=== PATIENT | female | born 1940 | race Caucasian/White ===

== ENCOUNTER 2020-02-22 14:40 | Observation (INO) | payer OTHER, MEDICARE, SELFPAY ==
[2020-02-22] VITALS (8 sets, daily range): BP systolic 128–182; BP diastolic 58–82; PULSE 65–85; RESP 16–18; TEMP 36.1–36.9; O2SAT 96–99
--- NOTE | ~2020-02-22 | US_ITS ---
EXAMINATION: US venous doppler [facility] DATE: 02/23/2020 09:34 INDICATION: Lower limb swelling. TECHNIQUE: Grayscale ultrasound images without and with compression and Doppler ultrasound images of the bilateral lower extremity veins were obtained. COMPARISON: None. FINDINGS: The visualized portions of right common femoral vein, profunda (deep) femoral vein, femoral vein, pop liteal vein, peroneal veins, posterior tibial veins, and greater saphenous vein outflow are patent. The visualized portions of left common femoral vein, profunda femoral vein, femoral vein, popliteal v ein, peroneal veins, posterior tibial veins, and greater saphenous vein outflow are patent. IMPRESSION: 1. No deep venous thrombosis. Reviewed, dictated and finalized at location A.
--- NOTE | 2020-02-22 14:48 | ECG_ITS ---
Measurements Intervals [place] Rate: 79 P: 95 NH: 308 QRS: -51 QRSD: 149 T: 118 QT: 391 QTc: 451 Interpretive Statements SINUS RHYTHM WITH FIRST DEGREE AV BLOCK LEFT AXIS DEVIATION LEFT BUNDLE BRANCH BLOCK ABNORMAL ECG Electronically Signed On 02-22-2020 15:30:57 CDT by Dannie Nance D.O.
--- NOTE | 2020-02-22 15:09 | ED.GENADULT ---
HPI - General Adult General Chief complaint: Syncope Stated complaint: laceration right wrist Time Seen by Provider: 02/22/20 14:42 Source: patient Mode of arrival: ambulatory Limitations: no limitations History of Present Illness HPI narrative: Patient is an 79-year-old female who presents to emergency department for evaluation of syncopal episode that occurred just prior to arrival patient notes she was bending over to give a urinalysis and has difficulty with bending over and often became become dizzy and sustained a brief syncopal episode. Patient sustained a skin tear to the dorsal surface of the right hand. Patient was only down for short period. Patient is also noting that she had just had an ABG. Patient with history of leukemia receiving no treatments at this time followed by oncology and primary care. Patient on arrival noting no pain no complaints. Patient notes she was just recently treated for urinary tract infection and believes she may still have 1 with burning with urination Related Data Allergies Allergy/AdvReac Type Severity Reaction Status Date / Time codeine Allergy Unknown tachycardia Verified 02/08/20 09:57 morphine Allergy Unknown tachycardia Verified 02/08/20 09:57 Review of Systems Review of Systems: All systems reviewed & are unremarkable except as noted in HPI and below PMFSH Past Medical History Medical History Bladder disease Chronic lymphocytic leukemia Chronic pain of left knee CKD (chronic kidney disease) Elevated glucose level Essential hypertension HLD (hyperlipidemia) Hypothyroidism Leukemia Family History Family History (Updated 08/10/19 @ 08:06 by Alondra Gastelum [facility]) Father Asthma Mother Family history of heart disease in male family member before age 55 Cerebrovascular accident Other Diabetes mellitus Family history of arthritis Hypertension Social History Social History Smoking status: Former smoker Second hand tobacco smoke exposure: No Smoking end date: 09/20/77 Alcohol intake: never Gender identity (if verbalized by the patient): Female Exam Narrative: Exam Narrative: GENERAL: Well-appearing, well-nourished, and in no acute distress. HEAD: Normocephalic, atraumatic. EYES: PERRLA and EOMI. ENT: Nares clear, no rhinorrhea or epistaxis. Mucous membranes moist. Oropharynx without tonsillar hypertrophy exudate or other lesions. NECK: Supple. No adenopathy or masses. CHEST: Clear to auscultation. No respiratory distress. No wheezes rales or rhonchi HEART: Regular rate and rhythm. No murmur heard. Normal peripheral pulses. ABDOMEN: Soft, nontender, nondistended EXTREMITIES: Normal range of motion. 1+ edema to the bilateral lower extremities. no cervical thoracic or lumbar tenderness SKIN: Warm, dry, no rash. Superficial linear skin tear to the dorsal surface of the right hand NEURO: No focal deficits. Alert and oriented x3. Cranial nerves II through XII grossly intact. Neurovascularly intact PSYCH: Normal mood and affect. Course Course Emergency Course: Patient and family aware of case findings treatment plan and diagnosis Consultations Consultation #1: Discussed case with hospitalist who is agreed to accept the patient Date: 02/22/20 Time: 17:11 Vital Signs Vital signs: Vital Signs Temperature 97.0 F L 02/22/20 14:41 Pulse Rate 71 02/22/20 14:41 Respiratory Rate 18 02/22/20 14:41 Blood Pressure 182/63 H 02/22/20 14:41 Pulse Oximetry 99 02/22/20 14:41 Temperature 97.0 F L 02/22/20 14:41 Pulse Rate 71 02/22/20 14:41 Respiratory Rate 18 02/22/20 14:41 Blood Pressure 182/63 H 02/22/20 14:41 Pulse Oximetry 99 02/22/20 14:41 Medical Decision Making MDM Narrative Medical decision making narrative: Patient in the room in no distress aware of case findings treatment plan and diagnosis agreeing t
[2020-02-22 15:20] LABS: Hematocrit 35.4 % (37.0-47.0); Hemoglobin 10.9 g/dL (12.0-15.0); Immature Platelet Fraction Pct 1.6 % (0.9-11.2); Mean Corpuscular HGB Conc 30.8 g/dl (32-36); Mean Corpuscular Hemoglobin 29.8 pg (26-34); Mean Corpuscular Volume 96.7 fl (80-100); Mean Platelet Volume 10.4 fl (7.4-10.4); Platelet Count Result 131 k/mm3 (150-375); Red Blood Count 3.66 M/mm3 (4.2-5.4); Red Cell Distribution Width 15.9 % (11.5-14.5); White Blood Count 18.8 K/mm3 (4.5-10.0)
[2020-02-22 15:30] LABS: Alanine Aminotransferase 10 U/L (4-35); Alkaline Phosphatase 108 U/L (38-126); Aspartate Amino Transferase 26 U/L (14-36); Bilirubin,Total 0.4 mg/dL (0.2-1.3)
[2020-02-22 15:31] LABS: Blood Urea Nitrogen 23 mg/dL (7-17); Calcium 8.8 mg/dL (8.4-10.2); Carbon Dioxide 27 mmol/L (22-30); Chloride 103 mmol/L (98-107); Estimated CRCL calculation 44 ml/min; Estimated Glomerular Filt Rate 53; Glucose 107 mg/dL (65-105); Potassium 4.4 mmol/L (3.4-5.0); Sodium 136 mmol/L (137-145)
[2020-02-22 15:42] LABS: INR 0.9; Prothrombin Time 12.1 Seconds (11.1-14.7); Troponin I < 0.012 ng/mL (0.000-0.034)
[2020-02-22 15:43] LABS: Lymphocytes Absolute Manual 17.29 K/mm3 (1.1-4.5); Lymphocytes Percent Manual 92 % (18-44); Monocytes Absolute Manual 0.56 K/mm3 (0.1-0.90); Monocytes Percent Manual 3 % (3-9); Neutrophils Percent Manual 5 % (46-73); Total Cells Counted 100
[2020-02-22 15:44] LABS: Atypical Lymphocytes Present; Ovalocytes 1+ (NORMAL); Platelet Estimate Decreased (Adequate); Smudge Cells MANY
[2020-02-22 15:45] LABS: Partial Thromboplastin Time 23.6 SECONDS (22.3-36.8)
[2020-02-22] MEDS: SODIUM CHLORIDE 0.9% IV 500 ML 999 ML IV CONT (15:58)
[2020-02-22 15:59] LABS: Add Urine Microscopic? YES; Appearance Urine Cloudy (Clear); Bacteria Urine Trace /hpf; Bilirubin Urine Negative (Negative); Blood Urine 1+ (Negative); Color Urine Yellow (Yellow); Glucose Urine UA Negative (Negative); Ketones Urine Negative (Negative); Leukocyte Esterase Ur 3+ LEU/UL (Negative); Mucus Urine Rare /lpf; Nitrate Urine Negative (Negative); Protein Urine 1+ mg/dL (Negative); Specific Grav Ur 1.014 (1.001-1.035); Squamous Epithelial Cell Urine Moderate /hpf (Few); Urobilinogen Urine Negative mg/dL (<2.0); WBC Urine >75 /hpf
--- NOTE | 2020-02-22 17:55 | ADMGEN ---
This patient, Nikky Urena, was admitted to Medical Room 347-. Patient/family oriented to hospital policies and general routines including ID bracelet, bed and alarms, visiting hours, pain management, procedures, bathroom and other care routines, personal items, smoking policy, room service/diet, and visiting hours. Valuables list has been completed. Information on how to activate the Rapid Response Team has been discussed. Patient/Family are encouraged to report perceived risks to care and to ask questions if they do not understand what they are told or what they should do.
[2020-02-22] MEDS: LACTATED RINGERS 1,000 ML 75 ML IV CONT (18:34)
--- NOTE | 2020-02-22 21:30 | PM.IMHP ---
H&P: HPI History of Present Illness Chief complaint: Fall, questionable syncope. Narrative: Nikky Urena is an 79-year-old female with hypertension, hyperlipidemia, CLL, and history of recurrent urinary tract infections who presented to the emergency department earlier today via private vehicle for evaluation after a fall and possible syncopal episode. She was treated for a urinary tract infection recently, finishing her antibiotic just several days ago. Unfortunately, she continues to have dysuria and urinary incontinence. After speaking with her primary care provider, she was sent to give another urine specimen and to have some lab work drawn. She had difficulties leading forward when trying to catch the urine in the specimen container, and she reports that she fell forward due to losing her balance. She scraped the dorsum of her right hand on the toilet seat, and screamed for help as it started to bleed immediately. He she then began to feel lightheaded/dizzy and may have briefly lost consciousness. She did not fall to the floor, however. She has no other complaints and specifically denies fever, chills, sweats, nausea, vomiting, and diarrhea. No chest pain, pleuritic pain, palpitations, or shortness of breath. Review of Systems Review of Systems: Narrative: Twelve systems were reviewed with pertinent positives and negatives as per HPI. No cold or flu symptoms. She denies cough and shortness of breath. No history of venous thromboembolism. She has chronic lower extremity edema, right foot > left, due to previous fracture and surgical fixation. No history of congestive heart failure or obstructive sleep apnea. Except as documented, all other systems were reviewed and are negative. [facility] Past Medical History Medical History (Updated 02/22/20 @ 23:40 by Elma Alarcon PA-C) Chronic lymphocytic leukemia Chronic pain of left knee Essential hypertension Hyperlipidemia Hypothyroidism Surgical History Surgical History (Updated 02/22/20 @ 23:35 by Elma Alarcon PA-C) History of ankle surgery (~1999) Right ankle ORIF with hardware. History of bladder surgery History of cholecystectomy History of hysterectomy History of lumbar surgery Family History Family History Father Asthma Mother Family history of heart disease in male family member before age 55 Cerebrovascular accident Other Diabetes mellitus Family history of arthritis Hypertension Social History Social History (Updated 02/22/20 @ 23:36 by Elma Alarcon PA-C) Social History: The patient lives in [place] with her daughter and her family. She has been for 16 years. She grew up in [place] but was raised in [place]. She and her lived in [place] for about 34 years before they retired, and then they moved to this region to be closer to their 2 children. In total, she has 6 children. She smoked up to 3 packs of cigarettes per day for many years and quit 1973. She denies alcohol and illicit substance use. She designates her child, Caity Urena, as her surrogate decision maker and she wishes to be a full code. Spiritual care concerns: No Meds Home Medications and Allergies Home Medications Medication Instructions Recorded Confirmed Type lisinopril 20 mg tablet 20 mg PO DAILY #90 tablet 09/29/19 02/22/20 Rx simvastatin 40 mg tablet 40 mg PO DAILY #90 tablet 09/29/19 02/22/20 Rx aspirin 81 mg PO DAILY 02/22/20 02/22/20 History cholecalciferol (vitamin D3) 1,250 1,250 mcg PO MONTHLY #8 tablet 02/22/20 02/22/20 Rx mcg (50,000 unit) tablet fluticasone propionate 50 1 spray NASAL Q12H #18.2 ml 02/22/20 02/22/20 Rx mcg/actuation nasal spray,suspension Allergies Allergy/AdvReac Type Severity Reaction Status Date / Time codeine Allergy Unknown tachycardia Verified 02/22/20 18:03 morphine Allergy Unknown tachycardia Verified 02/22/20 18:03
[2020-02-22] MEDS: FAMOTIDINE 20 MG/2 ML VIAL IV PUSH (22:45)
[2020-02-23] VITALS (7 sets, daily range): BP systolic 109–159; BP diastolic 48–60; PULSE 57–73; RESP 16–18; TEMP 36.1–36.5; O2SAT 97–98
[2020-02-23 05:38] LABS: Hematocrit 30.7 % (37.0-47.0); Hemoglobin 9.3 g/dL (12.0-15.0); Immature Platelet Fraction Pct 1.5 % (0.9-11.2); Mean Corpuscular HGB Conc 30.3 g/dl (32-36); Mean Corpuscular Hemoglobin 29.4 pg (26-34); Mean Corpuscular Volume 97.2 fl (80-100); Mean Platelet Volume 10.4 fl (7.4-10.4); Platelet Count Result 117 k/mm3 (150-375); Red Blood Count 3.16 M/mm3 (4.2-5.4); Red Cell Distribution Width 15.9 % (11.5-14.5); White Blood Count 16.5 K/mm3 (4.5-10.0)
[2020-02-23 05:57] LABS: Blood Urea Nitrogen 21 mg/dL (7-17); Calcium 8.4 mg/dL (8.4-10.2); Carbon Dioxide 30 mmol/L (22-30); Chloride 107 mmol/L (98-107); Estimated CRCL calculation 54 ml/min; Estimated Glomerular Filt Rate > 60; Glucose 97 mg/dL (65-105); Potassium 4.4 mmol/L (3.4-5.0); Sodium 137 mmol/L (137-145)
[2020-02-23] MEDS: lisinopriL 20 MG TABLET PO (11:29)
[2020-02-23] MEDS: FLUTICASONE PROPIONATE 0.05% NA SPR 16 GM BTL (*BKC) 1 SPRAY NASAL ×2 (11:29→20:21)
[2020-02-23] MEDS: SIMVASTATIN 20 MG TABLET 40 MG PO (11:29)
[2020-02-23] MEDS: ASPIRIN 81 MG CHEWABLE TABLET PO (11:29)
--- NOTE | 2020-02-23 13:27 | PM.IMPN ---
Progress Note: A&P Assessment and Plan (1) Urinary tract infection: Code(s): N39.0 - Urinary tract infection, site not specified Status: Acute Assessment and Plan: Recurrent UTIs. Spoke with patient's PCP today; patient will likely get referral to Urology as outpatient once discharge Continue Rocephin Await UCx with sensitivities; tailor antibiotics Monitor (2) Syncope: Code(s): R55 - Syncope and collapse Status: Acute Assessment and Plan: Given her history and orthostatics, patient potentially was orthostatic or had a vasovagal episode after getting blood drawn. Echo shows severe pulmonary hypertension as well which could be etiology. Patient is uncertain as to whether not she briefly lost consciousness. Will do MICHEAL hose thigh highs Will give 1L IVF today Monitor overnight PT/OT ordered as well (3) Severe pulmonary arterial systolic hypertension: Code(s): I27.21 - Secondary pulmonary arterial hypertension Status: Acute Assessment and Plan: Noted on Echo today; pressure of 62 mmHg. Patient does have extensive smoking history, but denies any diagnosis of lung disease. Venous dopplers were negative for DVT; PE possibility but unlikely. Discussed with Appointment Coordinator, Dr. Garcia, who agreed to see patient while she is in the hospital Await further recommendations from Dr. Garcia Monitor Will likely need continued follow up as outpatient as well (4) Heart murmur: Code(s): R01.1 - Cardiac murmur, unspecified Status: Acute Assessment and Plan: Echocardiogram shows mild mitral regurgitation; and mild-mod pulmonic regurgitation. (5) Essential hypertension: Code(s): I10 - Essential (primary) hypertension Status: Acute Assessment and Plan: Blood pressures have been running in the 150s this morning. Patient also orthostatic today Continue antihypertensives MICHEAL isra ordered Monitor (6) Hypothyroidism: Code(s): E03.9 - Hypothyroidism, unspecified Status: Acute Assessment and Plan: It appears patient does not take levothyroxine per medication list Will have nursing confirm with pharmacy that patient does not take this medication Continue levothyroxine if patient takes at home (7) Hyperlipidemia: Code(s): E78.5 - Hyperlipidemia, unspecified Status: Acute Assessment and Plan: LFTs within normal limits Continue simvastatin. (8) Chronic lymphocytic leukemia: Code(s): C91.10 - Chronic lymphocytic leukemia of B-cell type not having achieved remission Status: Acute Assessment and Plan: Stable and not currently being treated. Subjective Date/time seen: 02/23/20 13:27 Interval history: Patient is a 79 yo F, former smoker, with history of hypertension, hyperlipidemia, CLL, and history of recurrent urinary tract infections who is here for evaluation for UTI, syncopal episode, and now severe pulmonary hypertension found on Echo during this stay. Patient states she is doing okay currently. She tells me she usually gets woozy after having labs drawn. Yesterday she had labs drawn and was sent to give a urine sample; after going to the bathroom she thinks she got woozy and hit her hand on the toilet seat, causing her to bleed. She attributes this episode to having labs drawn. Otherwise patient has no other complaints. Tolerating diet. No urinary symptoms at the moment. Denies f/c/s, changes in v/h, cp/palpitations, sob/cough, n/v/d/c, abd pain, changes in BMs, dysuria, hematuria, cloudy uri
[2020-02-23] MEDS: SODIUM CHLORIDE 0.9% IV 1,000 ML 100 ML IV CONT (14:15)
--- NOTE | 2020-02-23 23:41 | ECHO_ITS ---
Patient Info Name: Nikky Urena Age: 79 years : 1940 Gender: Female Ht: 71 in Wt: 200 lbs BSA: 2.15 m2 HR: 59 bpm BP: 159 / 60 mmHg Technical Quality: Good Exam Date: 02/23/2020 11:34 AM Exam Location: [facility] Patient Status: Outpatient Admit Date: 02/22/2020 Staff Ordering Physician: Elma Alarcon PA-C Chemical Tester: Nestor Latham RDCS, RT Attending Provider: Isael Low PA-C Referring Physician: Agnes SELLERS; Exam Type: CA echo doppler color flow Study Info Indications R01.1 - Cardiac murmur, unspecified Complete two-dimensional, color flow and Doppler transthoracic echocardiogram is performed. Summary 1. Left ventricular chamber dimension is normal. 2. Left ventricular systolic function is normal, estimated at 60-65%. 3. There is moderately increased left ventricular wall thickness. 4. The left ventricular diastolic function is abnormal. 5. E/e' 15 is elevated. 6. Global longitudinal strain is normal at -17.1%. 7. Left atrial chamber dimension is mildly enlarged. 8. There is mild aortic valve sclerosis. 9. The mitral valve has mildly calcified annulus. 10. There is mild mitral valve regurgitation. 11. Severe pulmonary hypertension, estimated pulmonary arterial systolic pressure is 62 mmHg. 12. There is mild to moderate pulmonic regurgitation. 13. Dilated inferior vena cava with >50% collapse upon inspiration consistent with elevated right atrial pressure, 10 mmHg. Left Ventricle E/e' 15 is elevated. Global longitudinal strain is normal at -17.1%. Left ventricular chamber dimension is normal. Left ventricular systolic function is normal, estimated at 60-65%. There is moderately increased left ventricular wall thickness. The left ventricular diastolic function is abnormal. Right Ventricle Right ventricular chamber dimension is normal. Right ventricular systolic function is normal. Left Atria Left atrial chamber dimension is mildly enlarged. Right Atria Right atrial chamber dimension is normal. Aortic Valve The aortic valve is trileaflet. There is mild aortic valve sclerosis. There is no aortic valve stenosis. There is no aortic valve regurgitation. Pulmonic Valve There is mild to moderate pulmonic regurgitation. Mitral Valve The mitral valve has mildly calcified annulus. There is no mitral valve stenosis. There is mild mitral valve regurgitation. Tricuspid Valve There is no tricuspid valve regurgitation. Severe pulmonary hypertension, estimated pulmonary arterial systolic pressure is 62 mmHg. Pericardium/Pleural The pericardium appears normal. Inferior Vena Cava Dilated inferior vena cava with >50% collapse upon inspiration consistent with elevated right atrial pressure, 10 mmHg. Aorta The aortic root size at the sinus of Valsalva is normal. Left Ventricular Outflow Tract Name Value Normal LVOT 2D LVOT Diameter 2.0 cm LVOT Doppler LVOT Peak Gradient 5 mmHg LVOT Mean Gradient 3 mmHg LVOT VTI 26 cm LVOT VTI/AV VTI Ratio
[2020-02-24 04:20] VITALS: BP 157/61; PULSE 69; RESP 12; TEMP 36.1; O2SAT 95
[2020-02-24 06:03] LABS: Hematocrit 29.3 % (37.0-47.0); Hemoglobin 8.9 g/dL (12.0-15.0); Mean Corpuscular HGB Conc 30.4 g/dl (32-36); Mean Corpuscular Hemoglobin 29.4 pg (26-34); Mean Corpuscular Volume 96.7 fl (80-100); Mean Platelet Volume 10.5 fl (7.4-10.4); Platelet Count Result 103 k/mm3 (150-375); Red Blood Count 3.03 M/mm3 (4.2-5.4); Red Cell Distribution Width 15.7 % (11.5-14.5); White Blood Count 12.5 K/mm3 (4.5-10.0)
[2020-02-24 06:14] LABS: Blood Urea Nitrogen 18 mg/dL (7-17); Calcium 8.5 mg/dL (8.4-10.2); Carbon Dioxide 28 mmol/L (22-30); Chloride 108 mmol/L (98-107); Estimated CRCL calculation 48 ml/min; Estimated Glomerular Filt Rate 60; Glucose 103 mg/dL (65-105); Magnesium 2.2 mg/dL (1.6-2.3); Sodium 138 mmol/L (137-145)
[2020-02-24] MEDS: ASPIRIN 81 MG CHEWABLE TABLET PO (08:34)
[2020-02-24] MEDS: SIMVASTATIN 20 MG TABLET 40 MG PO (08:34)
[2020-02-24] MEDS: lisinopriL 20 MG TABLET PO (08:34)
[2020-02-24] MEDS: FLUTICASONE PROPIONATE 0.05% NA SPR 16 GM BTL (*BKC) 1 SPRAY NASAL (08:34)
[2020-02-24 08:51] LABS: Lymphocytes Absolute Manual 10.75 K/mm3 (1.1-4.5); Monocytes Absolute Manual 0.75 K/mm3 (0.1-0.90); Monocytes Percent Manual 6 % (3-9); Neutrophils Percent Manual 8 % (46-73); Platelet Estimate Decreased (Adequate); Total Cells Counted 100
[2020-02-24 14:00] VITALS: BP 126/57; BP 139/55; BP 173/58; PULSE 58; RESP 20; TEMP 36; O2SAT 98
--- NOTE | 2020-02-24 14:34 | PM.DS ---
DS: Admitting Diagnosis Admitting Diagnosis Admitting Diagnosis: Urinary tract infection, syncope DS: Discharge Diagnosis Discharge Diagnosis (1) Urinary tract infection: Code(s): N39.0 - Urinary tract infection, site not specified Status: Acute Assessment and Plan: Recurrent UTIs. Spoke with patient's PCP; patient will likely get referral to Urology as outpatient once discharge. UCx showed multiple organisms < 10,000 CFU/mL; likely colonizers. WBC down to 12.5k. Patient does have CLL as well Will d/c Rocephin UCx results Will do UA with reflex next week Will repeat CBC as well F/u with PCP (2) Syncope: Code(s): R55 - Syncope and collapse Status: Acute Assessment and Plan: Given her history and orthostatics, patient potentially was orthostatic or had a vasovagal episode after getting blood drawn. Echo shows severe pulmonary hypertension as well which could be etiology. Patient is uncertain as to whether not she briefly lost consciousness. Orthostatics improved overnight. Will do MICHEAL hose thigh highs at discharge and f/u with PCP on when to d/c PT/OT had no rec d/c with f/u with PCP (3) Severe pulmonary arterial systolic hypertension: Code(s): I27.21 - Secondary pulmonary arterial hypertension Status: Acute Assessment and Plan: Noted on Echo during stay; pressure of 62 mmHg. Patient does have extensive smoking history, but denies any diagnosis of lung disease. Venous dopplers were negative for DVT; PE possibility but unlikely. Discussed with Planting Machine Operator, Dr. Garcia, who agreed to see patient while she is in the hospital Will likely need continued follow up with Dr. Garcia as outpatient as well (4) Heart murmur: Code(s): R01.1 - Cardiac murmur, unspecified Status: Acute Assessment and Plan: Echocardiogram shows mild mitral regurgitation; and mild-mod pulmonic regurgitation. (5) Essential hypertension: Code(s): I10 - Essential (primary) hypertension Status: Acute Assessment and Plan: Blood pressures have been running in the 150s this morning. Orthostatic BPs improved today Continue antihypertensives MICHEAL hose at discharge (6) Hypothyroidism: Code(s): E03.9 - Hypothyroidism, unspecified Status: Acute Assessment and Plan: Patient does denies any history of hypothyroidism; No record from previous EMR either. No home levothyroxine ordered. TSH WNL Will take diagnosis off of history f/u with PCP (7) Hyperlipidemia: Code(s): E78.5 - Hyperlipidemia, unspecified Status: Acute Assessment and Plan: LFTs within normal limits Continue simvastatin. (8) Chronic lymphocytic leukemia: Code(s): C91.10 - Chronic lymphocytic leukemia of B-cell type not having achieved remission Status: Acute Assessment and Plan: Stable and not currently being treated. DS: Summary Hospital Course Reason for hospitalization: UTI, Syncope Hospital Course: Patient is a 79 yo F with history of hypertension, hyperlipidemia, CLL, and history of recurrent urinary tract infections who presented to the emergency department 02/21 via private vehicle for evaluation after a fall and possible syncopal episode. While in the ER, patient was suspected to have orthostatic hypotension. Patient admitted under this setting and evaluation for syncope. Please see H&P for further details. Presenting VS: Temp Pulse Resp BP Pulse Ox 97.0 F L 71 18 182/63 H 99 02/22/20 14:41 02/22/20 14:41 02/22/20 14:41 02/22/20 14:
--- NOTE | 2020-02-24 16:25 | PM.CNPUL ---
Assessment and Plan Assessment and plan (1) Severe pulmonary arterial systolic hypertension: Code(s): I27.21 - Secondary pulmonary arterial hypertension Status: Acute Assessment and Plan: Echo showed RVSP 62 mmHg. Most likely this is due to underlying emphysema +/- REGINO. She has not been on any medications for her CLL, so no chemotherapeutic meds that could have caused pulmonary hypertension. We discussed further evaluation as an outpatient, and she is free to follow up. She says that she feels fine, and may or may not be interested in follow up. She has no collagen vascular disease, does have a hx of tobacco use 3 ppd for years, quit in 1972. (2) Chronic lymphocytic leukemia: Code(s): C91.10 - Chronic lymphocytic leukemia of B-cell type not having achieved remission Status: Acute Assessment and Plan: for years, not on treatment so far, stable. (3) Syncope: Code(s): R55 - Syncope and collapse Status: Acute Assessment and Plan: may have been caused by the sight of blood on her hand while collecting urine; History of Present Illness History of Present Illness Consult date: 02/25/20 Requesting physician: Isael Low PA-C Reason for consult: pulmonary hypertension Chief complaint: Fall, questionable syncope. Narrative: NEW: PULMONARY CONSULT : Nikky Urena is an 79 yo female who has pulmonary hypertension noted on a echo this admission. She presented with syncope which occurred when she was in the lab obtaining a urine sample, banged the dorsum of her right hand on the toilet seat causing a large amount of blood which was frightening. She passed out, was admitted for syncope. She had H/H 10.9/34.4%, and an echo showing RVSP 62 mmHg. The patient was a heavy smoker for ~ 15 years up to ppd, = 45 pack years at most, quit at age 33 in 1977. She has no diagnosis of lung disease, never had asthma, did not grow up in a smoking home, lived with a light smoker . She denies shortness of breath with exertion, chest pain, cough, sputum, wheezing, or waking at night short of breath. She has a history of a negative sleep test in a hospital years ago. She has not had PFTs. There is no history of any collage vascular disease, arthritis other than injury related pain in right foot, no rashes, and no blood clots. 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 PMH: CLL Review of Systems Review of Systems: Narrative: Twelve systems were reviewed with pertinent positives and negatives as per HPI. No cold or flu symptoms. She denies cough and shortness of breath. No history of venous thromboembolism. She has chronic lower extremity edema, right foot > left, due to previous fracture and surgical fixation. No history of congestive heart failure or obstructive sleep apnea. Except as documented, all other systems were reviewed and are negative. [facility] Past Medical History Medical History (Updated 02/24/20 @ 14:17 by Isael Low PA-C) Chronic lymphocytic leukemia Chronic pain of left knee Essential hypertension Hyperlipidemia Surgical History Surgical History (Updated 02/22/20 @ 23:35 by Elma Alarcon PA-C) History of ankle surgery (~1999) Right ankle ORIF with hardware. History of bladder surgery History of cholecystectomy History of hysterectomy History of lumbar surgery Family History Family History Father Asthma Mother Family history of heart disease in male family member before age 55 Cerebrovascular accident Other Diabetes mellitus Family history of arthritis Hypertension Social History Social History (Updated 02/25/20 @ 20:04 by Kimberly Garcia MD) Social History: The patient lives in [place] with her daughter and her family. She has been for 16 years. She grew up in [place] but was raised in [place]. She and her lived in [place] for about 34 years before t
== END 2020-02-24 18:10 | disposition home or self-care (01) ==
LOC: ANHED 17:14 → ANH3MED 17:41
PROVIDERS: Emergency Medicine Emergency Medical Services; Physician Assistant; Admitting Provider Internal Medicine; Emergency Provider Emergency Medicine; PCP Internal Medicine; Visit Provider Physician Assistant
DX: N39.0 Urinary tract infection, site not specified (principal); R55 Syncope and collapse; I27.21 Secondary pulmonary arterial hypertension; R01.1 Cardiac murmur, unspecified; I12.9 Hypertensive chronic kidney disease with stage 1 through stage 4 chronic kidney disease, or unspecified chronic kidney disease; N18.9 Chronic kidney disease, unspecified; E78.5 Hyperlipidemia, unspecified; C91.10 Chronic lymphocytic leukemia of B-cell type not having achieved remission; R60.0 Localized edema; Z87.891 Personal history of nicotine dependence
CPT/HCPCS: 36415; 80048; 80076; 81001; 83735; 84443; 84484; 85025; 85027; 85055; 85610; 85730; 87086; 87088; 88108; 93005; 93306; 93970; 96360; 96361; 96365; 96375; 97161; 97165; 99285; A9270; G0378; J0696; J7030; J7040; J7120

== ENCOUNTER 2020-10-27 17:56 | Emergency (ER) | payer MEDICARE, SELFPAY ==
[2020-10-27] VITALS (9 sets, daily range): BP systolic 122–168; BP diastolic 46–65; PULSE 56–63; RESP 16–22; TEMP 36.9; O2SAT 94–100
--- NOTE | ~2020-10-27 | XR_ITS ---
EXAMINATION: XR chest 1V portable 10/27/2020 18:45 INDICATION: Cough and congestion. Covid exposure. PROCEDURE: AP portable chest COMPARISON: 11/27/2012 FINDINGS: The lungs are clear. The cardiomediastinal silhouette is within normal limits. There are no pleural effusions. There is no pneumothorax suspected. IMPRESSION: 1: NO ACUTE CARDIOPULMONARY DISEASE. Reviewed, dictated and finalized at location A. [facility]
--- NOTE | 2020-10-27 18:34 | ED.URI ---
HPI - URI/Sore Throat General Chief Complaint: Upper Respiratory Infection <Jeanette Torres PA-C - Last Filed: 10/27/20 21:57> Stated Complaint: Congestion, cough x 5 days <KARINA Don Last Filed: 10/27/20 21:57> Time Seen by Provider: 10/27/20 18:12 <KARINA Don Last Filed: 10/27/20 21:57> Source: patient <KARINA Don Last Filed: 10/27/20 21:57> Mode of arrival: wheelchair <KARINA Don Last Filed: 10/27/20 21:57> Limitations: no limitations <KARINA Don Last Filed: 10/27/20 21:57> History of Present Illness HPI Narrative: This is a 80 year old female that presents to the ER for cold symptoms x 3 days. Reports cough, congestion, sore throat and chills. Denies fever, chest pain, or shortness of breath. <KARINA Don Last Filed: 10/27/20 21:57> Related Data Home Medications: Home Medications Medication Instructions Recorded Confirmed aspirin 81 mg PO DAILY 02/22/20 07/10/20 ferrous sulfate mg 10/27/20 <KARINA Don Last Filed: 10/27/20 21:57> Allergies/Adverse Reactions: Allergies Allergy/AdvReac Type Severity Reaction Status Date / Time codeine Allergy Unknown tachycardia Verified 10/27/20 18:08 morphine Allergy Unknown tachycardia Verified 10/27/20 18:08 <KARINA Don Last Filed: 10/27/20 21:57> Review of Systems Review of Systems: Narrative: CONSTITUTIONAL: Denies fever ENT: Reports rhinorrhea, congestion, sore throat CARDIOVASCULAR: Denies chest pain RESPIRATORY: Reports cough. Denies dyspnea. GASTROINTESTINAL: Denies abdominal pain, nausea, vomiting GENITOURINARY: Denies dysuria <KARINA Don Last Filed: 10/27/20 21:57> All systems reviewed & are unremarkable except as noted in HPI and below <Jeanette Torres PA-C - Last Filed: 10/27/20 21:57> PMFSH Past Medical History Medical History: Medical History (Updated 10/27/20 @ 21:54 by Jeanette Torres PA-C) Chronic lymphocytic leukemia Chronic pain of left knee Essential hypertension Hyperlipidemia <Jeanette Torres PA-C - Last Filed: 10/27/20 21:57> Surgical History Surgical History: Surgical History (Updated 02/22/20 @ 23:35 by Elma Alarcon PA-C) History of ankle surgery (~1999) Right ankle ORIF with hardware. History of bladder surgery History of cholecystectomy History of hysterectomy History of lumbar surgery <Jeanette Torres PA-C - Last Filed: 10/27/20 21:57> Family History Family History: Family History Father Asthma Mother Family history of heart disease in male family member before age 55 Cerebrovascular accident Other Diabetes mellitus Family history of arthritis Hypertension <Jeanette Torres PA-C - Last Filed: 10/27/20 21:57> Social History Social History: Social History (Updated 07/10/20 @ 14:38 by Alondra Gastelum [facility]) Social History: The patient lives in [place] with her daughter and her family. She has been for 16 years. She grew up in [place] but was raised in [place]. She and her lived in [place] for about 34 years before they retired, and then they moved to this region to be closer to their 2 children. In total, she had 6 children, lost 2. She smoked up to 3 packs of cigarettes per day for many years and quit 1972. She denies alcohol and illicit substance use. She designates her child, Caity Urena, as her surrogate decision maker and she wishes to be a full code. Smoking status: Former smoker Alcohol intake: never Gender identity (if verbalized by the patient): Female Spiritual care concerns: No <Jeanette Torres PA-C - Last Filed: 10/27/20 21:57> Exam Narrative: Exam Narrative: GENERAL: Chronically ill-appearing, well-nourished, and in no acute distress. HEAD: Normocephalic, atraumatic. EYES: EOMI. ENT: Nares clear
[2020-10-27 18:57] LABS: Hemoglobin 9.6 g/dL (12.0-15.0); Mean Corpuscular Hemoglobin 28.2 pg (26-34); Mean Corpuscular Volume 90.9 fl (80-100); Mean Platelet Volume 10.2 fl (7.4-10.4); Platelet Count Result 120 k/mm3 (150-375); Red Blood Count 3.41 M/mm3 (4.2-5.4); Red Cell Distribution Width 16.7 % (11.5-14.5); White Blood Count 15.4 K/mm3 (4.5-10.0)
[2020-10-27 19:07] LABS: Lactic Acid Reflex 0.6 mmol/L (0.7-2.1)
[2020-10-27 19:09] LABS: Alanine Aminotransferase 11 U/L (4-35); Albumin Level 3.5 g/dL (3.5-5.1); Alkaline Phosphatase 162 U/L (38-126); Anion Gap 1 mmol/L (8-16); Aspartate Amino Transferase 35 U/L (14-36); Bilirubin,Total 0.5 mg/dL (0.2-1.3); Blood Urea Nitrogen 20 mg/dL (7-17); Calcium 8.9 mg/dL (8.4-10.2); Carbon Dioxide 31 mmol/L (22-30); Chloride 103 mmol/L (98-107); Estimated CRCL calculation 53 ml/min; Estimated Glomerular Filt Rate > 60; Glucose 115 mg/dL (65-105); Lactate Dehydrogenase 755 U/L (313-618); Lipase 146 U/L (23-300); Potassium 4.6 mmol/L (3.4-5.0); Sodium 135 mmol/L (137-145)
[2020-10-27 19:13] LABS: CRP 0.8 mg/dL (<1.0)
[2020-10-27 19:18] LABS: Lymphocytes Absolute Manual 12.01 K/mm3 (1.1-4.5); Monocytes Percent Manual 2 % (3-9); Neutrophils Percent Manual 20 % (46-73); Platelet Estimate Decreased (Adequate); Total Cells Counted 100
[2020-10-27 19:19] LABS: Atypical Lymphocytes Present
[2020-10-27 20:03] LABS: Add Urine Microscopic? YES; Appearance Urine Cloudy (Clear); Bacteria Urine 1+ /hpf; Bilirubin Urine Negative (Negative); Blood Urine Negative (Negative); Color Urine Yellow (Yellow); Glucose Urine UA Negative (Negative); Ketones Urine Negative (Negative); Leukocyte Esterase Ur 2+ LEU/UL (Negative); Mucus Urine Rare /lpf; Nitrate Urine Negative (Negative); Protein Urine 2+ mg/dL (Negative); RBC Urine 21-50 /hpf (0-2); Specific Grav Ur 1.024 (1.001-1.035); Squamous Epithelial Cell Urine Many /hpf (Few); Urobilinogen Urine Negative mg/dL (<2.0); WBC Urine >75 /hpf
[2020-10-28 18:27] LABS: SARS-CoV-2 RNA PCR Negative
== END 2020-10-27 22:15 | disposition home or self-care (01) ==
PROVIDERS: Physician Assistant; Emergency Provider General Practice; PCP Internal Medicine
DX: R05 Cough (principal); J02.9 Acute pharyngitis, unspecified; Z20.822 Contact with and (suspected) exposure to COVID-19; N30.00 Acute cystitis without hematuria; I10 Essential (primary) hypertension; E78.5 Hyperlipidemia, unspecified; C91.10 Chronic lymphocytic leukemia of B-cell type not having achieved remission
CPT/HCPCS: 36415; 71045; 80053; 81001; 82728; 83605; 83615; 83690; 85025; 86140; 87077; 87086; 87088; 87186; 87804; 99283; C9803; U0003; U0005

== ENCOUNTER 2021-01-17 11:27 | Inpatient (IN) | payer MEDICARE, SELFPAY ==
[2021-01-17] VITALS (13 sets, daily range): BP systolic 125–154; BP diastolic 51–66; PULSE 62–87; RESP 17–34; TEMP 36.3–36.8; O2SAT 85–100; BMI 23.4
--- NOTE | ~2021-01-17 | US_ITS ---
EXAMINATION: US venous doppler [facility] DATE: 01/22/2021 15:47 INDICATION: Left lower limb pain TECHNIQUE: Grayscale ultrasound images without and with compression and Doppler ultrasound images of the bilateral lower extremity veins were obtained. COMPARISON: None. FINDINGS: The visualized portions of right common femoral vein, profunda (deep) femoral vein, femoral vein, pop liteal vein, posterior tibial veins, peroneal veins, gastrocnemius vein and greater saphenous vein ou tflow are patent. The visualized portions of left common femoral vein, profunda femoral vein, femoral vein, popliteal v ein, posterior tibial veins, peroneal veins, gastrocnemius vein and greater saphenous vein outflow ar e patent. IMPRESSION: 1. No deep venous thrombosis in either lower limb. Reviewed, dictated and finalized at location A.
--- NOTE | ~2021-01-17 | XR_ITS ---
XR chest 1V portable 01/17/2021 12:40 Indication: Wheezing and dyspnea Procedure: AP portable chest Comparison: 10/27/2020 Findings: Interval development of patchy bilateral airspace disease, compatible with pneumonia. No si gnificant effusion or pneumothorax. No acute osseous abnormality. Heart size is normal. Impression: 1: Patchy bilateral airspace disease, compatible with pneumonia. Reviewed, dictated and finalized at location B. Impression: 1: Patchy bilateral airspace disease, compatible with pneumonia.
--- NOTE | ~2021-01-17 | XR_ITS ---
XR chest 1V portable 01/25/2021 08:22 Indication: Covid Infection. Shortness of breath. Procedure: AP portable chest Comparison: 01/17/2021 Findings: Patchy bilateral airspace disease, compatible with pneumonia, unchanged. No significant ple ural effusion. Stable cardiomediastinal silhouette. There is atherosclerosis. No acute osseous abnorm ality. Impression: 1: Stable patchy bilateral airspace disease, compatible with pneumonia. Reviewed, dictated and finalized at location A. Impression: 1: Stable patchy bilateral airspace disease, compatible with pneumonia.
--- NOTE | ~2021-01-17 | CT_ITS ---
EXAMINATION: CTA chest PE protocol DATE: 01/19/2021 01:26 INDICATION: Elevated d-dimer, hypoxia. TECHNIQUE: Computed tomography angiography (CTA) of the chest was performed with 100 mL Omnipaque-350 intravenous contrast timed to evaluate the pulmonary arteries. Coronal maximum intensity projection 3D-reconstructions were created by the technologist. Automated exposure control and iterative reconst ruction technique were employed. Exam dose: 573.61 mGy-cm total exam DLP. COMPARISON: 01/17/2021 portable AP chest FINDINGS: There is diagnostic contrast enhancement of the pulmonary artery and no evidence of pulmona ry embolism. Extensive bilateral pulmonary groundglass infiltrates and consolidation are noted, all lobes involved , with lingular and bilateral lower lobe predominance. No thoracic aortic aneurysm or dissection. Enlarged central pulmonary artery suggesting pulmonary hypertension. No hilar or mediastinal mass lesion or lymphadenopathy. Cardiomegaly, coronary artery calcification. Splenomegaly. Included skeletal structures are unremarkable. IMPRESSION: No evidence of pulmonary embolism Extensive bilateral pulmonary infiltrates Cardiomegaly, coronary artery atherosclerosis Splenomegaly Reviewed, dictated and finalized at Location A. Reviewed, dictated and finalized at location A.
--- NOTE | ~2021-01-17 | CT_ITS ---
EXAMINATION: CT LE LT ferreira con DATE: 01/23/2021 17:04 INDICATION: Left calf tenderness swelling. Assess for hematoma. TECHNIQUE: High resolution computed tomography (CT) of the left lower leg was performed without intra venous contrast. Additional sagittal and coronal reconstructions were performed. Automated exposure c ontrol and iterative reconstruction technique were employed. The dose-length product was 1188.66 mGy- cm. COMPARISON: None FINDINGS: There is an ovoid mass with heterogeneous attenuation within the lateral aspect of the soleus muscle at the proximal left calf which measures 9.4 cm craniocaudally and 4.6 x 4.2 cm in maximal orthogonal dimensions. There is some subcutaneous edema along the posterior aspect of the calf. No fractures. Tricompartmental osteoarthritis at the right knee with severe joint space narrowing in the patellofemoral compartment and chondrocalcinosis with marginal osteophytes and at least mild join t space narrowing in the medial and lateral compartments. There is hyperextension of the metatarsopha langeal joints. Small Achilles calcaneal spurs. Additional mild polyarticular osteoarthritis at the left ankle and foot. There is scattered atheroscl erosis along the left popliteal artery and the arteries in the more distal calf. There appears to be occlusion of the posterior tibial artery at the level of the mid calf with two-vessel runoff to the a nkle and the anterior tibial and peroneal arteries. Soft tissue swelling over the dorsum of the foot. Scattered muscular atrophy most prominent at the gastrocnemius muscle as well as the intrinsic muscl es of the foot. IMPRESSION: 1. 9.4 x 4.6 x 4.2 cm intramuscular mass with heterogeneous attenuation in the lateral aspect of the proximal soleus muscle which while nonspecific would be consistent with a hematoma. Neoplasm would be statistically much less likely but cannot be absolutely excluded by CT imaging and if clinically ind icated. Postcontrast MRI could be obtained for more definitive determination. Reviewed, dictated and finalized at location A. IMPRESSION: 1. 9.4 x 4.6 x 4.2 cm intramuscular mass with heterogeneous attenuation in the lateral aspect of the proximal soleus muscle which while nonspecific would be c onsistent with a hematoma. Neoplasm would be statistically much less likely but cannot be absolutely excluded by CT imaging and if clinically indicated. Postc ontrast MRI could be obtained for more definitive determination.
--- NOTE | 2021-01-17 11:35 | ECG_ITS ---
Measurements Intervals [place] Rate: 75 P: 84 RI: 235 QRS: -61 QRSD: 132 T: 95 QT: 398 QTc: 447 Interpretive Statements SINUS RHYTHM WITH FIRST DEGREE AV BLOCK VENTRICULAR COUPLET INTRAVENTRICULAR CONDUCTION DELAY EXTENSIVE ANTERIOR INFARCT ST-T WAVE ABNORMALITY IN HIGH LATERAL LEADS- CONSIDER ISCHEMIA BASELINE ARTIFACT- II, AVR ABNORMAL ECG Electronically Signed On 01-17-2021 14:34:53 CDT by Dannie Nance D.O.
[2021-01-17 11:55] LABS: Basophils Percent Auto 0.1 % (0.2-1.2); Eosinophils Percent Auto 0.1 % (0-4.4); Hematocrit 37.2 % (37.0-47.0); Hemoglobin 11.4 g/dL (12.0-15.0); Immature Granulocyte Absolute 0.08 K/mm3 (0.00-0.031); Immature Granulocyte Percent A 0.3 % (0-0.5); Lymphocytes Absolute Auto 20.58 K/mm3 (0.9-3.2); Lymphocytes Percent Auto 75.8 % (18.3-44.2); Mean Corpuscular HGB Conc 30.6 g/dl (32-36); Mean Corpuscular Hemoglobin 27.3 pg (26-34); Mean Platelet Volume 10.7 fl (7.4-10.4); Monocytes Absolute Auto 3.5 K/mm3 (0.1-0.6); Monocytes Percent Auto 12.7 % (2.6-8.5); Platelet Count Result 145 k/mm3 (150-375); Red Blood Count 4.18 M/mm3 (4.2-5.4); Red Cell Distribution Width 15.7 % (11.5-14.5); White Blood Count 27.2 K/mm3 (4.5-10.0)
[2021-01-17 12:06] LABS: Lactic Acid Reflex 0.9 mmol/L (0.7-2.1)
--- NOTE | 2021-01-17 12:06 | ED.WEAKNESS ---
HPI - Weakness General Chief complaint: Weakness Stated complaint: weakness, decreased appetite Time Seen by Provider: 01/17/21 12:03 History of Present Illness HPI Narrative: 80 yo female w/ h/o htn, CLL presents to the ED for multiple complaints. She has not been feeling well for several days. She reports LLQ pain, nausea, vomiting, generalized weakness, cough, congestion, SOB. She says that usually when she feels like this she has a UTI, although the wheezing is unual for her. She has not had her COVID-19 vaccination. Related Data Home Medications Medication Instructions Recorded Confirmed aspirin 81 mg PO DAILY 02/22/20 01/17/21 ferrous sulfate 325 mg PO DAILY 10/27/20 01/17/21 Allergies Allergy/AdvReac Type Severity Reaction Status Date / Time codeine Allergy Unknown tachycardia Verified 01/17/21 14:31 morphine Allergy Unknown tachycardia Verified 01/17/21 14:31 Review of Systems Review of Systems: All systems reviewed & are unremarkable except as noted in HPI and below Constitutional: Constitutional: Reports fatigue, Denies fever(s) and Reports weakness Eyes: Eyes: Reports no additional eye complaints ENT: Reports system reviewed and no additional complaints, except as documented Cardiovascular: Cardiovascular: Denies chest pain Respiratory: Respiratory: Reports chest congestion, Reports cough, Reports dyspnea and Reports wheezing Gastrointestinal: Gastrointestinal: Reports abdominal pain, Reports diarrhea, Reports nausea and Reports vomiting Comments: No dark or bloody stools Genitourinary: Genitourinary: Denies hematuria and Denies dysuria Musculoskeletal: Musculoskeletal: Reports no additional musculoskeletal complaints Neurologic: Reports dizziness, Denies syncope, Denies numbness and Reports weakness PMFSH Past Medical History Medical History Chronic lymphocytic leukemia Chronic pain of left knee Essential hypertension Hyperlipidemia Surgical History Surgical History History of ankle surgery (~1999) Right ankle ORIF with hardware. History of bladder surgery History of cholecystectomy History of hysterectomy History of lumbar surgery Family History Family History Father Asthma Mother Family history of heart disease in male family member before age 55 Cerebrovascular accident Other Diabetes mellitus Family history of arthritis Hypertension Social History Social History Social History: The patient lives in [place] with her daughter and her family. She has been for 16 years. She grew up in [place] but was raised in [place]. She and her lived in [place] for about 34 years before they retired, and then they moved to this region to be closer to their 2 children. In total, she had 6 children, lost 2. She smoked up to 3 packs of cigarettes per day for many years and quit 1973. She denies alcohol and illicit substance use. She designates her child, Caity Urena, as her surrogate decision maker and she wishes to be a full code. Smoking packs per day: 2 Smoking cigarettes per day: 40.0 Years smoked: 22 Smoking pack-years: 44.00 Smoking status: Former smoker Tobacco type: cigarettes Alcohol intake: never Substance use: never Gender identity (if verbalized by the patient): Female Spiritual care concerns: No Exam Const: General: no acute distress, alert and ill appearing Nutritional Appearance: thin Orientation/consciousness: patient oriented x3 HENMT: Mouth: Yes dry mucous membranes Resp: Auscultation: wheezes (RIght) Cardio: Rate: regular rate Rhythm: regular rhythm GI: Inspection: non-distended GI Palp: Yes Soft to palpation, Yes Tenderness to palpation present (GI) (LLQ), No Guarding due to p
[2021-01-17 12:09] LABS: Alanine Aminotransferase 8 U/L (4-35); Albumin Level 3.3 g/dL (3.5-5.1); Alkaline Phosphatase 141 U/L (38-126); Anion Gap 5 mmol/L (8-16); Aspartate Amino Transferase 35 U/L (14-36); Bilirubin,Total 0.4 mg/dL (0.2-1.3); Blood Urea Nitrogen 20 mg/dL (7-17); Calcium 8.6 mg/dL (8.4-10.2); Carbon Dioxide 27 mmol/L (22-30); Chloride 106 mmol/L (98-107); Estimated CRCL calculation 47 ml/min; Estimated Glomerular Filt Rate 60; Glucose 123 mg/dL (65-105); Potassium 4.2 mmol/L (3.4-5.0); Sodium 138 mmol/L (137-145)
[2021-01-17 12:52] LABS: Ovalocytes 1+ (NORMAL); Poikilocytosis 1+ (NORMAL)
[2021-01-17 12:53] LABS: Smudge Cells PRESENT
[2021-01-17 13:01] LABS: Add Urine Microscopic? YES; Appearance Urine Turbid (Clear); Bacteria Urine Trace /hpf; Bilirubin Urine 2+ (Negative); Blood Urine 1+ (Negative); Color Urine Yellow (Yellow); Glucose Urine UA Negative (Negative); Ketones Urine Trace mg/dL (Negative); Leukocyte Esterase Ur 1+ LEU/UL (Negative); Mucus Urine Rare /lpf; Nitrate Urine Negative (Negative); Protein Urine 3+ mg/dL (Negative); RBC Urine 21-50 /hpf (0-2); Specific Grav Ur 1.028 (1.001-1.035); Squamous Epithelial Cell Urine Rare /hpf (Few); Urobilinogen Urine Negative mg/dL (<2.0); WBC Urine 51-75 /hpf
[2021-01-17] MEDS: ALBUTEROL SULFATE NEB 2.5 MG/0.5 ML INH 5 MG INHALATION ×2 (15:25→20:24)
[2021-01-17] MEDS: IPRATROPIUM BR 0.02% INH SOLN 0.5 MG/2.5 ML VIAL INHALATION ×2 (15:26→20:24)
--- NOTE | 2021-01-17 15:57 | ADMGEN ---
This patient, Nikky Urena, was admitted to [facility] Surg Room 332-01 at 1455. Report received from Anneliese in Emergency Department prior to arrival. Patient oriented to hospital policies and general routines including ID bracelet, bed and alarms, visiting hours, pain management, procedures, bathroom and other care routines, personal items, smoking policy, room service/diet, and visiting hours. Information on how to activate the Rapid Response Team has been discussed. Patient/Family are encouraged to report perceived risks to care and to ask questions if they do not understand what they are told or what they should do.
[2021-01-17] MEDS: LACTATED RINGERS 1,000 ML 75 ML IV CONT ×2 (16:30→21:29)
--- NOTE | 2021-01-17 23:25 | PM.IMHP ---
H&P: HPI History of Present Illness Date/Time: 01/17/21 23:25 Chief Complaint: Cough and shortness of breath Narrative: 80-year-old female with past medical history of emphysema, essential hypertension and severe pulmonary hypertension who presented to the ER from home due to cough congestion and weakness for the past week. The patient reported that she started having the nonproductive cough with accompanying chills 1 week ago. She had generalized body aches and weakness. She denies any measured fevers. She has had progressive shortness of breath. She denies any recent ill contacts and lives at home with her daughter. She denies any recent ill contacts. She has not received COVID-19 vaccine and does not wish to in the future. She has noticed some wheezing which is new for her. She does not use any breathing treatments at home. In the past she had an echocardiogram which demonstrated severe pulmonary hypertension and it was suspected that she had emphysema due to a significant smoking history in the distant past. The patient had refused further workup with PFTs or polysomnogram. She does not usually require oxygen at home but when she arrived to the ER her oxygen saturations were 85%. She was placed on 4 L nasal cannula with improvement in oxygen saturations up to 92%. She has been having some nausea but denies any significant vomiting. She has had decreased appetite. She reported some left lower quadrant abdominal pain to the ER but denied abdominal pain at the time my evaluation. The patient thought that she may have a UTI is she has had UTIs in the past. However she denies any dysuria changes in urinary frequency or hematuria. During her prior hospitalization she had a urine culture that grew out multiple organisms less than 10,000 colonies. Review of Systems Review of Systems: Narrative: 12 systems were reviewed with pertinent positives and negatives per HPI. Except as documented in the HPI, all other systems were reviewed and are negative. [facility] Past Medical History Medical History (Updated 01/18/21 @ 04:28 by Felicitas Bailon DO) Chronic lymphocytic leukemia (~1999) Chronic pain of left knee CVA (cerebral vascular accident) (~2003) Diastolic heart failure Echo 02/23/2020: 60-65%, moderately increased left ventricular wall thickness, abnormal diastolic function, global longitudinal strain is normal, mild left atrial enlargement, mild aortic valve sclerosis, mild mitral valve regurgitation, severe pulmonary hypertension with RVSP of 62, [id number] pulmonic regurgitation, elevated right atrial pressures Emphysema lung Presumed due to severe pulmonary hypertension and history of heavy tobacco use Essential hypertension Hyperlipidemia Hypothyroidism Orthostatic hypotension Severe pulmonary hypertension Surgical History Surgical History (Updated 01/18/21 @ 04:18 by Felicitas Bailon DO) History of ankle surgery (~1999) Right ankle ORIF with hardware. History of bladder surgery History of cholecystectomy History of hysterectomy History of lumbar surgery Status post open reduction with internal fixation of fracture Right ankle Family History Family History Father Asthma Mother Family history of heart disease in male family member before age 55 Cerebrovascular accident Other Hypertension Diabetes mellitus Family history of arthritis Social History Social History (Updated 01/18/21 @ 04:12 by Felicitas Bailon DO) Social History: The patient lives in [place] with her daughter and her family. She has been for 16 years. She grew up in [place] but was raised in [place]. She and her lived in [place] for about 34 years before they retired, and then they moved to this region to be closer to their 2 children. In total, she had 6 children, lost 2. She smoked up to 3 packs of cigarettes per day for approximately 20 years and quit 1972.
[2021-01-18] VITALS (19 sets, daily range): BP systolic 126–144; BP diastolic 49–95; PULSE 60–120; RESP 16–24; TEMP 36.2–38; O2SAT 90–100
[2021-01-18] MEDS: IPRATROPIUM BR 0.02% INH SOLN 0.5 MG/2.5 ML VIAL INHALATION ×4 (02:03→19:53)
[2021-01-18] MEDS: ALBUTEROL SULFATE NEB 2.5 MG/0.5 ML INH 5 MG INHALATION ×4 (02:03→19:53)
[2021-01-18 06:20] LABS: Hematocrit 29.3 % (37.0-47.0); Mean Corpuscular HGB Conc 30.7 g/dl (32-36); Mean Corpuscular Hemoglobin 26.9 pg (26-34); Mean Corpuscular Volume 87.7 fl (80-100); Mean Platelet Volume 10.4 fl (7.4-10.4); Platelet Count Result 115 k/mm3 (150-375); Red Blood Count 3.34 M/mm3 (4.2-5.4); Red Cell Distribution Width 15.6 % (11.5-14.5); White Blood Count 10.5 K/mm3 (4.5-10.0)
[2021-01-18 06:28] LABS: Anion Gap 1 mmol/L (8-16); Blood Urea Nitrogen 18 mg/dL (7-17); Calcium 7.7 mg/dL (8.4-10.2); Carbon Dioxide 31 mmol/L (22-30); Chloride 104 mmol/L (98-107); Estimated CRCL calculation 53 ml/min; Estimated Glomerular Filt Rate > 60; Glucose 103 mg/dL (65-105); Sodium 136 mmol/L (137-145)
[2021-01-18 06:32] LABS: Lactate Dehydrogenase 668 U/L (313-618)
[2021-01-18 08:33] LABS: Iron 19 ug/dL (37-170)
[2021-01-18 08:42] LABS: Percent Iron Saturation 9 % (20-50)
[2021-01-18 08:47] LABS: Transferrin 151 mg/dL (206-381)
[2021-01-18] MEDS: ENOXAPARIN 40 MG/0.4 ML SYRINGE SUB-Q (08:58)
[2021-01-18] MEDS: LACTATED RINGERS 1,000 ML 75 ML IV CONT (08:58)
[2021-01-18] MEDS: FLUTICASONE PROPIONATE 0.05% NA SPR 16 GM BTL (*BKC) 1 SPRAY NASAL ×2 (08:59→20:52)
[2021-01-18] MEDS: lisinopriL 20 MG TABLET PO (08:59)
[2021-01-18] MEDS: SIMVASTATIN 20 MG TABLET 40 MG PO (08:59)
[2021-01-18] MEDS: ASPIRIN 81 MG CHEWABLE TABLET PO (08:59)
[2021-01-18] MEDS: FERROUS SULFATE 324 MG TABLET PO ×2 (08:59→16:37)
[2021-01-18] MEDS: PANTOPRAZOLE SODIUM IV 40 MG VIAL IV PUSH ×2 (09:09→20:52)
[2021-01-18 09:54] LABS: Folic Acid > 20.0 ng/mL (2.76->20)
[2021-01-18 10:54] LABS: Hematocrit 30.6 % (37.0-47.0); Hemoglobin 9.2 g/dL (12.0-15.0)
--- NOTE | 2021-01-18 12:31 | PM.IMPN ---
Progress Note: A&P Assessment and Plan (1) Acute respiratory failure with hypoxia: Code(s): J96.01 - Acute respiratory failure with hypoxia Status: Acute Assessment and Plan: The patient has acute hypoxic respiratory failure due to pneumonia. Given the patient has increased leukocytosis compared to her baseline him or suspicious for bacterial pneumonia. Her acute hypoxic respiratory failure is likely also in part due to her severe pulmonary hypertension and likely underlying emphysema. Will check urine Legionella and urine strep antigen. Will check an influenza swab. The patient has never had a COVID vaccine and has no desire to have a COVID vaccine. She is being tested for COVID-19 and remains on isolation. She remains on supplemental oxygen (4L with O2 sat at 94%) and will wean as tolerated. Patient has been placed on albuterol and Atrovent treatments. She has been placed on empiric antibiotic therapy with Rocephin and azithromycin. Blood cultures pending Patient is feeling better today Continue monitoring. (2) Pneumonia: Qualifiers: Laterality: bilateral Lung location: unspecified part of lung Pneumonia type: due to unspecified organism Qualified Code(s): J18.9 - Pneumonia, unspecified organism Code(s): J18.9 - Pneumonia, unspecified organism Status: Acute Assessment and Plan: See above (3) Suspected COVID-19 virus infection: Code(s): Z20.822 - Contact with and (suspected) exposure to COVID-19 Status: Acute Assessment and Plan: See above (4) Pyuria: Code(s): R82.81 - Pyuria Status: Acute Assessment and Plan: Slightly abnormal urinalysis. Urine cultures are pending. The patient does have pyuria but denies any urinary symptoms this not likely to be infection. Continue abx for pneumonia Pending urine culture (5) Iron deficiency anemia: Code(s): D50.9 - Iron deficiency anemia, unspecified Status: Acute Assessment and Plan: patients Hgb 9 and 10. Hemoglobin on arrival was 11.4. Could be slightly elevated due to some dehydration. Patient received some IV fluid in started IV antibiotics for her underlying infection. Hemoglobin now 9.2 which appears to be stable. No acute signs of GI bleeding. Iron panel drawn showing anemia chronic disease but has low % saturation so will increase her ferrous sulfate to twice daily. Vitamin B12 and folic acid are both normal. Continue monitoring H&H. Also get a stool occult testing and PPI Continue monitoring. (6) Chronic lymphocytic leukemia: Code(s): C91.10 - Chronic lymphocytic leukemia of B-cell type not having achieved remission Status: Acute Assessment and Plan: Chronic. Follow-up with her primary care provider and oncologist. (7) Severe pulmonary arterial systolic hypertension: Code(s): I27.21 - Secondary pulmonary arterial hypertension Status: Acute Assessment and Plan: Does not wish to have further work up and evaluation for this Time Spent With Patient Time with patient: 25 - 35 minutes Subjective Date/time seen: 01/18/21 12:31 Interval history: Date of Service 01/18/21: Patient reports feeling better today. She is still having some trouble breathing and coughing of yellow sputum. She denies any fevers, chills. She does feel stronger with getting up in using the commode and working with therapy. She denies any chest pain, nausea, vomiting, lack of taste or smell, abdominal pain, diarrhea, constipation, leg swelling, calf pain or any other symptoms at this time. Nayely
[2021-01-18 19:15] LABS: SARS-CoV-2 RNA PCR Positive
--- NOTE | 2021-01-18 21:10 | ECG_ITS ---
Measurements Intervals [place] Rate: 120 P: [place]: 0 QRS: -53 QRSD: 139 T: 118 QT: 325 QTc: 459 Interpretive Statements ATRIAL FIBRILLATION WITH RAPID VENTRICULAR RESPONS VENTRICULAR PREMATURE COMPLEXES LEFT AXIS DEVIATION LEFT BUNDLE BRANCH BLOCK ANTEROSEPTAL INFARCT OR DUE TO LBBBB BASELINE ARTIFACT- I, II, III, AVL, V2 ABNORMAL ECG Electronically Signed On 01-19-2021 7:21:17 CDT by Dannie Nance D.O.
[2021-01-18] MEDS: REMDESIVIR 200 MG/NS 250 ML 200 MG/250 ML BAG 250 MG IVPB (21:53)
[2021-01-18 22:01] LABS: INR 0.9; Magnesium 1.9 mg/dL (1.6-2.3); Phosphorus 2.2 mg/dL (2.5-4.5); Prothrombin Time 12.9 Seconds (11.1-14.7)
[2021-01-18 22:24] LABS: D Dimer 2.17 ug/mL (<0.48)
[2021-01-18 22:30] LABS: Troponin I 0.032 ng/mL (0.000-0.034)
[2021-01-18] MEDS: METOPROLOL TARTRATE INJ 5 MG/5 ML VIAL IV PUSH (22:36)
[2021-01-18] MEDS: METOPROLOL TARTRATE INJ 5 MG/5 ML VIAL (22:52)
--- NOTE | 2021-01-18 23:29 | PM.EVENT ---
Event Note Event Note Event Note: Nursing staff called because they were concerned the patient may have been in SVT versus ventricular tachycardia. The patient was having heart rates in the 1 teens to 120s. When the patient was evaluated in the ER the patient's EKG demonstrated a narrow complex rhythm. When she arrived to the medical floor she had developed a new left branch block. On review of the telemetry patient rhythm was consistent with new onset of AFib. The patient's heart rate when I arrived to the floor was in the 120s. Patient was stable on 3 L nasal cannula. She denied having any chest pain. The patient's COVID swab had returned as positive around the change of shift. Assessment and plan: 1. new onset of atrial fibrillation with rapid ventricular response: The patient was given 1 dose of IV Lopressor with improvement in her heart rate down to the 80s. 2. new left bundle branch block patient is not having any chest pain. Will check serial cardiac enzymes. 3. Pneumonia due to COVID-19 with hypoxic respiratory failure: I have ordered Decadron and Remdesivir for the patient. Her oxygen requirement remained stable. 4.: Elevated D-dimer: The patient has been started on therapeutic Lovenox due to new onset of AFib. Will check stat CTA to rule out pulmonary embolism. 30 minutes spent in critical care activities. This case had a high probability of a clinically significant, sudden, or life threatening deterioration of this patient's condition which required my full and direct attention, intervention and personal management.
[2021-01-18] MEDS: ENOXAPARIN 80 MG/0.8 ML SYRINGE 75 MG SUB-Q (23:54)
[2021-01-19] VITALS (19 sets, daily range): BP systolic 116–151; BP diastolic 43–85; PULSE 60–99; RESP 16–20; TEMP 36.1–37.4; O2SAT 93–100
[2021-01-19] MEDS: IPRATROPIUM BR 0.02% INH SOLN 0.5 MG/2.5 ML VIAL INHALATION ×4 (02:00→20:09)
[2021-01-19] MEDS: ALBUTEROL SULFATE NEB 2.5 MG/0.5 ML INH 5 MG INHALATION ×4 (02:00→20:09)
[2021-01-19 02:28] LABS: Troponin I 0.046 ng/mL (0.000-0.034)
[2021-01-19 05:06] LABS: Hematocrit 31.4 % (37.0-47.0); Hemoglobin 9.5 g/dL (12.0-15.0); Immature Platelet Fraction Pct 3.2 % (0.9-11.2); Mean Corpuscular HGB Conc 30.3 g/dl (32-36); Mean Corpuscular Hemoglobin 26.8 pg (26-34); Mean Corpuscular Volume 88.5 fl (80-100); Mean Platelet Volume 10.3 fl (7.4-10.4); Platelet Count Result 149 k/mm3 (150-375); Red Blood Count 3.55 M/mm3 (4.2-5.4); Red Cell Distribution Width 15.4 % (11.5-14.5); White Blood Count 17.2 K/mm3 (4.5-10.0)
[2021-01-19 05:12] LABS: Anion Gap 2 mmol/L (8-16); Blood Urea Nitrogen 14 mg/dL (7-17); Calcium 8.1 mg/dL (8.4-10.2); Carbon Dioxide 28 mmol/L (22-30); Chloride 106 mmol/L (98-107); Estimated CRCL calculation 60 ml/min; Estimated Glomerular Filt Rate > 60; Glucose 103 mg/dL (65-105); Potassium 4.1 mmol/L (3.4-5.0); Sodium 136 mmol/L (137-145)
[2021-01-19 05:26] LABS: Troponin I 0.069 ng/mL (0.000-0.034)
[2021-01-19 05:28] LABS: Alanine Aminotransferase 7 U/L (4-35); Albumin Level 2.6 g/dL (3.5-5.1); Alkaline Phosphatase 99 U/L (38-126); Aspartate Amino Transferase 31 U/L (14-36); Bilirubin,Total 0.2 mg/dL (0.2-1.3); Lactate Dehydrogenase 711 U/L (313-618)
[2021-01-19 06:32] LABS: Prothrombin Time 13.3 Seconds (11.1-14.7)
[2021-01-19 07:15] LABS: D Dimer 3.46 ug/mL (<0.48)
[2021-01-19] MEDS: ACETAMINOPHEN 325 MG TABLET 650 MG PO (08:11)
[2021-01-19] MEDS: ENOXAPARIN 80 MG/0.8 ML SYRINGE 75 MG SUB-Q ×2 (08:11→20:28)
[2021-01-19] MEDS: ONDANSETRON INJ 4 MG/2 ML VIAL IV PUSH (08:11)
[2021-01-19] MEDS: ASPIRIN 81 MG CHEWABLE TABLET PO (08:12)
[2021-01-19] MEDS: DEXAMETHASONE SOD PHOS INJ 4 MG/ML VIAL 6 MG IV PUSH (08:12)
[2021-01-19] MEDS: ENOXAPARIN 40 MG/0.4 ML SYRINGE SUB-Q (08:12)
[2021-01-19] MEDS: SIMVASTATIN 20 MG TABLET 40 MG PO (08:12)
[2021-01-19] MEDS: FERROUS SULFATE 324 MG TABLET PO ×2 (08:13→17:43)
[2021-01-19] MEDS: POTASSIUM/PHOSPHORUS/SODIUM 1.5 GM PACKET 1 PACKET PO (08:13)
[2021-01-19] MEDS: FLUTICASONE PROPIONATE 0.05% NA SPR 16 GM BTL (*BKC) 1 SPRAY NASAL ×2 (08:13→20:28)
[2021-01-19] MEDS: PANTOPRAZOLE SODIUM IV 40 MG VIAL IV PUSH ×2 (08:13→20:28)
[2021-01-19] MEDS: lisinopriL 20 MG TABLET PO (08:13)
[2021-01-19] MEDS: METOPROLOL SUCCINATE EXT REL 12.5 MG TABCR PO (09:03)
--- NOTE | 2021-01-19 10:14 | PM.IMPN ---
Progress Note: A&P Assessment and Plan (1) Acute respiratory failure with hypoxia: Code(s): J96.01 - Acute respiratory failure with hypoxia Status: Acute Assessment and Plan: The patient has acute hypoxic respiratory failure due to COVID 19 and pneumonia and is likely also in part due to her severe pulmonary hypertension and likely underlying emphysema. Pending urine Legionella and urine strep antigen. CTA Chest shows no signs of acute PE, extensive bilateral pulmonary infiltrates. Continue IV antibiotics Azithromycin & Ceftriaxone Day #3, Duoneb treatments, COVID Treatment with IV Remdezivir and Dexamethasone and symptomatic care Blood cultures with 1 bottle with growth of Gram + Cocci, Will start IV Vancomycin #1 believe this is a contamination, but will wait for culture results. Patient is feeling about the same today. She remains on supplemental oxygen (3L with O2 sat at 93%) and will wean as tolerated. Continue monitoring. (2) Atrial fibrillation with RVR: Code(s): I48.91 - Unspecified atrial fibrillation Status: Acute Assessment and Plan: new onset Afib RVR overnight on Tele. EKG shows Afib RVR with HR at 120 bpm with LBBB and Left [place] Deviation. She was given 1 Dose of Lopressor with improvement of her heart rate and now back in NSR. Tele shows NSR rate 88 bpm. Started patient on Metoprolol XL 12.5 mg Elevated troponins could be from New Afib, but EKG showing new LBBB which is concerning. Denies any chest pain. Will talk with Cardiology about the patient Anticoagulation with Lovenox 75 mg Q12hrs for COVID therapy and Afib anticoagulation. CTA Chest did now show any acute PE. Continue monitoring on Tele. Cardiology's input is greatly appreciated. (3) Pneumonia: Qualifiers: Laterality: bilateral Lung location: unspecified part of lung Pneumonia type: due to unspecified organism Qualified Code(s): J18.9 - Pneumonia, unspecified organism Code(s): J18.9 - Pneumonia, unspecified organism Status: Acute Assessment and Plan: Believed to be COVID and Bacterial See above (4) COVID-19: Code(s): U07.1 - COVID-19 Status: Acute Assessment and Plan: Found to be positive for covid. She was not vaccinated. (5) Elevated troponin: Code(s): R77.8 - Other specified abnormalities of plasma proteins Status: Acute Assessment and Plan: No chest pain. New LBBB on EKG. Cardiology consulted. (6) Left bundle branch block: Code(s): I44.7 - Left bundle-branch block, unspecified Status: Acute Assessment and Plan: No chest pain. New LBBB on EKG. Cardiology consulted. (7) Pyuria: Code(s): R82.81 - Pyuria Status: Acute Assessment and Plan: Slightly abnormal urinalysis. Urine cultures are pending. The patient does have pyuria but denies any urinary symptoms this not likely to be infection. Urine culture shows no growth. (8) Iron deficiency anemia: Code(s): D50.9 - Iron deficiency anemia, unspecified Status: Acute Assessment and Plan: patients Hgb 9 and 10. Hemoglobin on arrival was 11.4. Could be slightly elevated due to some dehydration. Patient received some IV fluid in started IV antibiotics for her underlying infection. H&H stable at baseline. No acute signs of GI bleeding. Iron panel drawn showing anemia chronic disease but has low % saturation so will increase her ferrous sulfate to twice daily. Vitamin B12 and folic acid are both normal. Continue monitoring H&H. Also get a stool occult testing and PPI Continue monitoring.
--- NOTE | 2021-01-19 15:38 | PM.CNCAR ---
Assessment and Plan Additional Plan 80-year-old lady in the hospital with moffett virus pneumonia who in this setting developed atrial fibrillation with RVR last evening. She was given a dose of metoprolol intravenously which controlled her heart rate this morning she is back in sinus rhythm. A modest dose of long-acting metoprolol has been ordered by the hospitalist staff which of course seems appropriate and she has been anticoagulated with Lovenox. At this time I would do nothing further today I will suggest getting an echocardiogram tomorrow because of the left bundle branch block and the mitral regurgitant murmur she has on physical exam. Will follow with you during the hospitalization. Claudio Kwok MD [facility] History of Present Illness History of Present Illness Consult date/time: 01/19/21 15:38 Consult reason: atrial fibrillation Reason For Visit: pneumonia,suspect covid-19,uti Narrative: This is a pleasant 80-year-old lady am seeing at the request of the hospitalist because of atrial fibrillation. I have no previous encounters or knowledge of this patient prior to this consultation. She does not report any prior history of atrial fibrillation. She states that her previous cardiac history includes an episode where she had a myocardial infarction she thinks back in 2003 when her . She was hospitalized and treated somewhere in [place] at that time she does not have a good memory of those events but states that she was told by her dietetics director that the heart attack was caused by the stress of her 's . In any event she states that position retired after while and she has not followed with a dietetics director for quite a number of years. She sees Dr. Burk for her primary care needs. She was hospitalized here couple of days ago because of moffett virus. She has been ill for 3 or 4 days before coming into the hospital with coughing in fever and generalized malaise and inability to get out of bed she was so weak. She is feeling significantly better in that respect for some reason she has been placed on telemetry and yesterday was notice that she converted from sinus rhythm to atrial fib with RVR. Her electrocardiogram also shows left bundle branch block. The hospitalist saw her last night and gave her a dosage of intravenous metoprolol. That did control the heart rate this morning at about 7:00 a.m. according to the nursing staff she converted back to sinus rhythm. She has been anticoagulated with a therapeutic dose of Lovenox. She is resting comfortably in bed this afternoon and does not have any significant complaints to report. She reports a history of hypertension and a history of leukemia. Review of Systems Constitutional: Constitutional: Reports lethargy and Reports weakness Eyes: Eyes: Reports no additional eye complaints ENT: Reports system reviewed and no additional complaints, except as documented Cardiovascular: Cardiovascular: Reports no additional cardiovascular complaints Respiratory: Respiratory: Reports cough Gastrointestinal: Gastrointestinal: Reports no additional gastrointestinal complaints Musculoskeletal: Musculoskeletal: Reports no additional musculoskeletal complaints Integumentary/Breasts: Skin/Breast: Reports system reviewed and no additional complaints, except as docu Neurologic: Reports system reviewed and no additional complaints, except as documented Endocrine: Endocrine: Reports no additional endocrine complaints Hematologic/Lymphatic: Hematologic/Lymphatic: Reports no additional hematologic/lymphatic complaints Allergic/Immunologic: Allergic/Immunologic: Reports no additional allergic/immunologic complaints [facility] Past Medical History Medical History (Updated 01/19/21 @ 10:35 by Alma Lugo PA-C) Chronic lymphocytic leukemia (~1999) Chronic pain of left knee CVA (cerebral vascular accident) (~2003) Diastolic heart failure Echo 02/23/2020: 60-65%, moderate
[2021-01-19] MEDS: guaiFENesin/DEXTROMETHORPHAN 10 ML UDC 5 ML PO (17:42)
[2021-01-19] MEDS: LACTATED RINGERS 1,000 ML 75 ML IV CONT (20:28)
[2021-01-19] MEDS: SODIUM CHLORIDE NASAL GEL 14.1 GM 1 APPLIC NASAL (20:28)
[2021-01-19] MEDS: REMDESIVIR 100 MG/NS 250 ML 100 MG/250 ML BAG 250 MG IVPB (22:49)
[2021-01-20] VITALS (17 sets, daily range): BP systolic 131–147; BP diastolic 43–69; PULSE 52–81; RESP 16–26; TEMP 36.2–37.1; O2SAT 90–98
--- NOTE | 2021-01-20 | ECHO_ITS ---
Patient Info Name: Nikky Urena Age: 80 years : 1940 Gender: Female Ht: 71 in Wt: 167 lbs BSA: 1.95 m2 HR: 66 bpm BP: 136 / 63 mmHg Heart Rhythm: Sinus Rhythm Technical Quality: Good Exam Date: 01/20/2021 1:17 PM Exam Location: [facility] Pul[facility] Patient Status: Inpatient Admit Date: 01/17/2021 Staff Ordering Physician: Alma Lugo PA-C Asphalt Paver: Jailene Hugo RDCS Attending Provider: Alma Lugo PA-C Referring Physician: Parish ANTUNEZ; Exam Type: CA echo doppler color flow Study Info Indications - LBBB - ELEVATED TROPONON R01.1 - Cardiac murmur, unspecified Complete two-dimensional, color flow and Doppler transthoracic echocardiogram is performed. Summary 1. Complete two-dimensional, color flow and Doppler transthoracic echocardiogram is performed. 2. There is severe concentric increased left ventricular wall thickness. 3. Left ventricular systolic function is normal, estimated at 55-60%. 4. Left atrial chamber dimension is mildly enlarged. 5. There is mild aortic valve sclerosis. 6. The mitral valve annulus is mildly calcified. Left Ventricle Left ventricular chamber dimension is normal. Left ventricular systolic function is normal, estimated at 55-60%. There is severe concentric increased left ventricular wall thickness. The left ventricular diastolic function is grade II diastolic dysfunction. Right Ventricle Right ventricular chamber dimension is normal. Left Atria Left atrial chamber dimension is mildly enlarged. Right Atria Right atrial chamber dimension is normal. Aortic Valve The aortic valve is trileaflet. There is mild aortic valve sclerosis. Pulmonic Valve The pulmonic valve is normal. There is mild pulmonic regurgitation. Mitral Valve The mitral valve has normal leaflets. The mitral valve annulus is mildly calcified. Tricuspid Valve The tricuspid valve leaflets are normal. Pericardium/Pleural The pericardium appears normal. Aorta The aortic root size at the sinus of Valsalva is normal. Left Ventricular Outflow Tract Name Value Normal LVOT 2D LVOT Diameter 2.0 cm LVOT Doppler LVOT Peak Gradient 7 mmHg LVOT Mean Gradient 4 mmHg LVOT VTI 32 cm LVOT VTI/AV VTI Ratio 0.7 LVOT Stroke Volume 97 ml LVOT CO 6.6 l/min LVOT CI 3.4 l/min/m2 Pulmonic Valve Name Value Normal RVOT Doppler RVOT Peak Gradient 7 mmHg PV Doppler PV Peak Gradient 8 mmHg Mitral Valve Name
[2021-01-20] MEDS: ALBUTEROL SULFATE NEB 2.5 MG/0.5 ML INH 5 MG INHALATION ×4 (01:46→19:13)
[2021-01-20] MEDS: IPRATROPIUM BR 0.02% INH SOLN 0.5 MG/2.5 ML VIAL INHALATION ×4 (01:46→19:13)
[2021-01-20 06:36] LABS: Hematocrit 29.4 % (37.0-47.0); Hemoglobin 8.9 g/dL (12.0-15.0); Mean Corpuscular HGB Conc 30.3 g/dl (32-36); Mean Corpuscular Hemoglobin 26.9 pg (26-34); Mean Corpuscular Volume 88.8 fl (80-100); Mean Platelet Volume 10.7 fl (7.4-10.4); Platelet Count Result 147 k/mm3 (150-375); Red Blood Count 3.31 M/mm3 (4.2-5.4); Red Cell Distribution Width 15.4 % (11.5-14.5); White Blood Count 17.9 K/mm3 (4.5-10.0)
[2021-01-20 07:00] LABS: Alanine Aminotransferase 7 U/L (4-35); Anion Gap 1 mmol/L (8-16); Blood Urea Nitrogen 17 mg/dL (7-17); Calcium 7.8 mg/dL (8.4-10.2); Carbon Dioxide 30 mmol/L (22-30); Chloride 103 mmol/L (98-107); Estimated CRCL calculation 53 ml/min; Estimated Glomerular Filt Rate > 60; Glucose 114 mg/dL (65-105); Phosphorus 2.8 mg/dL (2.5-4.5); Potassium 3.9 mmol/L (3.4-5.0); Sodium 134 mmol/L (137-145)
[2021-01-20 07:21] LABS: Band Neutrophils Percent 3 % (0-6); Lymphocytes Absolute Manual 13.78 K/mm3 (1.1-4.5); Metamyelocytes Percent 1 %; Monocytes Absolute Manual 0.89 K/mm3 (0.1-0.90); Monocytes Percent Manual 5 % (3-9); Neutrophils Absolute Manual 3.04 K/mm3 (1.7-7.2); Neutrophils Percent Manual 14 % (46-73); Platelet Estimate Decreased (Adequate); Smudge Cells MANY; Total Cells Counted 100
[2021-01-20 07:22] LABS: Ovalocytes 2+ (NORMAL); Tear Drop Cells 1+ (NORMAL)
[2021-01-20 07:24] LABS: Atypical Lymphocytes Present
[2021-01-20 07:37] LABS: Prothrombin Time 14.2 Seconds (11.1-14.7)
[2021-01-20] MEDS: ASPIRIN 81 MG CHEWABLE TABLET PO (09:38)
[2021-01-20] MEDS: FERROUS SULFATE 324 MG TABLET PO ×2 (09:39→17:16)
[2021-01-20] MEDS: ENOXAPARIN 80 MG/0.8 ML SYRINGE 75 MG SUB-Q ×2 (09:39→20:15)
[2021-01-20] MEDS: DEXAMETHASONE SOD PHOS INJ 4 MG/ML VIAL 6 MG IV PUSH (09:39)
[2021-01-20] MEDS: METOPROLOL SUCCINATE EXT REL 12.5 MG TABCR PO (09:41)
[2021-01-20] MEDS: PANTOPRAZOLE SODIUM IV 40 MG VIAL IV PUSH ×2 (09:41→20:17)
[2021-01-20] MEDS: SIMVASTATIN 20 MG TABLET 40 MG PO (09:43)
[2021-01-20] MEDS: lisinopriL 20 MG TABLET PO (09:43)
[2021-01-20] MEDS: FLUTICASONE PROPIONATE 0.05% NA SPR 16 GM BTL (*BKC) 1 SPRAY NASAL ×2 (09:50→20:22)
[2021-01-20] MEDS: ONDANSETRON INJ 4 MG/2 ML VIAL IV PUSH (09:55)
--- NOTE | 2021-01-20 12:48 | PM.PNCARD ---
Progress Note: A&P Additional Plan 80-year-old lady with: Paroxysmal atrial fib in the setting of moffett virus pneumonia. With beta-timoteo treatment she has been maintaining sinus rhythm. Will follow her peripherally with you. It appear she is getting close to discharge oxygenation is only requiring 1.5 L of oxygen per nasal cannula at this time Claudio Kwok MD [facility] Subjective Date/time seen: Date of service: 01/20/21 12:48 Interval history: 80-year-old woman hospitalized with moffett virus pneumonia and in that setting had transient atrial fib with RVR. She also has evidence of left bundle branch block on her ECG. Following treat with metoprolol she has been maintaining sinus rhythm. Seems to be very comfortable in the room today is eating lunch is in good spirits and hopeful to be discharged as soon as possible. Exam Const: General: comfortable and no acute distress Other: Pleasant elderly lady nasal cannula oxygen in place no distress or complaints HENMT: Mouth: Yes moist mucous membranes Eyes: Sclera: sclerae normal Pupils: Equal, round and reactive pupils present Neck: Neck: supple and no JVD Thyroid: thyroid normal Resp: Effort & Inspection: normal respiratory effort Auscultation: clear to auscultation bilaterally Other: Good aeration no wheezing no rales no rhonchi Cardio: Rate: regular rate Rhythm: regular rhythm Other: Soft systolic crescendo decrescendo murmur which does not radiate from the left sternal border. GI: Auscultation: normal bowel sounds Skin: General skin exam: normal color Neuro: Cognition (Neuro): normal cognition Extrem: General: normal to inspection Objective Data Vital Signs Vital Signs: Vital Signs - 24 hr 01/19/21 14:17 01/19/21 14:28 01/19/21 16:00 Temperature 36.6 C Pulse Rate 66 68 65 Respiratory Rate 20 20 20 Blood Pressure 116/85 Pulse Oximetry 97 01/19/21 20:00 01/19/21 20:27 01/19/21 20:37 Temperature Pulse Rate 65 74 70 Respiratory Rate 20 20 20 Blood Pressure Pulse Oximetry 97 01/19/21 21:34 01/20/21 00:00 01/20/21 00:12 Temperature 36.1 C L 37.1 C Pulse Rate 64 79 67 Respiratory Rate 18 20 Blood Pressure 151/61 H 134/55 L Pulse Oximetry 100 92 05/03/21 01:55 01/20/21 02:07 01/20/21 04:00 Temperature 36.5 C Pulse Rate 60 66 52 L Respiratory Rate 24 H 20 18 Blood Pressure 136/43 L Pulse Oximetry 95 01/20/21 08:00 01/20/21 08:19 01/20/21 08:28 Temperature 36.7 C Pulse Rate 69 67 69 Respiratory Rate 16 16 18 Blood Pressure 136/63 Pulse Oximetry 96 01/20/21 08:29 01/20/21 09:25 01/20/21 09:41 Temperature Pulse Rate 70 60 Respiratory Rate Blood Pressure Pulse Oximetry 90 01/20/21 12:00 Temperature 36.3 C L Pulse Rate 68 Respiratory Rate 24 H Blood Pressure 131/50 L Pulse Oximetry 90 Intake/Output Intake/Output: Intake & Output 01/17/21 01/18/21 01/19/21 01/20/21 23:59 23:59 23:59 23:59 Intake Total 1540 3930 1330 1250 Output Total 50 410 600 Balance 1490 3520 1330 650 Meds/Results Medications: Active Medications Generic Name Dose Route Start Last Admin Trade Name Freq PRN Reason Stop Dose Admin Acetaminophen 650 mg 01/19/21 07:38 01/19/21 08:11 Acetaminophen 325 Mg Tablet PO 650 mg Q4H PRN Administration Headache, pain, fever Albuterol 5 mg 01/17/21 14:00 01/20/21 08:16 Albuterol Sulfate Neb 2.5 Mg/0.5 Ml Inh INHALATION 5 mg Q6HRT TANG Administration Aspirin 81 mg 01/18/21 08:00 01/20/21 09:38 Aspirin 81 Mg Chewable Tablet PO 81 mg DAILY@0800 [facility] Administration Benzocaine 1 lozenge 01/19/21 10:18 Benzocaine/Menthol (*Bkc) 18 Ea Lozenge PO PRN PRN Sore Throat Dexamethasone Sodium Phosphate 6 mg 01/19/21 09:00 01/20/21 09:39 Dexamethasone Sod Phos Inj 4 Mg/Ml Vial IV PUSH 01/28/21 09:01 6 mg DAILY TANG Administration Enoxaparin Sodium 75 mg 01/18/21 22:30 01/20/21 09:39 En
--- NOTE | 2021-01-20 13:09 | PM.IMPN ---
Progress Note: A&P Assessment and Plan (1) Acute respiratory failure with hypoxia: Code(s): J96.01 - Acute respiratory failure with hypoxia Status: Acute Assessment and Plan: The patient has acute hypoxic respiratory failure due to COVID 19 and pneumonia and is likely also in part due to her severe pulmonary hypertension and likely underlying emphysema. Pending urine Legionella and urine strep antigen. CTA Chest shows no signs of acute PE, extensive bilateral pulmonary infiltrates. Continue IV antibiotics Azithromycin & Ceftriaxone Day #4, Duoneb treatments COVID Treatment with IV Remdezivir and Dexamethasone and symptomatic care Blood cultures with 1 bottle with growth of Gram + Cocci, Will start IV Vancomycin #2 believe this is a contamination, but will wait for culture results. Patient is feeling about the same today. She remains on supplemental oxygen (2L with O2 sat at 90%) and will wean as tolerated. Continue monitoring. (2) Atrial fibrillation with RVR: Code(s): I48.91 - Unspecified atrial fibrillation Status: Acute Assessment and Plan: 01/19/21- new onset Afib RVR overnight on Tele. EKG shows Afib RVR with HR at 120 bpm with LBBB and Left [place] Deviation. She was given 1 Dose of Lopressor with improvement of her heart rate and now back in NSR. Tele shows NSR rate 72 bpm. Continue patient on Metoprolol XL 12.5 mg Elevated troponins could be from New Afib, but EKG showing new LBBB which is concerning. Denies any chest pain. Anticoagulation with Lovenox 75 mg Q12hrs for COVID therapy and Afib anticoagulation. CTA Chest did now show any acute PE. Cardiology evaluated the patient and agrees with Beta timoteo and recommends Echo to be completed for further evaluation of new LBBB and wall motion. Continue monitoring on Tele. Cardiology's input is greatly appreciated. (3) Pneumonia: Qualifiers: Laterality: bilateral Lung location: unspecified part of lung Pneumonia type: due to unspecified organism Qualified Code(s): J18.9 - Pneumonia, unspecified organism Code(s): J18.9 - Pneumonia, unspecified organism Status: Acute Assessment and Plan: Believed to be COVID and Bacterial See above (4) COVID-19: Code(s): U07.1 - COVID-19 Status: Acute Assessment and Plan: Found to be positive for covid. She was not vaccinated. (5) Elevated troponin: Code(s): R77.8 - Other specified abnormalities of plasma proteins Status: Acute Assessment and Plan: No chest pain. New LBBB on EKG. Cardiology consulted and recommends Echo. (6) Left bundle branch block: Code(s): I44.7 - Left bundle-branch block, unspecified Status: Acute Assessment and Plan: No chest pain. New LBBB on EKG. Cardiology consulted and recommends Echo. (7) Pyuria: Code(s): R82.81 - Pyuria Status: Acute Assessment and Plan: Slightly abnormal urinalysis. Urine cultures are pending. The patient does have pyuria but denies any urinary symptoms this not likely to be infection. Urine culture shows no growth. (8) Iron deficiency anemia: Code(s): D50.9 - Iron deficiency anemia, unspecified Status: Acute Assessment and Plan: patients Hgb 9 and 10. Hemoglobin on arrival was 11.4. Could be slightly elevated due to some dehydration. Patient received some IV fluid in started IV antibiotics for her underlying infection. H&H stable at baseline. No acute signs of GI bleeding. Iron panel drawn showing anemia chronic disease but has low % saturation so will increase her ferrous sulfate to twice daily. Vitamin B12 and
[2021-01-20] MEDS: DOCUSATE SODIUM 100 MG CAPSULE PO ×2 (14:15→20:15)
--- NOTE | 2021-01-20 15:12 | ECG_ITS ---
Measurements Intervals [place] Rate: 67 P: -80 MD: 217 QRS: -53 QRSD: 124 T: 94 QT: 436 QTc: 461 Interpretive Statements ECTOPIC ATRIAL RHYTHM WITH FIRST DEGREE AV BLOCK LEFT AXIS DEVIATION INTRAVENTRICULAR CONDUCTION DELAY LEFT VENTRICULAR HYPERTROPHY AND ST-T CHANGE ANTEROSEPTAL INFARCT, AGE INDETERMINATE ST-T WAVE ABNORMALITY IN HIGH LATERAL LEADS- CONSIDER ISCHEMIA BASELINE ARTIFACT- I, III, AVR, AVL, AVF ABNORMAL ECG Electronically Signed On 01-20-2021 16:39:14 CDT by Dannie Nance D.O.
[2021-01-20] MEDS: SODIUM CHLORIDE NASAL GEL 14.1 GM 1 APPLIC NASAL (20:15)
[2021-01-20] MEDS: REMDESIVIR 100 MG/NS 250 ML 100 MG/250 ML BAG 250 MG IVPB (21:55)
[2021-01-21] VITALS (16 sets, daily range): BP systolic 124–152; BP diastolic 44–79; PULSE 52–88; RESP 16–26; TEMP 36.2–36.8; O2SAT 92–100
[2021-01-21] MEDS: ALBUTEROL SULFATE NEB 2.5 MG/0.5 ML INH 5 MG INHALATION ×4 (01:42→21:26)
[2021-01-21] MEDS: IPRATROPIUM BR 0.02% INH SOLN 0.5 MG/2.5 ML VIAL INHALATION ×4 (01:42→21:26)
[2021-01-21] MEDS: polyethylene glycoL 3350 17 GM POWD.PACK PO (05:38)
[2021-01-21 06:02] LABS: Hematocrit 28.5 % (37.0-47.0); Hemoglobin 8.6 g/dL (12.0-15.0); Mean Corpuscular HGB Conc 30.2 g/dl (32-36); Mean Corpuscular Hemoglobin 26.5 pg (26-34); Mean Platelet Volume 10.6 fl (7.4-10.4); Platelet Count Result 165 k/mm3 (150-375); Red Blood Count 3.24 M/mm3 (4.2-5.4); Red Cell Distribution Width 15.3 % (11.5-14.5); White Blood Count 19.8 K/mm3 (4.5-10.0)
[2021-01-21 06:12] LABS: Prothrombin Time 14.1 Seconds (11.1-14.7)
[2021-01-21 06:16] LABS: Alanine Aminotransferase 8 U/L (4-35); Anion Gap -1 mmol/L (8-16); Blood Urea Nitrogen 17 mg/dL (7-17); Carbon Dioxide 31 mmol/L (22-30); Chloride 103 mmol/L (98-107); Estimated CRCL calculation 53 ml/min; Estimated Glomerular Filt Rate > 60; Glucose 99 mg/dL (65-105); Potassium 3.6 mmol/L (3.4-5.0); Sodium 133 mmol/L (137-145)
[2021-01-21] MEDS: DEXAMETHASONE SOD PHOS INJ 4 MG/ML VIAL 6 MG IV PUSH (09:00)
[2021-01-21] MEDS: PANTOPRAZOLE SODIUM IV 40 MG VIAL IV PUSH ×2 (10:04→21:00)
[2021-01-21] MEDS: ENOXAPARIN 80 MG/0.8 ML SYRINGE 75 MG SUB-Q ×2 (10:04→20:59)
[2021-01-21] MEDS: ONDANSETRON INJ 4 MG/2 ML VIAL IV PUSH (10:04)
[2021-01-21] MEDS: ASPIRIN 81 MG CHEWABLE TABLET PO (10:06)
[2021-01-21] MEDS: SIMVASTATIN 20 MG TABLET 40 MG PO (10:06)
[2021-01-21] MEDS: METOPROLOL SUCCINATE EXT REL 12.5 MG TABCR PO (10:06)
[2021-01-21] MEDS: DOCUSATE SODIUM 100 MG CAPSULE PO ×2 (10:06→21:02)
[2021-01-21] MEDS: FERROUS SULFATE 324 MG TABLET PO ×2 (10:06→16:19)
[2021-01-21] MEDS: lisinopriL 20 MG TABLET PO (10:06)
[2021-01-21] MEDS: FLUTICASONE PROPIONATE 0.05% NA SPR 16 GM BTL (*BKC) 1 SPRAY NASAL ×2 (10:07→21:02)
--- NOTE | 2021-01-21 13:22 | PM.PNCARD ---
Progress Note: A&P Assessment and Plan (1) Atrial fibrillation with RVR: Code(s): I48.91 - Unspecified atrial fibrillation Status: Acute Assessment and Plan: Transient atrial fibrillation, remains in sinus rhythm with PACs. On a very small dose of metoprolol. Anticoagulated with Lovenox for now. (2) COVID-19: Code(s): U07.1 - COVID-19 Status: Acute Assessment and Plan: COVID-19 pneumonia, stable. (3) Left bundle branch block: Code(s): I44.7 - Left bundle-branch block, unspecified Status: Acute Assessment and Plan: Has a left bundle branch block and also a first-degree AV block on a minimal dose of beta-timoteo (4) Constipation: Code(s): K59.00 - Constipation, unspecified Status: Acute Assessment and Plan: Laxatives, suppositories p.r.n. Subjective Date/time seen: 01/21/21 13:22 Interval history: FU for new onset PAF in setting of COVID-19 pneumonia. DAte of Service 01/21/2021: Main problem today is constipation and abdominal cramps. So far no results w/ laxatives and requests a suppository. Breathing is OK on 1.5 L O2. No CP, Telemetry personally reviewed, shows NSR w/ BBB and first degree AVB, occ PACs, nothing that looks convincingly of PAF today. Echo as below, EF 55-60% Review of Systems Constitutional: Constitutional: Reports fatigue and Reports lethargy ENT: Denies epistaxis Cardiovascular: Cardiovascular: Denies chest pain, Denies pedal edema, Denies leg edema, Denies lightheadedness and Denies palpitations Respiratory: Respiratory: Denies chest congestion and Denies dyspnea Gastrointestinal: Gastrointestinal: Reports abdominal pain and Reports constipation Genitourinary: Genitourinary: Denies hematuria Musculoskeletal: Musculoskeletal: Reports no additional musculoskeletal complaints Integumentary/Breasts: Skin/Breast: Denies rash Neurologic: Reports system reviewed and no additional complaints, except as documented Psychiatric: Psychiatric: Reports no additional psychiatric complaints Exam Const: General: comfortable and no acute distress Other: Looks fatigued HENMT: General nose exam: no epistaxis Eyes: EOM: EOMs intact bilaterally Neck: Neck: supple Resp: Effort & Inspection: normal respiratory effort Auscultation: rales (Few rales left lower lobe) and diminished lung sounds Cardio: Rate: regular rate Rhythm: regular rhythm Other: Occasional premature beat GI: Inspection: non-distended GI Palp: Yes Soft to palpation, No Firmness to palpation present (GI) and No Tenderness to palpation present (GI) Skin: General skin exam: normal color and no rashes or lesions noted Neuro: Cognition (Neuro): normal cognition Speech: normal speech Motor exam (neuro): Normal motor muscle tone present throughout Extrem: General: no edema and no pedal edema Psych: Mental Status: mental status grossly normal Objective Data Vital Signs Vital Signs: Vital Signs - 24 hr 01/20/21 14:31 01/20/21 16:00 01/20/21 19:15 Temperature 97.1 F L Pulse Rate 68 78 79 Respiratory Rate 16 20 26 H Blood Pressure 137/52 L Pulse Oximetry 96 98 01/20/21 19:27 01/20/21 20:00 01/21/21 00:00 Temperature 98.1 F 98.2 F Pulse Rate 72 80 80 Respiratory Rate 26 H 20 18 Blood Pressure 147/69 H 152/71 H Pulse Oximetry 92 100 01/21/21 01:43 01/21/21 01:55 01/21/21 04:00 Temperature 98.1 F Pulse Rate 72 68 88 Respiratory Rate 26 H 24 H 18 Blood Pressure 133/79 Pulse Oximetry 95 94 01/21/21 08:00 01/21/21 08:52 01/21/21 09:06 Temperature 97.2 F L Pulse Rate 70 68 64 Respiratory Rate 20 20 20 Blood Pressure 147/57 H Pulse Oximetry 92 92 01/21/21 10:06 01/21/21 12:00 Temperature 98.2 F Pulse Rate 76 72 Respiratory Rate 20 Blood Pressure 137/44 L Pulse Oximetry 100 Intake/Output Intake/Output: Intake & Output 01/18/21 01/19/21 01/20/21 01/21/21 23:59 23:59 23:59 23:59 Intake Total
[2021-01-21 15:04] LABS: Vancomycin Trough 11.6 ug/mL (10.0-20.0)
--- NOTE | 2021-01-21 15:07 | PM.IMPN ---
Progress Note: A&P Assessment and Plan (1) COVID-19: Code(s): U07.1 - COVID-19 Status: Acute Assessment and Plan: Patient presents with cough and weakness. CTA chest shows extensive bilateral pulmonary infiltrates; COVID positive 01/17/21. Pneumococcal and Legionella antigens pending. Continue dexamethasone (day 3); remdesivir (day 4). She was treated empiric antibiotics with azithromycin and Rocephin, today completes a 5-day course. Continue supplemental O2 and wean as tolerated to keep O2 saturations > 90%. Continue supportive care with Tylenol for fevers, bronchodilator therapy, Robitussin, incentive spirometer. One of 2 sets of blood cultures growing Gram-positive bacteria. Contacted the lab this morning that notes only 1 pinpoint growth of bacteria and will be incubated for 1 more day, anticipate results tomorrow. She remains on IV vancomycin (day 3) until a bacteria is isolated/identified. (2) Acute respiratory failure with hypoxia: Code(s): J96.01 - Acute respiratory failure with hypoxia Status: Acute Assessment and Plan: Secondary to COVID-19 pneumonia. See above. (3) Atrial fibrillation with RVR: Code(s): I48.91 - Unspecified atrial fibrillation Status: Acute Assessment and Plan: 01/19/21 new onset AFib RVR with rates into 120s overnight. She was given a dose of IV Lopressor, converted back to sinus rhythm and has been sinus rhythm since then. EKG also with new LBBB and first-degree AV block. Cardiology consulted -appreciate recommendations. Continue metoprolol. Echocardiogram reviewed, EF 55-60% with severe concentric increased LV wall thickness. She has been on anticoagulation with Lovenox 75 mg Q 12 hours due to COVID and new AFib. She may not require long-term anticoagulation for the AFib as this was a brief episode that has not recurred, but will clarify with Cardiology prior to her discharge. (4) Elevated troponin: Code(s): R77.8 - Other specified abnormalities of plasma proteins Status: Acute Assessment and Plan: No chest pain. New LBBB on EKG. Cardiology consulted, echo reviewed. ACS not suspected. (5) Left bundle branch block: Code(s): I44.7 - Left bundle-branch block, unspecified Status: Acute Assessment and Plan: See above. (6) Pyuria: Code(s): R82.81 - Pyuria Status: Acute Assessment and Plan: Asymptomatic bacteriuria does not require targeted antibiotic therapy at this time. Monitor for symptoms. (7) Iron deficiency anemia: Qualifiers: Iron deficiency anemia type: unspecified iron deficiency Qualified Code(s): D50.9 - Iron deficiency anemia, unspecified Code(s): D50.9 - Iron deficiency anemia, unspecified Status: Acute Assessment and Plan: H&H remained low but stable. No evidence of acute bleeding. B12 and folic acid are normal. Iron and TIBC are consistent with anemia of chronic disease. Check stool for occult blood with next BM. Continue iron supplementation. Monitor CBC, consider transfusion if Hgb less than 7. (8) Chronic lymphocytic leukemia: Code(s): C91.10 - Chronic lymphocytic leukemia of B-cell type not having achieved remission Status: Acute Assessment and Plan: Chronic. Her baseline WBC is elevated. Follow-up with her primary care provider and oncologist. Subjective Date/time seen: 01/21/21 1445 Interval history: Ms. Urena is a pleasant 80yo F admitted for acute respiratory failure secondary to COVID pneumonia, new onset paroxysmal atrial fibrillation in this setting. S
[2021-01-21] MEDS: BISACODYL 10 MG SUPPOSITORY RECTAL (16:22)
[2021-01-21] MEDS: REMDESIVIR 100 MG/NS 250 ML 100 MG/250 ML BAG 250 MG IVPB (21:00)
[2021-01-21] MEDS: SODIUM CHLORIDE NASAL GEL 14.1 GM 1 APPLIC NASAL (21:00)
[2021-01-21 22:39] LABS: Pneumococcal Antigen Urine Not Detected (Not Detected)
[2021-01-22] VITALS (21 sets, daily range): BP systolic 115–147; BP diastolic 41–82; PULSE 58–80; RESP 16–24; TEMP 36.3–36.8; O2SAT 90–98
[2021-01-22] MEDS: ALBUTEROL SULFATE NEB 2.5 MG/0.5 ML INH 5 MG INHALATION ×4 (02:12→21:25)
[2021-01-22] MEDS: IPRATROPIUM BR 0.02% INH SOLN 0.5 MG/2.5 ML VIAL INHALATION ×4 (02:12→21:25)
[2021-01-22 06:01] LABS: Hematocrit 27.4 % (37.0-47.0); Hemoglobin 8.3 g/dL (12.0-15.0); Mean Corpuscular HGB Conc 30.3 g/dl (32-36); Mean Corpuscular Hemoglobin 26.2 pg (26-34); Mean Corpuscular Volume 86.4 fl (80-100); Mean Platelet Volume 10.1 fl (7.4-10.4); Platelet Count Result 168 k/mm3 (150-375); Red Blood Count 3.17 M/mm3 (4.2-5.4); Red Cell Distribution Width 15.3 % (11.5-14.5); White Blood Count 20.5 K/mm3 (4.5-10.0)
[2021-01-22 06:06] LABS: Prothrombin Time 13.3 Seconds (11.1-14.7)
[2021-01-22 06:13] LABS: Potassium 3.7 mmol/L (3.4-5.0)
[2021-01-22 06:14] LABS: Alanine Aminotransferase 9 U/L (4-35); Albumin Level 2.5 g/dL (3.5-5.1); Alkaline Phosphatase 89 U/L (38-126); Anion Gap -1 mmol/L (8-16); Aspartate Amino Transferase 27 U/L (14-36); Bilirubin,Total 0.1 mg/dL (0.2-1.3); Blood Urea Nitrogen 15 mg/dL (7-17); Calcium 8.1 mg/dL (8.4-10.2); Carbon Dioxide 33 mmol/L (22-30); Chloride 105 mmol/L (98-107); Estimated CRCL calculation 53 ml/min; Estimated Glomerular Filt Rate > 60; Glucose 91 mg/dL (65-105); Magnesium 2.2 mg/dL (1.6-2.3); Sodium 137 mmol/L (137-145)
[2021-01-22 07:01] LABS: Lymphocytes Absolute Manual 19.27 K/mm3 (1.1-4.5); Monocytes Absolute Manual 0.41 K/mm3 (0.1-0.90); Monocytes Percent Manual 2 % (3-9); Neutrophils Percent Manual 4 % (46-73); Platelet Estimate Adequate (Adequate); Total Cells Counted 100
[2021-01-22 07:03] LABS: Anisocytosis 1+ (NORMAL); Poikilocytosis 1+ (NORMAL)
[2021-01-22] MEDS: PANTOPRAZOLE SODIUM IV 40 MG VIAL IV PUSH ×2 (09:36→21:07)
[2021-01-22] MEDS: ENOXAPARIN 80 MG/0.8 ML SYRINGE 75 MG SUB-Q ×2 (09:36→21:06)
[2021-01-22] MEDS: FERROUS SULFATE 324 MG TABLET PO ×2 (09:36→17:56)
[2021-01-22] MEDS: ASPIRIN 81 MG CHEWABLE TABLET PO (09:36)
[2021-01-22] MEDS: DOCUSATE SODIUM 100 MG CAPSULE PO ×2 (09:37→21:07)
[2021-01-22] MEDS: FLUTICASONE PROPIONATE 0.05% NA SPR 16 GM BTL (*BKC) 1 SPRAY NASAL ×2 (09:37→21:07)
[2021-01-22] MEDS: DEXAMETHASONE SOD PHOS INJ 4 MG/ML VIAL 6 MG IV PUSH (09:37)
[2021-01-22] MEDS: SIMVASTATIN 20 MG TABLET 40 MG PO (09:38)
[2021-01-22] MEDS: METOPROLOL SUCCINATE EXT REL 12.5 MG TABCR PO (09:38)
[2021-01-22] MEDS: lisinopriL 20 MG TABLET PO (09:38)
--- NOTE | 2021-01-22 14:10 | PM.IMPN ---
Progress Note: A&P Assessment and Plan (1) COVID-19: Code(s): U07.1 - COVID-19 Status: Acute Assessment and Plan: Patient presents with cough and weakness. CTA chest shows extensive bilateral pulmonary infiltrates; COVID positive 01/17/21. Pneumococcal and Legionella antigens pending. Continue dexamethasone (day 4); remdesivir (day 5). Renew remdesivir given increasing O2 requirements today. She was treated empiric antibiotics with azithromycin and Rocephin, completed a 5-day course. Continue supplemental O2 and wean as tolerated to keep O2 saturations > 90%. Continue supportive care with Tylenol for fevers, bronchodilator therapy, Robitussin, incentive spirometer. One of 2 sets of blood cultures growing Gram-positive bacteria. Contacted the lab that noted only 1 pinpoint growth of bacteria and will be incubated for 1 more day, anticipate results tomorrow. She remains on IV vancomycin (day 4) until a bacteria is isolated/identified. (2) Acute respiratory failure with hypoxia: Code(s): J96.01 - Acute respiratory failure with hypoxia Status: Acute Assessment and Plan: Secondary to COVID-19 pneumonia. See above. (3) Atrial fibrillation with RVR: Code(s): I48.91 - Unspecified atrial fibrillation Status: Acute Assessment and Plan: 01/19/21 new onset AFib RVR with rates into 120s overnight. She was given a dose of IV Lopressor, converted back to sinus rhythm and has been sinus rhythm since then. EKG also with new LBBB and first-degree AV block. Cardiology consulted -appreciate recommendations. Continue metoprolol. Echocardiogram reviewed, EF 55-60% with severe concentric increased LV wall thickness. She has been on anticoagulation with Lovenox 75 mg Q 12 hours due to COVID and new AFib. She may not require long-term anticoagulation for the AFib as this was a brief episode that has not recurred, clarify with Cardiology prior to her discharge. (4) Elevated troponin: Code(s): R77.8 - Other specified abnormalities of plasma proteins Status: Acute Assessment and Plan: No chest pain. New LBBB on EKG. Cardiology consulted, echo reviewed. ACS not suspected. (5) Left bundle branch block: Code(s): I44.7 - Left bundle-branch block, unspecified Status: Acute Assessment and Plan: See above. (6) Pyuria: Code(s): R82.81 - Pyuria Status: Acute Assessment and Plan: Asymptomatic bacteriuria does not require targeted antibiotic therapy at this time. Monitor for symptoms. (7) Iron deficiency anemia: Qualifiers: Iron deficiency anemia type: unspecified iron deficiency Qualified Code(s): D50.9 - Iron deficiency anemia, unspecified Code(s): D50.9 - Iron deficiency anemia, unspecified Status: Acute Assessment and Plan: H&H remained low but stable. No evidence of acute bleeding. B12 and folic acid are normal. Iron and TIBC are consistent with anemia of chronic disease. Check stool for occult blood with next BM. Continue iron supplementation. Monitor CBC, consider transfusion if Hgb less than 7. (8) Chronic lymphocytic leukemia: Code(s): C91.10 - Chronic lymphocytic leukemia of B-cell type not having achieved remission Status: Acute Assessment and Plan: Chronic. WBC fluctuating. Her baseline WBC is elevated. Follow-up with her primary care provider and oncologist. Subjective Date/time seen: 01/22/21 14:00 Interval history: Ms. Urena is a pleasant 80yo F admitted for acute respiratory failure secondary to COVID pneumonia, new onset paro
[2021-01-22] MEDS: REMDESIVIR 100 MG/NS 250 ML 100 MG/250 ML BAG 250 MG IVPB (21:07)
[2021-01-22] MEDS: SODIUM CHLORIDE NASAL GEL 14.1 GM 1 APPLIC NASAL (21:07)
[2021-01-22 22:42] LABS: IFOB Positive Control Positive; Immunochemical Fecal Occult Bl Negative (N)
[2021-01-23] VITALS (16 sets, daily range): BP systolic 114–148; BP diastolic 48–58; PULSE 62–87; RESP 18–20; TEMP 36.4–36.7; O2SAT 90–95
[2021-01-23] MEDS: IPRATROPIUM BR 0.02% INH SOLN 0.5 MG/2.5 ML VIAL INHALATION ×4 (02:32→21:25)
[2021-01-23] MEDS: ALBUTEROL SULFATE NEB 2.5 MG/0.5 ML INH 5 MG INHALATION ×4 (02:32→21:24)
[2021-01-23 06:14] LABS: Basophils Absolute Auto 0.1 K/mm3 (0.0-0.1); Basophils Percent Auto 0.2 % (0.2-1.2); Eosinophils Percent Auto 0.1 % (0-4.4); Hematocrit 28.4 % (37.0-47.0); Hemoglobin 8.6 g/dL (12.0-15.0); Immature Granulocyte Absolute 0.09 K/mm3 (0.00-0.031); Immature Granulocyte Percent A 0.3 % (0-0.5); Lymphocytes Absolute Auto 22.75 K/mm3 (0.9-3.2); Lymphocytes Percent Auto 85.2 % (18.3-44.2); Mean Corpuscular HGB Conc 30.3 g/dl (32-36); Mean Corpuscular Hemoglobin 26.2 pg (26-34); Mean Corpuscular Volume 86.6 fl (80-100); Mean Platelet Volume 10.2 fl (7.4-10.4); Monocytes Absolute Auto 1.7 K/mm3 (0.1-0.6); Monocytes Percent Auto 6.5 % (2.6-8.5); Neutrophils Percent Auto 7.7 % (45.5-73.1); Nucleated Red Blood Cells Perc 0.1 % (0.0-0.2); Platelet Count Result 181 k/mm3 (150-375); Red Blood Count 3.28 M/mm3 (4.2-5.4); Red Cell Distribution Width 15.4 % (11.5-14.5); White Blood Count 26.7 K/mm3 (4.5-10.0)
[2021-01-23 06:31] LABS: Alanine Aminotransferase 10 U/L (4-35); Albumin Level 2.6 g/dL (3.5-5.1); Alkaline Phosphatase 97 U/L (38-126); Anion Gap 1 mmol/L (8-16); Aspartate Amino Transferase 29 U/L (14-36); Bilirubin,Total 0.2 mg/dL (0.2-1.3); Blood Urea Nitrogen 12 mg/dL (7-17); Calcium 8.2 mg/dL (8.4-10.2); Carbon Dioxide 31 mmol/L (22-30); Chloride 105 mmol/L (98-107); Estimated CRCL calculation 60 ml/min; Estimated Glomerular Filt Rate > 60; Glucose 106 mg/dL (65-105); Magnesium 2.3 mg/dL (1.6-2.3); Potassium 3.6 mmol/L (3.4-5.0); Sodium 137 mmol/L (137-145)
[2021-01-23 06:51] LABS: Anisocytosis 2+ (NORMAL); Atypical Lymphocytes Present; Ovalocytes 1+ (NORMAL); Platelet Estimate Adequate (Adequate); Tear Drop Cells 1+ (NORMAL)
[2021-01-23 06:52] LABS: Smudge Cells MODERATE
[2021-01-23 07:51] LABS: Prothrombin Time 13.9 Seconds (11.1-14.7)
[2021-01-23] MEDS: FERROUS SULFATE 324 MG TABLET PO ×2 (09:26→17:57)
[2021-01-23] MEDS: SIMVASTATIN 20 MG TABLET 40 MG PO (09:26)
[2021-01-23] MEDS: DOCUSATE SODIUM 100 MG CAPSULE PO ×2 (09:26→21:50)
[2021-01-23] MEDS: ENOXAPARIN 80 MG/0.8 ML SYRINGE 75 MG SUB-Q (09:26)
[2021-01-23] MEDS: ASPIRIN 81 MG CHEWABLE TABLET PO (09:26)
[2021-01-23] MEDS: PANTOPRAZOLE SODIUM IV 40 MG VIAL IV PUSH ×2 (09:26→21:50)
[2021-01-23] MEDS: DEXAMETHASONE SOD PHOS INJ 4 MG/ML VIAL 6 MG IV PUSH (09:26)
[2021-01-23] MEDS: lisinopriL 20 MG TABLET PO (09:26)
[2021-01-23] MEDS: METOPROLOL SUCCINATE EXT REL 12.5 MG TABCR PO (09:27)
[2021-01-23] MEDS: FLUTICASONE PROPIONATE 0.05% NA SPR 16 GM BTL (*BKC) 1 SPRAY NASAL ×2 (09:27→21:51)
[2021-01-23] MEDS: ACETAMINOPHEN 325 MG TABLET 650 MG PO (12:25)
--- NOTE | 2021-01-23 14:47 | P.PNIM_ITS ---
Progress Note: A&P Assessment and Plan (1) COVID-19: Code(s): U07.1 - COVID-19 Status: Acute Assessment and Plan: * Patient presents with cough and weakness. CTA chest shows extensive bilateral pulmonary infiltrates; COVID positive 01/17/21. * Pneumococcal negative. Legionella antigens still pending. * Continue dexamethasone (day 5); remdesivir (day 6). Will be completed on 01/27/21 * She was treated empiric antibiotics with azithromycin and Rocephin, completed a 5-day course. * Continue supplemental O2 and wean as tolerated to keep O2 saturations > 90%. * Continue supportive care with Tylenol for fevers, bronchodilator therapy, Robitussin, incentive spirometer. * New blood culture pending * Previous blood cultures found peptostreptococcus, likely contaminated. Will stop vancomycin for now. * No further fevers * Cough noted with yellow sputum * Oxygen requirements have been lowered. (2) Acute respiratory failure with hypoxia: Code(s): J96.01 - Acute respiratory failure with hypoxia Status: Acute Assessment and Plan: * Secondary to COVID-19 pneumonia. See above. (3) Atrial fibrillation with RVR: Code(s): I48.91 - Unspecified atrial fibrillation Status: Acute Assessment and Plan: * Patient stated that she has had AFib in the past a long time ago. Since that she has not had any problems * 01/19/21 an episode AFib RVR with rates into 120s overnight. * Cardiology consulted thank you for recommendations * Continue metoprolol * Will hold Lovenox due to the left leg swelling (4) Elevated troponin: Code(s): R77.8 - Other specified abnormalities of plasma proteins Status: Acute Assessment and Plan: * No complaints of chest pain * Patient had an episode of AFib. * Patient on Metoprolol * New BBB noted on most current EKG (5) Left bundle branch block: Code(s): I44.7 - Left bundle-branch block, unspecified Status: Acute Assessment and Plan: * See above. (6) Pyuria: Code(s): R82.81 - Pyuria Status: Acute Assessment and Plan: * Remains asymptomatic * Rocephin completed * Continue to monitor for symptoms (7) Iron deficiency anemia: Qualifiers: Iron deficiency anemia type: unspecified iron deficiency Qualified Code(s): D50.9 - Iron deficiency anemia, unspecified Code(s): D50.9 - Iron deficiency anemia, unspecified Status: Acute Assessment and Plan: * H&H 8.6/28.4 * Occult blood was negative * No evidence of bleeding * Continue to trend H&H * CBC order for AM * Continue Iron supplements (8) Chronic lymphocytic leukemia: Code(s): C91.10 - Chronic lymphocytic leukemia of B-cell type not having achieved remission Status: Acute Assessment and Plan: * Chronic. * WBC 26.7 today * Patient was/is being treated for pneumonia * 5 day course of azithromycin and Rocephin completed * Continue to trend WBC * D/C steroids when possible (9) Swollen leg: Code(s): M79.89 - Other specified soft tissue disorders Status: Acute Assessment and Plan: * Left lower extremity swelling noted with nodule. * Differential hematoma, uncontro
--- NOTE | 2021-01-23 14:47 | PM.IMPN ---
Progress Note: A&P Assessment and Plan (1) COVID-19: Code(s): U07.1 - COVID-19 Status: Acute Assessment and Plan: Patient presents with cough and weakness. CTA chest shows extensive bilateral pulmonary infiltrates; COVID positive 01/17/21. Pneumococcal negative. Legionella antigens still pending. Continue dexamethasone (day 5); remdesivir (day 6). Will be completed on 01/27/21 She was treated empiric antibiotics with azithromycin and Rocephin, completed a 5-day course. Continue supplemental O2 and wean as tolerated to keep O2 saturations > 90%. Continue supportive care with Tylenol for fevers, bronchodilator therapy, Robitussin, incentive spirometer. New blood culture pending Previous blood cultures found peptostreptococcus, likely contaminated. Will stop vancomycin for now. No further fevers Cough noted with yellow sputum Oxygen requirements have been lowered. (2) Acute respiratory failure with hypoxia: Code(s): J96.01 - Acute respiratory failure with hypoxia Status: Acute Assessment and Plan: Secondary to COVID-19 pneumonia. See above. (3) Atrial fibrillation with RVR: Code(s): I48.91 - Unspecified atrial fibrillation Status: Acute Assessment and Plan: Patient stated that she has had AFib in the past a long time ago. Since that she has not had any problems 01/19/21 an episode AFib RVR with rates into 120s overnight. Cardiology consulted thank you for recommendations Continue metoprolol Will hold Lovenox due to the left leg swelling (4) Elevated troponin: Code(s): R77.8 - Other specified abnormalities of plasma proteins Status: Acute Assessment and Plan: No complaints of chest pain Patient had an episode of AFib. Patient on Metoprolol New BBB noted on most current EKG (5) Left bundle branch block: Code(s): I44.7 - Left bundle-branch block, unspecified Status: Acute Assessment and Plan: See above. (6) Pyuria: Code(s): R82.81 - Pyuria Status: Acute Assessment and Plan: Remains asymptomatic Rocephin completed Continue to monitor for symptoms (7) Iron deficiency anemia: Qualifiers: Iron deficiency anemia type: unspecified iron deficiency Qualified Code(s): D50.9 - Iron deficiency anemia, unspecified Code(s): D50.9 - Iron deficiency anemia, unspecified Status: Acute Assessment and Plan: H&H 8.6/28.4 Occult blood was negative No evidence of bleeding Continue to trend H&H CBC order for AM Continue Iron supplements (8) Chronic lymphocytic leukemia: Code(s): C91.10 - Chronic lymphocytic leukemia of B-cell type not having achieved remission Status: Acute Assessment and Plan: Chronic. WBC 26.7 today Patient was/is being treated for pneumonia 5 day course of azithromycin and Rocephin completed Continue to trend WBC D/C steroids when possible (9) Swollen leg: Code(s): M79.89 - Other specified soft tissue disorders Status: Acute Assessment and Plan: Left lower extremity swelling noted with nodule. Differential hematoma, uncontrolled bleed vs edema. compartment syndrome possible, less likely, sensation and pulses normal. CT ordered Lovenox held until further evaluation. Manage pain with PRN Tylenol Time Spent With Patient Time with patient: 25 - 35 minutes Subjective Date/time seen: 01/23/21 14:47 Patient is an 80 year old female that came into the ED for SOB. She has been treated with antibiotics ceftriaxone and azithromycin for five days. She is also getting remdesivir. She does
[2021-01-23] MEDS: REMDESIVIR 100 MG/NS 250 ML 100 MG/250 ML BAG 250 MG IVPB (21:49)
[2021-01-23] MEDS: MELATONIN 5 MG TABLET PO (21:50)
[2021-01-23 22:12] LABS: Glucose Point of Care 125 (65-105)
[2021-01-24] VITALS (19 sets, daily range): BP systolic 126–158; BP diastolic 41–80; PULSE 57–94; RESP 16–26; TEMP 36.2–36.9; O2SAT 92–98; BMI 23.4
[2021-01-24] MEDS: IPRATROPIUM BR 0.02% INH SOLN 0.5 MG/2.5 ML VIAL INHALATION ×4 (03:04→20:50)
[2021-01-24] MEDS: ALBUTEROL SULFATE NEB 2.5 MG/0.5 ML INH 5 MG INHALATION ×4 (03:04→20:49)
[2021-01-24 06:28] LABS: Hematocrit 23.5 % (37.0-47.0); Mean Corpuscular HGB Conc 29.8 g/dl (32-36); Mean Corpuscular Hemoglobin 26.6 pg (26-34); Mean Corpuscular Volume 89.4 fl (80-100); Mean Platelet Volume 10.3 fl (7.4-10.4); Platelet Count Result 182 k/mm3 (150-375); Red Blood Count 2.63 M/mm3 (4.2-5.4); Red Cell Distribution Width 15.7 % (11.5-14.5); White Blood Count 23.9 K/mm3 (4.5-10.0)
[2021-01-24 06:41] LABS: Alanine Aminotransferase 10 U/L (4-35); Albumin Level 2.3 g/dL (3.5-5.1); Alkaline Phosphatase 82 U/L (38-126); Anion Gap 0 mmol/L (8-16); Aspartate Amino Transferase 28 U/L (14-36); Bilirubin,Total 0.1 mg/dL (0.2-1.3); Blood Urea Nitrogen 13 mg/dL (7-17); CRP 1.2 mg/dL (<1.0); Calcium 8.1 mg/dL (8.4-10.2); Carbon Dioxide 32 mmol/L (22-30); Chloride 106 mmol/L (98-107); Estimated CRCL calculation 60 ml/min; Estimated Glomerular Filt Rate > 60; Glucose 126 mg/dL (65-105); Lactate Dehydrogenase 549 U/L (313-618); Sodium 138 mmol/L (137-145)
[2021-01-24 08:03] LABS: Glucose Point of Care 129 (65-105)
[2021-01-24 08:16] LABS: Prothrombin Time 14.2 Seconds (11.1-14.7)
[2021-01-24] MEDS: DEXAMETHASONE SOD PHOS INJ 4 MG/ML VIAL 6 MG IV PUSH (08:44)
[2021-01-24] MEDS: ASPIRIN 81 MG CHEWABLE TABLET PO (08:44)
[2021-01-24] MEDS: PANTOPRAZOLE SODIUM IV 40 MG VIAL IV PUSH ×2 (08:44→20:17)
[2021-01-24] MEDS: METOPROLOL SUCCINATE EXT REL 12.5 MG TABCR PO (08:44)
[2021-01-24] MEDS: lisinopriL 20 MG TABLET PO (08:45)
[2021-01-24] MEDS: SIMVASTATIN 20 MG TABLET 40 MG PO (08:45)
[2021-01-24] MEDS: DOCUSATE SODIUM 100 MG CAPSULE PO ×2 (08:45→20:18)
[2021-01-24] MEDS: FERROUS SULFATE 324 MG TABLET PO ×2 (08:45→15:51)
[2021-01-24] MEDS: ACETAMINOPHEN 500 MG TABLET 1000 MG PO (08:48)
[2021-01-24] MEDS: FLUTICASONE PROPIONATE 0.05% NA SPR 16 GM BTL (*BKC) 1 SPRAY NASAL ×2 (09:00→20:20)
--- NOTE | 2021-01-24 11:22 | PCPTNOTE ---
The patient treatment was not able to be completed at this time due to start of patient receiving blood. Will plan to continue treatment per plan of care.
[2021-01-24 12:36] LABS: Glucose Point of Care 188 (65-105)
--- NOTE | 2021-01-24 13:22 | P.PNIM_ITS ---
Progress Note: A&P Assessment and Plan (1) COVID-19: Code(s): U07.1 - COVID-19 Status: Acute Assessment and Plan: * Patient presents with cough and weakness. CTA chest shows extensive bilateral pulmonary infiltrates; COVID positive 01/17/21. * Pneumococcal negative. Legionella antigens still pending. * Continue dexamethasone (day 6); remdesivir (day 7). Will be completed on 01/27/21 * She was treated empiric antibiotics with azithromycin and Rocephin, completed a 5-day course. * Continue supplemental O2 and wean as tolerated to keep O2 saturations > 90%. * Continue supportive care with Tylenol for fevers, bronchodilator therapy, Robitussin, incentive spirometer. * New blood culture pending * Previous blood cultures found peptostreptococcus, likely contaminated. Will stop vancomycin for now. * No further fevers * Cough noted with yellow sputum * Oxygen requirements have been lowered. * Unable to anticoagulate due to large hematoma in the left leg. Will order SCDs (2) Acute respiratory failure with hypoxia: Code(s): J96.01 - Acute respiratory failure with hypoxia Status: Acute Assessment and Plan: * Secondary to COVID-19 pneumonia. See above. (3) Hematoma: Code(s): T14.8XXA - Other injury of unspecified body region, initial encounter Status: Acute Assessment and Plan: * CT of the left leg showed a large hematoma * HGB/HCT 7.0/23.5 * Keep leg wrapped * Help patient with activity * Monitor and trend HGB/HCT * Monitor for further bleeding * Unable to anticoagulate-Lovenox on hold- SCD on the right lower extremity (4) Atrial fibrillation with RVR: Code(s): I48.91 - Unspecified atrial fibrillation Status: Acute Assessment and Plan: * Patient stated that she has had AFib in the past a long time ago. Since that she has not had any problems * 01/19/21 an episode AFib RVR with rates into 120s overnight. * Cardiology consulted thank you for recommendations * Continue metoprolol * Will hold Lovenox due to the left leg swelling (5) Elevated troponin: Code(s): R77.8 - Other specified abnormalities of plasma proteins Status: Acute Assessment and Plan: * No complaints of chest pain * Patient had an episode of AFib. * Patient on Metoprolol * New BBB noted on most current EKG (6) Left bundle branch block: Code(s): I44.7 - Left bundle-branch block, unspecified Status: Acute Assessment and Plan: * See above. (7) Pyuria: Code(s): R82.81 - Pyuria Status: Acute Assessment and Plan: * Remains asymptomatic * Rocephin completed * Continue to monitor for symptoms (8) Iron deficiency anemia: Qualifiers: Iron deficiency anemia type: unspecified iron deficiency Qualified Code(s): D50.9 - Iron deficiency anemia, unspecified Code(s): D50.9 - Iron deficiency anemia, unspecified Status: Acute Assessment and Plan: * H&H 7.0/23.5 * One unit of blood given * Occult blood was negative * Bleeding noted in the left calf from CT * Continue to trend H&H * CBC order for AM * Continue Iron supplements (9) Chronic lymphocytic leukemia: Code(s): C91.10 - Chronic lymphocytic leukemia
--- NOTE | 2021-01-24 13:22 | PM.IMPN ---
Progress Note: A&P Assessment and Plan (1) COVID-19: Code(s): U07.1 - COVID-19 Status: Acute Assessment and Plan: Patient presents with cough and weakness. CTA chest shows extensive bilateral pulmonary infiltrates; COVID positive 01/17/21. Pneumococcal negative. Legionella antigens still pending. Continue dexamethasone (day 6); remdesivir (day 7). Will be completed on 01/27/21 She was treated empiric antibiotics with azithromycin and Rocephin, completed a 5-day course. Continue supplemental O2 and wean as tolerated to keep O2 saturations > 90%. Continue supportive care with Tylenol for fevers, bronchodilator therapy, Robitussin, incentive spirometer. New blood culture pending Previous blood cultures found peptostreptococcus, likely contaminated. Will stop vancomycin for now. No further fevers Cough noted with yellow sputum Oxygen requirements have been lowered. Unable to anticoagulate due to large hematoma in the left leg. Will order SCDs (2) Acute respiratory failure with hypoxia: Code(s): J96.01 - Acute respiratory failure with hypoxia Status: Acute Assessment and Plan: Secondary to COVID-19 pneumonia. See above. (3) Hematoma: Code(s): T14.8XXA - Other injury of unspecified body region, initial encounter Status: Acute Assessment and Plan: CT of the left leg showed a large hematoma HGB/HCT 7.0/23.5 Keep leg wrapped Help patient with activity Monitor and trend HGB/HCT Monitor for further bleeding Unable to anticoagulate-Lovenox on hold- SCD on the right lower extremity (4) Atrial fibrillation with RVR: Code(s): I48.91 - Unspecified atrial fibrillation Status: Acute Assessment and Plan: Patient stated that she has had AFib in the past a long time ago. Since that she has not had any problems 01/19/21 an episode AFib RVR with rates into 120s overnight. Cardiology consulted thank you for recommendations Continue metoprolol Will hold Lovenox due to the left leg swelling (5) Elevated troponin: Code(s): R77.8 - Other specified abnormalities of plasma proteins Status: Acute Assessment and Plan: No complaints of chest pain Patient had an episode of AFib. Patient on Metoprolol New BBB noted on most current EKG (6) Left bundle branch block: Code(s): I44.7 - Left bundle-branch block, unspecified Status: Acute Assessment and Plan: See above. (7) Pyuria: Code(s): R82.81 - Pyuria Status: Acute Assessment and Plan: Remains asymptomatic Rocephin completed Continue to monitor for symptoms (8) Iron deficiency anemia: Qualifiers: Iron deficiency anemia type: unspecified iron deficiency Qualified Code(s): D50.9 - Iron deficiency anemia, unspecified Code(s): D50.9 - Iron deficiency anemia, unspecified Status: Acute Assessment and Plan: H&H 7.0/23.5 One unit of blood given Occult blood was negative Bleeding noted in the left calf from CT Continue to trend H&H CBC order for AM Continue Iron supplements (9) Chronic lymphocytic leukemia: Code(s): C91.10 - Chronic lymphocytic leukemia of B-cell type not having achieved remission Status: Acute Assessment and Plan: Chronic. WBC 23.9 today Patient was being treated for pneumonia 5 day course of azithromycin and Rocephin completed Continue to trend WBC D/C steroids when possible Time Spent With Patient Time with patient: 25 - 35 minutes Subjective Date/time seen: 01/24/21 13:22 With Jose is an 80-year-old female who originally came i
[2021-01-24] MEDS: HYDROcodone/acetaminophen (*CRX) 5-325 MG TABLET 1 TAB PO (13:37)
[2021-01-24 17:27] LABS: Glucose Point of Care 114 (65-105)
[2021-01-24] MEDS: MELATONIN 5 MG TABLET PO (20:19)
[2021-01-24] MEDS: SODIUM CHLORIDE NASAL GEL 14.1 GM 1 APPLIC NASAL (20:23)
[2021-01-24 20:27] LABS: Hemoglobin 7.9 g/dL (12.0-15.0)
[2021-01-24] MEDS: REMDESIVIR 100 MG/NS 250 ML 100 MG/250 ML BAG 250 MG IVPB (22:10)
[2021-01-25] VITALS (21 sets, daily range): BP systolic 124–152; BP diastolic 39–67; PULSE 64–82; RESP 1–24; TEMP 36.2–37.2; O2SAT 88–100
[2021-01-25] MEDS: ALBUTEROL SULFATE NEB 2.5 MG/0.5 ML INH 5 MG INHALATION ×4 (02:32→20:31)
[2021-01-25] MEDS: IPRATROPIUM BR 0.02% INH SOLN 0.5 MG/2.5 ML VIAL INHALATION ×4 (02:32→20:31)
[2021-01-25 05:56] LABS: Basophils Absolute Auto 0.1 K/mm3 (0.0-0.1); Basophils Percent Auto 0.2 % (0.2-1.2); Eosinophils Percent Auto 0.1 % (0-4.4); Hematocrit 25.5 % (37.0-47.0); Hemoglobin 7.7 g/dL (12.0-15.0); Immature Granulocyte Absolute 0.14 K/mm3 (0.00-0.031); Immature Granulocyte Percent A 0.4 % (0-0.5); Lymphocytes Absolute Auto 29.26 K/mm3 (0.9-3.2); Lymphocytes Percent Auto 81.8 % (18.3-44.2); Mean Corpuscular HGB Conc 30.2 g/dl (32-36); Mean Corpuscular Volume 86.1 fl (80-100); Mean Platelet Volume 10.2 fl (7.4-10.4); Monocytes Absolute Auto 2.5 K/mm3 (0.1-0.6); Monocytes Percent Auto 6.9 % (2.6-8.5); Neutrophils Absolute Auto 3.8 K/mm3 (1.3-6.7); Neutrophils Percent Auto 10.6 % (45.5-73.1); Nucleated Red Blood Cells Perc 0.1 % (0.0-0.2); Platelet Count Result 209 k/mm3 (150-375); Red Blood Count 2.96 M/mm3 (4.2-5.4); Red Cell Distribution Width 16.8 % (11.5-14.5); White Blood Count 35.8 K/mm3 (4.5-10.0)
[2021-01-25 06:08] LABS: Prothrombin Time 14.2 Seconds (11.1-14.7)
[2021-01-25 06:14] LABS: Alanine Aminotransferase 12 U/L (4-35); Albumin Level 2.3 g/dL (3.5-5.1); Alkaline Phosphatase 76 U/L (38-126); Anion Gap -2 mmol/L (8-16); Aspartate Amino Transferase 30 U/L (14-36); Bilirubin,Total 0.2 mg/dL (0.2-1.3); Blood Urea Nitrogen 14 mg/dL (7-17); Calcium 7.9 mg/dL (8.4-10.2); Carbon Dioxide 32 mmol/L (22-30); Chloride 106 mmol/L (98-107); Estimated CRCL calculation 60 ml/min; Estimated Glomerular Filt Rate > 60; Glucose 101 mg/dL (65-105); Potassium 4.1 mmol/L (3.4-5.0); Sodium 136 mmol/L (137-145)
[2021-01-25 06:36] LABS: Platelet Estimate Adequate (Adequate); Polychromasia 1+ (NORMAL)
[2021-01-25 06:37] LABS: Microcytosis 2+ (NORMAL); Ovalocytes 1+ (NORMAL); Tear Drop Cells 1+ (NORMAL)
[2021-01-25 07:56] LABS: Legionella pneumophila Ag Ur Not Detected (Not Detected)
[2021-01-25 08:36] LABS: Glucose Point of Care 103 (65-105)
[2021-01-25] MEDS: FERROUS SULFATE 324 MG TABLET PO ×2 (09:26→18:20)
[2021-01-25] MEDS: DOCUSATE SODIUM 100 MG CAPSULE PO ×2 (09:26→21:29)
[2021-01-25] MEDS: lisinopriL 20 MG TABLET PO (09:26)
[2021-01-25] MEDS: SODIUM CHLORIDE NASAL GEL 14.1 GM 1 APPLIC NASAL ×2 (09:26→21:28)
[2021-01-25] MEDS: PANTOPRAZOLE SODIUM IV 40 MG VIAL IV PUSH ×2 (09:26→21:30)
[2021-01-25] MEDS: METOPROLOL SUCCINATE EXT REL 12.5 MG TABCR PO (09:27)
[2021-01-25] MEDS: SIMVASTATIN 20 MG TABLET 40 MG PO (09:27)
[2021-01-25] MEDS: FLUTICASONE PROPIONATE 0.05% NA SPR 16 GM BTL (*BKC) 1 SPRAY NASAL ×2 (09:27→21:28)
[2021-01-25] MEDS: ASPIRIN 81 MG CHEWABLE TABLET PO (09:28)
[2021-01-25] MEDS: HYDROcodone/acetaminophen (*CRX) 5-325 MG TABLET 1 TAB PO ×2 (09:33→18:19)
--- NOTE | 2021-01-25 11:56 | P.PNIM_ITS ---
Progress Note: A&P Assessment and Plan (1) Hematoma: Code(s): T14.8XXA - Other injury of unspecified body region, initial encounter Status: Acute Assessment and Plan: * CT of the left leg showed a large hematoma * Pt has normal sensation and pulses. Pain is improving. She does have some swelling in her feet * Spoke with Dr. Merry Nguyễn about case. He recommends continuing monitoring with elevation and arianne wrap. If the pain worsens to any signs of compartment syndrome occurs, to consult him. Will give one dose of lasix * Hgb stable 7.7, monitor with daily labs * Unable to anticoagulate-Lovenox on hold- SCD on the right lower extremity (2) COVID-19: Code(s): U07.1 - COVID-19 Status: Acute Assessment and Plan: * Patient presented with cough and weakness. CTA chest shows extensive bilateral pulmonary infiltrates; COVID positive 01/17/21. * Pneumococcal and legionella negative * Completed remdesivir (7 days worth) * Dexamethasone was given but has been discontinued at this time since pt is improving (97 on 1 L, weaning off now). I want to monitor her WBC off steroids to see if it continues to increase (indicating worsening infection or worsening CLL or transition) * She was treated empiric antibiotics with azithromycin and Rocephin, completed a 5-day course. * Continue supportive care with Tylenol for fevers, bronchodilator therapy, Robitussin, incentive spirometer. * Blood cultures from 01/22/21 have no growth to date * Previous blood cultures found peptostreptococcus, likely contaminated. vancomycin stopped. No further fevers * Unable to anticoagulate due to large hematoma in the left leg. Will order SCD to the unaffected leg (3) Acute respiratory failure with hypoxia: Code(s): J96.01 - Acute respiratory failure with hypoxia Status: Acute Assessment and Plan: Improving (4) Atrial fibrillation with RVR: Code(s): I48.91 - Unspecified atrial fibrillation Status: Acute Assessment and Plan: * Patient stated that she has had AFib in the past a long time ago. Since that she has not had any problems * 01/19/21 an episode AFib RVR with rates into 120s overnight. * Cardiology consulted thank you for recommendations * Continue metoprolol * Will hold Lovenox due to the left leg swelling (5) Elevated troponin: Code(s): R77.8 - Other specified abnormalities of plasma proteins Status: Acute Assessment and Plan: * No complaints of chest pain * Patient had an episode of AFib earlier in the stay but no reoccurance * Patient on Metoprolol (6) Left bundle branch block: Code(s): I44.7 - Left bundle-branch block, unspecified Status: Acute Assessment and Plan: See above (7) Pyuria: Code(s): R82.81 - Pyuria Status: Acute Assessment and Plan: * Remains asymptomatic * Rocephin completed * Continue to monitor for symptoms . (8) Iron deficiency anemia: Qualifiers: Iron deficiency anemia type: unspecified iron deficiency Qualified Code(s): D50.9 - Iron deficiency anemia, unspecified Code(s): D50.9 - Iron deficiency anemia, unspecified Status: Acute Assessment and Plan: H&H 7.7/25.5 -One unit of blood given 01/24/21 -Occult blood was negative -Bleeding noted in the left calf from CT -Continue to trend H&H -Continue Iron supplements (9) Chronic lymphocytic leukemia:
--- NOTE | 2021-01-25 11:56 | PM.IMPN ---
Progress Note: A&P Assessment and Plan (1) Hematoma: Code(s): T14.8XXA - Other injury of unspecified body region, initial encounter Status: Acute Assessment and Plan: CT of the left leg showed a large hematoma Pt has normal sensation and pulses. Pain is improving. She does have some swelling in her feet Spoke with OrthoDr. Sousa about case. He recommends continuing monitoring with elevation and arianne wrap. If the pain worsens to any signs of compartment syndrome occurs, to consult him. Will give one dose of lasix Hgb stable 7.7, monitor with daily labs Unable to anticoagulate-Lovenox on hold- SCD on the right lower extremity (2) COVID-19: Code(s): U07.1 - COVID-19 Status: Acute Assessment and Plan: Patient presented with cough and weakness. CTA chest shows extensive bilateral pulmonary infiltrates; COVID positive 01/17/21. Pneumococcal and legionella negative Completed remdesivir (7 days worth) Dexamethasone was given but has been discontinued at this time since pt is improving (97 on 1 L, weaning off now). I want to monitor her WBC off steroids to see if it continues to increase (indicating worsening infection or worsening CLL or transition) She was treated empiric antibiotics with azithromycin and Rocephin, completed a 5-day course. Continue supportive care with Tylenol for fevers, bronchodilator therapy, Robitussin, incentive spirometer. Blood cultures from 01/22/21 have no growth to date Previous blood cultures found peptostreptococcus, likely contaminated. vancomycin stopped. No further fevers Unable to anticoagulate due to large hematoma in the left leg. Will order SCD to the unaffected leg (3) Acute respiratory failure with hypoxia: Code(s): J96.01 - Acute respiratory failure with hypoxia Status: Acute Assessment and Plan: Improving (4) Atrial fibrillation with RVR: Code(s): I48.91 - Unspecified atrial fibrillation Status: Acute Assessment and Plan: Patient stated that she has had AFib in the past a long time ago. Since that she has not had any problems 01/19/21 an episode AFib RVR with rates into 120s overnight. Cardiology consulted thank you for recommendations Continue metoprolol Will hold Lovenox due to the left leg swelling (5) Elevated troponin: Code(s): R77.8 - Other specified abnormalities of plasma proteins Status: Acute Assessment and Plan: No complaints of chest pain Patient had an episode of AFib earlier in the stay but no reoccurance Patient on Metoprolol (6) Left bundle branch block: Code(s): I44.7 - Left bundle-branch block, unspecified Status: Acute Assessment and Plan: See above (7) Pyuria: Code(s): R82.81 - Pyuria Status: Acute Assessment and Plan: Remains asymptomatic Rocephin completed Continue to monitor for symptoms . (8) Iron deficiency anemia: Qualifiers: Iron deficiency anemia type: unspecified iron deficiency Qualified Code(s): D50.9 - Iron deficiency anemia, unspecified Code(s): D50.9 - Iron deficiency anemia, unspecified Status: Acute Assessment and Plan: H&H 7.7/25.5 -One unit of blood given 01/24/21 -Occult blood was negative -Bleeding noted in the left calf from CT -Continue to trend H&H -Continue Iron supplements (9) Chronic lymphocytic leukemia: Code(s): C91.10 - Chronic lymphocytic leukemia of B-cell type not having achieved remission Status: Acute Assessment and Plan: Chronic. WBC worsening today 35.8 Leukocytosis is likely due to steroids but these have been stopped. Hopefully this will improve her leukocytosis. I do not suspect a worsening infection. Chest x-ray stable. Blood cultures negative. If her white blood cell count continues to worsen, consider hematology consult. Continue to trend WBC Time Spent Wit
[2021-01-25 13:07] LABS: Glucose Point of Care 125 (65-105)
[2021-01-25] MEDS: FUROSEMIDE INJ 40 MG/4 ML VIAL 20 MG IV PUSH (13:46)
[2021-01-25 17:40] LABS: Glucose Point of Care 98 (65-105)
[2021-01-25] MEDS: MELATONIN 5 MG TABLET PO (21:30)
[2021-01-25 22:09] LABS: Glucose Point of Care 95 (65-105)
[2021-01-26] VITALS (18 sets, daily range): BP systolic 139–150; BP diastolic 54–85; PULSE 57–81; RESP 16–24; TEMP 36.1–36.9; O2SAT 90–100
[2021-01-26] MEDS: ALBUTEROL SULFATE NEB 2.5 MG/0.5 ML INH 5 MG INHALATION ×4 (02:22→21:12)
[2021-01-26] MEDS: IPRATROPIUM BR 0.02% INH SOLN 0.5 MG/2.5 ML VIAL INHALATION ×4 (02:22→21:12)
[2021-01-26 07:18] LABS: Hematocrit 25.9 % (37.0-47.0); Hemoglobin 7.6 g/dL (12.0-15.0); Mean Corpuscular HGB Conc 29.3 g/dl (32-36); Mean Corpuscular Volume 88.7 fl (80-100); Mean Platelet Volume 10.1 fl (7.4-10.4); Platelet Count Result 205 k/mm3 (150-375); Red Blood Count 2.92 M/mm3 (4.2-5.4); Red Cell Distribution Width 17.2 % (11.5-14.5); White Blood Count 30.1 K/mm3 (4.5-10.0)
[2021-01-26 07:32] LABS: Alanine Aminotransferase 12 U/L (4-35); Anion Gap 0 mmol/L (8-16); Blood Urea Nitrogen 15 mg/dL (7-17); CRP 2.2 mg/dL (<1.0); Calcium 7.9 mg/dL (8.4-10.2); Carbon Dioxide 33 mmol/L (22-30); Chloride 103 mmol/L (98-107); Estimated CRCL calculation 60 ml/min; Estimated Glomerular Filt Rate > 60; Glucose 96 mg/dL (65-105); Potassium 3.9 mmol/L (3.4-5.0); Sodium 136 mmol/L (137-145)
[2021-01-26 07:44] LABS: Prothrombin Time 13.8 Seconds (11.1-14.7)
[2021-01-26 08:00] LABS: Glucose Point of Care 105 (65-105)
[2021-01-26 08:02] LABS: Lymphocytes Absolute Manual 28.59 K/mm3 (1.1-4.5); Neutrophils Percent Manual 5 % (46-73); Ovalocytes 2+ (NORMAL); Platelet Estimate Adequate (Adequate); Poikilocytosis 2+ (NORMAL); Total Cells Counted 100
[2021-01-26 08:03] LABS: Tear Drop Cells 1+ (NORMAL)
[2021-01-26 08:04] LABS: Smudge Cells MODERATE
[2021-01-26] MEDS: HYDROcodone/acetaminophen (*CRX) 5-325 MG TABLET 1 TAB PO ×2 (08:42→14:56)
[2021-01-26] MEDS: METOPROLOL SUCCINATE EXT REL 12.5 MG TABCR PO (08:43)
[2021-01-26] MEDS: SIMVASTATIN 20 MG TABLET 40 MG PO (08:43)
[2021-01-26] MEDS: ASPIRIN 81 MG CHEWABLE TABLET PO (08:43)
[2021-01-26] MEDS: DOCUSATE SODIUM 100 MG CAPSULE PO ×2 (08:43→21:55)
[2021-01-26] MEDS: PANTOPRAZOLE SODIUM IV 40 MG VIAL IV PUSH ×2 (08:43→21:54)
[2021-01-26] MEDS: FERROUS SULFATE 324 MG TABLET PO ×2 (08:44→18:00)
[2021-01-26] MEDS: FLUTICASONE PROPIONATE 0.05% NA SPR 16 GM BTL (*BKC) 1 SPRAY NASAL ×2 (08:44→21:51)
[2021-01-26] MEDS: lisinopriL 20 MG TABLET PO (08:44)
--- NOTE | 2021-01-26 09:51 | P.PNIM_ITS ---
Progress Note: A&P Assessment and Plan (1) Hematoma: Code(s): T14.8XXA - Other injury of unspecified body region, initial encounter Status: Acute Assessment and Plan: * CT of the left leg showed a large hematoma on 01/23/21 * Pt has normal sensation and pulses. Pain is improving. Feet appear more swollen today * Ortho, Dr. Sousa. He recommends continuing monitoring with elevation and arianne wrap. If the pain worsens to any signs of compartment syndrome occurs, to consult him (01/25/21). Will give another dose of lasix * Hgb/HCT stable 7.6/25.9, monitor with daily labs * Unable to anticoagulate-Lovenox on hold- SCD on the right lower extremity (2) COVID-19: Code(s): U07.1 - COVID-19 Status: Acute Assessment and Plan: * Patient presented with cough and weakness. CTA chest shows extensive bilateral pulmonary infiltrates; COVID positive 01/17/21. * Pneumococcal and legionella negative * Completed remdesivir (7 days) * Dexamethasone was given but has been discontinued at this time since pt is improving (98-99 on 2L, Resp weaning). White blood cell count is trending down at 30.1 today from 35.8 yesterday. Will continue to trend white blood cell count * She was treated empiric antibiotics with azithromycin and Rocephin, completed a 5-day course. * Continue supportive care with Tylenol for fevers, bronchodilator therapy, Robitussin, incentive spirometer. * Blood cultures from 01/22/21 have no growth to date * Previous blood cultures found peptostreptococcus, likely contaminated. vancomycin stopped. No further fevers * Unable to anticoagulate due to large hematoma in the left leg. Will order SCD to the unaffected leg (3) Acute respiratory failure with hypoxia: Code(s): J96.01 - Acute respiratory failure with hypoxia Status: Acute Assessment and Plan: * Oxygen demand decreased * Improving status (4) Atrial fibrillation with RVR: Code(s): I48.91 - Unspecified atrial fibrillation Status: Acute Assessment and Plan: * Patient stated that she has had AFib in the past a long time ago. Since that she has not had any problems * 01/19/21 an episode AFib RVR with rates into 120s overnight. * Cardiology consulted thank you for recommendations * Continue metoprolol * Will hold Lovenox due to the left leg swelling (5) Elevated troponin: Code(s): R77.8 - Other specified abnormalities of plasma proteins Status: Acute Assessment and Plan: * No complaints of chest pain * Patient had an episode of AFib earlier in the stay but no reoccurance * Patient on Metoprolol (6) Left bundle branch block: Code(s): I44.7 - Left bundle-branch block, unspecified Status: Acute Assessment and Plan: See above (7) Pyuria: Code(s): R82.81 - Pyuria Status: Acute Assessment and Plan: * Remains asymptomatic * Rocephin completed * Continue to monitor for symptoms . (8) Iron deficiency anemia: Qualifiers: Iron deficiency anemia type: unspecified iron deficiency Qualified Code(s): D50.9 - Iron deficiency anemia, unspecified Code(s): D50.9 - Iron deficiency anemia, unspecified Status: Acute Assessment and Plan: H&H 7.7/25.5 -One unit of blood given 01/24/21 -Occult blood was negative -Bleeding noted in the left calf from CT -Continue to trend H&H -Continue Iron supplements (9) Chronic lymphocytic le
--- NOTE | 2021-01-26 09:51 | PM.IMPN ---
Progress Note: A&P Assessment and Plan (1) Hematoma: Code(s): T14.8XXA - Other injury of unspecified body region, initial encounter Status: Acute Assessment and Plan: CT of the left leg showed a large hematoma on 01/23/21 Pt has normal sensation and pulses. Pain is improving. Feet appear more swollen today Ortho, Dr. Sousa. He recommends continuing monitoring with elevation and arianne wrap. If the pain worsens to any signs of compartment syndrome occurs, to consult him (01/25/21). Will give another dose of lasix Hgb/HCT stable 7.6/25.9, monitor with daily labs Unable to anticoagulate-Lovenox on hold- SCD on the right lower extremity (2) COVID-19: Code(s): U07.1 - COVID-19 Status: Acute Assessment and Plan: Patient presented with cough and weakness. CTA chest shows extensive bilateral pulmonary infiltrates; COVID positive 01/17/21. Pneumococcal and legionella negative Completed remdesivir (7 days) Dexamethasone was given but has been discontinued at this time since pt is improving (98-99 on 2L, Resp weaning). White blood cell count is trending down at 30.1 today from 35.8 yesterday. Will continue to trend white blood cell count She was treated empiric antibiotics with azithromycin and Rocephin, completed a 5-day course. Continue supportive care with Tylenol for fevers, bronchodilator therapy, Robitussin, incentive spirometer. Blood cultures from 01/22/21 have no growth to date Previous blood cultures found peptostreptococcus, likely contaminated. vancomycin stopped. No further fevers Unable to anticoagulate due to large hematoma in the left leg. Will order SCD to the unaffected leg (3) Acute respiratory failure with hypoxia: Code(s): J96.01 - Acute respiratory failure with hypoxia Status: Acute Assessment and Plan: Oxygen demand decreased Improving status (4) Atrial fibrillation with RVR: Code(s): I48.91 - Unspecified atrial fibrillation Status: Acute Assessment and Plan: Patient stated that she has had AFib in the past a long time ago. Since that she has not had any problems 01/19/21 an episode AFib RVR with rates into 120s overnight. Cardiology consulted thank you for recommendations Continue metoprolol Will hold Lovenox due to the left leg swelling (5) Elevated troponin: Code(s): R77.8 - Other specified abnormalities of plasma proteins Status: Acute Assessment and Plan: No complaints of chest pain Patient had an episode of AFib earlier in the stay but no reoccurance Patient on Metoprolol (6) Left bundle branch block: Code(s): I44.7 - Left bundle-branch block, unspecified Status: Acute Assessment and Plan: See above (7) Pyuria: Code(s): R82.81 - Pyuria Status: Acute Assessment and Plan: Remains asymptomatic Rocephin completed Continue to monitor for symptoms . (8) Iron deficiency anemia: Qualifiers: Iron deficiency anemia type: unspecified iron deficiency Qualified Code(s): D50.9 - Iron deficiency anemia, unspecified Code(s): D50.9 - Iron deficiency anemia, unspecified Status: Acute Assessment and Plan: H&H 7.7/25.5 -One unit of blood given 01/24/21 -Occult blood was negative -Bleeding noted in the left calf from CT -Continue to trend H&H -Continue Iron supplements (9) Chronic lymphocytic leukemia: Code(s): C91.10 - Chronic lymphocytic leukemia of B-cell type not having achieved remission Status: Acute Assessment and Plan: Chronic. WBC better today at 30.1 down from 35.8 yesterday Leukocytosis is likely due to steroids, steroids have been DC'd white blood cell count down from yesterday Continue to trend WBC, CBC ordered for tomorrow Time Spent With Patient Time with patient: 25 - 35 minutes Subjective Date/time seen: 01/26/21 09:51 Patient is an 80-year-o
[2021-01-26] MEDS: FUROSEMIDE INJ 40 MG/4 ML VIAL 20 MG IV PUSH (10:39)
[2021-01-26] MEDS: ACETAMINOPHEN 325 MG TABLET 650 MG PO (20:20)
[2021-01-26] MEDS: SODIUM CHLORIDE NASAL GEL 14.1 GM 1 APPLIC NASAL (21:51)
[2021-01-26] MEDS: MELATONIN 5 MG TABLET PO (21:56)
[2021-01-27] VITALS (23 sets, daily range): BP systolic 110–153; BP diastolic 36–57; PULSE 60–93; RESP 14–20; TEMP 36.4–36.9; O2SAT 91–100
[2021-01-27] MEDS: ALBUTEROL SULFATE NEB 2.5 MG/0.5 ML INH 5 MG INHALATION ×4 (01:34→20:48)
[2021-01-27 06:06] LABS: Hematocrit 22.6 % (37.0-47.0); Mean Corpuscular Volume 87.3 fl (80-100); Mean Platelet Volume 9.6 fl (7.4-10.4); Platelet Count Result 186 k/mm3 (150-375); Red Blood Count 2.59 M/mm3 (4.2-5.4); Red Cell Distribution Width 17.2 % (11.5-14.5); White Blood Count 20.2 K/mm3 (4.5-10.0)
[2021-01-27 06:16] LABS: Prothrombin Time 13.8 Seconds (11.1-14.7)
[2021-01-27 06:24] LABS: Alanine Aminotransferase 11 U/L (4-35); Anion Gap -1 mmol/L (8-16); Blood Urea Nitrogen 14 mg/dL (7-17); Calcium 7.8 mg/dL (8.4-10.2); Carbon Dioxide 33 mmol/L (22-30); Chloride 103 mmol/L (98-107); Estimated CRCL calculation 60 ml/min; Estimated Glomerular Filt Rate > 60; Glucose 108 mg/dL (65-105); Magnesium 2.2 mg/dL (1.6-2.3); Potassium 3.7 mmol/L (3.4-5.0); Sodium 135 mmol/L (137-145)
[2021-01-27] MEDS: IPRATROPIUM BR 0.02% INH SOLN 0.5 MG/2.5 ML VIAL INHALATION ×3 (07:48→20:50)
[2021-01-27 08:25] LABS: Glucose Point of Care 110 (65-105)
--- NOTE | 2021-01-27 08:30 | P.PNIM_ITS ---
Progress Note: A&P Assessment and Plan (1) Hematoma: Code(s): T14.8XXA - Other injury of unspecified body region, initial encounter Status: Acute Assessment and Plan: * CT of the left leg showed a large hematoma on 01/23/21 * Pt has normal sensation and diminished pulse on left foot. Pain is the same. Left foot has 4+ pitting edema * Ortho, Dr. Sousa. He recommends continuing monitoring with elevation and arianne wrap. If the pain worsens to any signs of compartment syndrome occurs, to consult him (01/25/21). Will give another dose of lasix * Hgb/HCT worse today 04/10.6, transfuse one unit. Recheck 1 hours after completion. With follow up 6hr after. * Dr. Jesus consulted from general surgery. Thank you for recommendations. * Unable to anticoagulate-Lovenox on hold- SCD on the right lower extremity * Wrap foot, ankle, and leg, elevate, ice, norco for pain control * Neurovascular checks per surgery (2) COVID-19: Code(s): U07.1 - COVID-19 Status: Acute Assessment and Plan: * Patient presented with cough and weakness. CTA chest shows extensive bilateral pulmonary infiltrates; COVID positive 01/17/21. * Pneumococcal and legionella negative * Completed remdesivir (7 days) * Dexamethasone was given but has been discontinued at this time since pt is improving (98-99 on 2L, Resp weaning). White blood cell count is trending down at 20.2 today from 30.1 yesterday. Will continue to trend white blood cell count * She was treated empiric antibiotics with azithromycin and Rocephin, completed a 5-day course. * Continue supportive care with Tylenol for fevers, bronchodilator therapy, Robitussin, incentive spirometer. * Supplemental oxygen to maintain SPO2 >90%. Wean as tolerated. * Blood cultures from 01/22/21 have no growth to date * Previous blood cultures found peptostreptococcus, likely contaminated. vancomycin stopped. No further fevers * Unable to anticoagulate due to large hematoma in the left leg. Will order SCD to the unaffected leg (3) Acute respiratory failure with hypoxia: Code(s): J96.01 - Acute respiratory failure with hypoxia Status: Acute Assessment and Plan: * Oxygen demand decreased * Improving status * Will need walk test upon discharge (4) Atrial fibrillation with RVR: Code(s): I48.91 - Unspecified atrial fibrillation Status: Acute Assessment and Plan: * Patient stated that she has had AFib in the past a long time ago. Since that she has not had any problems * 01/19/21 an episode AFib RVR with rates into 120s overnight. * Cardiology consulted thank you for recommendations * Continue metoprolol * Will hold Lovenox due to the left leg swelling (5) Elevated troponin: Code(s): R77.8 - Other specified abnormalities of plasma proteins Status: Acute Assessment and Plan: * No complaints of chest pain * Patient had an episode of AFib earlier in the stay but no reoccurance * Patient on Metoprolol (6) Left bundle branch block: Code(s): I44.7 - Left bundle-branch block, unspecified Status: Acute Assessment and Plan: * See above (7) Pyuria: Code(s): R82.81 - Pyuria Status: Acute Assessment and Plan: * Remains asymptomatic * Rocephin completed * Continue to monitor for symptoms . (8) Iron deficiency anemia: Qualifiers: Iron deficiency anemia type: unspecified iron deficiency Qualified Code(s): D50.9 - Iron deficiency
--- NOTE | 2021-01-27 08:30 | PM.IMPN ---
Progress Note: A&P Assessment and Plan (1) Hematoma: Code(s): T14.8XXA - Other injury of unspecified body region, initial encounter Status: Acute Assessment and Plan: CT of the left leg showed a large hematoma on 01/23/21 Pt has normal sensation and diminished pulse on left foot. Pain is the same. Left foot has 4+ pitting edema Ortho, Dr. Sousa. He recommends continuing monitoring with elevation and arianne wrap. If the pain worsens to any signs of compartment syndrome occurs, to consult him (01/25/21). Will give another dose of lasix Hgb/HCT worse today 04/10.6, transfuse one unit. Recheck 1 hours after completion. With follow up 6hr after. Dr. Jesus consulted from general surgery. Thank you for recommendations. Unable to anticoagulate-Lovenox on hold- SCD on the right lower extremity Wrap foot, ankle, and leg, elevate, ice, norco for pain control Neurovascular checks per surgery (2) COVID-19: Code(s): U07.1 - COVID-19 Status: Acute Assessment and Plan: Patient presented with cough and weakness. CTA chest shows extensive bilateral pulmonary infiltrates; COVID positive 01/17/21. Pneumococcal and legionella negative Completed remdesivir (7 days) Dexamethasone was given but has been discontinued at this time since pt is improving (98-99 on 2L, Resp weaning). White blood cell count is trending down at 20.2 today from 30.1 yesterday. Will continue to trend white blood cell count She was treated empiric antibiotics with azithromycin and Rocephin, completed a 5-day course. Continue supportive care with Tylenol for fevers, bronchodilator therapy, Robitussin, incentive spirometer. Supplemental oxygen to maintain SPO2 >90%. Wean as tolerated. Blood cultures from 01/22/21 have no growth to date Previous blood cultures found peptostreptococcus, likely contaminated. vancomycin stopped. No further fevers Unable to anticoagulate due to large hematoma in the left leg. Will order SCD to the unaffected leg (3) Acute respiratory failure with hypoxia: Code(s): J96.01 - Acute respiratory failure with hypoxia Status: Acute Assessment and Plan: Oxygen demand decreased Improving status Will need walk test upon discharge (4) Atrial fibrillation with RVR: Code(s): I48.91 - Unspecified atrial fibrillation Status: Acute Assessment and Plan: Patient stated that she has had AFib in the past a long time ago. Since that she has not had any problems 01/19/21 an episode AFib RVR with rates into 120s overnight. Cardiology consulted thank you for recommendations Continue metoprolol Will hold Lovenox due to the left leg swelling (5) Elevated troponin: Code(s): R77.8 - Other specified abnormalities of plasma proteins Status: Acute Assessment and Plan: No complaints of chest pain Patient had an episode of AFib earlier in the stay but no reoccurance Patient on Metoprolol (6) Left bundle branch block: Code(s): I44.7 - Left bundle-branch block, unspecified Status: Acute Assessment and Plan: See above (7) Pyuria: Code(s): R82.81 - Pyuria Status: Acute Assessment and Plan: Remains asymptomatic Rocephin completed Continue to monitor for symptoms . (8) Iron deficiency anemia: Qualifiers: Iron deficiency anemia type: unspecified iron deficiency Qualified Code(s): D50.9 - Iron deficiency anemia, unspecified Code(s): D50.9 - Iron deficiency anemia, unspecified Status: Acute Assessment and Plan: H&H 7.0/22.6 One unit of blood given 01/24/21, will transfuse again today Surgery consulted for possible bleed. Occult blood was negative Bleeding noted in the left calf from CT Will repeat H/H one hour following transfusion and 6 hours after that Continue Iron supplements (9) Chronic lymphocytic leukemia: Code(s): C91.10 - Ch
[2021-01-27] MEDS: HYDROcodone/acetaminophen (*CRX) 5-325 MG TABLET 1 TAB PO ×2 (08:50→16:31)
--- NOTE | 2021-01-27 08:50 | PCPTNOTE ---
PT held this A.M. due to increased pain, swelling, and bruising of the L LE. PT will continue to follow per plan of care.
[2021-01-27] MEDS: METOPROLOL SUCCINATE EXT REL 12.5 MG TABCR PO (08:54)
[2021-01-27] MEDS: FERROUS SULFATE 324 MG TABLET PO ×2 (08:55→16:31)
[2021-01-27] MEDS: PANTOPRAZOLE SODIUM IV 40 MG VIAL IV PUSH ×2 (08:55→20:14)
[2021-01-27] MEDS: lisinopriL 20 MG TABLET PO (08:56)
[2021-01-27] MEDS: SODIUM CHLORIDE 0.9% IV 250 ML 30 ML IV CONT (08:56)
[2021-01-27] MEDS: TUBING, BLOOD PLUM PUMP TUBING 1 EACH XX (08:57)
--- NOTE | 2021-01-27 09:57 | PM.CNGS ---
Assessment and Plan Assessment and plan (1) Hematoma of left lower extremity: Qualifiers: Encounter type: initial encounter Qualified Code(s): S80.12XA - Contusion of left lower leg, initial encounter Code(s): S80.12XA - Contusion of left lower leg, initial encounter Status: Acute Assessment and Plan: I reviewed the CT and the patient's hospital course. Patient's calf appears soft and I do not think compartment syndrome is very likely at this point. Anticoagulation has been held for several days, therefore H&H should stabilize and ongoing bleeding seems less likely. I would recommend elevating left lower extremity and continuing with neurovascular checks. Hold anticoagulation at this time. (2) Iron deficiency anemia: Qualifiers: Iron deficiency anemia type: unspecified iron deficiency Qualified Code(s): D50.9 - Iron deficiency anemia, unspecified Code(s): D50.9 - Iron deficiency anemia, unspecified Status: Acute Assessment and Plan: Anemia likely multifactorial, but no other sources of bleeding identified other than left lower extremity hematoma. This should not cause continued bleeding with anticoagulation held, but could consider reimaging if H&H continues to drop. (3) COVID-19: Code(s): U07.1 - COVID-19 Status: Acute (4) Atrial fibrillation with RVR: Code(s): I48.91 - Unspecified atrial fibrillation Status: Acute (5) Acute respiratory failure with hypoxia: Code(s): J96.01 - Acute respiratory failure with hypoxia Status: Acute History of Present Illness Consult details Consult date: 01/27/21 Reason for consult: other (Left lower extremity hematoma) Requesting physician: Wero Ascencio APN-C Narrative: This is an 80-year-old woman who on this to see for hematoma on her left leg. She was admitted on 01/17/2021 for pneumonia and was subsequently found to have COVID. She then developed AFib with RVR and was placed on therapeutic Lovenox. About 4 or 5 days ago she began complaining of some pain in her left leg. She was noted to have swelling and a hematoma. A CT of her left lower extremity showed evidence of an intramuscular hematoma and therefore anticoagulation was stopped. She denied any recent trauma to this area. She continues to have pain and swelling in the left lower extremity and she was found to have decreasing hemoglobin, therefore I was asked to see the patient. She still has sensation in her feet and has normal motor function. She denies any prior history of circulation problems with her legs. Review of Systems Review of Systems: All systems reviewed & are unremarkable except as noted in HPI and below Eyes: Eyes: Denies change in vision ENT: Denies hearing loss, Denies neck pain and Denies sore throat Cardiovascular: Cardiovascular: Denies chest pain and Denies dyspnea Respiratory: Respiratory: Reports as per HPI, Reports cough, Denies dyspnea and Denies wheezing Gastrointestinal: Gastrointestinal: Denies melena and Denies hematochezia Genitourinary: Genitourinary: Denies hematuria and Denies dysuria Musculoskeletal: Musculoskeletal: Denies arthralgias, Denies joint swelling and Denies neck pain Hematologic/Lymphatic: Hematologic/Lymphatic: Reports easy bruising Allergic/Immunologic: Allergic/Immunologic: Denies wheezing [facility] Past Medical History Medical History Chronic lymphocytic leukemia (~1999) Chronic pain of left knee CVA (cerebral vascular accident) (~2003) Diastolic heart failure Echo 02/23/2020: 60-65%, moderately increased left ventricular wall thickness, abnormal diastolic function, global longitudinal strain is normal, mild left atrial enlargement, mild aortic valve sclerosis, mild mitral valve regurgitation, severe pulmonary hypertension with RVSP of 62, [id number] pulmonic regurgitation, elevated right atrial pressures Emphy
--- NOTE | 2021-01-27 11:20 | PCNFU ---
Nutrition Follow-Up Complete: Unintended weight loss as related to pneumonia evidenced by significant weight loss of greater than 7.5%. goal: Meet estimated nutritional needs Progressing towards goal. We will continue current goal. Pt current nutrition is Heart Healthy diet. Last recorded weight is 76.2 kg,no new weight to report. Bowel Motility:+BM reported 01/26 Labs Reviewed:Glu 108,Na 135, Hgb 7.0,Hct 22.6 Meds Noted:Prinivil, Zofran,Melatonin,Decadron,Zocor,Miralax, NS, Protonix Additional Notes: Nutrition follow up. 1 unit of blood given today. Surgery consult for hematoma. Discussed other diet supplement options with patient today, she is going to try the frozen nutritional treat providing an additional 300 kcals and 9 gms protein. PO intake encouraged. Monitoring: will monitor every 3 days.
[2021-01-27] MEDS: DOCUSATE SODIUM 100 MG CAPSULE PO ×2 (12:15→20:15)
[2021-01-27] MEDS: ASPIRIN 81 MG CHEWABLE TABLET PO (12:15)
[2021-01-27] MEDS: FLUTICASONE PROPIONATE 0.05% NA SPR 16 GM BTL (*BKC) 1 SPRAY NASAL ×2 (12:15→20:15)
[2021-01-27] MEDS: SIMVASTATIN 20 MG TABLET 40 MG PO (12:15)
--- NOTE | 2021-01-27 12:31 | PC.NURSE ---
Received call from CRUDE TESTER that pt wanted this RN to assess her IV with blood transfusing. This RN occupied with another pt, requested charge to assess IV since blood was running. Pt IV infiltrated. Hematoma present on LFA. IV access nurse restarted IV on RFA. Blood restarted. Downtime for blood only 15 minutes. Will continue to monitor pt IV access, discontinued IV site, as well as transfusion time limitations.
--- NOTE | 2021-01-27 14:22 | PCPTNOTE ---
PT attempted therapy this afternoon, however patient declined PT due to L LE pain. RN notified.
--- NOTE | 2021-01-27 14:33 | PCOTNOTE ---
Per ICHTHYOLOGY TEACHER, patient refusing therapy today due to pain in LE. Will continue plan of care tomorrow, 01/28/21.
[2021-01-27 16:25] LABS: Hematocrit 27.9 % (37.0-47.0); Hemoglobin 8.7 g/dL (12.0-15.0)
[2021-01-27] MEDS: MELATONIN 5 MG TABLET PO (20:15)
[2021-01-27] MEDS: SODIUM CHLORIDE NASAL GEL 14.1 GM 1 APPLIC NASAL (20:15)
[2021-01-27] MEDS: ACETAMINOPHEN 325 MG TABLET 650 MG PO (20:17)
[2021-01-27 21:18] LABS: Hematocrit 27.2 % (37.0-47.0); Hemoglobin 8.3 g/dL (12.0-15.0)
[2021-01-28] VITALS (15 sets, daily range): BP systolic 112–143; BP diastolic 44–55; PULSE 62–89; RESP 17–20; TEMP 36.4–37.4; O2SAT 89–95
[2021-01-28] MEDS: IPRATROPIUM BR 0.02% INH SOLN 0.5 MG/2.5 ML VIAL INHALATION ×4 (02:17→20:10)
[2021-01-28] MEDS: ALBUTEROL SULFATE NEB 2.5 MG/0.5 ML INH 5 MG INHALATION ×4 (02:17→20:10)
[2021-01-28 06:26] LABS: Hematocrit 27.9 % (37.0-47.0); Hemoglobin 8.5 g/dL (12.0-15.0); Mean Corpuscular HGB Conc 30.5 g/dl (32-36); Mean Corpuscular Hemoglobin 26.6 pg (26-34); Mean Corpuscular Volume 87.2 fl (80-100); Mean Platelet Volume 9.3 fl (7.4-10.4); Platelet Count Result 191 k/mm3 (150-375); Red Cell Distribution Width 17.4 % (11.5-14.5); White Blood Count 25.1 K/mm3 (4.5-10.0)
[2021-01-28 06:39] LABS: Potassium 3.9 mmol/L (3.4-5.0)
[2021-01-28 06:40] LABS: Prothrombin Time 13.6 Seconds (11.1-14.7)
[2021-01-28 06:42] LABS: Alanine Aminotransferase 11 U/L (4-35); Albumin Level 2.4 g/dL (3.5-5.1); Alkaline Phosphatase 78 U/L (38-126); Anion Gap 1 mmol/L (8-16); Aspartate Amino Transferase 24 U/L (14-36); Bilirubin,Total 0.6 mg/dL (0.2-1.3); Blood Urea Nitrogen 13 mg/dL (7-17); Carbon Dioxide 32 mmol/L (22-30); Chloride 103 mmol/L (98-107); Estimated CRCL calculation 60 ml/min; Estimated Glomerular Filt Rate > 60; Glucose 107 mg/dL (65-105); Sodium 136 mmol/L (137-145)
[2021-01-28] MEDS: HYDROcodone/acetaminophen (*CRX) 5-325 MG TABLET 1 TAB PO (09:03)
[2021-01-28] MEDS: METOPROLOL SUCCINATE EXT REL 12.5 MG TABCR PO (09:04)
[2021-01-28] MEDS: SIMVASTATIN 20 MG TABLET 40 MG PO (09:04)
[2021-01-28] MEDS: PANTOPRAZOLE SODIUM IV 40 MG VIAL IV PUSH ×2 (09:05→22:04)
[2021-01-28] MEDS: FERROUS SULFATE 324 MG TABLET PO ×2 (09:05→18:10)
[2021-01-28] MEDS: ASPIRIN 81 MG CHEWABLE TABLET PO (09:05)
[2021-01-28] MEDS: DOCUSATE SODIUM 100 MG CAPSULE PO ×2 (09:05→22:04)
[2021-01-28] MEDS: FLUTICASONE PROPIONATE 0.05% NA SPR 16 GM BTL (*BKC) 1 SPRAY NASAL ×2 (09:06→22:04)
[2021-01-28] MEDS: lisinopriL 20 MG TABLET PO (09:06)
--- NOTE | 2021-01-28 11:06 | P.PNIM_ITS ---
Progress Note: A&P Assessment and Plan (1) Hematoma: Code(s): T14.8XXA - Other injury of unspecified body region, initial encounter Status: Acute Assessment and Plan: * CT of the left leg showed a large hematoma on 01/23/21 * Pt has normal sensation and diminished pulse on left foot. Pain is the same. Left foot has 2+ pitting edema * Ortho, Dr. Sousa. He recommends continuing monitoring with elevation and arianne wrap. If the pain worsens to any signs of compartment syndrome occurs, to consult him (01/25/21). Will give another dose of lasix * Hgb/HCT worse today 8.5/27.9. * Dr. Jesus consulted from general surgery. Thank you for recommendations. * Unable to anticoagulate-Lovenox on hold- SCD on the right lower extremity * Wrap foot, ankle, and leg, elevate, ice, [place], ibuprofen, Tylenol for pain control * Neurovascular checks per surgery (2) COVID-19: Code(s): U07.1 - COVID-19 Status: Acute Assessment and Plan: * Patient presented with cough and weakness. CTA chest shows extensive bilateral pulmonary infiltrates; COVID positive 01/17/21. * Pneumococcal and legionella negative * Completed remdesivir (7 days) * Dexamethasone was given but has been discontinued at this time since pt is improving, on room air. White blood cell count up a bit 25.1 today from 20.2 yesterday. Will continue to trend white blood cell count * She was treated empiric antibiotics with azithromycin and Rocephin, completed a 5-day course. * Continue supportive care with Tylenol for fevers, bronchodilator therapy, Robitussin, incentive spirometer. * Supplemental oxygen to maintain SPO2 >90%. Wean as tolerated. * Blood cultures from 01/22/21 have no growth to date * Previous blood cultures found peptostreptococcus, likely contaminated. vancomycin stopped. No further fevers * Unable to anticoagulate due to large hematoma in the left leg. Will order SCD to the unaffected leg (3) Acute respiratory failure with hypoxia: Code(s): J96.01 - Acute respiratory failure with hypoxia Status: Acute Assessment and Plan: * Oxygen demand decreased * Improving status * Will need walk test upon discharge (4) Atrial fibrillation with RVR: Code(s): I48.91 - Unspecified atrial fibrillation Status: Acute Assessment and Plan: * Patient stated that she has had AFib in the past a long time ago. Since that she has not had any problems * 01/19/21 an episode AFib RVR with rates into 120s overnight. * Cardiology consulted thank you for recommendations * Continue metoprolol * Will hold Lovenox due to the left leg swelling * No further problem. Will DC tele (5) Elevated troponin: Code(s): R77.8 - Other specified abnormalities of plasma proteins Status: Acute Assessment and Plan: * No complaints of chest pain * Patient had an episode of AFib earlier in the stay but no reoccurance * Patient on Metoprolol (6) Left bundle branch block: Code(s): I44.7 - Left bundle-branch block, unspecified Status: Acute Assessment and Plan: * See above (7) Pyuria: Code(s): R82.81 - Pyuria Status: Acute Assessment and Plan: * Remains asymptomatic * Rocephin completed * Continue to monitor for symptoms . (8) Iron deficiency anemia: Qualifiers: Iron deficiency anemia type: unspecified iron deficiency Qualified Code(s): D50.9 - Iron deficiency anemia, unspecified Code(s): D50.
--- NOTE | 2021-01-28 11:06 | PM.IMPN ---
Progress Note: A&P Assessment and Plan (1) Hematoma: Code(s): T14.8XXA - Other injury of unspecified body region, initial encounter Status: Acute Assessment and Plan: CT of the left leg showed a large hematoma on 01/23/21 Pt has normal sensation and diminished pulse on left foot. Pain is the same. Left foot has 2+ pitting edema Ortho, Dr. Sousa. He recommends continuing monitoring with elevation and arianne wrap. If the pain worsens to any signs of compartment syndrome occurs, to consult him (01/25/21). Will give another dose of lasix Hgb/HCT worse today 8.5/27.9. Dr. Jesus consulted from general surgery. Thank you for recommendations. Unable to anticoagulate-Lovenox on hold- SCD on the right lower extremity Wrap foot, ankle, and leg, elevate, ice, [place], ibuprofen, Tylenol for pain control Neurovascular checks per surgery (2) COVID-19: Code(s): U07.1 - COVID-19 Status: Acute Assessment and Plan: Patient presented with cough and weakness. CTA chest shows extensive bilateral pulmonary infiltrates; COVID positive 01/17/21. Pneumococcal and legionella negative Completed remdesivir (7 days) Dexamethasone was given but has been discontinued at this time since pt is improving, on room air. White blood cell count up a bit 25.1 today from 20.2 yesterday. Will continue to trend white blood cell count She was treated empiric antibiotics with azithromycin and Rocephin, completed a 5-day course. Continue supportive care with Tylenol for fevers, bronchodilator therapy, Robitussin, incentive spirometer. Supplemental oxygen to maintain SPO2 >90%. Wean as tolerated. Blood cultures from 01/22/21 have no growth to date Previous blood cultures found peptostreptococcus, likely contaminated. vancomycin stopped. No further fevers Unable to anticoagulate due to large hematoma in the left leg. Will order SCD to the unaffected leg (3) Acute respiratory failure with hypoxia: Code(s): J96.01 - Acute respiratory failure with hypoxia Status: Acute Assessment and Plan: Oxygen demand decreased Improving status Will need walk test upon discharge (4) Atrial fibrillation with RVR: Code(s): I48.91 - Unspecified atrial fibrillation Status: Acute Assessment and Plan: Patient stated that she has had AFib in the past a long time ago. Since that she has not had any problems 01/19/21 an episode AFib RVR with rates into 120s overnight. Cardiology consulted thank you for recommendations Continue metoprolol Will hold Lovenox due to the left leg swelling No further problem. Will DC tele (5) Elevated troponin: Code(s): R77.8 - Other specified abnormalities of plasma proteins Status: Acute Assessment and Plan: No complaints of chest pain Patient had an episode of AFib earlier in the stay but no reoccurance Patient on Metoprolol (6) Left bundle branch block: Code(s): I44.7 - Left bundle-branch block, unspecified Status: Acute Assessment and Plan: See above (7) Pyuria: Code(s): R82.81 - Pyuria Status: Acute Assessment and Plan: Remains asymptomatic Rocephin completed Continue to monitor for symptoms . (8) Iron deficiency anemia: Qualifiers: Iron deficiency anemia type: unspecified iron deficiency Qualified Code(s): D50.9 - Iron deficiency anemia, unspecified Code(s): D50.9 - Iron deficiency anemia, unspecified Status: Acute Assessment and Plan: H&H 8.5/27.9 One unit of blood given 01/24/21 and 01/27/21 Surgery consulted for possible bleed. Occult blood was negative Bleeding noted in the left calf from CT Continue Iron supplements Trend H/H (9) Chronic lymphocytic leukemia: Code(s): C91.10 - Chronic lymphocytic leukemia of B-cell type not having achieved remission Status: Acute Assessment and Plan: C
[2021-01-28] MEDS: FUROSEMIDE INJ 40 MG/4 ML VIAL IV PUSH (12:37)
--- NOTE | 2021-01-28 14:09 | PM.PNGS ---
Progress Note: A&P Assessment and Plan (1) Hematoma of left lower extremity: Qualifiers: Encounter type: subsequent encounter Qualified Code(s): S80.12XD - Contusion of left lower leg, subsequent encounter Code(s): S80.12XA - Contusion of left lower leg, initial encounter Status: Acute Assessment and Plan: H/H is stable. Ecchymosis should improve with time. Elevate LLE. Continue neurovascular checks. Subjective Subjective Date/Time Seen: 01/28/21 14:09 Interval history: Still has left calf pain. No other issues. Exam Extrem: Other: Left calf swelling and ecchymosis, but soft. Distal pulse intact. Objective Data Vital Signs Vital Signs: Vital Signs - 24 hr 01/27/21 16:00 01/27/21 16:25 01/27/21 20:00 Temperature Pulse Rate 80 75 69 Respiratory Rate Blood Pressure Pulse Oximetry 01/27/21 20:50 01/27/21 21:02 01/27/21 21:35 Temperature 36.9 C Pulse Rate 68 72 65 Respiratory Rate 20 20 18 Blood Pressure 138/48 L Pulse Oximetry 93 01/28/21 00:00 01/28/21 02:17 01/28/21 02:30 Temperature Pulse Rate 65 62 68 Respiratory Rate 20 20 Blood Pressure Pulse Oximetry 01/28/21 04:00 01/28/21 05:45 01/28/21 08:00 Temperature 37.1 C Pulse Rate 63 65 69 Respiratory Rate 17 Blood Pressure 143/55 H Pulse Oximetry 94 01/28/21 08:13 01/28/21 08:24 01/28/21 09:04 Temperature Pulse Rate 73 69 72 Respiratory Rate 18 18 Blood Pressure Pulse Oximetry 89 L 01/28/21 13:26 01/28/21 13:37 01/28/21 13:56 Temperature 36.4 C L Pulse Rate 63 89 73 Respiratory Rate 20 18 20 Blood Pressure 112/44 L Pulse Oximetry 94 Intake/Output Intake/Output: Intake & Output 01/25/21 01/26/21 01/27/21 01/28/21 23:59 23:59 23:59 23:59 Intake Total 1410 1230 1610 340 Output Total 1200 1300 702 400 Balance 210 -70 908 -60 Meds/Results Medications: Active Medications Generic Name Dose Route Start Last Admin Trade Name Freq PRN Reason Stop Dose Admin Acetaminophen 1,000 mg 01/28/21 11:23 Acetaminophen 500 Mg Tablet PO Q6H PRN Mild Pain (1-3) or Fever Hydrocodone Bitart/Acetaminophen 1 tab 01/28/21 11:23 Hydrocodone/Acetaminophen (*Crx) 5-325 Mg Tablet PO Q8HR PRN Pain Rated 8-10 Albuterol 5 mg 01/17/21 14:00 01/28/21 13:24 Albuterol Sulfate Neb 2.5 Mg/0.5 Ml Inh INHALATION 5 mg Q6HRT TANG Administration Aspirin 81 mg 01/18/21 08:00 01/28/21 09:05 Aspirin 81 Mg Chewable Tablet PO 81 mg DAILY@0800 TANG Administration Benzocaine 1 lozenge 01/19/21 10:18 Benzocaine/Menthol (*Bkc) 18 Ea Lozenge PO PRN PRN Sore Throat Bisacodyl 10 mg 01/21/21 13:39 01/21/21 16:22 Bisacodyl 10 Mg Suppository RECTAL 10 mg DAILY PRN Administration Constipation Dexamethasone Sodium Phosphate 6 mg 01/19/21 09:00 01/24/21 08:44 Dexamethasone Sod Phos Inj 4 Mg/Ml Vial IV PUSH 6 mg DAILY TANG Administration Docusate Sodium 100 mg 01/20/21 13:15 01/28/21 09:05 Docusate Sodium 100 Mg Capsule PO 100 mg Q12HR TANG Administration Ferrous Sulfate 324 mg 01/18/21 17:00 01/28/21 09:05 Ferrous Sulfate 324 Mg Tablet PO 324 mg BIDWM TANG Administration Fluticasone Propionate 1 spray 01/17/21 23:30 01/28/21 09:06 Fluticasone Propionate 0.05% Na Spr 16 Gm Btl (*Bkc) NASAL 1 spray Q12HR TANG Administration Guaifenesin/Dextromethorphan 5 ml 01/19/21 10:18 01/19/21 17:42 Guaifenesin/Dextromethorphan 10 Ml Udc PO 5 ml Q4H PRN Administration Cough Ibuprofen 800 mg 01/28/21 11:20 Ibuprofen 400 Mg Tablet PO TID PRN Pain 4-7 and swelling Ipratropium [place] 0.5 mg 01/17/21 14:00 01/28/21 13:24 Ipratropium Br 0.02% Inh Soln 0.5 Mg/2.5 Ml Vial INHALATION 0.5 mg Q6HRT TANG Administration Lisinopril 20 mg 01/18/21 09:00 01/28/21 09:06 Lisinopril 20 Mg Tablet PO 20 mg DAILY TANG Administr
[2021-01-28] MEDS: MELATONIN 5 MG TABLET PO (22:04)
[2021-01-28] MEDS: SODIUM CHLORIDE NASAL GEL 14.1 GM 1 APPLIC NASAL (22:04)
[2021-01-29] VITALS (9 sets, daily range): BP systolic 148; BP diastolic 56; PULSE 70–95; RESP 18–20; TEMP 37.2; O2SAT 90–93
[2021-01-29] MEDS: IPRATROPIUM BR 0.02% INH SOLN 0.5 MG/2.5 ML VIAL INHALATION ×3 (02:17→14:13)
[2021-01-29] MEDS: ALBUTEROL SULFATE NEB 2.5 MG/0.5 ML INH 5 MG INHALATION ×3 (02:17→14:12)
[2021-01-29 06:21] LABS: Hematocrit 26.9 % (37.0-47.0); Hemoglobin 8.3 g/dL (12.0-15.0); Mean Corpuscular HGB Conc 30.9 g/dl (32-36); Mean Corpuscular Hemoglobin 26.9 pg (26-34); Mean Corpuscular Volume 87.3 fl (80-100); Mean Platelet Volume 9.3 fl (7.4-10.4); Platelet Count Result 187 k/mm3 (150-375); Red Blood Count 3.08 M/mm3 (4.2-5.4); Red Cell Distribution Width 17.9 % (11.5-14.5); White Blood Count 20.9 K/mm3 (4.5-10.0)
[2021-01-29 06:35] LABS: Anion Gap -4 mmol/L (8-16); Blood Urea Nitrogen 13 mg/dL (7-17); Calcium 7.8 mg/dL (8.4-10.2); Carbon Dioxide 36 mmol/L (22-30); Chloride 103 mmol/L (98-107); Estimated CRCL calculation 47 ml/min; Estimated Glomerular Filt Rate 60; Glucose 108 mg/dL (65-105); Potassium 3.7 mmol/L (3.4-5.0); Sodium 135 mmol/L (137-145)
[2021-01-29] MEDS: FERROUS SULFATE 324 MG TABLET PO (08:02)
[2021-01-29] MEDS: METOPROLOL SUCCINATE EXT REL 12.5 MG TABCR PO (08:02)
[2021-01-29] MEDS: DOCUSATE SODIUM 100 MG CAPSULE PO (08:04)
[2021-01-29] MEDS: lisinopriL 20 MG TABLET PO (08:04)
[2021-01-29] MEDS: SIMVASTATIN 20 MG TABLET 40 MG PO (08:05)
[2021-01-29] MEDS: PANTOPRAZOLE SODIUM IV 40 MG VIAL IV PUSH (08:06)
[2021-01-29] MEDS: FLUTICASONE PROPIONATE 0.05% NA SPR 16 GM BTL (*BKC) 1 SPRAY NASAL (08:06)
[2021-01-29] MEDS: ASPIRIN 81 MG CHEWABLE TABLET PO (08:06)
--- NOTE | 2021-01-29 11:16 | PM.PNGS ---
Progress Note: A&P Assessment and Plan (1) Hematoma of left lower extremity: Qualifiers: Encounter type: subsequent encounter Qualified Code(s): S80.12XD - Contusion of left lower leg, subsequent encounter Code(s): S80.12XA - Contusion of left lower leg, initial encounter Status: Acute Assessment and Plan: Continuing to improve. No signs of compartment syndrome. Don't need to wrap leg any more. Just recommend elevation of LE's while in bed or chair. OK to discharge from my standpoint. Will sign off. Subjective Subjective Date/Time Seen: 01/29/21 11:16 Interval history: Swelling of LLE has improved and pain significantly improved. Exam Extrem: Other: Left calf swelling and ecchymosis, but soft. Edema much improved. Distal pulse intact. Objective Data Vital Signs Vital Signs: Vital Signs - 24 hr 01/28/21 13:26 01/28/21 13:37 01/28/21 13:56 Temperature 36.4 C L Pulse Rate 63 89 73 Respiratory Rate 20 18 20 Blood Pressure 112/44 L Pulse Oximetry 94 01/28/21 20:12 01/28/21 20:22 01/28/21 21:49 Temperature 37.4 C Pulse Rate 74 80 76 Respiratory Rate 18 18 17 Blood Pressure 131/48 L Pulse Oximetry 92 95 01/29/21 02:19 01/29/21 02:29 01/29/21 05:41 Temperature 37.2 C Pulse Rate 72 77 75 Respiratory Rate 18 18 18 Blood Pressure 148/56 H Pulse Oximetry 90 01/29/21 08:02 01/29/21 09:28 01/29/21 09:39 Temperature Pulse Rate 70 77 77 Respiratory Rate 20 18 Blood Pressure Pulse Oximetry 93 Intake/Output Intake/Output: Intake & Output 01/26/21 01/27/21 01/28/21 01/29/21 23:59 23:59 23:59 23:59 Intake Total 1230 1610 840 370 Output Total 4908 189 7099 800 Balance -70 919 -650 -628 Meds/Results Medications: Active Medications Generic Name Dose Route Start Last Admin Trade Name Freq PRN Reason Stop Dose Admin Acetaminophen 1,000 mg 01/28/21 11:23 Acetaminophen 500 Mg Tablet PO Q6H PRN Mild Pain (1-3) or Fever Hydrocodone Bitart/Acetaminophen 1 tab 01/28/21 11:23 Hydrocodone/Acetaminophen (*Crx) 5-325 Mg Tablet PO Q8HR PRN Pain Rated 8-10 Albuterol 5 mg 01/17/21 14:00 01/29/21 09:27 Albuterol Sulfate Neb 2.5 Mg/0.5 Ml Inh INHALATION 5 mg Q6HRT TANG Administration Aspirin 81 mg 01/18/21 08:00 01/29/21 08:06 Aspirin 81 Mg Chewable Tablet PO 81 mg DAILY@0800 TANG Administration Benzocaine 1 lozenge 01/19/21 10:18 Benzocaine/Menthol (*Bkc) 18 Ea Lozenge PO PRN PRN Sore Throat Bisacodyl 10 mg 01/21/21 13:39 01/21/21 16:22 Bisacodyl 10 Mg Suppository RECTAL 10 mg DAILY PRN Administration Constipation Dexamethasone Sodium Phosphate 6 mg 01/19/21 09:00 01/24/21 08:44 Dexamethasone Sod Phos Inj 4 Mg/Ml Vial IV PUSH 6 mg DAILY TANG Administration Docusate Sodium 100 mg 01/20/21 13:15 01/29/21 08:04 Docusate Sodium 100 Mg Capsule PO 100 mg Q12HR TANG Administration Ferrous Sulfate 324 mg 01/18/21 17:00 01/29/21 08:02 Ferrous Sulfate 324 Mg Tablet PO 324 mg BIDWM TANG Administration Fluticasone Propionate 1 spray 01/17/21 23:30 01/29/21 08:06 Fluticasone Propionate 0.05% Na Spr 16 Gm Btl (*Bkc) NASAL 1 spray Q12HR TANG Administration Guaifenesin/Dextromethorphan 5 ml 01/19/21 10:18 01/19/21 17:42 Guaifenesin/Dextromethorphan 10 Ml Udc PO 5 ml Q4H PRN Administration Cough Ibuprofen 800 mg 01/28/21 11:20 Ibuprofen 400 Mg Tablet PO TID PRN Pain 4-7 and swelling Ipratropium [place] 0.5 mg 01/17/21 14:00 01/29/21 09:28 Ipratropium Br 0.02% Inh Soln 0.5 Mg/2.5 Ml Vial INHALATION 0.5 mg Q6HRT TANG Administration Lisinopril 20 mg 01/18/21 09:00 01/29/21 08:04 Lisinopril 20 Mg Tablet PO 20 mg DAILY TANG Administration Melatonin 5 mg 01/23/21 21:00 01/28/21 22:04 Melatonin 5 Mg Tablet PO 5 mg HS TANG Administration Metoprolol Succinate 12.5 mg
--- NOTE | 2021-01-29 11:28 | PCNFU ---
Nutrition Follow-Up Complete: Unintended weight loss as related to pneumonia evidenced by significant weight loss of greater than 7.5%. Goal: Meet estimated nutritional needs Progressing towards goal. We will continue current goal. Pt current nutrition is Heart Healthy. Last recorded weight is 76.2 kg, no new weight to report. Bowel Motility:+Bm reported 01/26 Labs Reviewed:Na 135,Glu 108,Hct 22.6,Hgb 7.0 Meds Noted:Melatonin,Prinivil,Toprol, Miralax,Decadron, Protonix, Zofran Additional Notes: Patient seen today for nutrition follow up. Patient remains on a heart healthy diet. Oral intake improving, ate 75% of breafast today. She also is receiving Frozen Nutritional Treat BID for additional 300 kcals and 9 gms protein. Plans for home O2 eval today. Monitoring: will monitor every 3 days.
--- NOTE | 2021-01-29 11:32 | P.DS_ITS ---
DS: Admitting Diagnosis Admitting Diagnosis Admitting Diagnosis: COVID-19 DS: Discharge Diagnosis Discharge Diagnosis (1) Hematoma of left lower extremity: Qualifiers: Encounter type: subsequent encounter Qualified Code(s): S80.12XD - Contusion of left lower leg, subsequent encounter Code(s): S80.12XA - Contusion of left lower leg, initial encounter Status: Acute Assessment and Plan: * CT of the left leg showed a large hematoma on 01/23/21 * Pt has normal sensation and diminished pulse on left foot. Pain is the same. Left foot has 2+ pitting edema * Ortho, Dr. Sousa. He recommends continuing monitoring with elevation and arianne wrap. If the pain worsens to any signs of compartment syndrome occurs, to consult him (01/25/21). Will give another dose of lasix * Hgb/HCT seems to be stable at 8.3/26.9 today. Still lower than baseline. * Dr. Jesus consulted from general surgery. Thank you for recommendations. * Unable to anticoagulate-Lovenox on hold- SCD on the right lower extremity * Wrap foot, ankle, and leg, elevate, ice, [place], ibuprofen, Tylenol for pain control * Neurovascular checks per surgery (2) Suspected COVID-19 virus infection: Code(s): Z20.822 - Contact with and (suspected) exposure to COVID-19 Status: Acute Assessment and Plan: * Patient presented with cough and weakness. CTA chest shows extensive bilateral pulmonary infiltrates; COVID positive 01/17/21. * Pneumococcal and legionella negative * Completed remdesivir (7 days) * Dexamethasone was given but has been discontinued at this time since pt is improving, on room air. White blood cell count is better 20.9 today from 25.1 yesterday. Will continue to trend white blood cell count * She was treated empiric antibiotics with azithromycin and Rocephin, completed a 5-day course. * Continue supportive care with Tylenol for fevers, bronchodilator therapy, Robitussin, incentive spirometer. * Supplemental oxygen to maintain SPO2 >90%. Wean as tolerated. * Blood cultures from 01/22/21 have no growth to date * Previous blood cultures found peptostreptococcus, likely contaminated. vancomycin stopped. No further fevers * Unable to anticoagulate due to large hematoma in the left leg. Will order SCD to the unaffected leg (3) Hematoma: Code(s): T14.8XXA - Other injury of unspecified body region, initial encounter Status: Acute Assessment and Plan: * CT of the left leg showed a large hematoma on 01/23/21 * Pt has normal sensation and diminished pulse on left foot. Pain is the same. Left foot has 2+ pitting edema * Ortho, Dr. Sousa. He recommends continuing monitoring with elevation and arianne wrap. If the pain worsens to any signs of compartment syndrome occurs, to consult him (01/25/21). Will give another dose of lasix * Hgb/HCT worse today 8.5/27.9. * Dr. Jesus consulted from general surgery. Thank you for recommendations. * Unable to anticoagulate-Lovenox on hold- SCD on the right lower extremity * Wrap foot, ankle, and leg, elevate, ice, [place], ibuprofen, Tylenol for pain control * Neurovascular checks per surgery (4) COVID-19: Code(s): U07.1 - COVID-19 Status: Acute Assessment and Plan: * see plan above (5) Acute respiratory failure with hypoxia: Code(s): J96.01 - Acute respiratory failure with hypoxia Status: Acute Assessment and Plan: * Oxygen demand decreased * Improving status * Will need walk test upon discharge (6) Atrial fibrillation
--- NOTE | 2021-01-29 11:32 | PM.DS ---
DS: Admitting Diagnosis Admitting Diagnosis Admitting Diagnosis: COVID-19 DS: Discharge Diagnosis Discharge Diagnosis (1) Hematoma of left lower extremity: Qualifiers: Encounter type: subsequent encounter Qualified Code(s): S80.12XD - Contusion of left lower leg, subsequent encounter Code(s): S80.12XA - Contusion of left lower leg, initial encounter Status: Acute Assessment and Plan: CT of the left leg showed a large hematoma on 01/23/21 Pt has normal sensation and diminished pulse on left foot. Pain is the same. Left foot has 2+ pitting edema Ortho, Dr. Sousa. He recommends continuing monitoring with elevation and arianne wrap. If the pain worsens to any signs of compartment syndrome occurs, to consult him (01/25/21). Will give another dose of lasix Hgb/HCT seems to be stable at 8.3/26.9 today. Still lower than baseline. Dr. Jesus consulted from general surgery. Thank you for recommendations. Unable to anticoagulate-Lovenox on hold- SCD on the right lower extremity Wrap foot, ankle, and leg, elevate, ice, [place], ibuprofen, Tylenol for pain control Neurovascular checks per surgery (2) Suspected COVID-19 virus infection: Code(s): Z20.822 - Contact with and (suspected) exposure to COVID-19 Status: Acute Assessment and Plan: Patient presented with cough and weakness. CTA chest shows extensive bilateral pulmonary infiltrates; COVID positive 01/17/21. Pneumococcal and legionella negative Completed remdesivir (7 days) Dexamethasone was given but has been discontinued at this time since pt is improving, on room air. White blood cell count is better 20.9 today from 25.1 yesterday. Will continue to trend white blood cell count She was treated empiric antibiotics with azithromycin and Rocephin, completed a 5-day course. Continue supportive care with Tylenol for fevers, bronchodilator therapy, Robitussin, incentive spirometer. Supplemental oxygen to maintain SPO2 >90%. Wean as tolerated. Blood cultures from 01/22/21 have no growth to date Previous blood cultures found peptostreptococcus, likely contaminated. vancomycin stopped. No further fevers Unable to anticoagulate due to large hematoma in the left leg. Will order SCD to the unaffected leg (3) Hematoma: Code(s): T14.8XXA - Other injury of unspecified body region, initial encounter Status: Acute Assessment and Plan: CT of the left leg showed a large hematoma on 01/23/21 Pt has normal sensation and diminished pulse on left foot. Pain is the same. Left foot has 2+ pitting edema Ortho, Dr. Sousa. He recommends continuing monitoring with elevation and arianne wrap. If the pain worsens to any signs of compartment syndrome occurs, to consult him (01/25/21). Will give another dose of lasix Hgb/HCT worse today 8.5/27.9. Dr. Jesus consulted from general surgery. Thank you for recommendations. Unable to anticoagulate-Lovenox on hold- SCD on the right lower extremity Wrap foot, ankle, and leg, elevate, ice, [place], ibuprofen, Tylenol for pain control Neurovascular checks per surgery (4) COVID-19: Code(s): U07.1 - COVID-19 Status: Acute Assessment and Plan: see plan above (5) Acute respiratory failure with hypoxia: Code(s): J96.01 - Acute respiratory failure with hypoxia Status: Acute Assessment and Plan: Oxygen demand decreased Improving status Will need walk test upon discharge (6) Atrial fibrillation with RVR: Code(s): I48.91 - Unspecified atrial fibrillation Status: Acute Assessment and Plan: Patient stated that she has had AFib in the past a long time ago. Since that she has not had any problems 01/19/21 an episode AFib RVR with rates into 120s overnight. Cardiology consulted thank you for recommendations Continue metoprolol Will hold Lovenox due to the left leg swelling No further problem. Will DC tele
== END 2021-01-29 14:50 | disposition home health service (06) | DRG 177 ==
LOC: ANHED 13:00 → ANH3MEDSUR 01-18 07:10
PROVIDERS: Emergency Medicine; Internal Medicine; Nurse Practitioner; Physician Assistant; Admitting Provider Family Medicine; Emergency Provider Emergency Medicine; PCP Internal Medicine; Visit Provider Physician Assistant
DX: U07.1 COVID-19 (principal); J96.01 Acute respiratory failure with hypoxia; J12.82 Pneumonia due to coronavirus disease 2019; I50.32 Chronic diastolic (congestive) heart failure; C91.10 Chronic lymphocytic leukemia of B-cell type not having achieved remission; I10 Essential (primary) hypertension; E78.5 Hyperlipidemia, unspecified; I11.0 Hypertensive heart disease with heart failure; D50.9 Iron deficiency anemia, unspecified; I48.91 Unspecified atrial fibrillation; Z86.73 Personal history of transient ischemic attack (TIA), and cerebral infarction without residual deficits; I44.7 Left bundle-branch block, unspecified; K59.00 Constipation, unspecified; S80.12XA Contusion of left lower leg, initial encounter; E83.39 Other disorders of phosphorus metabolism
CPT/HCPCS: 36415; 36430; 51701; 71045; 71275; 73701; 80048; 80053; 80076; 80202; 81001; 82274; 82607; 82728; 82746; 82948; 83540; 83550; 83605; 83615; 83735; 84100; 84460; 84466; 84484; 85014; 85018; 85025; 85027; 85055; 85380; 85610; 86140; 86850; 86900; 86901; 86923; 87040; 87086; 87449; 87899; 93005; 93306; 93970; 94618; 94640; 96365; 96368; 97110; 97116; 97162; 97165; 97530; 97535; 99285; A9270; C9113; C9803; J0131; J0456; J0696; J1100; J1650; J1940; J2405; J3370; J7050; J7120; P9016; Q9967; U0003; U0005

== ENCOUNTER 2021-02-19 14:40 | Emergency (ER) | payer MEDICARE, SELFPAY ==
[2021-02-19] VITALS (9 sets, daily range): BP systolic 143–173; BP diastolic 69–99; PULSE 59–130; RESP 16–32; TEMP 36.6–36.8; O2SAT 96–100
--- NOTE | ~2021-02-19 | XR_ITS ---
EXAMINATION: XR chest 1V portable DATE: 02/19/2021 15:20 INDICATION: Shortness of breath. Bilateral swollen limbs. TECHNIQUE: frontal view of the chest was obtained. COMPARISON: Chest radiograph dated 01/25/2021 FINDINGS: Again seen are patchy airspace opacities in the bilateral mid and lower lung zones with some interval improvement in the right upper lung zone. No pleural effusion or pneumothorax. Mild cardiomegaly. En largement of the central pulmonary arteries consistent with pulmonary arterial hypertension. IMPRESSION: 1. Bilateral patchy airspace opacities consistent with COVID pneumonia in the mid and lower lung zone s with some improvement in the right upper lung zone. 2. Cardiomegaly. Reviewed, dictated and finalized at location A. IMPRESSION: 1. Bilateral patchy airspace opacities consistent with COVID pneumonia in the m id and lower lung zones with some improvement in the right upper lung zone. 2. Cardiomegaly.
--- NOTE | 2021-02-19 15:08 | ECG_ITS ---
Measurements Intervals [place] Rate: 130 P: 220 VT: 117 QRS: -53 QRSD: 144 T: 125 QT: 315 QTc: 464 Interpretive Statements ATRIAL FLUTTER/TACHYCARDIA WITH RAPID VENTRICULAR RESPONSE LEFT BUNDLE BRANCH BLOCK ANTEROSEPTAL INFARCT OR DUE TO LBBB INFERIOR INFARCT OR DUE TO LBBB ABNORMAL ECG Electronically Signed On 02-19-2021 17:06:04 CDT by Dannie Nance D.O.
[2021-02-19 15:41] LABS: Hematocrit 35.2 % (37.0-47.0); Hemoglobin 10.2 g/dL (12.0-15.0); Mean Corpuscular Hemoglobin 28.8 pg (26-34); Mean Corpuscular Volume 99.4 fl (80-100); Platelet Count Result 147 k/mm3 (150-375); Red Blood Count 3.54 M/mm3 (4.2-5.4); Red Cell Distribution Width 22.3 % (11.5-14.5); White Blood Count 26.4 K/mm3 (4.5-10.0)
[2021-02-19] MEDS: METOPROLOL TARTRATE INJ 5 MG/5 ML VIAL IV PUSH (15:46)
[2021-02-19 15:52] LABS: Anion Gap 4 mmol/L (8-16); Blood Urea Nitrogen 19 mg/dL (7-17); Calcium 8.9 mg/dL (8.4-10.2); Carbon Dioxide 32 mmol/L (22-30); Chloride 101 mmol/L (98-107); Estimated CRCL calculation 47 ml/min; Estimated Glomerular Filt Rate 60; Glucose 140 mg/dL (65-105); Potassium 4.4 mmol/L (3.4-5.0); Sodium 137 mmol/L (137-145)
[2021-02-19 16:00] LABS: NT Pro B Type Natriuretic Pept 1750 pg/mL (5-100)
[2021-02-19 16:01] LABS: INR 0.9; Partial Thromboplastin Time 22.8 SECONDS (22.3-36.8); Prothrombin Time 12.7 Seconds (11.1-14.7)
[2021-02-19 16:05] LABS: Anisocytosis 3+ (NORMAL); Band Neutrophils Percent 3 % (0-6); Lymphocytes Absolute Manual 23.49 K/mm3 (1.1-4.5); Monocytes Absolute Manual 0.52 K/mm3 (0.1-0.90); Monocytes Percent Manual 2 % (3-9); Neutrophils Absolute Manual 2.37 K/mm3 (1.7-7.2); Neutrophils Percent Manual 6 % (46-73); Total Cells Counted 100
[2021-02-19 16:06] LABS: Hypochromasia 1+ (NORMAL)
--- NOTE | 2021-02-19 18:46 | ED.SOB ---
HPI - SOB/Dyspnea General Chief Complaint: Shortness of Breath/Dyspnea Stated Complaint: INCREASING SOB Time Seen by Provider: 02/19/21 15:01 History of Present Illness HPI Narrative: Patient is an 80-year-old female who presents ER with shortness of breath. Patient was hospitalized 2 weeks ago with COVID-19. At that time she was diagnosed with atrial fibrillation after having episode of RVR. She was started on Lovenox and metoprolol. Lovenox was discontinued after she developed a lower extremity hematoma. She was discharged without anticoagulation. Patient is having no chest pain no shortness of breath is worsened with movement. She is tachycardic at this time. She reports compliance with her medication. She is supposed to follow-up with cardiology today but was unable to. Related Data Home Medications Medication Instructions Recorded Confirmed aspirin 81 mg PO DAILY 02/22/20 01/17/21 Allergies Allergy/AdvReac Type Severity Reaction Status Date / Time codeine Allergy Unknown tachycardia Verified 02/19/21 15:10 morphine Allergy Unknown tachycardia Verified 02/19/21 15:10 Review of Systems Review of Systems: All systems reviewed & are unremarkable except as noted in HPI and below Constitutional: Constitutional: Denies chills and Denies fever(s) ENT: Denies nasal congestion and Denies sore throat Cardiovascular: Cardiovascular: Denies chest pain, Denies rapid heart rate and Denies radiating jaw, neck or arm pain Respiratory: Respiratory: Denies cough, Reports dyspnea and Denies wheezing Gastrointestinal: Gastrointestinal: Denies abdominal pain, Denies nausea and Denies vomiting PMFSH Past Medical History Medical History Chronic lymphocytic leukemia (~1999) Chronic pain of left knee CVA (cerebral vascular accident) (~2003) Diastolic heart failure Echo 02/23/2020: 60-65%, moderately increased left ventricular wall thickness, abnormal diastolic function, global longitudinal strain is normal, mild left atrial enlargement, mild aortic valve sclerosis, mild mitral valve regurgitation, severe pulmonary hypertension with RVSP of 62, [id number] pulmonic regurgitation, elevated right atrial pressures Emphysema lung Presumed due to severe pulmonary hypertension and history of heavy tobacco use Essential hypertension Hyperlipidemia Hypothyroidism Orthostatic hypotension Severe pulmonary hypertension Surgical History Surgical History History of ankle surgery (~1999) Right ankle ORIF with hardware. History of bladder surgery History of cholecystectomy History of hysterectomy History of lumbar surgery Status post open reduction with internal fixation of fracture Right ankle Family History Family History Father Asthma Mother Family history of heart disease in male family member before age 55 Cerebrovascular accident Other Hypertension Diabetes mellitus Family history of arthritis Social History Social History Social History: The patient lives in [place] with her daughter and her family. She has been for 16 years. She grew up in [place] but was raised in [place]. She and her lived in [place] for about 34 years before they retired, and then they moved to this region to be closer to their 2 children. In total, she had 6 children, lost 2. She smoked up to 3 packs of cigarettes per day for approximately 20 years and quit 1972. She denies alcohol and illicit substance use. She designates her child, Caity Urena, as her surrogate decision maker and she wishes to be a full code. Primary care physician: Dr. Kel Burk Smoking packs per day: 2 Smoking cigarettes per day: 40.0 Years smoked: 22 Smoking pack-years: 44.00 Smoking status:
== END 2021-02-19 19:42 | disposition home or self-care (01) ==
PROVIDERS: Emergency Provider Emergency Medicine; PCP Internal Medicine
DX: I48.91 Unspecified atrial fibrillation (principal); Z86.16 Personal history of COVID-19; I50.30 Unspecified diastolic (congestive) heart failure; I11.0 Hypertensive heart disease with heart failure; J43.9 Emphysema, unspecified; I27.20 Pulmonary hypertension, unspecified; E03.9 Hypothyroidism, unspecified; C91.10 Chronic lymphocytic leukemia of B-cell type not having achieved remission; E78.5 Hyperlipidemia, unspecified; Z86.73 Personal history of transient ischemic attack (TIA), and cerebral infarction without residual deficits; Z87.891 Personal history of nicotine dependence; Z79.82 Long term (current) use of aspirin; I51.7 Cardiomegaly; I44.7 Left bundle-branch block, unspecified; R94.31 Abnormal electrocardiogram [ECG] [EKG]
CPT/HCPCS: 36415; 71045; 80048; 83880; 85025; 85610; 85730; 93005; 96374; 99284

== ENCOUNTER 2021-03-16 11:20 | Inpatient (IN) | payer MEDICARE, SELFPAY ==
[2021-03-16] VITALS (13 sets, daily range): BP systolic 117–156; BP diastolic 57–96; PULSE 75–122; RESP 16–30; TEMP 35.9–36.4; O2SAT 89–100; BMI 26.4
--- NOTE | ~2021-03-16 | XR_ITS ---
XR chest 2V 03/16/2021 11:55 Indication: Shortness of breath. Procedure: 2 view chest Comparison: 02/19/2021 Findings: There are bilateral interstitial infiltrates of the mid and lower lung zones. Small right p leural effusion. New nodular density right mid thorax. Stable cardiomediastinal silhouette. There is atherosclerosis. Impression: 1: Persistent interstitial infiltration of the mid and lower lung zones which may represent edema or pneumonia. 2: Nodular density right mid lung zone, likely infectious/inflammatory, although follow-up x-ray harsha mmended to ensure resolution. Reviewed, dictated and finalized at location A. Impression: 1: Persistent interstitial infiltration of the mid and lower lung zones which m ay represent edema or pneumonia. 2: Nodular density right mid lung zone, likely infectious/inflammatory, althoug h follow-up x-ray recommended to ensure resolution.
--- NOTE | ~2021-03-16 | US_ITS ---
EXAMINATION: US venous doppler [facility] DATE: 03/17/2021 11:05 INDICATION: Lower limb edema. TECHNIQUE: Grayscale ultrasound images without and with compression and Doppler ultrasound images of the bilateral lower extremity veins were obtained. COMPARISON: Ultrasound 01/22/2021 FINDINGS: The visualized portions of right common femoral vein, profunda (deep) femoral vein, femoral vein, pop liteal vein, peroneal veins, posterior tibial veins, and greater saphenous vein outflow are patent. The visualized portions of left common femoral vein, profunda femoral vein, femoral vein, popliteal v ein, peroneal veins, posterior tibial veins, and greater saphenous vein outflow are patent. IMPRESSION: 1. No deep venous thrombosis. Reviewed, dictated and finalized at location A.
--- NOTE | ~2021-03-16 | US_ITS ---
EXAMINATION: US abdomen limited DATE: 03/17/2021 11:05 INDICATION: Ascites. TECHNIQUE: Multiple grayscale ultrasound images of the abdomen were obtained. COMPARISON: Chest CT 03/16/2021 FINDINGS: A survey of the abdomen demonstrates a small volume of perihepatic ascites. There is mild s plenomegaly. Calcifications in the spleen are consistent with old granulomatous disease. IMPRESSION: 1. Small volume of perihepatic ascites. 2. Mild splenomegaly. Reviewed, dictated and finalized at location A.
--- NOTE | ~2021-03-16 | CT_ITS ---
EXAMINATION: CTA chest PE protocol DATE: 03/16/2021 17:08 INDICATION: Shortness of breath. TECHNIQUE: Computed tomography angiography (CTA) of the chest was performed with 100 mL Omnipaque-350 intravenous contrast timed to evaluate the pulmonary arteries. Coronal maximum intensity projection 3D-reconstructions were created by the technologist. Automated exposure control and iterative reconst ruction technique were employed. The dose-length product was 260.76 mGy-cm. COMPARISON: Chest CT 01/19/2021, CT abdomen and pelvis 01/29/2012 FINDINGS: There are groundglass opacities and septal thickening in the lungs with a peripheral and lo wer lung predominance. Calcified right lung nodules and calcified hilar lymph nodes are consistent wi th old granulomatous disease. There are small pleural effusions. Cardiomegaly is noted. There are cor onary artery calcifications. No pericardial effusion. There is no pulmonary embolus. There is perihep atic and perisplenic ascites. Calcifications in the spleen are consistent with old granulomatous dise ase. There is mild thoracic spondylosis. IMPRESSION: 1. No pulmonary embolus. 2. Diffuse lung disease, likely a combination of moderate pulmonary edema and [id number] lung dise ase. 3. Small pleural effusions. 4. Cardiomegaly. 5. Ascites. Reviewed, dictated and finalized at location A. IMPRESSION: 1. No pulmonary embolus. 2. Diffuse lung disease, likely a combination of moderate pulmonary edema and p [id number] lung disease. 3. Small pleural effusions. 4. Cardiomegaly. 5. Ascites.
--- NOTE | 2021-03-16 11:44 | ECG_ITS ---
Measurements Intervals [place] Rate: 116 P: 236 MD: 158 QRS: -50 QRSD: 136 T: 123 QT: 326 QTc: 454 Interpretive Statements ATRIAL FLUTTER/TACHYCARDIA WITH RAPID VENTRICULAR RESPONSE LEFT AXIS DEVIATION LEFT BUNDLE BRANCH BLOCK ANTEROSEPTAL INFARCT OR DUE TO LBBB INFERIOR INFARCT OR DUE TO LBBB BASELINE WANDER- V5 ABNORMAL ECG Electronically Signed On 03-16-2021 14:56:40 CDT by Dannie Nance D.O.
[2021-03-16 12:03] LABS: Carboxyhemoglobin 1.5 % THb (0-2.0); Fractional Inspired Oxygen 28 %; HCO3 ABG 32.4 mEq/l (22.0-26.0); Methemoglobin ABG 0.2 %THb (0-1.5); Oxygen Content ABG 15.8 %vol (16.0-22.0); Oxyhemoglobin 95.9 % THb (90.0-100.0); PCO2 ABG 49.8 mmHg (35.0-45.0); PO2 ABG 107.9 mmHg (80.0-100.0); PO2 FiO2 Ratio Arterial Blood 3.85 %; Reduced Hemoglobin 2.4 %THb (0-5.0); Total Hemoglobin 11.6 g/dL (12.0-18.0); pH ABG 7.431 (7.350-7.450)
[2021-03-16 12:04] LABS: Device NASAL CANNULA; Modified Allen's Test Pass; Site Drawn RIGHT RADIAL
[2021-03-16 12:09] LABS: Basophils Absolute Auto 0.1 K/mm3 (0.0-0.1); Basophils Percent Auto 0.3 % (0.2-1.2); Eosinophils Percent Auto 0.1 % (0-4.4); Hematocrit 37.5 % (37.0-47.0); Hemoglobin 11.2 g/dL (12.0-15.0); Immature Granulocyte Absolute 0.04 K/mm3 (0.00-0.031); Immature Granulocyte Percent A 0.2 % (0-0.5); Immature Platelet Fraction Pct 3.2 % (0.9-11.2); Lymphocytes Absolute Auto 18.77 K/mm3 (0.9-3.2); Lymphocytes Percent Auto 82.8 % (18.3-44.2); Mean Corpuscular HGB Conc 29.9 g/dl (32-36); Mean Corpuscular Hemoglobin 28.8 pg (26-34); Mean Corpuscular Volume 96.4 fl (80-100); Monocytes Absolute Auto 2.2 K/mm3 (0.1-0.6); Monocytes Percent Auto 9.8 % (2.6-8.5); Neutrophils Absolute Auto 1.6 K/mm3 (1.3-6.7); Neutrophils Percent Auto 6.8 % (45.5-73.1); Platelet Count Result 123 k/mm3 (150-375); Red Blood Count 3.89 M/mm3 (4.2-5.4); Red Cell Distribution Width 17.9 % (11.5-14.5); White Blood Count 22.7 K/mm3 (4.5-10.0)
--- NOTE | 2021-03-16 12:12 | ED.SOB ---
HPI - SOB/Dyspnea General Chief Complaint: Shortness of Breath/Dyspnea Stated Complaint: bilateral leg swelling/sob Time Seen by Provider: 03/16/21 11:33 Source: patient and family Mode of arrival: ambulatory Limitations: no limitations History of Present Illness HPI Narrative: This is an 80 year old female with history of atrial fibrillation, hypertension, hyperlipidemia, COVID pneumonia 01/17/21. Patient states states she was admitted in hospital for 2 weeks after her diagnosis of COVID pneumonia. She states she has continued to have shortness of breath since her discharge. She has left chest pain when she has severe shortness of breath. Once she rest, her pain resolves. She is short of breath with minimal exertion. She states also reports she has edema that resolved in the hospital, but her feet swelling has worsened again. She has been taking oral lasix. She denies fever or chills. She is scheduled to get an ECHO tomorrow and she has been referred to cardiology for CHF, atrial fibrillation. Related Data Home Medications Medication Instructions Recorded Confirmed acetaminophen 325 mg tablet 325 mg PO Q6H PRN 03/05/21 03/16/21 biotin 10,000 mcg capsule 10,000 mcg PO DAILY 03/05/21 03/16/21 calcium carbonate 500 mg calcium 500 mg PO DAILY PRN 03/05/21 03/16/21 (1,250 mg) chewable tablet ibuprofen 800 mg tablet 800 mg PO TID PRN 03/05/21 03/16/21 fluticasone propionate [Flonase 1 spray NASAL DAILY 03/16/21 03/16/21 Allergy Relief] furosemide 40 mg PO DAILY 03/16/21 03/16/21 Allergies Allergy/AdvReac Type Severity Reaction Status Date / Time codeine Allergy Unknown tachycardia Verified 02/19/21 15:10 morphine Allergy Unknown tachycardia Verified 02/19/21 15:10 Review of Systems Review of Systems: All systems reviewed & are unremarkable except as noted in HPI and below Constitutional: Constitutional: Denies chills and Denies fever(s) Cardiovascular: Cardiovascular: Reports chest pain and Denies radiating jaw, neck or arm pain Respiratory: Respiratory: Reports cough, Reports dyspnea and Denies wheezing Gastrointestinal: Gastrointestinal: Denies abdominal pain, Denies nausea and Denies vomiting [facility] Past Medical History Medical History (Updated 03/17/21 @ 11:54 by Beverly Brewer MD) Cerebrovascular accident (2003) Chronic lymphocytic leukemia (~1999) Chronic pain of left knee Diastolic heart failure Echo 02/23/2020: EF 60-65%, moderately increased LV wall thickness, abnormal diastolic function, global longitudinal strain is normal, mild left atrial enlargement, mild aortic valve sclerosis, mild mitral valve regurgitation, severe pulmonary hypertension with RVSP of 62 mmHg, [id number] pulmonic regurgitation, elevated right atrial pressures. Emphysema lung Essential hypertension Hyperlipidemia Hypothyroidism Severe pulmonary hypertension Surgical History Surgical History (Updated 03/16/21 @ 22:01 by Elma Alarcon PA-C) History of ankle surgery (~1999) Right ankle ORIF with hardware. History of bladder surgery History of cholecystectomy History of hysterectomy History of lumbar surgery Family History Family History Father Asthma Mother Family history of heart disease in male family member before age 55 Cerebrovascular accident Other Hypertension Diabetes mellitus Family history of arthritis Social History Social History (Updated 03/16/21 @ 22:01 by Elma Alarcon PA-C) Social History: The patient lives in [place] with her daughter and her family. She has been for 16 years. She grew up in [place] but was raised in [place]. She and her lived in [place] for about 34 years before they retired, and then they moved to this region to be closer to their 2 children. In total, she had 6 children, lost 2. She smoked up to 3 packs of cigarettes per day for approximately 20 years
[2021-03-16 12:15] LABS: Anion Gap 5 mmol/L (8-16); Blood Urea Nitrogen 20 mg/dL (7-17); Calcium 9.3 mg/dL (8.4-10.2); Carbon Dioxide 37 mmol/L (22-30); Chloride 91 mmol/L (98-107); Estimated CRCL calculation 53 ml/min; Estimated Glomerular Filt Rate > 60; Glucose 109 mg/dL (65-105); Sodium 133 mmol/L (137-145)
[2021-03-16 12:21] LABS: Anisocytosis 1+ (NORMAL); Atypical Lymphocytes Present; Ovalocytes 1+ (NORMAL); Poikilocytosis 1+ (NORMAL); Smudge Cells PRESENT
[2021-03-16 12:27] LABS: NT Pro B Type Natriuretic Pept 6550 pg/mL (5-100); Troponin I < 0.012 ng/mL (0.000-0.034)
[2021-03-16 12:36] LABS: INR 1.1; Prothrombin Time 14.3 Seconds (11.1-14.7)
[2021-03-16 12:38] LABS: Partial Thromboplastin Time 25.6 SECONDS (22.3-36.8)
[2021-03-16] MEDS: FUROSEMIDE INJ 40 MG/4 ML VIAL IV PUSH ×2 (12:43→20:31)
--- NOTE | 2021-03-16 15:25 | ADMGEN ---
This patient, Nikky Urena, was admitted to IMU Room 210-01. Patient oriented to hospital policies and general routines including ID bracelet, bed and alarms, visiting hours, pain management, procedures, bathroom and other care routines, personal items, smoking policy, room service/diet, and visiting hours. Information on how to activate the Rapid Response Team has been discussed. Patient encouraged to report perceived risks to care and to ask questions if they do not understand what they are told or what they should do.
[2021-03-16 15:29] LABS: Alanine Aminotransferase 20 U/L (4-35); Albumin Level 3.7 g/dL (3.5-5.1); Alkaline Phosphatase 102 U/L (38-126); Aspartate Amino Transferase 42 U/L (14-36); Bilirubin,Total 0.5 mg/dL (0.2-1.3); Magnesium 2.1 mg/dL (1.6-2.3)
--- NOTE | 2021-03-16 15:30 | PM.IMHP ---
H&P: HPI History of Present Illness Date/Time: 03/16/21 15:30 Chief Complaint: Shortness of breath and lower extremity swelling. Narrative: This is an 80-year-old female with hypertension, paroxsysmal atrial fibrillation, CLL, severe pulmonary hypertension, and emphysema who presented to the emergency department earlier today for evaluation of shortness of breath and lower extremity swelling. she is known to the hospitalist service as she was admitted to us at the end of December with COVID-19. During that stay she went into transient atrial fibrillation and was initially started on Lovenox however developed a lower extremity hematoma and that was held. She presented to the emergency department at the beginning of February in AFib/ RVR and at that time she was started on Eliquis and her metoprolol dose was increased. She saw Dr. Dejesus in follow-up on 02/28/2021 at which time she was started on Lasix 40 mg daily due to ever increasing lower extremity edema. He noted that she had pretty significant bruising due to a recent fall and Eliquis has since been placed on hold. Despite the Lasix she continues to have increasing edema and feels now that her abdomen is also distended. She has had an increasingly difficult time getting about the house due to the swelling and shortness of breath. In the emergency department she was markedly edematous and is being admitted for CHF exacerbation. She was also found to be in an atrial tachycardia, possible atrial flutter, with rapid ventricular response and with further questioning she does mention frequent palpitations and feelings of a racing heart. She has had some chest pain, more so the left lateral chest into the left axillary region which she describes as sharp and shooting in nature. She has had orthopnea since February and that is unchanged. She frequently has nausea but has not had any vomiting. No dysphagia or concerns for aspiration. She has not had fever, chills, or sweats. No significant cough. Review of Systems Review of Systems: Narrative: Twelve systems were reviewed with pertinent positives and negatives as per HPI. She denies lightheadedness and dizziness. No syncope or near syncope. Several days ago she slipped while ambulating with her socks on and landed on her right side. She has quite a bit of bruising on the right side and to the right shoulder but has no significant pain with movement. She denies loss of consciousness and head trauma with the fall. No significant cough. She denies wheezing. She has been having normal bowel movements. No dysuria. No history of cirrhosis or ascites to her knowledge. She denies jaundice and pruritus. Except as documented, all other systems were reviewed and are negative. [facility] Past Medical History Medical History (Updated 03/16/21 @ 22:09 by Elma Alarcon PA-C) Cerebrovascular accident (2003) Chronic lymphocytic leukemia (~1999) Chronic pain of left knee Diastolic heart failure Echo 02/23/2020: EF 60-65%, moderately increased LV wall thickness, abnormal diastolic function, global longitudinal strain is normal, mild left atrial enlargement, mild aortic valve sclerosis, mild mitral valve regurgitation, severe pulmonary hypertension with RVSP of 62 mmHg, [id number] pulmonic regurgitation, elevated right atrial pressures. Emphysema lung Essential hypertension Hyperlipidemia Hypothyroidism Severe pulmonary hypertension Surgical History Surgical History (Updated 03/16/21 @ 22:01 by Elma Alarcon PA-C) History of ankle surgery (~1999) Right ankle ORIF with hardware. History of bladder surgery History of cholecystectomy History of hysterectomy History of lumbar surgery Family History Family History Father Asthma Mother Family history of heart disease in male family member before age 55 Cerebrovascular accident Other Hypertension Diabetes mellitus Family history of arthritis
[2021-03-16 16:42] LABS: Troponin I 0.014 ng/mL (0.000-0.034)
[2021-03-16 16:47] LABS: D Dimer 4.88 ug/mL (<0.48)
[2021-03-16] MEDS: ACETAMINOPHEN 325 MG TABLET 650 MG PO (22:35)
[2021-03-17] VITALS (20 sets, daily range): BP systolic 104–136; BP diastolic 40–65; PULSE 59–83; RESP 15–18; TEMP 36.1–36.7; O2SAT 96–100
[2021-03-17 05:06] LABS: Immature Platelet Fraction Pct 3.5 % (0.9-11.2); Mean Corpuscular Hemoglobin 28.8 pg (26-34); Mean Corpuscular Volume 95.8 fl (80-100); Mean Platelet Volume 9.6 fl (7.4-10.4); Platelet Count Result 91 k/mm3 (150-375); Red Blood Count 3.13 M/mm3 (4.2-5.4); Red Cell Distribution Width 17.7 % (11.5-14.5); White Blood Count 11.7 K/mm3 (4.5-10.0)
[2021-03-17 05:24] LABS: Alanine Aminotransferase 17 U/L (4-35); Alkaline Phosphatase 86 U/L (38-126); Aspartate Amino Transferase 36 U/L (14-36); Bilirubin,Total 0.5 mg/dL (0.2-1.3); Blood Urea Nitrogen 17 mg/dL (7-17); Calcium 8.5 mg/dL (8.4-10.2); Carbon Dioxide > 40 mmol/L (22-30); Chloride 91 mmol/L (98-107); Estimated CRCL calculation 53 ml/min; Estimated Glomerular Filt Rate > 60; Glucose 96 mg/dL (65-105); Potassium 3.7 mmol/L (3.4-5.0); Sodium 133 mmol/L (137-145)
[2021-03-17] MEDS: ASPIRIN 81 MG CHEWABLE TABLET PO (08:18)
[2021-03-17] MEDS: METOPROLOL SUCCINATE EXT REL 25 MG TABCR PO (08:18)
[2021-03-17] MEDS: FERROUS SULFATE 324 MG TABLET PO ×2 (08:18→16:57)
[2021-03-17] MEDS: lisinopriL 20 MG TABLET PO (08:18)
[2021-03-17] MEDS: FUROSEMIDE INJ 40 MG/4 ML VIAL IV PUSH ×2 (08:19→19:57)
[2021-03-17] MEDS: SIMVASTATIN 20 MG TABLET 40 MG PO (08:19)
[2021-03-17] MEDS: FLUTICASONE PROPIONATE 0.05% NA SPR 16 GM BTL (*BKC) 1 SPRAY NASAL (08:19)
[2021-03-17] MEDS: ACETAMINOPHEN 325 MG TABLET 650 MG PO ×2 (08:27→21:51)
--- NOTE | 2021-03-17 09:26 | ECG_ITS ---
Measurements Intervals [place] Rate: 60 P: GA: 0 QRS: -54 QRSD: 136 T: 93 QT: 475 QTc: 475 Interpretive Statements ATRIAL FLUTTER/TACHYCARDIA LEFT AXIS DEVIATION INTRAVENTRICULAR CONDUCTION DELAY POOR R WAVE PROGRESSION, ANTERIOR LEADS BASELINE ARTIFACT- II, III, AVR, AVL,A VF, V1 ABNORMAL ECG Electronically Signed On 03-17-2021 11:08:21 CDT by Dannie Nance D.O.
--- NOTE | 2021-03-17 09:38 | PM.CNCAR ---
Assessment and Plan Assessment and plan (1) Acute on chronic congestive heart failure: Code(s): I50.9 - Heart failure, unspecified Status: Acute Assessment and Plan: Patient is an 80-year-old woman with history of paroxysmal atrial fibrillation, CVA, CLL, hypertension, hyperlipidemia, prior tobacco dependence, COPD (on home oxygen), pulmonary hypertension, COVID-19 pneumonia (December 2020),who is seen in cardiac consultation for chief complaint of bilateral lower extremity edema and dyspnea. - she has acute on chronic heart failure with preserved ejection fraction, in setting of possible pneumonia and with prior COVID-19 pneumonia in December 2020, atrial flutter with rapid ventricular response, and with pulmonary hypertension with COPD. - Troponin I negative for injury on 2 occasions and will repeat troponin I. - EKG with atrial flutter with rapid ventricular response and she has history of atrial fibrillation with rapid ventricular response. EKG with left bundle-branch block and interventricular conduction delay. She denied chest pain. - Rate control of atrial flutter currently improved with heart rate in the 60s to 80s on metoprolol succinate 25 mg daily. - Continue Lasix 40 mg IV b.i.d. with careful monitoring of renal function and electrolytes. - Began spironolactone 25 mg qd. - Avoiding metolazone given current hyponatremia. - continue lisinopril and metoprolol. -She had echo 01/20/2021 which demonstrated severe concentric left ventricular hypertrophy, normal left ventricular systolic function with left ventricular ejection fraction 55-60%, mild left atrial enlargement, mild aortic valve sclerosis. 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 - Lower extremity venous Doppler negative. -Abdominal ultrasound pending. -Given her marked bilateral lower extremity edema and history of pulmonary hypertension, she would benefit from outpatient sleep study for evaluation for obstructive sleep apnea, although she has known chronic respiratory failure with COPD. - Pending resolution of her of possible pneumonia and acute exacerbation of congestive heart failure, the patient would benefit from outpatient ischemic evaluation with Lexiscan nuclear stress testing. (2) [id number] condition: Code(s): B94.8 - Sequelae of other specified infectious and parasitic diseases Status: Acute Assessment and Plan: - she is on antibiotic therapy for possible pneumonia as per the primary service, with prior COVID-19 pneumonia in December 2020. - She has been hypothermic this admission. 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 (3) Atrial flutter with rapid ventricular response: Code(s): I48.92 - Unspecified atrial flutter Status: Acute Assessment and Plan: - Initial EKG with atrial flutter with rapid ventricular response and she has history of atrial fibrillation with rapid ventricular response. - Rate control of atrial flutter currently improved with heart rate in the 60s to 80s on metoprolol succinate 25 mg daily. - TSH normal this admission. Magnesium normal at 2.1. Repleting potassium 3.7 given 6 beat run of nonsustained ventricular tachycardia on telemetry on admission. - previously, she was on Lovenox but had a hematoma and then was subsequently placed on Eliquis as an outpatient only to have Eliquis discontinued 02/28/2021 in setting of significant bruising. She is currently a fall risk as well. -continue aspirin but with careful monitoring of her thrombocytopenia.
--- NOTE | 2021-03-17 09:58 | PM.IMPN ---
Progress Note: A&P Assessment and Plan (1) Ascites: Code(s): R18.8 - Other ascites Status: Acute Assessment and Plan: associated with anasarca consult nephrology IV Lasix cardiology will see the patient (2) Acute on chronic congestive heart failure: Code(s): I50.9 - Heart failure, unspecified Status: Acute Assessment and Plan: Lasix lisinopril metoprolol (3) Pneumonia: Qualifiers: Laterality: bilateral Lung location: unspecified part of lung Pneumonia type: due to unspecified organism Qualified Code(s): J18.9 - Pneumonia, unspecified organism Code(s): J18.9 - Pneumonia, unspecified organism Status: Acute Assessment and Plan: IV antibiotics for presumed pneumonia, white blood cells improved, chest x-ray edema versus pneumonia (4) Severe pulmonary arterial systolic hypertension: Code(s): I27.21 - Secondary pulmonary arterial hypertension Status: Acute Assessment and Plan: diurese with Lasix monitor respiratory status Subjective Date/time seen: 03/17/21 09:58 Interval history: patient still complains of abdominal and leg swelling, associated with shortness of breath. Exam Const: General: cooperative and no acute distress HENMT: Head: normal to inspection Eyes: General: appearance normal, both eyes and all related structures Neck: Neck: normal visual inspection Chest: Chest palpation & inspection: normal inspection of the chest Resp: Effort & Inspection: normal respiratory effort Auscultation: rales Cardio: Jugular venous distension: no JVD Rate: regular rate Other: bilateral edema GI: Inspection: normal to inspection and distended Objective Data Vital Signs Vital Signs: Vital Signs - 24 hr 03/16/21 11:29 03/16/21 11:45 03/16/21 11:47 Temperature 97.2 F L Pulse Rate 122 H Respiratory Rate 24 H Blood Pressure 144/85 H Pulse Oximetry 96 89 L 92 03/16/21 13:50 03/16/21 15:30 03/16/21 15:57 Temperature 96.6 F L Pulse Rate 117 H 98 75 Respiratory Rate 30 H 20 Blood Pressure 156/96 H 117/76 Pulse Oximetry 97 96 03/16/21 16:00 03/16/21 17:42 03/16/21 18:00 Temperature 96.9 F L Pulse Rate 97 80 100 Respiratory Rate 20 21 H Blood Pressure 130/75 Pulse Oximetry 97 100 03/16/21 19:46 03/16/21 20:00 03/16/21 22:00 Temperature 96.9 F L Pulse Rate 80 80 91 Respiratory Rate 16 Blood Pressure 126/65 Pulse Oximetry 98 98 03/16/21 23:08 03/17/21 00:00 03/17/21 02:00 Temperature 97.5 F L Pulse Rate 76 80 60 Respiratory Rate 16 Blood Pressure 152/57 H Pulse Oximetry 100 100 03/17/21 02:26 03/17/21 04:00 03/17/21 06:00 Temperature 97.8 F Pulse Rate 80 66 Respiratory Rate 16 Blood Pressure 119/65 Pulse Oximetry 96 98 03/17/21 08:00 03/17/21 08:18 03/17/21 09:12 Temperature 97 F L Pulse Rate 83 81 78 Respiratory Rate 15 Blood Pressure 130/40 L Pulse Oximetry 100 100 Intake/Output Intake/Output: Intake & Output 03/14/21 03/15/21 03/16/21 03/17/21 23:59 23:59 23:59 23:59 Intake Total 340 240 Output Total 800 0597 Lgdxtae -684 -9211 Meds/Results Medications: Active Medications Generic Name Dose Route Start Last Admin Trade Name Freq PRN Reason Stop Dose Admin Acetaminophen 650 mg 03/16/21 22:19 03/17/21 08:27 Acetaminophen 325 Mg Tablet PO 650 mg Q6H PRN Administration Mild Pain (1-3) or Fever Aspirin 81 mg 03/17/21 08:00 03/17/21 08:18 Aspirin 81 Mg Chewable Tablet PO 81 mg DAILY@[facility] Administration Calcium Carbonate 200 mg 03/16/21 22:19 Calcium Carbonate (Tums) 500 Mg (200 Mg Elemental) PO DAILY PRN Gastric Reflux Ferrous Sulfate 324 mg 03/17/21 08:00 03/17/21 08:18 Ferrous Sulfate 324 Mg Tablet PO 324 mg BIDWM TANG Administration Fluticasone Propionate 1 spray 03/17/21 09:00 03/17/21 08:19 Fluticasone Propionate 0.05% Na
[2021-03-17 12:48] LABS: Troponin I 0.053 ng/mL (0.000-0.034)
[2021-03-17] MEDS: POTASSIUM CHLORIDE 20 MEQ TABLET 40 MEQ PO (13:53)
[2021-03-17] MEDS: SPIRONOLACTONE 25 MG TABLET PO (13:53)
[2021-03-17 15:55] LABS: Troponin I 0.061 ng/mL (0.000-0.034)
--- NOTE | 2021-03-17 16:58 | PM.CNNEP ---
Assessment and Plan Assessment and plan (1) Anasarca: Code(s): R60.1 - Generalized edema Status: Acute Assessment and Plan: likely multifactorial: - #2 - pulmonary HTN - suspect REGINO playing a role as well (no formal diagnosis) - ascites agree with ongoing diuresis as tolerated consider adding acetazolamide along with lasix and spironolactone assess for proteinuria follow renal function with ongoing diuresis (2) Acute on chronic congestive heart failure: Code(s): I50.9 - Heart failure, unspecified Status: Acute Assessment and Plan: Cardiology following follow I/Os, daily weights, and exam (3) Essential hypertension: Code(s): I10 - Essential (primary) hypertension Status: Acute Assessment and Plan: well controlled at this time Will continue to follow. History of Present Illness Reason for Consult Consult date: 03/17/21 Reason for consult: Other (anasarca/edema) Chief Complaint Chief complaint: CHF exacerbation History of Present Illness Narrative: The patient is a 80-year-old female with a past medical history as outlined below who presented to [facility] ER with complaints of shortness of breath and lower extremity edema. The patient recently saw her chipper feeder earlier this month for routine follow-up and was noted that she had increasing lower extremity edema at that time. She was started on Lasix in effort to improve her lower extremity edema but this has failed to do so. Her swelling has continued to worsen both in her lower extremities and now she feels that the fluid has progressed to her abdomen since his so distended at this time. Do the swelling and edema in general she has had difficulty ambulating in general which is further exacerbated her shortness of breath. For all these reasons she is came to the emergency room for further evaluation. Workup and evaluation emergency room demonstrated the significant edema/swelling that seemed to be consistent with what appeared to be acute on chronic heart failure. She was found to be in atrial tachycardia possibly atrial flutter with RVR but this seems better controlled following her admission. She had no other real acute issues or complaints regard to fevers, chills, diarrhea, or cough but is more concerned with all the swelling edema that is consistently getting worse despite all therapy to date. Since her admission, she has been seen by Cardiology and has been instituted on IV diuretic therapy in the hopes of promoting improvement in her overall fluid status. She is about 2 L negative since her admission but she still has a significant amount of fluid /edema / swelling particularly in her lower extremities and abdominal area. Renal consultation was requested due to her severe /significant anasarca. It seems that this issue has been progressively getting worse over last month although I am unclear if this was even an issue prior to that. Presumably, her swelling edema is a manifestation of her congestive heart failure in conjunction with her severe pulmonary hypertension, possibly cor pulmonale, and possibly obstructive sleep apnea. She has no reported history with regard to kidney disease and her kidney function by labs on admission and by today show her kidney function to be fairly normal. She is making urine with the combination of diuretic she is currently on as well. Currently, the patient's only major complaint is that of discomfort with regard to the swelling/ edema as mentioned above. Review of Systems Review of Systems: Narrative: As per HPI. [facility] Past Medical History Medical History Cerebrovascular accident (2003) Chronic lymphocytic leukemia (~1999) Chronic pain of left knee Diastolic heart failure Echo 02/23/2020: EF 60-65%, moderately increased LV wall thi
[2021-03-17 19:35] LABS: Troponin I 0.059 ng/mL (0.000-0.034)
[2021-03-18] VITALS (12 sets, daily range): BP systolic 94–133; BP diastolic 45–75; PULSE 61–123; RESP 14–18; TEMP 36.4–36.8; O2SAT 92–100
[2021-03-18 05:14] LABS: Basophils Absolute Auto 0.1 K/mm3 (0.0-0.1); Basophils Percent Auto 0.5 % (0.2-1.2); Eosinophils Percent Auto 0.3 % (0-4.4); Hematocrit 30.7 % (37.0-47.0); Hemoglobin 9.3 g/dL (12.0-15.0); Immature Granulocyte Absolute 0.03 K/mm3 (0.00-0.031); Immature Granulocyte Percent A 0.3 % (0-0.5); Lymphocytes Absolute Auto 8.86 K/mm3 (0.9-3.2); Lymphocytes Percent Auto 80.7 % (18.3-44.2); Mean Corpuscular HGB Conc 30.3 g/dl (32-36); Mean Corpuscular Hemoglobin 29.1 pg (26-34); Mean Corpuscular Volume 95.9 fl (80-100); Mean Platelet Volume 9.8 fl (7.4-10.4); Monocytes Absolute Auto 1.1 K/mm3 (0.1-0.6); Monocytes Percent Auto 9.7 % (2.6-8.5); Neutrophils Absolute Auto 0.9 K/mm3 (1.3-6.7); Neutrophils Percent Auto 8.5 % (45.5-73.1); Nucleated Red Blood Cells Perc 0.3 % (0.0-0.2); Platelet Count Result 91 k/mm3 (150-375); Red Cell Distribution Width 17.4 % (11.5-14.5)
[2021-03-18 05:26] LABS: Anion Gap 3 mmol/L (8-16); Blood Urea Nitrogen 16 mg/dL (7-17); Calcium 8.4 mg/dL (8.4-10.2); Carbon Dioxide 38 mmol/L (22-30); Chloride 91 mmol/L (98-107); Estimated CRCL calculation 60 ml/min; Estimated Glomerular Filt Rate > 60; Glucose 95 mg/dL (65-105); Phosphorus 3.7 mg/dL (2.5-4.5); Potassium 3.8 mmol/L (3.4-5.0); Sodium 132 mmol/L (137-145)
[2021-03-18 05:43] LABS: Anisocytosis 1+ (NORMAL)
[2021-03-18 05:44] LABS: Poikilocytosis 1+ (NORMAL)
[2021-03-18] MEDS: FERROUS SULFATE 324 MG TABLET PO ×2 (09:06→17:03)
[2021-03-18] MEDS: FUROSEMIDE INJ 40 MG/4 ML VIAL IV PUSH ×2 (09:06→19:54)
[2021-03-18] MEDS: lisinopriL 20 MG TABLET PO (09:06)
[2021-03-18] MEDS: ASPIRIN 81 MG CHEWABLE TABLET PO (09:06)
[2021-03-18] MEDS: FLUTICASONE PROPIONATE 0.05% NA SPR 16 GM BTL (*BKC) 1 SPRAY NASAL (09:07)
[2021-03-18] MEDS: SIMVASTATIN 20 MG TABLET 40 MG PO (09:07)
[2021-03-18] MEDS: METOPROLOL SUCCINATE EXT REL 25 MG TABCR PO (09:07)
[2021-03-18] MEDS: SPIRONOLACTONE 25 MG TABLET PO (09:19)
--- NOTE | 2021-03-18 10:09 | PM.PNCARD ---
Progress Note: A&P Assessment and Plan (1) Acute on chronic congestive heart failure: Code(s): I50.9 - Heart failure, unspecified Status: Acute Assessment and Plan: 80-year-old female with h/o paroxysmal A fib/flutter, CVA, CLL, HTN, HLD, prior tobacco dependence, COPD (on home oxygen), pulmonary hypertension, COVID-19 pneumonia (December 2020),who is seen in cardiac consultation for chief complaint of bilateral lower extremity edema and dyspnea better with IV diuresis continue lasix at current dose 40 BID. Creatinine stable. has hyponatremia but also stable Borderline trop elevation with flat trend 0.05. No chest pain. [facility] 2003 with no obstructive disease. Consider outpatient stress testing Continue Spironolactone started this admission -She had echo 01/20/2021 which demonstrated severe concentric left ventricular hypertrophy, normal left ventricular systolic function with left ventricular ejection fraction 55-60%, mild left atrial enlargement, mild aortic valve sclerosis. - Lower extremity venous Doppler negative. (2) Atrial flutter with rapid ventricular response: Code(s): I48.92 - Unspecified atrial flutter Status: Acute Assessment and Plan: HR well controlled with Metoprolol Repleting potassium 3.7 given 6 beat run of nonsustained ventricular tachycardia on telemetry on admission. - previously, she was on Lovenox but had a hematoma and then was subsequently placed on Eliquis as an outpatient only to have Eliquis discontinued 02/28/2021 in setting of significant bruising. She is currently a fall risk as well. -continue aspirin but with careful monitoring of her thrombocytopenia. (3) Essential hypertension: Code(s): I10 - Essential (primary) hypertension Status: Acute Assessment and Plan: well controlled Subjective Date/time seen: 03/18/21 10:09 Leg swelling as well as dyspnea are getting better. Denies chest pain Review of Systems Review of Systems: All systems reviewed & are unremarkable except as noted in HPI and below Exam Narrative: Exam Narrative: General: Chronically ill-appearing female in bed. HEENT: PERRL, EOMI. Sclerae anicteric. Oral mucosa moist. Oropharynx clear. Neck: Supple. no thyromegaly. Respiratory: No respiratory distress. Diminished breath sounds at the bases bilaterally. Fine crackles heard in the lower lung zones. Cardiovascular: No heave. Irregularly, Irregular, with 1/6 intensity systolic murmur. Distal pulses intact. Gastrointestinal: Abdomen is soft and slightly distended with positive bowel sounds. No tenderness to palpation. Skin: Warm and dry. Scattered bruising on the upper extremities, right side, and right shoulder. Erythema of the lower legs, right greater than left, likely due to significant swelling. Chronic venous stasis changes noted. Extremities: No cyanosis or clubbing. 3-4+ Lower extremity edema bilaterally, right greater than left, up to thighs. Neurological: Alert. Cranial nerves 2-12 are grossly intact. No gross focal deficits to casual conversation. Psychiatric: Pleasant and cooperative with normal mood and affect. Objective Data Vital Signs Vital Signs: Vital Signs - 24 hr 03/17/21 10:32 03/17/21 12:00 03/17/21 12:53 Temperature 36.4 C Pulse Rate 60 59 L Respiratory Rate 15 Blood Pressure 130/56 L Pulse Oximetry 97 100 100 03/17/21 14:00 03/17/21 16:00 03/17/21 16:25 Temperature 36.7 C Pulse Rate 59 L 62 62 Respiratory Rate 16 Blood Pressure 104/48 L Pulse Oximetry 100 100 03/17/21 18:00 03/17/21 19:49 03/17/21 20:00 Temperature 36.6 C Pulse Rate 60 60 60 Respiratory Rate 18 Blood Pressure 136/56 L Pulse Oximetry 99 99 03/17/21 22:00 03/17/21 23:35 03/18/21 00:00 Temperature 36.3 C L Pulse Rate 62 61 61 Respiratory Rate 16 Blood Pressure 110/58 L Pulse Oximetry 99 99 03/18/21 02:00 03/18/21 04:00 03/18/21 06:00 Tem
--- NOTE | 2021-03-18 13:05 | PM.IMPN ---
Progress Note: A&P Assessment and Plan (1) Ascites: Code(s): R18.8 - Other ascites Status: Acute Assessment and Plan: associated with anasarca consult nephrology IV Lasix cardiology consult note. (2) Acute on chronic congestive heart failure: Code(s): I50.9 - Heart failure, unspecified Status: Acute Assessment and Plan: Lasix lisinopril metoprolol Continue diuresis (3) Pneumonia: Qualifiers: Laterality: bilateral Lung location: unspecified part of lung Pneumonia type: due to unspecified organism Qualified Code(s): J18.9 - Pneumonia, unspecified organism Code(s): J18.9 - Pneumonia, unspecified organism Status: Acute Assessment and Plan: IV antibiotics for presumed pneumonia, white blood cells improved, chest x-ray edema versus pneumonia (4) Severe pulmonary arterial systolic hypertension: Code(s): I27.21 - Secondary pulmonary arterial hypertension Status: Acute Assessment and Plan: diurese with Lasix monitor respiratory status Additional Plan consult noted will continue current plan of care and treatment. Will continue diuresis. Monitor electrolytes and chest x-ray. Subjective Date/time seen: 03/18/21 13:05 Patient was seen during the morning rounds today. Patient has mild shortness of breath no chest pain. No abdominal pain, no nausea, no vomiting. Mood stable. Review of Systems Review of Systems: All systems reviewed & are unremarkable except as noted in HPI and below (the history and physical exam) Exam Narrative: Exam Narrative: General: Chronically ill-appearing female in the semi-Carrero position in bed. Weight: 86.1 kg. BMI: 26.5. HEENT: PERRL, EOMI. Sclerae anicteric. Oral mucosa moist. Oropharynx clear. Neck: Supple. Positive jugular venous distension. Respiratory: Mildly tachypneic with conversational dyspnea. Fine crackles heard in the lower lung zones. Cardiovascular: Irregular tachycardia. 2/6 systolic murmur heard throughout the precordium. Gastrointestinal: Abdomen is soft and slightly distended with positive bowel sounds. No tenderness to palpation. Skin: Warm and dry. Scattered bruising on the upper extremities, right side, and right shoulder. Erythema of the lower legs, right greater than left, likely due to significant swelling. Extremities: No cyanosis or clubbing. 4+ pedal edema bilaterally, right greater than left, up to thighs. Neurological: Alert. Cranial nerves 2-12 are grossly intact. No gross focal deficits to casual conversation. Psychiatric: Pleasant and cooperative with normal mood and affect. Const: General: cooperative and no acute distress HENMT: Head: normal to inspection Eyes: General: appearance normal, both eyes and all related structures Neck: Neck: normal visual inspection Chest: Chest palpation & inspection: normal inspection of the chest Resp: Effort & Inspection: normal respiratory effort Auscultation: rales Cardio: Jugular venous distension: no JVD Rate: regular rate Other: bilateral edema GI: Inspection: normal to inspection and distended Objective Data Vital Signs Vital Signs: Vital Signs - 24 hr 03/17/21 14:00 03/17/21 16:00 03/17/21 16:25 Temperature 36.7 C Pulse Rate 59 L 62 62 Respiratory Rate 16 Blood Pressure 104/48 L Pulse Oximetry 100 100 03/17/21 18:00 03/17/21 19:49 03/17/21 20:00 Temperature 36.6 C Pulse Rate 60 60 60 Respiratory Rate 18 Blood Pressure 136/56 L Pulse Oximetry 99 99 03/17/21 22:00 03/17/21 23:35 03/18/21 00:00 Temperature 36.3 C L Pulse Rate 62 61 61 Respiratory Rate 16 Blood Pressure 110/58 L Pulse Oximetry 99 99 03/18/21 02:00 03/18/21 04:00 03/18/21 06:00 Temperature 36.4 C Pulse Rate 61 62 96 Respiratory Rate 18 Blood Pressure 113/45 L Pulse Oximetry 99 03/18/21 08:00 03/18/21 08:03 03/18/21 09:07 Temperature 36.6 C Pulse R
--- NOTE | 2021-03-18 16:09 | PM.PNNEP ---
Progress Note: A&P Assessment and Plan (1) Anasarca: Code(s): R60.1 - Generalized edema Status: Acute Assessment and Plan: likely multifactorial: - #2 - pulmonary HTN - suspect REGINO playing a role as well (no formal diagnosis) - ascites agree with ongoing diuresis as tolerated consider adding acetazolamide along with lasix and spironolactone assess for proteinuria follow renal function with ongoing diuresis (2) Acute on chronic congestive heart failure: Code(s): I50.9 - Heart failure, unspecified Status: Acute Assessment and Plan: Cardiology following follow I/Os, daily weights, and exam (3) Essential hypertension: Code(s): I10 - Essential (primary) hypertension Status: Acute Assessment and Plan: well controlled at this time Will continue to follow. Subjective Date/time seen: 03/18/21 16:09 Swelling and edema seems to be a bit better with current therapy; no apparent distress voiced at this time; no issues/events overnight or earlier this AM. Exam Narrative: Exam Narrative: General: WD/WN male/female in NAD Heart: normal S1 and S2; no rub Lungs: decreased breath sounds at bases Abdomen: distended with positive bowel sounds Extremities: no cyanosis or clubbing; 2+ edema Skin: warm and dry Objective Data Vital Signs Vital Signs: Vital Signs Temp Pulse Resp BP Pulse Ox 03/18/21 16:00 80 03/18/21 15:50 36.8 C 96 16 126/64 92 03/18/21 12:00 36.4 C L 65 15 94/55 L 97 03/18/21 10:00 61 03/18/21 09:07 105 H 03/18/21 08:03 36.6 C 67 14 133/65 100 03/18/21 08:00 61 03/18/21 06:00 96 03/18/21 04:00 36.4 C 62 18 113/45 L 99 03/18/21 02:00 61 03/18/21 00:00 61 99 03/17/21 23:35 36.3 C L 61 16 110/58 L 99 Intake/Output Intake/Output: Intake & Output 03/15/21 03/16/21 03/17/21 03/18/21 23:59 23:59 23:59 23:59 Intake Total 340 1230 1180 Output Total 800 3600 2125 Balance -460 -2370 -945 Meds/Results Medications: Active Medications Generic Name Dose Route Start Last Admin Trade Name Freq PRN Reason Stop Dose Admin Acetaminophen 650 mg 03/16/21 22:19 03/18/21 17:03 Acetaminophen 325 Mg Tablet PO 650 mg Q6H PRN Administration Mild Pain (1-3) or Fever Aspirin 81 mg 03/17/21 08:00 03/18/21 09:06 Aspirin 81 Mg Chewable Tablet PO 81 mg DAILY@0800 [facility] Administration Calcium Carbonate 200 mg 03/16/21 22:19 Calcium Carbonate (Tums) 500 Mg (200 Mg Elemental) PO DAILY PRN Gastric Reflux Ferrous Sulfate 324 mg 03/17/21 08:00 03/18/21 17:03 Ferrous Sulfate 324 Mg Tablet PO 324 mg BIDWM TANG Administration Fluticasone Propionate 1 spray 03/17/21 09:00 03/18/21 09:07 Fluticasone Propionate 0.05% Na Spr 16 Gm Btl (*Bkc) NASAL 1 spray DAILY [facility]ANG Administration Furosemide 40 mg 03/16/21 21:00 03/18/21 19:54 Furosemide Inj 40 Mg/4 Ml Vial IV PUSH 40 mg Q12HR TANG Administration Ceftriaxone Sodium 2 gm in 100 mls @ 200 mls/hr 03/17/21 10:00 03/18/21 09:45 Rocephin 2 Gm/D5w 100 Ml IVPB Infused QAM TANG Infusion Azithromycin 500 mg in 250 mls @ 250 mls/hr 03/17/21 10:00 03/18/21 10:45 Zithromax IVPB Infused QAM TANG Infusion Lisinopril 20 mg 03/17/21 09:00 03/18/21 09:06 Lisinopril 20 Mg Tablet PO 20 mg DAILY TANG Administration Metoprolol Succinate 25 mg 03/17/21 09:00 03/18/21 09:07 Metoprolol Succinate Ext Rel 25 Mg Tabcr PO 25 mg DAILY TANG Administration Simvastatin 40 mg 03/17/21 09:00 03/18/21 09:07 Simvastatin 20 Mg Tablet PO 40 mg DAILY TANG Administration Spironolactone 25 mg 03/17/21 12:40 03/18/21 09:19 Spironolactone 25 Mg Tablet PO 25 mg QAM TANG Administration Radiology Results: ITS Impressions Chest X-Ray 03/16/21 11:58 Impression: 1: Persistent
[2021-03-18] MEDS: ACETAMINOPHEN 325 MG TABLET 650 MG PO (17:03)
[2021-03-19] VITALS (12 sets, daily range): BP systolic 120–150; BP diastolic 48–78; PULSE 60–120; RESP 14–16; TEMP 36.6–37; O2SAT 94–100
[2021-03-19 01:30] LABS: Add Urine Microscopic? YES; Appearance Urine Clear (Clear); Bilirubin Urine Negative (Negative); Blood Urine 1+ (Negative); Color Urine Yellow (Yellow); Glucose Urine UA Negative (Negative); Ketones Urine Negative (Negative); Leukocyte Esterase Ur 2+ LEU/UL (Negative); Mucus Urine Rare /lpf; Nitrate Urine Negative (Negative); Protein Urine Negative (Negative); Specific Grav Ur 1.009 (1.001-1.035); Squamous Epithelial Cell Urine Rare /hpf (Few); Urobilinogen Urine Negative mg/dL (<2.0); WBC Urine 16-20 /hpf
[2021-03-19 04:58] LABS: Hematocrit 31.9 % (37.0-47.0); Hemoglobin 9.5 g/dL (12.0-15.0); Immature Platelet Fraction Pct 3.6 % (0.9-11.2); Mean Corpuscular HGB Conc 29.8 g/dl (32-36); Mean Corpuscular Hemoglobin 28.7 pg (26-34); Mean Corpuscular Volume 96.4 fl (80-100); Mean Platelet Volume 9.9 fl (7.4-10.4); Platelet Count Result 98 k/mm3 (150-375); Red Blood Count 3.31 M/mm3 (4.2-5.4); Red Cell Distribution Width 17.2 % (11.5-14.5); White Blood Count 12.3 K/mm3 (4.5-10.0)
[2021-03-19 05:09] LABS: Alanine Aminotransferase 18 U/L (4-35); Albumin Level 3.1 g/dL (3.5-5.1); Alkaline Phosphatase 89 U/L (38-126); Aspartate Amino Transferase 42 U/L (14-36); Bilirubin,Total 0.4 mg/dL (0.2-1.3); Blood Urea Nitrogen 18 mg/dL (7-17); Calcium 8.6 mg/dL (8.4-10.2); Carbon Dioxide > 40 mmol/L (22-30); Chloride 89 mmol/L (98-107); Estimated CRCL calculation 53 ml/min; Estimated Glomerular Filt Rate > 60; Glucose 106 mg/dL (65-105); Potassium 4.2 mmol/L (3.4-5.0); Sodium 132 mmol/L (137-145)
[2021-03-19] MEDS: FERROUS SULFATE 324 MG TABLET PO ×2 (09:24→16:43)
[2021-03-19] MEDS: FLUTICASONE PROPIONATE 0.05% NA SPR 16 GM BTL (*BKC) 1 SPRAY NASAL (09:24)
[2021-03-19] MEDS: ASPIRIN 81 MG CHEWABLE TABLET PO (09:24)
[2021-03-19] MEDS: SPIRONOLACTONE 25 MG TABLET PO (09:25)
[2021-03-19] MEDS: FUROSEMIDE INJ 40 MG/4 ML VIAL IV PUSH ×2 (09:25→20:01)
[2021-03-19] MEDS: METOPROLOL SUCCINATE EXT REL 25 MG TABCR PO (09:25)
[2021-03-19] MEDS: lisinopriL 20 MG TABLET PO (09:25)
[2021-03-19] MEDS: SIMVASTATIN 20 MG TABLET 40 MG PO (09:25)
--- NOTE | 2021-03-19 10:05 | PM.PNCARD ---
Progress Note: A&P Assessment and Plan (1) Acute on chronic congestive heart failure: Code(s): I50.9 - Heart failure, unspecified Status: Acute Assessment and Plan: 80-year-old female with h/o paroxysmal A fib/flutter, CVA, CLL, HTN, HLD, prior tobacco dependence, COPD (on home oxygen), pulmonary hypertension, COVID-19 pneumonia (December 2020),who is seen in cardiac consultation for chief complaint of bilateral lower extremity edema and dyspnea better compensated with IV lasix. Still with lower ext edema Will continue IV lasix for one mroe day. Creatinine and hyponatremia are stable Continue Spironolactone (started this admission) Borderline trop elevation with flat trend 0.05-0.04. No chest pain. [facility] 2003 with no obstructive disease. Consider outpatient stress testing once more stable from CHF standpoint -She had echo 01/20/2021 which demonstrated severe concentric left ventricular hypertrophy, normal left ventricular systolic function with left ventricular ejection fraction 55-60%, mild left atrial enlargement, mild aortic valve sclerosis. - Lower extremity venous Doppler negative. (2) Atrial flutter with rapid ventricular response: Code(s): I48.92 - Unspecified atrial flutter Status: Acute Assessment and Plan: HR well controlled with Metoprolol 25 daily. Repleting potassium 3.7 given 6 beat run of nonsustained ventricular tachycardia on telemetry on admission. - previously, she was on Lovenox but had a hematoma and then was subsequently placed on Eliquis as an outpatient only to have Eliquis discontinued 02/28/2021 in setting of significant bruising. She is currently a fall risk as well. -continue aspirin but with careful monitoring of her thrombocytopenia. (3) Essential hypertension: Code(s): I10 - Essential (primary) hypertension Status: Acute Assessment and Plan: well controlled Subjective Date/time seen: 03/19/21 10:05 Lower ext edema continues to improve as well as dyspnea. Review of Systems Review of Systems: All systems reviewed & are unremarkable except as noted in HPI and below Exam Narrative: Exam Narrative: General: Chronically ill-appearing female in bed. HEENT: PERRL, EOMI. Sclerae anicteric. Oral mucosa moist. Oropharynx clear. Neck: Supple. no thyromegaly. Respiratory: No respiratory distress. Diminished breath sounds at the bases bilaterally. Fine crackles heard in the lower lung zones. Cardiovascular: No heave. Irregularly, Irregular, with 1/6 intensity systolic murmur. Distal pulses intact. Gastrointestinal: Abdomen is soft and slightly distended with positive bowel sounds. No tenderness to palpation. Skin: Warm and dry. Scattered bruising on the upper extremities, right side, and right shoulder. Erythema of the lower legs, right greater than left, likely due to significant swelling. Chronic venous stasis changes noted. Extremities: No cyanosis or clubbing. 3-4+ Lower extremity edema bilaterally, right greater than left, up to thighs. Neurological: Alert. Cranial nerves 2-12 are grossly intact. No gross focal deficits to casual conversation. Psychiatric: Pleasant and cooperative with normal mood and affect. Objective Data Vital Signs Vital Signs: Vital Signs - 24 hr 03/18/21 12:00 03/18/21 15:50 03/18/21 16:00 Temperature 36.4 C L 36.8 C Pulse Rate 65 96 80 Respiratory Rate 15 16 Blood Pressure 94/55 L 126/64 Pulse Oximetry 97 92 03/18/21 20:00 03/19/21 00:00 03/19/21 04:00 Temperature 36.8 C 36.9 C 37.0 C Pulse Rate 123 H 81 62 Respiratory Rate 16 16 16 Blood Pressure 129/75 131/78 122/76 Pulse Oximetry 93 96 97 03/19/21 07:31 03/19/21 08:00 03/19/21 09:25 Temperature 36.6 C Pulse Rate 84 70 61 Respiratory Rate 14 Blood Pressure 150/62 H Pulse Oximetry 100 Intake/Output Intake/Output: Intake & Output 03/16/21 03/17/21 03/18/21 03/19/21 23:59 23:59 23:59 23:59 Ellie
--- NOTE | 2021-03-19 10:13 | PM.IMPN ---
Progress Note: A&P Assessment and Plan (1) Ascites: Code(s): R18.8 - Other ascites Status: Acute Assessment and Plan: associated with anasarca consult nephrology IV Lasix cardiology consult noted. (2) Acute on chronic congestive heart failure: Code(s): I50.9 - Heart failure, unspecified Status: Acute Assessment and Plan: Lasix lisinopril metoprolol Continue diuresis (3) Pneumonia: Qualifiers: Laterality: bilateral Lung location: unspecified part of lung Pneumonia type: due to unspecified organism Qualified Code(s): J18.9 - Pneumonia, unspecified organism Code(s): J18.9 - Pneumonia, unspecified organism Status: Acute Assessment and Plan: IV antibiotics for presumed pneumonia, white blood cells improved, chest x-ray edema versus pneumonia (4) Severe pulmonary arterial systolic hypertension: Code(s): I27.21 - Secondary pulmonary arterial hypertension Status: Acute Assessment and Plan: diurese with Lasix monitor respiratory status Additional Plan consult noted will continue current plan of care and treatment. Will continue diuresis. Monitor electrolytes and chest x-ray. 03/19/2021: Patient is clinically much better. Will continue with IV Lasix for 1 more day. Increase activity as tolerated. Possible discharge in the morning. Subjective Date/time seen: 03/19/21 10:13 Patient was seen during the morning rounds today. Patient has mild shortness of breath but better than before. No chest pain. No abdominal pain, no nausea, no vomiting. Mood stable. Review of Systems Review of Systems: All systems reviewed & are unremarkable except as noted in HPI and below (the history and physical exam) Exam Narrative: Exam Narrative: General: Chronically ill-appearing female in the semi-Carrero position in bed. Weight: 86.1 kg. BMI: 26.5. HEENT: PERRL, EOMI. Sclerae anicteric. Oral mucosa moist. Oropharynx clear. Neck: Supple. Positive jugular venous distension. Respiratory: Mildly tachypneic with conversational dyspnea. Fine crackles heard in the lower lung zones. Cardiovascular: Irregular tachycardia. 2/6 systolic murmur heard throughout the precordium. Gastrointestinal: Abdomen is soft and slightly distended with positive bowel sounds. No tenderness to palpation. Skin: Warm and dry. Scattered bruising on the upper extremities, right side, and right shoulder. Erythema of the lower legs, right greater than left, likely due to significant swelling. Extremities: No cyanosis or clubbing. 4+ pedal edema bilaterally, right greater than left, up to thighs. Neurological: Alert. Cranial nerves 2-12 are grossly intact. No gross focal deficits to casual conversation. Psychiatric: Pleasant and cooperative with normal mood and affect. Const: General: cooperative and no acute distress HENMT: Head: normal to inspection Eyes: General: appearance normal, both eyes and all related structures Neck: Neck: normal visual inspection Chest: Chest palpation & inspection: normal inspection of the chest Resp: Effort & Inspection: normal respiratory effort Auscultation: rales Cardio: Jugular venous distension: no JVD Rate: regular rate Other: bilateral edema GI: Inspection: normal to inspection and distended Objective Data Vital Signs Vital Signs: Vital Signs - 24 hr 03/18/21 12:00 03/18/21 15:50 03/18/21 16:00 Temperature 36.4 C L 36.8 C Pulse Rate 65 96 80 Respiratory Rate 15 16 Blood Pressure 94/55 L 126/64 Pulse Oximetry 97 92 03/18/21 20:00 03/19/21 00:00 03/19/21 04:00 Temperature 36.8 C 36.9 C 37.0 C Pulse Rate 123 H 81 62 Respiratory Rate 16 16 16 Blood Pressure 129/75 131/78 122/76 Pulse Oximetry 93 96 97 03/19/21 07:31 03/19/21 08:00 03/19/21 09:25 Temperature 36.6 C Pulse Rate 84 70 61 Respiratory Rate 14 Blood Pressure 150/62 H Pulse Oximetry 100 Intake/Output
[2021-03-19 11:29] LABS: Creatinine Urine 36.9 mg/dL; Total Protein Urine Random 23 mg/dL; Ur Ttl Prot Creatinine Ratio 0.62 mg/mg (0-0.20)
--- NOTE | 2021-03-19 11:58 | PM.PNNEP ---
Progress Note: A&P Assessment and Plan (1) Anasarca: Code(s): R60.1 - Generalized edema Status: Acute Assessment and Plan: likely multifactorial: - #2 - pulmonary HTN - suspect REGINO playing a role as well (no formal diagnosis) - ascites agree with ongoing diuresis as tolerated consider adding acetazolamide along with lasix and spironolactone only about 600mg proteinuria follow renal function with ongoing diuresis (2) Acute on chronic congestive heart failure: Code(s): I50.9 - Heart failure, unspecified Status: Acute Assessment and Plan: Cardiology following follow I/Os, daily weights, and exam (3) Essential hypertension: Code(s): I10 - Essential (primary) hypertension Status: Acute Assessment and Plan: well controlled at this time Not much to really add -- will continue to follow intermittently Subjective Date/time seen: 03/19/21 11:58 Appears to be doing fairly well at the time of my visit; sitting up in chair watching TV; feels she is urinating quite a bit and thinks swelling/edema is slowly improving; no apparent distress voiced. Exam Narrative: Exam Narrative: General: WD/WN female in NAD Heart: normal S1 and S2; no rub Lungs: decreased breath sounds at bases Abdomen: distended with positive bowel sounds Extremities: no cyanosis or clubbing; 2+ edema Skin: warm and intact Objective Data Vital Signs Vital Signs: Vital Signs Temp Pulse Resp BP Pulse Ox 03/19/21 11:17 36.7 C 76 14 127/59 L 100 03/19/21 09:25 61 03/19/21 08:00 70 03/19/21 07:31 36.6 C 84 14 150/62 H 100 03/19/21 04:00 37.0 C 62 16 122/76 97 03/19/21 00:00 36.9 C 81 16 131/78 96 03/18/21 20:00 36.8 C 123 H 16 129/75 93 03/18/21 16:00 80 03/18/21 15:50 36.8 C 96 16 126/64 92 03/18/21 12:00 36.4 C L 65 15 94/55 L 97 Intake/Output Intake/Output: Intake & Output 03/16/21 03/17/21 03/18/21 03/19/21 23:59 23:59 23:59 23:59 Intake Total 340 1230 1180 860 Output Total 239 1393 2457 1717 Mdnjmiz -421 -8858 -676 -535 Meds/Results Medications: Active Medications Generic Name Dose Route Start Last Admin Trade Name Freq PRN Reason Stop Dose Admin Acetaminophen 650 mg 03/16/21 22:19 03/18/21 17:03 Acetaminophen 325 Mg Tablet PO 650 mg Q6H PRN Administration Mild Pain (1-3) or Fever Aspirin 81 mg 03/17/21 08:00 03/19/21 09:24 Aspirin 81 Mg Chewable Tablet PO 81 mg DAILY@0800 TANG Administration Calcium Carbonate 200 mg 03/16/21 22:19 Calcium Carbonate (Tums) 500 Mg (200 Mg Elemental) PO DAILY PRN Gastric Reflux Ferrous Sulfate 324 mg 03/17/21 08:00 03/19/21 09:24 Ferrous Sulfate 324 Mg Tablet PO 324 mg BIDWM TANG Administration Fluticasone Propionate 1 spray 03/17/21 09:00 03/19/21 09:24 Fluticasone Propionate 0.05% Na Spr 16 Gm Btl (*Bkc) NASAL 1 spray DAILY TANG Administration Furosemide 40 mg 03/16/21 21:00 03/19/21 09:25 Furosemide Inj 40 Mg/4 Ml Vial IV PUSH 40 mg Q12HR TANG Administration Ceftriaxone Sodium 2 gm in 100 mls @ 200 mls/hr 03/17/21 10:00 03/19/21 10:15 Rocephin 2 Gm/D5w 100 Ml IVPB Infused QAM TANG Infusion Azithromycin 500 mg in 250 mls @ 250 mls/hr 03/17/21 10:00 03/19/21 11:00 Zithromax IVPB Infused QAM TANG Infusion Lisinopril 20 mg 03/17/21 09:00 03/19/21 09:25 Lisinopril 20 Mg Tablet PO 20 mg DAILY TANG Administration Metoprolol Succinate 25 mg 03/17/21 09:00 03/19/21 09:25 Metoprolol Succinate Ext Rel 25 Mg Tabcr PO 25 mg DAILY TANG Administration Simvastatin 40 mg 03/17/21 09:00 03/19/21 09:25 Simvastatin 20 Mg Tablet PO 40 mg DAILY TANG Administration Spironolactone 25 mg 03/17/21 12:40 06/30/21 09:25 Spironolactone 25 Mg Tablet PO 25 mg QAM [facility] Administration Radiology
[2021-03-20] VITALS (11 sets, daily range): BP systolic 116–149; BP diastolic 56–72; PULSE 60–87; RESP 16–20; TEMP 35.5–36.8; O2SAT 92–100
--- NOTE | 2021-03-20 01:24 | PC.NURSE ---
This patient, Nikky Urena, was transferred to [[id number] ] on 03/20/21 at 0120. Personal belongings sent with patient. Report given to [ ]. Appropriate documentation sent with patient.
[2021-03-20 06:26] LABS: Hematocrit 30.4 % (37.0-47.0); Hemoglobin 9.3 g/dL (12.0-15.0); Immature Platelet Fraction Pct 2.7 % (0.9-11.2); Mean Corpuscular HGB Conc 30.6 g/dl (32-36); Mean Corpuscular Hemoglobin 29.2 pg (26-34); Mean Corpuscular Volume 95.3 fl (80-100); Mean Platelet Volume 9.5 fl (7.4-10.4); Platelet Count Result 97 k/mm3 (150-375); Red Blood Count 3.19 M/mm3 (4.2-5.4); Red Cell Distribution Width 16.9 % (11.5-14.5); White Blood Count 10.9 K/mm3 (4.5-10.0)
[2021-03-20 06:33] LABS: Blood Urea Nitrogen 18 mg/dL (7-17); Calcium 8.6 mg/dL (8.4-10.2); Carbon Dioxide > 40 mmol/L (22-30); Chloride 87 mmol/L (98-107); Estimated CRCL calculation 60 ml/min; Estimated Glomerular Filt Rate > 60; Glucose 96 mg/dL (65-105); Potassium 3.8 mmol/L (3.4-5.0); Sodium 131 mmol/L (137-145)
[2021-03-20] MEDS: FLUTICASONE PROPIONATE 0.05% NA SPR 16 GM BTL (*BKC) 1 SPRAY NASAL (08:03)
[2021-03-20] MEDS: SIMVASTATIN 20 MG TABLET 40 MG PO (08:04)
[2021-03-20] MEDS: ASPIRIN 81 MG CHEWABLE TABLET PO (08:04)
[2021-03-20] MEDS: METOPROLOL SUCCINATE EXT REL 25 MG TABCR PO (08:04)
[2021-03-20] MEDS: SPIRONOLACTONE 25 MG TABLET PO (08:04)
[2021-03-20] MEDS: FUROSEMIDE INJ 40 MG/4 ML VIAL IV PUSH ×2 (08:06→20:33)
[2021-03-20] MEDS: lisinopriL 20 MG TABLET PO (08:07)
[2021-03-20] MEDS: FERROUS SULFATE 324 MG TABLET PO ×2 (08:07→16:48)
--- NOTE | 2021-03-20 11:01 | PM.PNCARD ---
Progress Note: A&P Assessment and Plan (1) Acute on chronic congestive heart failure: Code(s): I50.9 - Heart failure, unspecified Status: Acute Assessment and Plan: 80-year-old female with h/o paroxysmal A fib/flutter, CVA, CLL, HTN, HLD, prior tobacco dependence, COPD (on home oxygen), pulmonary hypertension, COVID-19 pneumonia (December 2020),who is seen in cardiac consultation for chief complaint of bilateral lower extremity edema and dyspnea better compensated with IV lasix. Still with lower ext edema Will add Acetazolamide 500 BID Will continue IV lasix for one mroe day. Creatinine and hyponatremia are stable Continue Spironolactone (started this admission) Borderline trop elevation with flat trend 0.05-0.04. No chest pain. [facility] in 2003 with no obstructive disease. Consider outpatient stress testing once more stable from CHF standpoint -She had echo 01/20/2021 which demonstrated severe concentric left ventricular hypertrophy, normal left ventricular systolic function with left ventricular ejection fraction 55-60%, mild left atrial enlargement, mild aortic valve sclerosis. - Lower extremity venous Doppler negative. (2) Atrial flutter with rapid ventricular response: Code(s): I48.92 - Unspecified atrial flutter Status: Acute Assessment and Plan: HR well controlled with Metoprolol 25 daily. previously, she was on Lovenox but had a hematoma and then was subsequently placed on Eliquis as an outpatient only to have Eliquis discontinued 02/28/2021 in setting of significant bruising. She is currently a fall risk as well. -continue aspirin but with careful monitoring of her thrombocytopenia. (3) Essential hypertension: Code(s): I10 - Essential (primary) hypertension Status: Acute Assessment and Plan: well controlled Subjective Date/time seen: 03/20/21 11:01 Lower ext edema continues to improve Review of Systems Review of Systems: All systems reviewed & are unremarkable except as noted in HPI and below Objective Data Vital Signs Vital Signs: Vital Signs - 24 hr 03/19/21 11:17 03/19/21 12:00 03/19/21 15:29 Temperature 36.7 C 36.9 C Pulse Rate 76 63 66 Respiratory Rate 14 15 Blood Pressure 127/59 L 120/48 L Pulse Oximetry 100 94 03/19/21 16:00 03/19/21 19:05 03/19/21 20:00 Temperature 36.7 C Pulse Rate 106 H 63 75 Respiratory Rate 15 Blood Pressure 120/51 L Pulse Oximetry 100 03/19/21 23:52 03/20/21 00:00 03/20/21 01:43 Temperature 36.7 C Pulse Rate 60 60 Respiratory Rate 15 Blood Pressure 128/60 Pulse Oximetry 100 100 03/20/21 04:00 03/20/21 06:31 03/20/21 08:00 Temperature 36.8 C 35.6 C L Pulse Rate 60 80 62 Respiratory Rate 16 20 Blood Pressure 116/61 141/61 H Pulse Oximetry 99 100 03/20/21 08:04 Temperature Pulse Rate 61 Respiratory Rate Blood Pressure Pulse Oximetry Intake/Output Intake/Output: Intake & Output 03/17/21 03/18/21 03/19/21 03/20/21 23:59 23:59 23:59 23:59 Intake Total 1230 1180 1020 400 Output Total 3600 1015 9378 600 Balance -2370 -945 -955 -200 Meds/Results Medications: Active Medications Generic Name Dose Route Start Last Admin Trade Name Freq PRN Reason Stop Dose Admin Acetaminophen 650 mg 03/16/21 22:19 03/18/21 17:03 Acetaminophen 325 Mg Tablet PO 650 mg Q6H PRN Administration Mild Pain (1-3) or Fever Acetazolamide 500 mg 03/20/21 10:45 Acetazolamide Tab 250 Mg Tablet PO BID [facility] Aspirin 81 mg 03/17/21 08:00 03/20/21 08:04 Aspirin 81 Mg Chewable Tablet PO 81 mg DAILY@0800 [facility] Administration Calcium Carbonate 200 mg 03/16/21 22:19 Calcium Carbonate (Tums) 500 Mg (200 Mg Elemental) PO DAILY PRN Gastric Reflux Ferrous Sulfate 324 mg 03/17/21 08:00 03/20/21 08:07 Ferrous Sulfate 324 Mg Tablet PO 324 mg BIDWM [facility] Administration Fluticasone Propionate 1 spray 03/17/21 09:00 03/20/21
[2021-03-20] MEDS: acetaZOLAMIDE TAB 250 MG TABLET 500 MG PO ×2 (11:53→16:49)
[2021-03-20] MEDS: CALCIUM CARBONATE (TUMS) 500 MG (200 MG ELEMENTAL) PO (12:50)
--- NOTE | 2021-03-20 13:26 | PCPTNOTE ---
Patient refused treatment this session due to not feeling well. Patient c/o an upset stomach. PT will continue to follow per plan of care.
[2021-03-21] VITALS (8 sets, daily range): BP systolic 105–121; BP diastolic 44–47; PULSE 59–87; RESP 16–22; TEMP 36.2–36.5; O2SAT 92–98
[2021-03-21] MEDS: ACETAMINOPHEN 325 MG TABLET 650 MG PO (06:01)
[2021-03-21] MEDS: FERROUS SULFATE 324 MG TABLET PO ×2 (08:26→18:09)
[2021-03-21] MEDS: acetaZOLAMIDE TAB 250 MG TABLET 500 MG PO ×2 (08:26→18:09)
[2021-03-21] MEDS: ASPIRIN 81 MG CHEWABLE TABLET PO (08:26)
[2021-03-21] MEDS: FLUTICASONE PROPIONATE 0.05% NA SPR 16 GM BTL (*BKC) 1 SPRAY NASAL (08:26)
[2021-03-21] MEDS: SIMVASTATIN 20 MG TABLET 40 MG PO (08:27)
[2021-03-21] MEDS: METOPROLOL SUCCINATE EXT REL 25 MG TABCR PO (08:27)
[2021-03-21] MEDS: FUROSEMIDE INJ 40 MG/4 ML VIAL IV PUSH (08:28)
[2021-03-21] MEDS: lisinopriL 20 MG TABLET PO (08:28)
[2021-03-21] MEDS: SPIRONOLACTONE 25 MG TABLET PO (08:28)
--- NOTE | 2021-03-21 08:49 | PM.PNCARD ---
Progress Note: A&P Assessment and Plan (1) Acute on chronic congestive heart failure: Code(s): I50.9 - Heart failure, unspecified Status: Acute Assessment and Plan: 80-year-old female with h/o paroxysmal A fib/flutter, CVA, CLL, HTN, HLD, prior tobacco dependence, COPD (on home oxygen), pulmonary hypertension, COVID-19 pneumonia (December 2020),who is seen in cardiac consultation for chief complaint of bilateral lower extremity edema and dyspnea better compensated with IV lasix. Net negative 1.5 liter over the last 24 hours creatinine pending this am May switch lasix to PO. Would recommend 40 mg BID. also started on Spironolactone this admission and would continue with that on discharge Received 3 doses of Acetazolamide. May d/c on discharge Borderline trop elevation with flat trend 0.05-0.04. No chest pain. [facility] [place] in 2003 with no obstructive disease. Consider outpatient stress testing once more stable from CHF standpoint -She had echo 01/20/2021 which demonstrated severe concentric left ventricular hypertrophy, normal left ventricular systolic function with left ventricular ejection fraction 55-60%, mild left atrial enlargement, mild aortic valve sclerosis. - Lower extremity venous Doppler negative. (2) Atrial flutter with rapid ventricular response: Code(s): I48.92 - Unspecified atrial flutter Status: Acute Assessment and Plan: HR well controlled with Metoprolol 25 daily. previously, she was on Lovenox but had a hematoma and then was subsequently placed on Eliquis as an outpatient only to have Eliquis discontinued 02/28/2021 in setting of significant bruising. She is currently a fall risk as well. -continue aspirin but with careful monitoring of her thrombocytopenia. (3) Essential hypertension: Code(s): I10 - Essential (primary) hypertension Status: Acute Assessment and Plan: well controlled Subjective Date/time seen: 03/21/21 08:49 Leg edema much better. Net negative 1.5 liters over the last 24 hours. Denies chest pain or dyspnea. Exam Const: General: comfortable and no acute distress HENMT: Head: normal to inspection Mouth: Yes Normal oral and palatal mucosa present Eyes: General: appearance normal, both eyes and all related structures Neck: Neck: normal visual inspection and no JVD Resp: Effort & Inspection: normal respiratory effort and able to speak in complete sentences Auscultation: clear to auscultation bilaterally Cardio: Jugular venous distension: no JVD Rate: regular rate Rhythm: abnormal rhythm Heart sounds: S1 normal heart sound present, S2 normal heart sound present and Murmur heart sound present Peripheral pulses: Peripheral pulses 2+ throughout GI: Inspection: normal to inspection Urinary Catheter: Urinary Catheter: other (sotelo catheter noted ) Skin: General skin exam: normal color and ecchymosis Neuro: General: oriented to person and patient oriented x3 Speech: normal speech Motor exam (neuro): 5/5 motor strength present throughout Extrem: General: other (+ lower ext edema, markedly improved compared to admission ) Objective Data Vital Signs Vital Signs: Vital Signs - 24 hr 03/20/21 11:55 03/20/21 12:00 03/20/21 16:00 Temperature 36.0 C L 35.5 C L Pulse Rate 61 87 Respiratory Rate 20 20 Blood Pressure 119/56 L 141/72 H Pulse Oximetry 98 100 92 03/20/21 20:00 03/20/21 20:31 03/21/21 00:05 Temperature 36.1 C L Pulse Rate 60 85 60 Respiratory Rate 16 Blood Pressure 149/61 H Pulse Oximetry 96 03/21/21 03:53 03/21/21 04:00 03/21/21 08:27 Temperature 36.5 C Pulse Rate 60 60 62 Respiratory Rate 16 Blood Pressure 121/44 L Pulse Oximetry 98 Intake/Output Intake/Output: Intake & Output 03/18/21 03/19/21 03/20/21 03/21/21 23:59 23:59 23:59 23:59 Intake Total 1180 1020 1090 200 Output Total 1571 0099 1660 1750 [facility] -955 -2210 -1550 Meds/Results Medications: Active
[2021-03-21] MEDS: ONDANSETRON HCL ODT 4 MG TABLET PO (11:27)
--- NOTE | 2021-03-21 14:17 | PM.IMPN ---
Progress Note: A&P Assessment and Plan (1) Ascites: Code(s): R18.8 - Other ascites Status: Acute Assessment and Plan: associated with anasarca consult nephrology Lasix DISCONTINUED PATIENT WITH CONTRACTION ALKALOSIS cardiology consult noted. (2) Acute on chronic congestive heart failure: Code(s): I50.9 - Heart failure, unspecified Status: Acute Assessment and Plan: APPEARS TO BE EUVOLEMIC SUPPORTIVE CARE CONTINUE TO MONITOR (3) Pneumonia: Qualifiers: Laterality: bilateral Lung location: unspecified part of lung Pneumonia type: due to unspecified organism Qualified Code(s): J18.9 - Pneumonia, unspecified organism Code(s): J18.9 - Pneumonia, unspecified organism Status: Acute Assessment and Plan: IV antibiotics for presumed pneumonia, white blood cells improved, chest x-ray edema versus pneumonia (4) Severe pulmonary arterial systolic hypertension: Code(s): I27.21 - Secondary pulmonary arterial hypertension Status: Acute Assessment and Plan: continue to monitor Additional Plan Lasix discontinue in view of contraction alkalosis Wilde has been discontinued consult noted will continue current plan of care and treatment. Will continue diuresis. Monitor electrolytes and chest x-ray. 03/19/2021: Patient is clinically much better. Will continue with IV Lasix for 1 more day. Increase activity as tolerated. Possible discharge in the morning. Subjective Date/time seen: 03/21/21 14:17 Review of Systems Review of Systems: All systems reviewed & are unremarkable except as noted in HPI and below (the history and physical exam) Exam Const: General: cooperative and no acute distress HENMT: Head: normal to inspection Eyes: General: appearance normal, both eyes and all related structures Neck: Neck: normal visual inspection Chest: Chest palpation & inspection: normal inspection of the chest Resp: Effort & Inspection: normal respiratory effort Auscultation: rales Cardio: Jugular venous distension: no JVD Rate: regular rate Other: bilateral edema GI: Inspection: normal to inspection and distended Objective Data Vital Signs Vital Signs: Vital Signs - 24 hr 03/20/21 16:00 03/20/21 20:00 03/20/21 20:31 Temperature 96 F L 97 F L Pulse Rate 87 60 85 Respiratory Rate 20 16 Blood Pressure 141/72 H 149/61 H Pulse Oximetry 92 96 03/21/21 00:05 03/21/21 03:53 03/21/21 04:00 Temperature 97.7 F Pulse Rate 60 60 60 Respiratory Rate 16 Blood Pressure 121/44 L Pulse Oximetry 98 03/21/21 08:00 03/21/21 08:27 03/21/21 12:00 Temperature Pulse Rate 59 L 62 84 Respiratory Rate Blood Pressure Pulse Oximetry Intake/Output Intake/Output: Intake & Output 03/18/21 03/19/21 03/20/21 03/21/21 23:59 23:59 23:59 23:59 Intake Total 1180 1020 1090 740 Output Total 2125 [address] [facility] -945 -[phone] -2210 -2085 Meds/Results Medications: Active Medications Generic Name Dose Route Start Last Admin Trade Name Freq PRN Reason Stop Dose Admin Acetaminophen 650 mg 03/16/21 22:19 03/21/21 06:01 Acetaminophen 325 Mg Tablet PO 650 mg Q6H PRN Administration Mild Pain (1-3) or Fever Acetazolamide 500 mg 03/20/21 10:45 03/21/21 08:26 Acetazolamide Tab 250 Mg Tablet PO 500 mg BID TANG Administration Aspirin 81 mg 03/17/21 08:00 03/21/21 08:26 Aspirin 81 Mg Chewable Tablet PO 81 mg DAILY@0800 TANG Administration Calcium Carbonate 200 mg 03/16/21 22:19 03/20/21 12:50 Calcium Carbonate (Tums) 500 Mg (200 Mg Elemental) PO 200 mg DAILY PRN Administration Gastric Reflux Ferrous Sulfate 324 mg 03/17/21 08:00 03/21/21 08:26 Ferrous Sulfate 324 Mg Tablet PO 324 mg BIDWM TANG Administration Fluticasone Propionate 1 spray 03/17/21 09:00 03/21/21 08:26 Fluticasone Propionate 0.05% Na Spr 16 Gm Btl (*Bkc) NASAL 1
--- NOTE | 2021-03-21 15:40 | ECG_ITS ---
Measurements Intervals [place] Rate: 78 P: LA: 0 QRS: -54 QRSD: 149 T: 104 QT: 432 QTc: 494 Interpretive Statements ATRIAL FLUTTER/TACHYCARDIA LEFT AXIS DEVIATION LEFT BUNDLE BRANCH BLOCK INFERIOR INFARCT OR DUE TO LBBB ABNORMAL ECG Electronically Signed On 03-21-2021 15:53:08 CDT by Dannie Nance D.O.
--- NOTE | 2021-03-21 18:37 | PM.DS ---
DS: Admitting Diagnosis Admitting Diagnosis Admitting Diagnosis: (1) Acute on chronic congestive heart failure: Code(s): I50.9 - Heart failure, unspecified Status: Acute Assessment and Plan: The patient has significant edema which is likely worse given her reports of tachycardia. Continue Lasix 40 mg IV b.i.d. May benefit from spironolactone or metolazone. Dr. Dejesus has been consulted and his input is appreciated. 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 Small pleural effusions were also noted as well as ascites. Continue diuresis. No indication for antibiotics. (3) Ascites: Code(s): R18.8 - Other ascites Status: Acute Assessment and Plan: Right upper quadrant ultrasound to evaluate liver though this may be due to decompensated heart failure and her severe pulmonary hypertension. (4) Essential hypertension: Code(s): I10 - Essential (primary) hypertension Status: Acute Assessment and Plan: Blood pressures were reviewed and they are reasonably well controlled. Continue antihypertensives and monitor. (5) Chronic lymphocytic leukemia: Onset Date: ~1999 Code(s): C91.10 - Chronic lymphocytic leukemia of B-cell type not having achieved remission Status: Acute Assessment and Plan: Leukocytosis and anemia are stable on review of previous labs. (6) Atrial tachycardia: Code(s): I47.1 - Supraventricular tachycardia Status: Acute Assessment and Plan: EKG shows atrial tachycardia/ flutter with rapid ventricular response. Continue beta-timoteo. Anticoagulation remains on hold given falls and bruising. DS: Discharge Diagnosis Discharge Diagnosis (1) Ascites: Code(s): R18.8 - Other ascites Status: Acute Assessment and Plan: associated with anasarca consult nephrology Lasix DISCONTINUED PATIENT WITH CONTRACTION ALKALOSIS cardiology consult noted. (2) Acute on chronic congestive heart failure: Code(s): I50.9 - Heart failure, unspecified Status: Acute Assessment and Plan: APPEARS TO BE EUVOLEMIC SUPPORTIVE CARE CONTINUE TO MONITOR (3) Pneumonia: Qualifiers: Laterality: bilateral Lung location: unspecified part of lung Pneumonia type: due to unspecified organism Qualified Code(s): J18.9 - Pneumonia, unspecified organism Code(s): J18.9 - Pneumonia, unspecified organism Status: Acute Assessment and Plan: IV antibiotics for presumed pneumonia, white blood cells improved, chest x-ray edema versus pneumonia (4) Severe pulmonary arterial systolic hypertension: Code(s): I27.21 - Secondary pulmonary arterial hypertension Status: Acute Assessment and Plan: continue to monitor DS: Summary Hospital Course Reason for hospitalization: shortness of breath Hospital Course: This is an 80-year-old female with hypertension, paroxsysmal atrial fibrillation, CLL, severe pulmonary hypertension, and emphysema who presented to the emergency department earlier today for evaluation of shortness of breath and lower extremity swelling. she is known to the hospitalist service as she was admitted to us at the end of December with COVID-19. During that stay she went into transient atrial fibrillation and was initially started on Lovenox however developed a lower extremity hematoma and that was held. She presented to the emergency department at the beginning of February in AFib/ RVR and at that time she was started on Eliquis and her metoprolol dose was increased. She saw Dr. Dejesus in follow-up on 02/28/2021 at which time she was started on Lasix 40 mg daily due to ever increasing lower extremity edema.
--- NOTE | 2021-04-08 18:53 | PM.IMPN ---
Progress Note: A&P Assessment and Plan (1) Ascites: Code(s): R18.8 - Other ascites Status: Acute Assessment and Plan: associated with anasarca consult nephrology Lasix DISCONTINUED PATIENT WITH CONTRACTION ALKALOSIS cardiology consult noted. (2) Acute on chronic congestive heart failure: Code(s): I50.9 - Heart failure, unspecified Status: Acute Assessment and Plan: APPEARS TO BE EUVOLEMIC SUPPORTIVE CARE CONTINUE TO MONITOR (3) Pneumonia: Qualifiers: Laterality: bilateral Lung location: unspecified part of lung Pneumonia type: due to unspecified organism Qualified Code(s): J18.9 - Pneumonia, unspecified organism Code(s): J18.9 - Pneumonia, unspecified organism Status: Acute Assessment and Plan: IV antibiotics for presumed pneumonia, white blood cells improved, chest x-ray edema versus pneumonia (4) Severe pulmonary arterial systolic hypertension: Code(s): I27.21 - Secondary pulmonary arterial hypertension Status: Acute Assessment and Plan: continue to monitor Additional Plan Lasix discontinue in view of contraction alkalosis Wilde has been discontinued consult noted will continue current plan of care and treatment. Will continue diuresis. Monitor electrolytes and chest x-ray. 03/19/2021: Patient is clinically much better. Will continue with IV Lasix for 1 more day. Increase activity as tolerated. Possible discharge in the morning. Subjective Date/time seen: 04/08/21 18:53 I feel better Review of Systems Review of Systems: All systems reviewed & are unremarkable except as noted in HPI and below (the history and physical exam) Constitutional: Constitutional: Denies chills and Denies fever(s) Cardiovascular: Cardiovascular: Reports chest pain, Denies radiating jaw, neck or arm pain and Reports dyspnea Respiratory: Respiratory: Reports cough, Reports dyspnea and Denies wheezing Gastrointestinal: Gastrointestinal: Denies abdominal pain, Denies nausea and Denies vomiting Allergic/Immunologic: Allergic/Immunologic: Denies wheezing Exam Narrative: Exam Narrative: laying in bed Const: General: cooperative, no acute distress and ill appearing chronically Nutritional Appearance: average body habitus Orientation/consciousness: patient oriented x3 HENMT: Head: normal to inspection Ears: hearing grossly normal bilaterally Face and sinus: normal facial exam Eyes: General: appearance normal, both eyes and all related structures Pupils: Equal, round and reactive pupils present EOM: EOMs intact bilaterally Neck: Neck: normal visual inspection Thyroid: thyroid normal Lymphatic: no lymphadenopathy noted Chest: Chest palpation & inspection: normal inspection of the chest Resp: Effort & Inspection: normal respiratory effort Auscultation: rales Cardio: Jugular venous distension: no JVD Rate: regular rate Rhythm: regular rhythm Heart sounds: S1 normal heart sound present and S2 normal heart sound present Other: bilateral edema GI: Inspection: normal to inspection and distended : General: Yes deferred Skin: Rashes: no rashes Wounds: no wounds Neuro: General: patient oriented x3 and CN's II-XI intact bilaterally Cranial nerves: Yes CN's II-XII intact bilaterally and Yes Equal, round and reactive pupils present Cognition (Neuro): normal cognition Speech: normal speech Gait exam (Neuro): Normal gait present Motor exam (neuro): 5/5 motor strength present throughout Extrem: General: normal to inspection, full ROM, no joint enlargement and no pedal edema Objective Data Meds/Results Radiology Results: ITS Impressions Chest X-Ray 03/16/21 11:58 Impression: 1: Persistent interstitial infiltration of the mid and lower lung zones which may represent edema or pneumonia. 2: Nodular density right mid lung zone, likely infectious/inflammatory, although follow-up x-ray recommended to ensure resoluti
== END 2021-03-21 19:15 | disposition home health service (06) | DRG 291 ==
LOC: ANHED 13:13 → ANHIMU 13:20 → ANH3MED 03-20 20:45 → ANHIMU 03-25 11:38
PROVIDERS: Internal Medicine; Internal Medicine Cardiovascular Disease; Internal Medicine Nephrology; Physician Assistant; Admitting Provider Emergency Medicine; Emergency Provider General Practice; PCP Internal Medicine; Visit Provider Internal Medicine
DX: I11.0 Hypertensive heart disease with heart failure (principal); J18.9 Pneumonia, unspecified organism; I47.1 Supraventricular tachycardia; C91.10 Chronic lymphocytic leukemia of B-cell type not having achieved remission; R18.8 Other ascites; I48.92 Unspecified atrial flutter; I50.33 Acute on chronic diastolic (congestive) heart failure; I27.21 Secondary pulmonary arterial hypertension; J98.4 Other disorders of lung; B94.8 Sequelae of other specified infectious and parasitic diseases; J43.9 Emphysema, unspecified; E78.5 Hyperlipidemia, unspecified; E03.9 Hypothyroidism, unspecified; Z79.01 Long term (current) use of anticoagulants; Z79.899 Other long term (current) drug therapy; Z86.73 Personal history of transient ischemic attack (TIA), and cerebral infarction without residual deficits; Z87.891 Personal history of nicotine dependence; Z91.81 History of falling; Z99.81 Dependence on supplemental oxygen
CPT/HCPCS: 36415; 36600; 51701; 71046; 71275; 76705; 80048; 80053; 80076; 81001; 81050; 82375; 82570; 82805; 83050; 83735; 83880; 84100; 84156; 84443; 84484; 85025; 85027; 85055; 85380; 85610; 85730; 87040; 87086; 93005; 93970; 96365; 96366; 96368; 96374; 96375; 96376; 97110; 97116; 97161; 97165; 97530; 97535; 99285; A9270; G0378; J0456; J0696; J1940; J7060; Q9967

== ENCOUNTER 2021-06-30 11:43 | Outpatient (CLI) | payer MEDICARE, SELFPAY ==
[2021-06-30 12:23] LABS: Anion Gap 3 mmol/L (8-16); Blood Urea Nitrogen 32 mg/dL (7-17); Calcium 9.1 mg/dL (8.4-10.2); Carbon Dioxide 39 mmol/L (22-30); Chloride 97 mmol/L (98-107); Estimated Glomerular Filt Rate 60; Glucose 103 mg/dL (65-110); Magnesium 2.4 mg/dL (1.6-2.3); Sodium 139 mmol/L (137-145)
== END 2021-06-30 11:44 | disposition home or self-care (01) ==
LOC: ANHLAB 11:44
PROVIDERS: PCP Internal Medicine; Visit Provider Internal Medicine Cardiovascular Disease
DX: R60.0 Localized edema (principal)
CPT/HCPCS: 36415; 80048; 83735

== ENCOUNTER 2021-07-17 12:19 | Outpatient (CLI) | payer MEDICARE, SELFPAY ==
[2021-07-17 13:03] LABS: Anion Gap 5 mmol/L (8-16); Blood Urea Nitrogen 37 mg/dL (7-17); Calcium 10.2 mg/dL (8.4-10.2); Carbon Dioxide 38 mmol/L (22-30); Chloride 98 mmol/L (98-107); Estimated Glomerular Filt Rate 39; Glucose 115 mg/dL (65-110); Magnesium 2.2 mg/dL (1.6-2.3); Potassium 3.5 mmol/L (3.4-5.0); Sodium 141 mmol/L (137-145)
== END 2021-07-17 12:20 | disposition home or self-care (01) ==
PROVIDERS: PCP Internal Medicine; Visit Provider Internal Medicine Cardiovascular Disease
DX: R60.0 Localized edema (principal)
CPT/HCPCS: 36415; 80048; 83735

== ENCOUNTER 2021-08-19 11:34 | Outpatient (CLI) | payer MEDICARE, SELFPAY ==
[2021-08-19 12:08] LABS: Anion Gap 4 mmol/L (8-16); Blood Urea Nitrogen 37 mg/dL (7-17); Calcium 8.9 mg/dL (8.4-10.2); Carbon Dioxide 34 mmol/L (22-30); Chloride 99 mmol/L (98-107); Estimated Glomerular Filt Rate 43; Glucose 98 mg/dL (65-110); Magnesium 2.1 mg/dL (1.6-2.3); Potassium 3.8 mmol/L (3.4-5.0); Sodium 137 mmol/L (137-145)
== END 2021-08-19 11:35 | disposition home or self-care (01) ==
PROVIDERS: PCP Internal Medicine; Visit Provider Internal Medicine Cardiovascular Disease
DX: R60.0 Localized edema (principal)
CPT/HCPCS: 36415; 80048; 83735

== ENCOUNTER 2021-10-14 10:22 | Inpatient (IN) | payer MEDICARE, SELFPAY ==
[2021-10-14] VITALS (34 sets, daily range): BP systolic 95–113; BP diastolic 49–62; PULSE 65–111; RESP 16–28; TEMP 36.2–36.6; O2SAT 93–100; BMI 20.8
--- NOTE | ~2021-10-14 | US_ITS ---
EXAMINATION:US venous doppler LE BI INDICATION:Leg edema TECHNIQUE: Multiple grayscale, color flow and Doppler images of the right and left lower extremity de ep venous systems were obtained and reviewed. COMPARISON:03/17/2021 FINDINGS: The common femoral, superficial femoral and popliteal veins demonstrate normal respiratory variation, augmentation and compressibility. Color flow is also seen within the posterior tibial, pe roneal, greater saphenous and profunda veins. IMPRESSION: 1: No lower extremity deep venous thrombosis. Reviewed, dictated and finalized at location B. ER PRESS OPERATOR
--- NOTE | ~2021-10-14 | XR_ITS ---
XR lumbar spine 2-3V 10/14/2021 11:54 Indication: Back pain Procedure: 3 views lumbar spine Comparison: No prior studies for comparison. Findings: There is disc narrowing and endplate degenerative change at all lumbar levels, most advance d at L5-S1. No fracture, subluxation or dislocation. There is moderate lower lumbar facet degenerativ e change. There is atherosclerosis of the aorta. Pedicles are intact. There is extensive atherosclero sis of the splenic arteries and aorta. Impression: 1: Moderate lumbar spondylosis. 2: No acute abnormality of the lumbar spine. Reviewed, dictated and finalized at location B. IFIED PROFESSIONAL CONTROLLER Impression: 1: Moderate lumbar spondylosis. 2: No acute abnormality of the lumbar spine.
--- NOTE | ~2021-10-14 | XR_ITS ---
EXAMINATION: XR hand LT min 3V DATE: 10/14/2021 11:54 INDICATION: Finger deformity. Fall. TECHNIQUE: 3 views of left hand were obtained. COMPARISON: None. FINDINGS: There is a transverse fracture of base of fifth proximal phalanx. The distal fracture fragm ent demonstrates 80 degrees dorsal and ulnar angulation. There is diffuse osteopenia. There is modera te osteoarthritis of first carpometacarpal joint and mild osteoarthritis of many of the metacarpophal angeal joints and interphalangeal joints. There is moderate osteoarthritis of second and third and fi fth distal interphalangeal joints. IMPRESSION: 1. Transverse fracture of base of fifth proximal phalanx. Reviewed, dictated and finalized at location A. NOCHEMIST
--- NOTE | ~2021-10-14 | XR_ITS ---
XR thoracic spine 2V 10/14/2021 11:54 Indication: Status post fall. Generalized back pain. Procedure: 3 views of the thoracic spine Comparison: No prior studies for comparison. Findings: Moderate thoracic spondylosis. Tiny osseous structures within normal limits. Tiny osseous s tructures are unremarkable. There is atherosclerosis and ectasia of the aorta. Impression: 1: Moderate thoracic spondylosis. Reviewed, dictated and finalized at location B. OLEUM ENGINEER Impression: 1: Moderate thoracic spondylosis.
--- NOTE | ~2021-10-14 | US_ITS ---
EXAMINATION: US renal BI DATE: 10/15/2021 09:48 INDICATION: Acute kidney injury. TECHNIQUE: Multiple ultrasound grayscale images of the kidneys were obtained. COMPARISON: CT abdomen and pelvis 01/29/2012 FINDINGS: The right kidney measures 10.1 x 5.2 x 3.5 cm. The left kidney measures 10.1 x 4.6 x 3.7 cm. The kidn eys demonstrate normal parenchymal echogenicity. There is no hydronephrosis. The bladder is normal. T here is splenomegaly measuring 21.8 cm. Calcifications in the spleen are consistent with old granulom atous disease. 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 IMPRESSION: 1. Normal kidneys. No hydronephrosis. 2. Severe splenomegaly. Reviewed, dictated and finalized at location A. C DEPARTMENT CHAIR
--- NOTE | ~2021-10-14 | CT_ITS ---
EXAMINATION: CT brain wo con, CT cervical spine wo con EXAM DATE: 10/14/2021 12:11 INDICATION: Fall, head injury. TECHNIQUE: Spiral CT of the head was performed without contrast. Axial, coronal and sagittal images were reviewed. Spiral CT of the cervical spine was performed without contrast. Axial images were rev iewed. Coronal and sagittal reformatted images were also reviewed. The dose-length product (DLP) fo r this examination was 681.00 (accession [id number]), 246.19 (accession [id number]) mGy-cm. The exposure was tailored according to patient size, and iterative reconstruction (ASIR) was used as additional dose reduction technique. There is no prior study for comparison. FINDINGS: HEAD CT: There is no acute intraparenchymal hemorrhage. No evidence of intraparenchymal brain mass l esion. No evidence of acute infarction. There is mild periventricular and subcortical hypodensity, n onspecific but probably related to small vessel ischemic disease. There is moderate prominence of t he sulci and ventricles related to cerebral atrophy. There is no mass effect or midline shift. The re is no obstructive hydrocephalus suspected. There are no extra-axial collections. There are no ac [place] calvarial fractures. Patient has had bilateral ocular lens surgery. Soft tissue is unremarkable . Newly opacified right frontal and ethmoid sinuses, moderately opacified right maxillary sinus. The re is some fluid in the right maxillary and right frontal sinuses. Mild to moderate left maxillary si nus mucoperiosteal thickening. CERVICAL CT: Dense bilateral carotid calcification. Field maintained and there is advanced cervical a rthropathy and C5-6 disc disease. Severe right lateral mass C1-2 osteoarthritis. There is no evidence of acute cervical fracture. The odontoid process is intact. Pre-dens space is normal. Prevertebra l soft tissue is normal. There are no soft tissue abnormalities identified. There is no disc space widening or traumatic vertebral body subluxation suspected. Vertebral body and disc heights are well -maintained. Apical lung granulomata. A detailed level by level evaluation of spondylosis can be adde d as addendum if requested. IMPRESSION: 1. No acute intracranial findings or cervical fracture. 2. Rather extensive right-sided predominant sinus opacity, mucoperiosteal thickening or sinusitis. 3. Advanced cervical spondylosis. 4. Age-related intracranial findings. Reviewed, dictated and finalized at location A. WORKER IMPRESSION: 1. No acute intracranial findings or cervical fracture. 2. Rather extensive right-sided predominant sinus opacity, mucoperiosteal thic kening or sinusitis. 3. Advanced cervical spondylosis. 4. Age-related intracranial findings.
--- NOTE | ~2021-10-14 | XR_ITS ---
EXAMINATION: XR hand LT 2V DATE: 10/22/2021 12:43 INDICATION: Postreduction fracture with a left fifth proximal phalanx fracture TECHNIQUE: Posteroanterior and lateral views of the left hand were obtained. COMPARISON: None. FINDINGS: Interval closed reduction and splinting of a transverse extra-articular fracture across the proximal metadiaphyseal region of the left fifth proximal phalanx. There is 3 mm residual radial displacement and 15 degrees ulnar angulation. No other fractures identified. Polyarticular osteoarthritis, moderat e severity at the triscaphe, first carpal metacarpal, midcarpal and third-fifth distal interphalangea l joints and mild at the remaining interphalangeal joints and distal radioulnar wrist and first metac arpophalangeal joints. Diffuse osteopenia. Peripheral IV at the dorsum of the hand. IMPRESSION: 1. Mild residual radial displacement and ulnar angulation post reduction and splinting of an extra ar ticular fracture at the base of the left fifth proximal phalanx. Reviewed, dictated and finalized at location A. K SUPERVISOR IMPRESSION: 1. Mild residual radial displacement and ulnar angulation post reduction and sp linting of an extra articular fracture at the base of the left fifth proximal p halanx.
--- NOTE | ~2021-10-14 | XR_ITS ---
EXAMINATION: XR chest 1V portable EXAM DATE: 10/16/2021 08:14 INDICATION: COVID . TECHNIQUE: Portable AP frontal chest x-ray was obtained. Comparison is made to prior examination from 03/16/2021. FINDINGS: Mild cardiomegaly. Indistinct basilar reticulation, mild pulmonary edema or viral pneumonia . There is no pneumothorax suspected. There are no pleural effusions. 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 The bones are osteopenic. There are bony degenerative changes. IMPRESSION: 1. Indistinct reticulation, could be edema or pneumonia. 2. Cardiomegaly. Reviewed, dictated and finalized at location A. RIAL SPECIALIST
--- NOTE | ~2021-10-14 | XR_ITS ---
EXAMINATION: XR chest 1V portable DATE: 10/22/2021 08:59 INDICATION: Shortness of breath TECHNIQUE: frontal view of the chest was obtained. COMPARISON: Chest radiograph dated 10/16/2021 FINDINGS: Skinfolds project over the lateral right hemithorax. Diffuse increased interstitial pattern in the bi lateral mid and lower lung zones. Persistent mild airspace opacities at the left lower lung zone. A f ew scattered tiny calcified pulmonary nodules consistent with old granulomatous disease. No pneumotho rax or evident pleural effusion. Cardiomegaly. IMPRESSION: 1. No significant change in interstitial opacities in the bilateral mid and lower lung zones and mild airspace opacities at the left lower lung zone and favor pulmonary edema over pneumonia based upon a ppearance on intervening CT dated 10/18/2021. Reviewed, dictated and finalized at location A. BREAD BAKER IMPRESSION: 1. No significant change in interstitial opacities in the bilateral mid and low er lung zones and mild airspace opacities at the left lower lung zone and favor pulmonary edema over pneumonia based upon appearance on intervening CT dated .
--- NOTE | ~2021-10-14 | CT_ITS ---
EXAMINATION: CT abdomen pelvis wo con DATE: 10/18/2021 10:38 INDICATION: Abdominal tenderness. CLL. TECHNIQUE: Computed tomography (CT) of the abdomen and pelvis was performed without intravenous contr ast. Automated exposure control and iterative reconstruction technique were employed. The dose-length product was 396.70 mGy-cm. COMPARISON: CT abdomen and pelvis 01/29/2012 FINDINGS: The visualized portions of the lung bases demonstrate septal thickening, consistent with mi ld pulmonary edema. There is mild atelectasis bilaterally. There are small pleural effusions. Calcifi ed pulmonary nodules and calcified hilar lymph nodes are consistent with old granulomatous disease. C ardiomegaly is noted. There are coronary artery calcifications. No pericardial effusion. There is per iportal edema. Calcifications in the liver and spleen are consistent with old granulomatous disease. There is severe splenomegaly. The pancreas, adrenal glands, and kidneys are normal. There is divertic ulosis of the colon without evidence of diverticulitis. There are no dilated loops of bowel. The appe ndix is normal. There is dependent high attenuation material in the bladder, consistent with stones. There is a small volume of ascites. Body wall edema is noted. There is gastrohepatic, periportal, aor tocaval, and left para-aortic lymphadenopathy. There are calcified retroperitoneal, common iliac, ext ernal iliac, and inguinal lymph nodes. There is mild thoracic spondylosis and severe lower lumbar spo ndylosis. IMPRESSION: 1. Mild pulmonary edema and small pleural effusions. 2. Severe splenomegaly. 3. Abdominal and retroperitoneal lymphadenopathy, consistent with CLL. Calcified lymph nodes in the r etroperitoneum and pelvis are consistent with treated CLL. 4. Small volume of ascites. 5. Bladder stones. Reviewed, dictated and finalized at location A. HOUSE ATTENDANT IMPRESSION: 1. Mild pulmonary edema and small pleural effusions. 2. Severe splenomegaly. 3. Abdominal and retroperitoneal lymphadenopathy, consistent with CLL. Calcifie d lymph nodes in the retroperitoneum and pelvis are consistent with treated CLL . 4. Small volume of ascites. 5. Bladder stones.
--- NOTE | 2021-10-14 10:53 | ECG_ITS ---
Measurements Intervals [place] Rate: 100 P: AL: 0 QRS: -37 QRSD: 155 T: 117 QT: 383 QTc: 494 Interpretive Statements ATRIAL FLUTTER/TACHYCARDIA WITH RAPID VENTRICULAR RESPONSE LEFT AXIS DEVIATION LEFT BUNDLE BRANCH BLOCK BASELINE ARTIFACT- I, II, III, AVR, AVF, V2-V6 ABNORMAL ECG Electronically Signed On 10-14-2021 10:59:58 HAND CANDLE MOLDER by Dannie Nance D.O.
[2021-10-14 11:31] LABS: Add Urine Microscopic? YES; Amorphous Sediment Urine Few; Appearance Urine Turbid (Clear); Bacteria Urine 2+ /hpf; Bilirubin Urine Negative (Negative); Blood Urine 1+ (Negative); Color Urine Yellow (Yellow); Glucose Urine UA Negative (Negative); Ketones Urine Trace mg/dL (Negative); Leukocyte Esterase Ur 2+ LEU/UL (Negative); Mucus Urine Heavy /lpf; Nitrate Urine Negative (Negative); Protein Urine 2+ mg/dL (Negative); Specific Grav Ur 1.015 (1.001-1.035); Squamous Epithelial Cell Urine Few /hpf (Few); Urobilinogen Urine Negative mg/dL (<2.0); WBC Urine 51-75 /hpf
--- NOTE | 2021-10-14 11:31 | ED.GENADULT ---
HPI - General Adult General Chief complaint: Weakness Stated complaint: Fall, weakness Time Seen by Provider: 10/14/21 10:46 Source: patient History of Present Illness HPI narrative: Patient is a 81 y/o female complaining of fall last night. She fell out of bed. She states that she hit her head. She has back pain and left finger pain. She describes her pain as aching and rates it as 10/10. Movement worsens her pain. Related Data Home Medications Medication Instructions Recorded Confirmed acetaminophen 325 mg tablet 325 mg PO Q6H PRN 03/05/21 10/14/21 calcium carbonate 500 mg calcium 500 mg PO DAILY PRN 03/05/21 10/14/21 (1,250 mg) chewable tablet ibuprofen 800 mg tablet 800 mg PO TID PRN 03/05/21 10/14/21 fluticasone propionate [Flonase 1 spray NASAL DAILY 03/16/21 10/14/21 Allergy Relief] Allergies Allergy/AdvReac Type Severity Reaction Status Date / Time codeine Allergy Unknown tachycardia Verified 10/14/21 18:51 morphine Allergy Unknown tachycardia Verified 10/14/21 18:51 Review of Systems Constitutional: Constitutional: Denies chills, Denies fever(s), Denies headache(s) and Denies weakness Eyes: Eyes: Denies blurry vision ENT: Denies headache(s) and Denies neck pain Cardiovascular: Cardiovascular: Denies chest pain and Denies dyspnea Respiratory: Respiratory: Denies cough and Denies dyspnea Gastrointestinal: Gastrointestinal: Denies abdominal pain, Denies diarrhea, Denies nausea and Denies vomiting Genitourinary: Genitourinary: Denies hematuria and Denies dysuria Musculoskeletal: Musculoskeletal: Reports as per HPI, Reports back pain, Denies neck pain and Reports other (left hand pain) Neurologic: Denies headache(s) and Denies weakness [facility] Past Medical History Medical History Atrial fibrillation and flutter Cerebrovascular accident (2003) Chronic anemia Chronic lymphocytic leukemia (~1999) Chronic pain of left knee Diastolic heart failure Echo 02/23/2020: EF 60-65%, moderately increased LV wall thickness, abnormal diastolic function, global longitudinal strain is normal, mild left atrial enlargement, mild aortic valve sclerosis, mild mitral valve regurgitation, severe pulmonary hypertension with RVSP of 62 mmHg, [id number] pulmonic regurgitation, elevated right atrial pressures. Emphysema lung Essential hypertension Hyperlipidemia Hypertension Hypothyroidism Severe pulmonary hypertension Thrombocytopenia Surgical History Surgical History History of ankle surgery (~1999) Right ankle ORIF with hardware. History of bladder surgery History of cholecystectomy History of hysterectomy History of lumbar surgery Family History Family History Father Asthma Mother Family history of heart disease in male family member before age 55 Cerebrovascular accident Family history of arthritis Other No problems noted. Sibling Diabetes mellitus Social History Social History Social History: The patient lives in [place]. She has been for 16 years. She grew up in [place] but was raised in [place]. She and her lived in [place] for about 34 years before they retired, and then they moved to this region to be closer to their 2 children. In total, she had 6 children, lost 2. She smoked up to 3 packs of cigarettes per day for approximately 20 years and quit 1972. She denies alcohol and illicit substance use. She designates her grandchild, Merari Urena, as her surrogate decision maker and she wishes to be a full code. Spiritual care concerns: No Exam Const: General: no acute distress and well developed Orientation/consciousness: oriented to person, oriented to place, oriented to time and patient oriented x3 HENMT: Head: normocephalic E
[2021-10-14 11:33] LABS: Basophils Percent Auto 0.5 % (0.2-1.2); Eosinophils Percent Auto 0.3 % (0-4.4); Hematocrit 29.7 % (37.0-47.0); Immature Granulocyte Absolute 0.06 K/mm3 (0.00-0.031); Immature Granulocyte Percent A 0.8 % (0-0.5); Immature Platelet Fraction Pct 3.9 % (0.9-11.2); Lymphocytes Absolute Auto 6.02 K/mm3 (0.9-3.2); Lymphocytes Percent Auto 79.7 % (18.3-44.2); Mean Corpuscular HGB Conc 30.3 g/dl (32-36); Mean Corpuscular Hemoglobin 29.5 pg (26-34); Mean Corpuscular Volume 97.4 fl (80-100); Mean Platelet Volume 10.9 fl (7.4-10.4); Monocytes Absolute Auto 0.6 K/mm3 (0.1-0.6); Monocytes Percent Auto 7.8 % (2.6-8.5); Neutrophils Absolute Auto 0.8 K/mm3 (1.3-6.7); Neutrophils Percent Auto 10.9 % (45.5-73.1); Nucleated Red Blood Cells Perc 0.3 % (0.0-0.2); Platelet Count Result 100 k/mm3 (150-375); Red Blood Count 3.05 M/mm3 (4.2-5.4); Red Cell Distribution Width 17.3 % (11.5-14.5); White Blood Count 7.6 K/mm3 (4.5-10.0)
[2021-10-14 11:41] LABS: Alanine Aminotransferase 21 U/L (4-35); Albumin Level 3.2 g/dL (3.5-5.1); Alkaline Phosphatase 165 U/L (38-126); Anion Gap 3 mmol/L (8-16); Aspartate Amino Transferase 37 U/L (14-36); Bilirubin,Total 0.6 mg/dL (0.2-1.3); Blood Urea Nitrogen 40 mg/dL (7-17); Calcium 13.2 mg/dL (8.4-10.2); Carbon Dioxide 35 mmol/L (22-30); Chloride 100 mmol/L (98-107); Estimated CRCL calculation 20 ml/min; Estimated Glomerular Filt Rate 25; Glucose 113 mg/dL (65-110); Sodium 138 mmol/L (137-145)
[2021-10-14 11:51] LABS: Anisocytosis 1+ (NORMAL); Ovalocytes 2+ (NORMAL); Platelet Estimate Decreased (Adequate); Tear Drop Cells 1+ (NORMAL)
[2021-10-14] MEDS: SODIUM CHLORIDE 0.9% IV 1,000 ML 999 ML IV CONT (13:20)
[2021-10-14] MEDS: SODIUM CHLORIDE 0.9% IV 1,000 ML 125 ML IV CONT (14:44)
[2021-10-14 14:46] LABS: SARS-CoV-2 RNA PCR Positive
[2021-10-14] MEDS: TETANUS,DIPHTHERIA,AC PERTUSSIS ADULT (0.5 ML) BOOSTRIX IM (15:17)
--- NOTE | 2021-10-14 16:00 | PM.IMHP ---
H&P: HPI History of Present Illness Date/Time: 10/14/21 16:00 Chief Complaint: Weakness. Narrative: This is an 81-year-old female with hypertension, paroxysmal atrial fibrillation/flutter, CLL, severe pulmonary hypertension, and emphysema who presented to the emergency department via EMS from home for evaluation of weakness. She has not been feeling well for couple of days with generalized malaise, body aches, subjective fever, nonproductive cough, and diarrhea which has improved somewhat. Last night she slid off the side of the bed while trying to get into bed. She thinks that she hit the back of her head on the bottom of the bed and she sustained skin tears to the left forearm and an injury to the fingers on the left hand. She was unable to get herself up and she lay on the ground overnight until she was able to slightly get to a phone to call for help. arrival to the emergency department she had multiple images taken due to the fall. CT of the brain showed no acute findings though did remark on rather extensive right-sided predominant sinus opacity, mucoperiosteal thickening, or sinusitis and with further questioning the patient does mention having sinus congestion and septic discomfort over the sinuses. X-ray of the left hand showed a transverse fracture of the base of the 5th proximal phalanx which has since been splinted. She was also found to have an acute kidney injury an abnormal urinalysis with reports of mild dysuria. Additionally she tested positive for SARS-CoV-2 by PCR. Patient states she was vaccinated and she has no known exposure to COVID. She denies loss of consciousness in the fall last night. She sustained no other injuries aside from those listed above. Of note the patient has had problems with lower extremity edema and has had adjustments in her diuretics recently with improvement in her swelling. Review of Systems Review of Systems: 12 systems were reviewed. No significant headache or sore throat. She has had a mild cough, nonproductive. No chest pain, pleuritic pain, or shortness of breath. She has noticed some swelling in her ankles. No PND or orthopnea. Except as documented, all other systems were reviewed and are negative. [facility] Past Medical History Medical History (Updated 10/14/21 @ 21:57 by Elma Alarcon PA-C) Atrial fibrillation and flutter Cerebrovascular accident (2003) Chronic anemia Chronic lymphocytic leukemia (~1999) Chronic pain of left knee Diastolic heart failure Echo 02/23/2020: EF 60-65%, moderately increased LV wall thickness, abnormal diastolic function, global longitudinal strain is normal, mild left atrial enlargement, mild aortic valve sclerosis, mild mitral valve regurgitation, severe pulmonary hypertension with RVSP of 62 mmHg, [id number] pulmonic regurgitation, elevated right atrial pressures. Emphysema lung Essential hypertension Hyperlipidemia Hypertension Hypothyroidism Severe pulmonary hypertension Thrombocytopenia Surgical History Surgical History History of ankle surgery (~1999) Right ankle ORIF with hardware. History of bladder surgery History of cholecystectomy History of hysterectomy History of lumbar surgery Family History Family History Father Asthma Mother Family history of heart disease in male family member before age 55 Cerebrovascular accident Family history of arthritis Other No problems noted. Sibling Diabetes mellitus Social History Social History (Updated 10/14/21 @ 21:46 by Elma Alarcon PA-C) Social History: The patient lives in [place]. She has been for 16 years. She grew up in [place] but was raised in [place]. She and her lived in [place] for about 34 years before they retired, and then they moved to this region to be closer to their 2 children. In total, she had 6 children, lost 2. She s
--- NOTE | 2021-10-14 18:20 | PC.NURSE ---
This patient, Nikky Urena, was admitted to [facility] Surg Room 326-01. Patient/family oriented to hospital policies and general routines including ID bracelet, bed and alarms, visiting hours, pain management, procedures, bathroom and other care routines, personal items, smoking policy, room service/diet, and visiting hours.Report received from Janna SOSA. Information on how to activate the Rapid Response Team has been discussed. Patient/Family are encouraged to report perceived risks to care and to ask questions if they do not understand what they are told or what they should do.
--- NOTE | 2021-10-14 18:59 | WPDCN ---
Assessment and Plan Assessment and plan (1) Closed displaced fracture of proximal phalanx of left little finger: Qualifiers: Encounter type: initial encounter Qualified Code(s): S62.617A - Displaced fracture of proximal phalanx of left little finger, initial encounter for closed fracture Code(s): S62.617A - Displaced fracture of proximal phalanx of left little finger, initial encounter for closed fracture Status: Acute Assessment and Plan: Continue current splint as long as it pleases the patient. Splint could be modified if it does not. She will need a closed or possibly open reduction and possible internal fixation when she gets to feeling better. Will follow closely for an opportunity to schedule this. HPI Data of Consult Date/Time: 10/14/21 18:59 Requesting Physician: Mayra Jarvis MD Primary Care Provider: Kel Burk, Consult Narrative Narrative: Nikky Urena is a pleasant 81 year old female from home who fell from her bed last evening fracturing the proximal phalanx of the left 5th finger. Shas been sick for several days possibly due to being Covid-19 positive. She rejports having lost some 10's of pounds in past unknown period of time. She is admitted for evaluation of multiple laboratory abnormalities. She was scanned from head to lumbar spine without finding of other fractures. The hand x-ray shows a transverse fracture across the base of the 5th proximal phalanx. The shaft is acutely dorsally angulated. The left hand, especially the 5th digit, is swollen and bruised. A full length bi-valve aluminum splint is applied to her finger. She says it is comfortable and supports her fracture. She is able to move the M-P joint. [facility] Past Medical History Medical History Cerebrovascular accident (2003) Chronic lymphocytic leukemia (~1999) Chronic pain of left knee Diastolic heart failure Echo 02/23/2020: EF 60-65%, moderately increased LV wall thickness, abnormal diastolic function, global longitudinal strain is normal, mild left atrial enlargement, mild aortic valve sclerosis, mild mitral valve regurgitation, severe pulmonary hypertension with RVSP of 62 mmHg, [id number] pulmonic regurgitation, elevated right atrial pressures. Emphysema lung Essential hypertension Hyperlipidemia Hypothyroidism Severe pulmonary hypertension Surgical History Surgical History History of ankle surgery (~1999) Right ankle ORIF with hardware. History of bladder surgery History of cholecystectomy History of hysterectomy History of lumbar surgery Family History Family History (Updated 10/14/21 @ 18:42 by Liz Cantrell RN) Father Asthma Mother Family history of heart disease in male family member before age 55 Cerebrovascular accident Family history of arthritis Other No problems noted. Sibling Diabetes mellitus Social History Social History Social History: The patient lives in [place] with her daughter and her family. She has been for 16 years. She grew up in [place] but was raised in [place]. She and her lived in [place] for about 34 years before they retired, and then they moved to this region to be closer to their 2 children. In total, she had 6 children, lost 2. She smoked up to 3 packs of cigarettes per day for approximately 20 years and quit 1972. She denies alcohol and illicit substance use. She designates her child, Caity Urena, as her surrogate decision maker and she wishes to be a full code. Smoking packs per day: 0.5 Smoking cigarettes per day: 10.0 Years smoked: 5 Smoking pack-years: 2.50 Smoking status: Former smoker Tobacco type: cigarettes Alcohol intake: never Substance use: never Sexual Orientation (if Verbalized by the Patient): . Spi
[2021-10-14 20:42] LABS: Magnesium 2.6 mg/dL (1.6-2.3)
[2021-10-14 23:42] LABS: Phosphorus 4.2 mg/dL (2.5-4.5)
[2021-10-14 23:49] LABS: CRP < 0.5 mg/dL (<1.0); Creatine Kinase 51 U/L (30-135)
[2021-10-14 23:53] LABS: Magnesium 2.7 mg/dL (1.6-2.3)
[2021-10-15 00:13] LABS: Vitamin D 25 Hydroxy 20.3 ng/mL
[2021-10-15 02:21] LABS: Free T4 Free Thyroxine Reflex 0.83 ng/dL (0.78-2.19)
[2021-10-15 03:32] LABS: Total Triiodothyronine (T3) 0.76 NG/ML (0.97-1.69)
[2021-10-15 03:44] VITALS: BP 114/58; PULSE 98; RESP 17; TEMP 37.2; O2SAT 97
[2021-10-15 05:31] LABS: Parathyroid Intact 5.6 pg/mL (7.5-53.5)
[2021-10-15 07:12] LABS: Hematocrit 25.3 % (37.0-47.0); Hemoglobin 7.7 g/dL (12.0-15.0); Immature Platelet Fraction Pct 3.6 % (0.9-11.2); Mean Corpuscular HGB Conc 30.4 g/dl (32-36); Mean Corpuscular Hemoglobin 29.8 pg (26-34); Mean Corpuscular Volume 98.1 fl (80-100); Mean Platelet Volume 11.2 fl (7.4-10.4); Platelet Count Result 94 k/mm3 (150-375); Red Blood Count 2.58 M/mm3 (4.2-5.4); Red Cell Distribution Width 17.6 % (11.5-14.5); White Blood Count 6.7 K/mm3 (4.5-10.0)
[2021-10-15 07:25] LABS: Alanine Aminotransferase 19 U/L (4-35); Albumin Level 2.9 g/dL (3.5-5.1); Alkaline Phosphatase 150 U/L (38-126); Anion Gap 8 mmol/L (8-16); Aspartate Amino Transferase 34 U/L (14-36); Bilirubin,Total 0.8 mg/dL (0.2-1.3); Blood Urea Nitrogen 37 mg/dL (7-17); CRP 0.7 mg/dL (<1.0); Calcium 11.9 mg/dL (8.4-10.2); Carbon Dioxide 27 mmol/L (22-30); Chloride 103 mmol/L (98-107); Estimated CRCL calculation 24 ml/min; Estimated Glomerular Filt Rate 27; Glucose 92 mg/dL (65-110); Magnesium 2.5 mg/dL (1.6-2.3); Potassium 3.7 mmol/L (3.4-5.0); Sodium 138 mmol/L (137-145)
[2021-10-15 08:00] VITALS: BP 110/56; PULSE 78; RESP 21; TEMP 36.3; O2SAT 97
[2021-10-15 09:30] VITALS: PULSE 66
[2021-10-15] MEDS: SIMVASTATIN 20 MG TABLET 40 MG PO (09:30)
[2021-10-15] MEDS: FERROUS SULFATE 324 MG TABLET PO ×2 (09:30→17:19)
[2021-10-15] MEDS: METOPROLOL SUCCINATE EXT REL 50 MG TABCR PO (09:30)
[2021-10-15] MEDS: FLUTICASONE PROPIONATE 0.05% NA SPR 16 GM BTL (*BKC) 1 SPRAY NASAL (09:31)
[2021-10-15] MEDS: ACETAMINOPHEN 325 MG TABLET PO (09:37)
--- NOTE | 2021-10-15 10:46 | PCCCNOTE ---
On 10/15/21, the student, [Santa Bond], provided care and completed [facility] documentation on this patient. I have reviewed the student's documentation and agree with the findings.
[2021-10-15 11:53] VITALS: BP 112/46; PULSE 74; RESP 18; TEMP 36.1; O2SAT 95
[2021-10-15 12:19] VITALS: BMI 21.2
--- NOTE | 2021-10-15 14:41 | PM.IMPN ---
Progress Note: A&P Assessment and Plan (1) Fall from bed: Code(s): W06.XXXA - Fall from bed, initial encounter Status: Acute Assessment and Plan: Patient states this was a mechanical fall. No obvious head trauma on exam. Denies loss of consciousness. Initiate fall precautions. (2) Closed displaced fracture of proximal phalanx of left little finger: Qualifiers: Encounter type: initial encounter Qualified Code(s): S62.617A - Displaced fracture of proximal phalanx of left little finger, initial encounter for closed fracture Code(s): S62.617A - Displaced fracture of proximal phalanx of left little finger, initial encounter for closed fracture Status: Acute Assessment and Plan: Splinted. Seen by Dr. Car in the emergency department; she will need a close or possibly open reduction and possible internal fixation when she gets to feeling better. (3) Acute kidney injury: Code(s): N17.9 - Acute kidney failure, unspecified Status: Acute Assessment and Plan: Mostly likely secondary to dehydration and over diuresis. She will be cautiously in judiciously hydrated with close monitoring of volume status and renal function. Check urine electrolytes. Avoid nephrotoxic agents. (4) Hypercalcemia: Code(s): E83.52 - Hypercalcemia Status: Acute Assessment and Plan: Somewhat concerning given acute kidney injury as well however I think this is most likely due to dehydration. She has had multiple images today with no evidence of bony lesions. Hold diuretics and calcium supplementation. It is improving though still elevated. Will recheck in AM. (5) COVID-19: Code(s): U07.1 - COVID-19 Status: Acute Assessment and Plan: Not currently requiring oxygen. Chest x-ray ordered given crackles on exam. Supportive care. (6) Abnormal urinalysis: Code(s): R82.90 - Unspecified abnormal findings in urine Status: Acute Assessment and Plan: Patient reports mild dysuria thus will start ceftriaxone, pending urine culture. (7) Chronic anemia: Code(s): D64.9 - Anemia, unspecified Status: Acute Assessment and Plan: Hemoglobin and hematocrit are stable on review of previous labs. (8) Thrombocytopenia: Code(s): D69.6 - Thrombocytopenia, unspecified Status: Acute Assessment and Plan: An intermittent finding for the patient over the years. Continue monitoring. (9) Atrial fibrillation and flutter: Code(s): I48.91 - Unspecified atrial fibrillation; I48.92 - Unspecified atrial flutter Status: Acute Assessment and Plan: Rate controlled. Continue metoprolol. Hold anticoagulation for 24 to 48 hours as she has just sustained a fall with pretty significant bruising and hematoma to the left hand. (10) Hypertension: Code(s): I10 - Essential (primary) hypertension Status: Acute Assessment and Plan: Blood pressures reviewed. They have been soft, likely due to dehydration and over diuresis. Hold antihypertensives and monitor. Subjective Date/time seen: 10/15/21 14:41 Interval history: 81-year-old female with hypertension, paroxysmal atrial fibrillation/flutter, CLL, severe pulmonary hypertension, and emphysema, admitted for fall, BJ, COVID, UTI. Today patient states she feels weak and has a headache. No cp/sob. Extensive bruising noted throughout upper and lower extremities. Review of Systems Review of Systems: General: + subjective fevers Eyes: Denies vision changes ENT: Denies nasal congestion or sore throat Respiratory: + cough, denies shortness of breath Cardiovascular: Denies chest pain or lower extremity edema Gastrointestinal: Denies abdominal pain, vomiting, + diarrhea Genitourinary: Denies dysuria Musculoskeletal: +joint pain Neurological: + headache, denies motor weakness Integumentary: + ecchymosis, skin tear
[2021-10-15] MEDS: SODIUM CHLORIDE 0.9% IV 1,000 ML 125 ML IV CONT (14:55)
[2021-10-15 15:04] LABS: Total Protein Urine Random 64 mg/dL; Ur Ttl Prot Creatinine Ratio 1.16 mg/mg (0-0.20)
[2021-10-15 15:20] LABS: Potassium Urine Random 60.1 meq/L; Sodium Urine Random 12 meq/L
[2021-10-15 15:51] VITALS: BP 98/51; PULSE 68; RESP 18; TEMP 36.8; O2SAT 95
[2021-10-15 20:00] VITALS: BP 116/51; PULSE 66; RESP 16; TEMP 36.9; O2SAT 96
[2021-10-15 20:12] LABS: Eosinophil Urine None Seen % (None Seen)
[2021-10-16] VITALS (9 sets, daily range): BP systolic 92–127; BP diastolic 45–79; PULSE 64–89; RESP 16–18; TEMP 36–36.9; O2SAT 93–98
[2021-10-16] MEDS: METOPROLOL SUCCINATE EXT REL 50 MG TABCR PO (10:11)
[2021-10-16] MEDS: FERROUS SULFATE 324 MG TABLET PO ×2 (10:11→17:53)
[2021-10-16] MEDS: SIMVASTATIN 20 MG TABLET 40 MG PO (10:11)
[2021-10-16] MEDS: SODIUM CHLORIDE 0.9% IV 1,000 ML 125 ML IV CONT (10:11)
[2021-10-16] MEDS: FLUTICASONE PROPIONATE 0.05% NA SPR 16 GM BTL (*BKC) 1 SPRAY NASAL (10:12)
[2021-10-16 10:20] LABS: Hematocrit 28.1 % (37.0-47.0); Hemoglobin 8.7 g/dL (12.0-15.0); Immature Platelet Fraction Pct 4.3 % (0.9-11.2); Mean Corpuscular Hemoglobin 30.3 pg (26-34); Mean Corpuscular Volume 97.9 fl (80-100); Mean Platelet Volume 10.9 fl (7.4-10.4); Platelet Count Result 109 k/mm3 (150-375); Red Blood Count 2.87 M/mm3 (4.2-5.4); Red Cell Distribution Width 17.6 % (11.5-14.5); White Blood Count 10.6 K/mm3 (4.5-10.0)
[2021-10-16 10:34] LABS: Band Neutrophils Percent 1 % (0-6); Lymphocytes Absolute Manual 8.16 K/mm3 (1.1-4.5); Metamyelocytes Percent 1 %; Monocytes Absolute Manual 0.42 K/mm3 (0.1-0.90); Monocytes Percent Manual 4 % (3-9); Neutrophils Percent Manual 17 % (46-73); Total Cells Counted 100
[2021-10-16 10:36] LABS: Ovalocytes 2+ (NORMAL)
[2021-10-16 10:37] LABS: Polychromasia 1+ (NORMAL)
[2021-10-16 10:40] LABS: Alanine Aminotransferase 21 U/L (4-35); Albumin Level 3.2 g/dL (3.5-5.1); Alkaline Phosphatase 150 U/L (38-126); Anion Gap 5 mmol/L (8-16); Aspartate Amino Transferase 39 U/L (14-36); Bilirubin,Total 0.7 mg/dL (0.2-1.3); Blood Urea Nitrogen 38 mg/dL (7-17); Calcium 11.6 mg/dL (8.4-10.2); Carbon Dioxide 29 mmol/L (22-30); Chloride 103 mmol/L (98-107); Estimated CRCL calculation 23 ml/min; Estimated Glomerular Filt Rate 27; Glucose 108 mg/dL (65-110); Potassium 3.7 mmol/L (3.4-5.0); Sodium 137 mmol/L (137-145)
[2021-10-16 11:23] LABS: NT Pro B Type Natriuretic Pept 18200 pg/mL (5-100)
--- NOTE | 2021-10-16 14:17 | WPDPN ---
Progress Note: A&P Assessment and Plan (1) Closed displaced fracture of proximal phalanx of left little finger: Qualifiers: Encounter type: initial encounter Qualified Code(s): S62.617A - Displaced fracture of proximal phalanx of left little finger, initial encounter for closed fracture Code(s): S62.617A - Displaced fracture of proximal phalanx of left little finger, initial encounter for closed fracture Status: Acute Additional Plan Left 5th finger splint modified and reapplied. Will schedule repair of fracture when she is in better condition. Subjective Date/time seen: 10/16/21 14:17 Says she is being treated for Covid and is feeling better. Exam Narrative: Pt c/o pain in right posterior shoulder. Says splint is comfortable. I doubt it because it does not cover the fracture, having slid distally several centimeters. Hand bruised and edematous. Splint modified and re applied. Objective Data Vital Signs Vital Signs: Vital Signs - 24 hr 10/15/21 15:51 10/15/21 20:00 10/16/21 00:00 Temperature 98.2 F 98.4 F 98.5 F Pulse Rate 68 66 69 Respiratory Rate 18 16 17 Blood Pressure 98/51 L 116/51 L 100/58 L Pulse Oximetry 95 96 96 10/16/21 04:00 10/16/21 08:00 10/16/21 10:11 Temperature 97.6 F 98.2 F Pulse Rate 89 82 68 Respiratory Rate 17 16 Blood Pressure 127/79 121/68 Pulse Oximetry 97 95 10/16/21 12:00 10/16/21 12:26 10/16/21 13:05 Temperature 97.5 F L Pulse Rate 64 Respiratory Rate 18 Blood Pressure 92/48 L 98/54 L Pulse Oximetry 93 Intake/Output Intake/Output: Intake & Output 10/13/21 10/14/21 10/15/21 10/16/21 23:59 23:59 23:59 23:59 Intake Total 2099 Balance 2099 Meds/Results Medications: Active Medications Generic Name Dose Route Start Last Admin Trade Name Freq PRN Reason Stop Dose Admin Acetaminophen 325 mg 10/14/21 22:07 10/15/21 09:37 Acetaminophen 325 Mg Tablet PO 325 mg Q6H PRN Administration pain 1-3 Hydrocodone Bitart/Acetaminophen 1 tab 10/15/21 10:06 Hydrocodone/Acetaminophen (*Crx) 5-325 Mg Tablet PO Q4H PRN Pain Rated 4-6 Ferrous Sulfate 324 mg 10/15/21 09:00 10/16/21 10:11 Ferrous Sulfate 324 Mg Tablet PO 324 mg BID TANG Administration Fluticasone Propionate 1 spray 10/15/21 09:00 10/16/21 10:12 Fluticasone Propionate 0.05% Na Spr 16 Gm Btl (*Bkc) NASAL 1 spray DAILY TANG Administration Sodium Chloride 1,000 mls @ 100 mls/hr 10/14/21 13:10 10/16/21 10:11 Normal Saline Iv IV CONT 125 mls/hr .Q10H TANG Administration Ceftriaxone Sodium/Dextrose 1 gm in 50 mls @ 100 mls/hr 10/14/21 22:10 10/16/21 02:19 Rocephin 1 Gm/D5w 50 Ml IVPB Infused HS TAGN Infusion Metoprolol Succinate 50 mg 10/15/21 09:00 10/16/21 10:11 Metoprolol Succinate Ext Rel 50 Mg Tabcr PO 50 mg DAILY TANG Administration Oxycodone/Acetaminophen 1 tablet 10/15/21 10:06 Oxycodone/Acetaminophen (*Crx) 5-325 Mg Tablet PO Q4H PRN Pain Rated 7-10 Simvastatin 40 mg 10/15/21 09:00 10/16/21 10:11 Simvastatin 20 Mg Tablet PO 40 mg DAILY TANG Administration Radiology Results: ITS Impressions Lumbar Spine X-Ray 10/14/21 11:59 Impression: 1: Moderate lumbar spondylosis. 2: No acute abnormality of the lumbar spine. Hand X-Ray 10/14/21 12:05 IMPRESSION: 1. Transverse fracture of base of fifth proximal phalanx. Thoracic Spine X-Ray 10/14/21 12:08 Impression: 1: Moderate thoracic spondylosis. Cervical Spine CT 10/14/21 12:11 IMPRESSION: 1. No acute intracranial findings or cervical fracture. 2. Rather extensive right-sided predominant sinus opacity, mucoperiosteal thickening or sinusitis. 3. Advanced cervical spondylosis. 4. Age-related intracranial findings. Head CT 10/14/21 12:11 IMPRESSION: 1. No acute intracranial findings or cervical fracture. 2. Rather extensive right-sherry
--- NOTE | 2021-10-16 14:53 | PM.IMPN ---
Progress Note: A&P Assessment and Plan (1) UTI (urinary tract infection): Qualifiers: Hematuria presence: with hematuria Urinary tract infection type: acute cystitis Qualified Code(s): N30.01 - Acute cystitis with hematuria Code(s): N39.0 - Urinary tract infection, site not specified Status: Acute Assessment and Plan: -UA suspicious for UTI -Ceftriaxone #2 -urine culture with klebsiella sensitive to ceftriaxone (2) COVID-19: Code(s): U07.1 - COVID-19 Status: Acute Assessment and Plan: Not currently requiring oxygen. Chest x-ray ordered given crackles on exam. Supportive care. Not starting remdesivir at this time due to renal function. (3) Acute kidney injury: Code(s): N17.9 - Acute kidney failure, unspecified Status: Acute Assessment and Plan: -creat on admission 1.9, only improved to 1.8 after 48 hrs of IVF, baseline is around 0.8 -thought to be secondary to dehydration and over diuresis however she has not improved with IVF -CXR this morning w/ cardiomegaly and edema vs pneumonia, BNP is 18,200 however unclear whether this is due to edema or elevated due to renal failure -pressure has been soft so gave albumin to help with that prior to giving one dose of 20 mg IV lasix, suspect she may be fluid overloaded (4) Hypercalcemia: Code(s): E83.52 - Hypercalcemia Status: Acute Assessment and Plan: Somewhat concerning given acute kidney injury as well. She has had multiple images with no evidence of bony lesions. Hold calcium supplementation. It is improving though still elevated. Ionized calcium levels pending. PTH slightly low. (5) Fall from bed: Code(s): W06.XXXA - Fall from bed, initial encounter Status: Acute Assessment and Plan: Patient states this was a mechanical fall. No obvious head trauma on exam. Denies loss of consciousness. Initiate fall precautions. (6) Closed displaced fracture of proximal phalanx of left little finger: Qualifiers: Encounter type: initial encounter Qualified Code(s): S62.617A - Displaced fracture of proximal phalanx of left little finger, initial encounter for closed fracture Code(s): S62.617A - Displaced fracture of proximal phalanx of left little finger, initial encounter for closed fracture Status: Acute Assessment and Plan: Splinted. Seen by Dr. Car in the emergency department; she will need a close or possibly open reduction and possible internal fixation when she gets to feeling better. (7) Chronic anemia: Code(s): D64.9 - Anemia, unspecified Status: Acute Assessment and Plan: Hemoglobin and hematocrit are stable on review of previous labs. (8) Thrombocytopenia: Code(s): D69.6 - Thrombocytopenia, unspecified Status: Acute Assessment and Plan: An intermittent finding for the patient over the years. Continue monitoring. (9) Atrial fibrillation and flutter: Code(s): I48.91 - Unspecified atrial fibrillation; I48.92 - Unspecified atrial flutter Status: Acute Assessment and Plan: Rate controlled. metoprolol on hold as BP has been soft. Hold anticoagulation for 24 to 48 hours as she has just sustained a fall with pretty significant bruising and hematoma to the left hand. (10) Hypertension: Code(s): I10 - Essential (primary) hypertension Status: Acute Assessment and Plan: Blood pressures reviewed. They have been soft, likely due to dehydration and over diuresis. Hold antihypertensives and monitor. Subjective Date/time seen: 10/16/21 14:53 Interval history: 81-year-old female with hypertension, paroxysmal atrial fibrillation/flutter, CLL, severe pulmonary hypertension, and emphysema, admitted for fall, BJ, COVID, UTI. Today patient states she feels a little better. She worked with therapy today and was up to the chair. She sti
--- NOTE | 2021-10-16 17:51 | PC.NURSE ---
spoke with pharmacy twice about albumin for this patient, still waiting for them to bring it up to me.
[2021-10-16] MEDS: FUROSEMIDE INJ 40 MG/4 ML VIAL 20 MG IV PUSH (17:53)
[2021-10-16] MEDS: ALBUMIN HUMAN 25% 12.5 GM/50ML 50 ML IVPB (18:24)
[2021-10-17] VITALS: BP 111/51; PULSE 78; RESP 18; TEMP 36.9; O2SAT 98
[2021-10-17 04:00] VITALS: BP 104/51; PULSE 67; RESP 16; TEMP 36.6; O2SAT 98
[2021-10-17 08:00] VITALS: BP 117/58; PULSE 79; RESP 16; TEMP 36.2; O2SAT 95
[2021-10-17 08:33] LABS: Hematocrit 26.4 % (37.0-47.0); Hemoglobin 8.3 g/dL (12.0-15.0); Immature Platelet Fraction Pct 5.4 % (0.9-11.2); Mean Corpuscular HGB Conc 31.4 g/dl (32-36); Mean Corpuscular Hemoglobin 30.3 pg (26-34); Mean Corpuscular Volume 96.4 fl (80-100); Mean Platelet Volume 11.7 fl (7.4-10.4); Platelet Count Result 101 k/mm3 (150-375); Red Blood Count 2.74 M/mm3 (4.2-5.4); Red Cell Distribution Width 17.7 % (11.5-14.5); White Blood Count 9.5 K/mm3 (4.5-10.0)
[2021-10-17 09:05] LABS: Alanine Aminotransferase 18 U/L (4-35); Albumin Level 2.9 g/dL (3.5-5.1); Alkaline Phosphatase 138 U/L (38-126); Anion Gap 2 mmol/L (8-16); Aspartate Amino Transferase 32 U/L (14-36); Bilirubin,Total 0.5 mg/dL (0.2-1.3); Blood Urea Nitrogen 38 mg/dL (7-17); Calcium 11.2 mg/dL (8.4-10.2); Carbon Dioxide 28 mmol/L (22-30); Chloride 106 mmol/L (98-107); Estimated CRCL calculation 24 ml/min; Estimated Glomerular Filt Rate 27; Glucose 95 mg/dL (65-110); Potassium 3.5 mmol/L (3.4-5.0); Sodium 136 mmol/L (137-145)
[2021-10-17] MEDS: FERROUS SULFATE 324 MG TABLET PO ×2 (09:21→17:38)
[2021-10-17] MEDS: APIXABAN 2.5 MG TABLET PO ×2 (09:21→17:38)
[2021-10-17] MEDS: FLUTICASONE PROPIONATE 0.05% NA SPR 16 GM BTL (*BKC) 1 SPRAY NASAL (09:22)
[2021-10-17] MEDS: SIMVASTATIN 20 MG TABLET 40 MG PO (09:22)
[2021-10-17 10:03] LABS: Band Neutrophils Percent 1 % (0-6); Hypochromasia 1+ (NORMAL); Lymphocytes Absolute Manual 7.88 K/mm3 (1.1-4.5); Neutrophils Absolute Manual 1.61 K/mm3 (1.7-7.2); Neutrophils Percent Manual 16 % (46-73); Total Cells Counted 100
[2021-10-17 10:05] LABS: Anisocytosis 1+ (NORMAL); Poikilocytosis 1+ (NORMAL)
[2021-10-17 12:00] VITALS: BP 99/77; PULSE 76; RESP 18; TEMP 36.6; O2SAT 95
--- NOTE | 2021-10-17 12:13 | PM.IMPN ---
Progress Note: A&P Assessment and Plan (1) UTI (urinary tract infection): Qualifiers: Hematuria presence: with hematuria Urinary tract infection type: acute cystitis Qualified Code(s): N30.01 - Acute cystitis with hematuria Code(s): N39.0 - Urinary tract infection, site not specified Status: Acute Assessment and Plan: -UA suspicious for UTI -Ceftriaxone #3 -urine culture with klebsiella sensitive to ceftriaxone (2) COVID-19: Code(s): U07.1 - COVID-19 Status: Acute Assessment and Plan: - Not currently requiring oxygen. -Chest x-ray shows edema vs pneumonia. -Supportive care. -Not starting remdesivir at this time due to renal function. (3) Acute kidney injury: Code(s): N17.9 - Acute kidney failure, unspecified Status: Acute Assessment and Plan: -creat on admission 1.9, only improved to 1.8 after 48 hrs of IVF, baseline is around 0.8 -thought to be secondary to dehydration and over diuresis however she has not improved with IVF -CXR w/ cardiomegaly and edema vs pneumonia, BNP is 18,200 however unclear whether this is due to edema or elevated due to renal failure -pressure has been soft so gave albumin to help with that prior to giving one dose of 20 mg IV lasix, suspect she may be fluid overloaded -no improvement w/ 20 mg lasix, will try 40 IV and recheck BMP (4) Hypercalcemia: Code(s): E83.52 - Hypercalcemia Status: Acute Assessment and Plan: Somewhat concerning given acute kidney injury as well. She has had multiple images with no evidence of bony lesions. Hold calcium supplementation. It is improving though still elevated. Ionized calcium levels pending. PTH slightly low. (5) Fall from bed: Code(s): W06.XXXA - Fall from bed, initial encounter Status: Acute Assessment and Plan: Patient states this was a mechanical fall. No obvious head trauma on exam. Denies loss of consciousness. Initiate fall precautions. (6) Closed displaced fracture of proximal phalanx of left little finger: Qualifiers: Encounter type: initial encounter Qualified Code(s): S62.617A - Displaced fracture of proximal phalanx of left little finger, initial encounter for closed fracture Code(s): S62.617A - Displaced fracture of proximal phalanx of left little finger, initial encounter for closed fracture Status: Acute Assessment and Plan: Splinted. Seen by Dr. Car in the emergency department; she will need a close or possibly open reduction and possible internal fixation when she gets to feeling better. (7) Chronic anemia: Code(s): D64.9 - Anemia, unspecified Status: Acute Assessment and Plan: Hemoglobin and hematocrit are stable on review of previous labs. (8) Thrombocytopenia: Code(s): D69.6 - Thrombocytopenia, unspecified Status: Acute Assessment and Plan: An intermittent finding for the patient over the years. Continue monitoring. (9) Atrial fibrillation and flutter: Code(s): I48.91 - Unspecified atrial fibrillation; I48.92 - Unspecified atrial flutter Status: Acute Assessment and Plan: -Rate controlled. metoprolol on hold as BP has been soft. anticoagulation held for 48 hours as she has just sustained a fall with pretty significant bruising and hematoma to the left hand. -eliquis resumed (10) Hypertension: Code(s): I10 - Essential (primary) hypertension Status: Acute Assessment and Plan: Blood pressures reviewed. They have been soft, likely due to dehydration and over diuresis. Hold antihypertensives and monitor. Subjective Date/time seen: 10/17/21 12:13 Interval history: 81-year-old female with hypertension, paroxysmal atrial fibrillation/flutter, CLL, severe pulmonary hypertension, and emphysema, admitted for fall, BJ, COVID, UTI. Today patient states today she feels m
[2021-10-17] MEDS: FUROSEMIDE INJ 40 MG/4 ML VIAL IV PUSH (12:51)
--- NOTE | 2021-10-17 14:45 | PCNFU ---
Nutrition Follow-Up Complete: Inadequate oral intake related to reported decreased appetie as evidenced by reported intake of 10% Goal: Pt to meet 75% of estimated nutritional needs Pt is slowly progressing towards goal Pt current nutrition is heart healthy and dietary supplements Last recorded weight is 70.2 kg. Bowel Motility: +BM 10/15 reported Labs Reviewed: hgb 8.3, hct 26.4, alb 2.9, Na 136, Ca 11.2, GFR 27, BUN 58, Cr 1.8, ALP 138, NT-Pro-BNP 16498 Meds Noted: eliquis, ferrous sulfate, zocor Skin: left arm skin tear Additional Notes: Unable to visit with pt due to following covid precautions. Current nutrition is a heart healthy diet and dietary supplement of ensure compact providing an additional 220kcal and 9g of protein to increase caloric intake. Reported intake is 15% and 75%. Spoke to nursing via phone who confirms intake and reports that pt will drink the dietary supplement off and on. Nursing reports that pt likes sweets. RDN placed orders for Frozen Nutrition Treat BID to provide an additional 300kcal and 9g of protein to increase caloric intake. Nursing agreed to continue to encourage intake of heart healthy diet and dietary supplement. Agree with diet order at this time. Will continue to follow. Will monitors labs, medication, wt, and reported intake every 3 days
--- NOTE | 2021-10-17 15:22 | ECHO_ITS ---
Patient Info Name: Nikky Urena Age: 81 years : 1940 Gender: Female Ht: 72 in Wt: 151 lbs BSA: 1.86 m2 HR: 67 bpm BP: 104 / 51 mmHg Heart Rhythm: Atrial Fibrillation Technical Quality: Fair Exam Date: 10/17/2021 9:30 AM Exam Location: [facility] Patient Status: Inpatient Admit Date: 10/16/2021 Staff Ordering Physician: Lottie Calvin PA-C [place] Clerk: Joan Ascencio RDCS Attending Provider: Lottie Calvin PA-C Referring Physician: Marixa GUILLERMO; Exam Type: CA echo doppler color flow Study Info Indications - chf Complete two-dimensional, color flow and Doppler transthoracic echocardiogram is performed. Summary 1. Complete two-dimensional, color flow and Doppler transthoracic echocardiogram is performed. 2. Left ventricular chamber dimension is normal. 3. Left ventricular systolic function is normal, estimated at 60-65%. 4. There is severe asymmetric septal increased left ventricular wall thickness with septal wall thickness 2.3 cm and posterior wall 0.8 cm. Consider hypertrophic cardiomyopathy. No LVOT obstruction. 5. Left ventricular septal wall motion is abnormal with septal motion related to bundle branch block. 6. The left ventricular diastolic function is abnormal. 7. E/e' 14 is mildly elevated. 8. Atrial fibrillation. 9. Left atrial chamber dimension is moderately enlarged. 10. Right atrial chamber dimension is moderately enlarged. 11. There is mild aortic valve sclerosis. 12. There is mild mitral valve regurgitation. 13. There is mild tricuspid valve regurgitation. 14. Severe pulmonary hypertension, estimated pulmonary arterial systolic pressure is 63 mmHg. 15. There is trace pulmonic regurgitation. 16. Dilated inferior vena cava with >50% collapse upon inspiration consistent with elevated right atrial pressure, 10 mmHg. Left Ventricle E/e' 14 is mildly elevated. Atrial fibrillation. There is severe asymmetric septal increased left ventricular wall thickness with septal wall thickness 2.3 cm and posterior wall 0.8 cm. Consider hypertrophic cardiomyopathy. No LVOT obstruction. Left ventricular chamber dimension is normal. Left ventricular systolic function is normal, estimated at 60-65%. Left ventricular septal wall motion is abnormal with septal motion related to bundle branch block. The left ventricular diastolic function is abnormal. Right Ventricle Right ventricular systolic function is normal and with normal TAPSE 1.7 cm. Right ventricular chamber dimension is normal. Left Atria Left atrial chamber dimension is moderately enlarged. Right Atria Right atrial chamber dimension is moderately enlarged. Aortic Valve The aortic valve is trileaflet. There is mild aortic valve sclerosis. There is no aortic valve stenosis. There is no aortic valve regurgitation. Pulmonic Valve There is trace pulmonic regurgitation. Mitral Valve There is no mitral valve stenosis. There is mild mitral valve regurgitation. Tricuspid Valve There is mild tricuspid valve regurgitation. Severe pulmonary hypertension, estimated pulmonary arterial systolic pressure is 63 mmHg. Pericardium/Pleural There is no pericardial effusion. Inferior Vena Cava Dilated inferior vena cava with >50% collapse upon inspiration consistent with elevated right atrial pressure, 10 mmHg. Aorta The aortic root size at the sinus of Valsalva is normal. Left Ventricular Outflow Tract
[2021-10-17 16:00] VITALS: BP 116/66; PULSE 60; RESP 18; TEMP 36.7; O2SAT 96
[2021-10-17 20:00] VITALS: BP 112/46; PULSE 60; PULSE 64; RESP 14; RESP 18; TEMP 36.6; O2SAT 96; O2SAT 99
[2021-10-18] VITALS (7 sets, daily range): BP systolic 98–130; BP diastolic 50–69; PULSE 65–98; RESP 16–18; TEMP 36.4–37.1; O2SAT 93–98
[2021-10-18 03:37] LABS: Osmolality, Urine 594 mOsm/kg (50-1200)
[2021-10-18 07:45] LABS: Hematocrit 27.9 % (37.0-47.0); Hemoglobin 8.7 g/dL (12.0-15.0); Immature Platelet Fraction Pct 4.9 % (0.9-11.2); Mean Corpuscular HGB Conc 31.2 g/dl (32-36); Mean Corpuscular Hemoglobin 30.5 pg (26-34); Mean Corpuscular Volume 97.9 fl (80-100); Mean Platelet Volume 11.3 fl (7.4-10.4); Platelet Count Result 101 k/mm3 (150-375); Red Blood Count 2.85 M/mm3 (4.2-5.4); Red Cell Distribution Width 17.6 % (11.5-14.5); White Blood Count 8.2 K/mm3 (4.5-10.0)
[2021-10-18 07:58] LABS: Alanine Aminotransferase 17 U/L (4-35); Albumin Level 2.8 g/dL (3.5-5.1); Alkaline Phosphatase 128 U/L (38-126); Anion Gap -1 mmol/L (8-16); Aspartate Amino Transferase 29 U/L (14-36); Bilirubin,Total 0.6 mg/dL (0.2-1.3); Blood Urea Nitrogen 34 mg/dL (7-17); Calcium 11.2 mg/dL (8.4-10.2); Carbon Dioxide 32 mmol/L (22-30); Chloride 104 mmol/L (98-107); Estimated CRCL calculation 25 ml/min; Estimated Glomerular Filt Rate 29; Glucose 102 mg/dL (65-110); Magnesium 2.5 mg/dL (1.6-2.3); Potassium 3.2 mmol/L (3.4-5.0); Sodium 135 mmol/L (137-145)
[2021-10-18] MEDS: APIXABAN 2.5 MG TABLET PO ×2 (08:41→16:22)
[2021-10-18] MEDS: FLUTICASONE PROPIONATE 0.05% NA SPR 16 GM BTL (*BKC) 1 SPRAY NASAL (08:41)
[2021-10-18] MEDS: FERROUS SULFATE 324 MG TABLET PO ×2 (08:41→16:22)
[2021-10-18] MEDS: SIMVASTATIN 20 MG TABLET 40 MG PO (08:41)
[2021-10-18 08:42] LABS: Lymphocytes Absolute Manual 7.21 K/mm3 (1.1-4.5); Metamyelocytes Percent 1 %; Neutrophils Percent Manual 11 % (46-73); Total Cells Counted 100
[2021-10-18 08:43] LABS: Platelet Estimate Decreased (Adequate); Tear Drop Cells 1+ (NORMAL)
--- NOTE | 2021-10-18 10:01 | PM.IMPN ---
Progress Note: A&P Assessment and Plan (1) UTI (urinary tract infection): Qualifiers: Hematuria presence: with hematuria Urinary tract infection type: acute cystitis Qualified Code(s): N30.01 - Acute cystitis with hematuria Code(s): N39.0 - Urinary tract infection, site not specified Status: Acute Assessment and Plan: -UA suspicious for UTI -Ceftriaxone #4 -urine culture with klebsiella sensitive to ceftriaxone (2) COVID-19: Code(s): U07.1 - COVID-19 Status: Acute Assessment and Plan: - Not currently requiring oxygen. -Chest x-ray shows edema vs pneumonia. -Supportive care. -Not starting remdesivir at this time due to renal function. (3) Acute kidney injury: Code(s): N17.9 - Acute kidney failure, unspecified Status: Acute Assessment and Plan: -creat on admission 1.9, only improved to 1.8 after 48 hrs of IVF, baseline is around 0.8 -thought to be secondary to dehydration and over diuresis however she has not improved with IVF -CXR w/ cardiomegaly and edema vs pneumonia, BNP is 18,200 however unclear whether this is due to edema or elevated due to renal failure -pressure has been soft so gave albumin to help with that prior to giving one dose of 20 mg IV lasix, suspect she may be fluid overloaded -showing minimal improvement with Lasix, will continue this with close monitoring. Her LE edema has improved. (4) Hypercalcemia: Code(s): E83.52 - Hypercalcemia Status: Acute Assessment and Plan: Somewhat concerning given acute kidney injury as well. She has had multiple images with no evidence of bony lesions. Hold calcium supplementation. It is improving though still elevated. Ionized calcium levels pending. PTH slightly low. (5) Fall from bed: Code(s): W06.XXXA - Fall from bed, initial encounter Status: Acute Assessment and Plan: Patient states this was a mechanical fall. No obvious head trauma on exam. Denies loss of consciousness. Initiate fall precautions. (6) Closed displaced fracture of proximal phalanx of left little finger: Qualifiers: Encounter type: initial encounter Qualified Code(s): S62.617A - Displaced fracture of proximal phalanx of left little finger, initial encounter for closed fracture Code(s): S62.617A - Displaced fracture of proximal phalanx of left little finger, initial encounter for closed fracture Status: Acute Assessment and Plan: Splinted. Seen by Dr. Car in the emergency department; she will need a close or possibly open reduction and possible internal fixation when she gets to feeling better. (7) Chronic anemia: Code(s): D64.9 - Anemia, unspecified Status: Acute Assessment and Plan: Hemoglobin and hematocrit are stable on review of previous labs. (8) Thrombocytopenia: Code(s): D69.6 - Thrombocytopenia, unspecified Status: Acute Assessment and Plan: An intermittent finding for the patient over the years. Continue monitoring. (9) Atrial fibrillation and flutter: Code(s): I48.91 - Unspecified atrial fibrillation; I48.92 - Unspecified atrial flutter Status: Acute Assessment and Plan: -Rate controlled. metoprolol on hold as BP has been soft. anticoagulation held for 48 hours as she has just sustained a fall with pretty significant bruising and hematoma to the left hand. -eliquis resumed (10) Hypertension: Code(s): I10 - Essential (primary) hypertension Status: Acute Assessment and Plan: Blood pressures reviewed. They have been soft, likely due to dehydration and over diuresis. Hold antihypertensives and monitor. (11) Hypokalemia: Code(s): E87.6 - Hypokalemia Status: Acute Assessment and Plan: -minimally low, suspect due to decreased PO intake vs starting Lasix -encouraged PO intake -monitor and replace as
[2021-10-18] MEDS: POTASSIUM CHLORIDE 20 MEQ TABLET 40 MEQ PO (11:35)
[2021-10-18] MEDS: FUROSEMIDE INJ 40 MG/4 ML VIAL 20 MG IV PUSH ×2 (11:35→16:22)
[2021-10-18] MEDS: HYDROcodone/acetaminophen (*CRX) 5-325 MG TABLET 1 TAB PO (11:35)
--- NOTE | 2021-10-18 13:40 | PCOTNOTE ---
Attempted to see patient this pm, however patient declined stating, No, I don't feel well. Maybe tomorrow I'll feel better. Pt declined all activities at this time.
--- NOTE | 2021-10-18 15:08 | PCPTNOTE ---
Patient refused treatment this session due to having not slept well the night prior. Will continue per plan of care.
[2021-10-18] MEDS: SODIUM CHLORIDE 0.9% IV 1,000 ML 75 ML IV CONT (16:22)
[2021-10-19] VITALS: BP 129/64; PULSE 100; RESP 18; TEMP 36.2; O2SAT 91
[2021-10-19 04:00] VITALS: BP 112/52; PULSE 84; RESP 18; TEMP 36.5; O2SAT 96
[2021-10-19] MEDS: SODIUM CHLORIDE 0.9% IV 1,000 ML 75 ML IV CONT (04:13)
[2021-10-19 05:10] LABS: Ionized Calcium 6.9 mg/dL (4.8-5.6)
--- NOTE | 2021-10-19 07:00 | ECG_ITS ---
Measurements Intervals [place] Rate: 91 P: [place]: 0 QRS: -49 QRSD: 161 T: 130 QT: 401 QTc: 495 Interpretive Statements ATRIAL FLUTTER/TACHYCARDIA VENTRICULAR PREMATURE COMPLEXES LEFT BUNDLE BRANCH BLOCK BASELINE ARTIFACT- V4 ABNORMAL ECG Electronically Signed On 10-19-2021 16:18:17 TUNNELLER by Dannie Nance D.O.
[2021-10-19 08:00] VITALS: BP 124/69; PULSE 87; RESP 24; TEMP 36.3; O2SAT 96
[2021-10-19 08:31] LABS: Basophils Absolute Auto 0.1 K/mm3 (0.0-0.1); Basophils Percent Auto 0.6 % (0.2-1.2); Eosinophils Absolute Auto 0.1 K/mm3 (0-0.3); Eosinophils Percent Auto 0.6 % (0-4.4); Hemoglobin 8.9 g/dL (12.0-15.0); Immature Granulocyte Absolute 0.12 K/mm3 (0.00-0.031); Immature Granulocyte Percent A 1.4 % (0-0.5); Immature Platelet Fraction Pct 4.5 % (0.9-11.2); Lymphocytes Absolute Auto 6.42 K/mm3 (0.9-3.2); Lymphocytes Percent Auto 76.4 % (18.3-44.2); Mean Corpuscular HGB Conc 30.7 g/dl (32-36); Mean Corpuscular Hemoglobin 30.4 pg (26-34); Mean Platelet Volume 11.1 fl (7.4-10.4); Monocytes Absolute Auto 0.9 K/mm3 (0.1-0.6); Monocytes Percent Auto 10.4 % (2.6-8.5); Neutrophils Absolute Auto 0.9 K/mm3 (1.3-6.7); Neutrophils Percent Auto 10.6 % (45.5-73.1); Nucleated Red Blood Cells Perc 0.4 % (0.0-0.2); Platelet Count Result 107 k/mm3 (150-375); Red Blood Count 2.93 M/mm3 (4.2-5.4); Red Cell Distribution Width 17.8 % (11.5-14.5); White Blood Count 8.4 K/mm3 (4.5-10.0)
[2021-10-19 08:38] LABS: Alanine Aminotransferase 16 U/L (4-35); Albumin Level 2.9 g/dL (3.5-5.1); Alkaline Phosphatase 124 U/L (38-126); Anion Gap -1 mmol/L (8-16); Aspartate Amino Transferase 28 U/L (14-36); Bilirubin,Total 0.6 mg/dL (0.2-1.3); Blood Urea Nitrogen 29 mg/dL (7-17); Calcium 11.1 mg/dL (8.4-10.2); Carbon Dioxide 30 mmol/L (22-30); Chloride 107 mmol/L (98-107); Estimated CRCL calculation 30 ml/min; Estimated Glomerular Filt Rate 36; Glucose 97 mg/dL (65-110); Potassium 3.6 mmol/L (3.4-5.0); Sodium 136 mmol/L (137-145)
[2021-10-19 09:12] LABS: Lipase 65 U/L (23-300); Magnesium 2.6 mg/dL (1.6-2.3); Phosphorus 3.3 mg/dL (2.5-4.5)
[2021-10-19 09:36] LABS: Anisocytosis 1+ (NORMAL); Ovalocytes 1+ (NORMAL); Smudge Cells MANY
[2021-10-19] MEDS: FUROSEMIDE INJ 40 MG/4 ML VIAL 20 MG IV PUSH ×2 (10:05→17:33)
[2021-10-19] MEDS: FERROUS SULFATE 324 MG TABLET PO ×2 (10:05→17:33)
[2021-10-19] MEDS: APIXABAN 2.5 MG TABLET PO ×2 (10:05→17:33)
[2021-10-19] MEDS: FLUTICASONE PROPIONATE 0.05% NA SPR 16 GM BTL (*BKC) 1 SPRAY NASAL (10:05)
[2021-10-19] MEDS: SIMVASTATIN 20 MG TABLET 40 MG PO (10:05)
[2021-10-19 12:00] VITALS: BP 110/62; PULSE 96; RESP 24; TEMP 36.5; O2SAT 98
[2021-10-19 13:28] LABS: Chloride Rand Ur 21 mmol/L (32-290); Chloride/Creatinine Rand Ur 100 (38-318); Creatinine Random Urine 21 mg/dL (20-275)
--- NOTE | 2021-10-19 14:01 | PM.IMPN ---
Progress Note: A&P Assessment and Plan (1) UTI (urinary tract infection): Qualifiers: Urinary tract infection type: acute cystitis Hematuria presence: with hematuria Qualified Code(s): N30.01 - Acute cystitis with hematuria Code(s): N39.0 - Urinary tract infection, site not specified Status: Acute Assessment and Plan: -UA suspicious for UTI -Ceftriaxone #5 -urine culture with klebsiella sensitive to ceftriaxone (2) COVID-19: Code(s): U07.1 - COVID-19 Status: Acute Assessment and Plan: - Not currently requiring oxygen. -Chest x-ray shows edema vs pneumonia. -Supportive care. -Not starting remdesivir at this time due to renal function. (3) Acute kidney injury: Code(s): N17.9 - Acute kidney failure, unspecified Status: Acute Assessment and Plan: -creat on admission 1.9, only improved to 1.8 after 48 hrs of IVF, baseline is around 0.8 -thought to be secondary to dehydration and over diuresis however she has not improved with IVF -CXR w/ cardiomegaly and edema vs pneumonia, BNP is 18,200 however unclear whether this is due to edema or elevated due to renal failure -pressure has been soft so gave albumin to help with that prior to giving one dose of 20 mg IV lasix, suspect she may be fluid overloaded -showing improvement with Lasix, will continue this with close monitoring. Her LE edema has improved. Also giving cautious IVF due to her elevated calcium levels. (4) Hypercalcemia: Code(s): E83.52 - Hypercalcemia Status: Acute Assessment and Plan: -Somewhat concerning given acute kidney injury as well. -CT abd/pelv shows severe splenomegaly and abdominal and retroperitoneal lymphadenopathy, consistent with CLL. Calcified lymph nodes in the retroperitoneum and pelvis are consistent with treated CLL. -spoke w/ patient who states she was treated she thinks last year with chemo and has follow up every three months. Does not know the name of her oncologist. -placed oncology consult for the AM -currently getting IVF (5) Fall from bed: Code(s): W06.XXXA - Fall from bed, initial encounter Status: Acute Assessment and Plan: Patient states this was a mechanical fall. No obvious head trauma on exam. Denies loss of consciousness. Initiate fall precautions. (6) Closed displaced fracture of proximal phalanx of left little finger: Qualifiers: Encounter type: initial encounter Qualified Code(s): S62.617A - Displaced fracture of proximal phalanx of left little finger, initial encounter for closed fracture Code(s): S62.617A - Displaced fracture of proximal phalanx of left little finger, initial encounter for closed fracture Status: Acute Assessment and Plan: Splinted. Seen by Dr. Car in the emergency department; she will need a close or possibly open reduction and possible internal fixation when she gets to feeling better. (7) Chronic anemia: Code(s): D64.9 - Anemia, unspecified Status: Acute Assessment and Plan: Hemoglobin and hematocrit are stable on review of previous labs. (8) Thrombocytopenia: Code(s): D69.6 - Thrombocytopenia, unspecified Status: Acute Assessment and Plan: An intermittent finding for the patient over the years. Continue monitoring. (9) Atrial fibrillation and flutter: Code(s): I48.91 - Unspecified atrial fibrillation; I48.92 - Unspecified atrial flutter Status: Acute Assessment and Plan: -Rate controlled. metoprolol on hold as BP has been soft. anticoagulation held for 48 hours as she has just sustained a fall with pretty significant bruising and hematoma to the left hand. -eliquis resumed (10) Hypertension: Code(s): I10 - Essential (primary) hypertension Status: Acute Assessment and Plan: Blood pressures reviewed. They have been soft. Hold antihyperten
[2021-10-19 16:00] VITALS: BP 120/76; PULSE 77; RESP 20; TEMP 36.3; O2SAT 96
[2021-10-19] MEDS: ONDANSETRON INJ 4 MG/2 ML VIAL IV PUSH (17:33)
[2021-10-19 20:00] VITALS: BP 98/50; PULSE 65; RESP 18; TEMP 36.7; O2SAT 93
[2021-10-19 22:40] LABS: Vitamin D 1,25 (OH)2 Total 72 pg/mL (18-72); Vitamin D2 1,25 (OH)2 <8 pg/mL; Vitamin D3 1,25 (OH)2 72 pg/mL
[2021-10-20] VITALS (7 sets, daily range): BP systolic 100–115; BP diastolic 43–64; PULSE 56–100; RESP 16–18; TEMP 36.5–36.9; O2SAT 90–100
[2021-10-20] MEDS: SODIUM CHLORIDE 0.9% IV 1,000 ML 75 ML IV CONT ×2 (06:08→14:58)
[2021-10-20 07:22] LABS: Basophils Percent Auto 0.5 % (0.2-1.2); Eosinophils Absolute Auto 0.1 K/mm3 (0-0.3); Eosinophils Percent Auto 0.9 % (0-4.4); Hemoglobin 7.5 g/dL (12.0-15.0); Immature Granulocyte Absolute 0.09 K/mm3 (0.00-0.031); Immature Granulocyte Percent A 1.2 % (0-0.5); Immature Platelet Fraction Pct 4.7 % (0.9-11.2); Lymphocytes Absolute Auto 5.26 K/mm3 (0.9-3.2); Lymphocytes Percent Auto 70.6 % (18.3-44.2); Mean Corpuscular Hemoglobin 29.6 pg (26-34); Mean Corpuscular Volume 98.8 fl (80-100); Mean Platelet Volume 10.8 fl (7.4-10.4); Monocytes Absolute Auto 1.2 K/mm3 (0.1-0.6); Monocytes Percent Auto 15.8 % (2.6-8.5); Neutrophils Absolute Auto 0.8 K/mm3 (1.3-6.7); Nucleated Red Blood Cells Perc 0.3 % (0.0-0.2); Platelet Count Result 97 k/mm3 (150-375); Red Blood Count 2.53 M/mm3 (4.2-5.4); Red Cell Distribution Width 17.8 % (11.5-14.5); White Blood Count 7.5 K/mm3 (4.5-10.0)
[2021-10-20 07:32] LABS: Alanine Aminotransferase 14 U/L (4-35); Albumin Level 2.6 g/dL (3.5-5.1); Alkaline Phosphatase 114 U/L (38-126); Anion Gap -2 mmol/L (8-16); Aspartate Amino Transferase 24 U/L (14-36); Bilirubin,Total 0.4 mg/dL (0.2-1.3); Blood Urea Nitrogen 26 mg/dL (7-17); Calcium 10.7 mg/dL (8.4-10.2); Carbon Dioxide 31 mmol/L (22-30); Chloride 106 mmol/L (98-107); Estimated CRCL calculation 28 ml/min; Estimated Glomerular Filt Rate 33; Glucose 99 mg/dL (65-110); Potassium 3.3 mmol/L (3.4-5.0); Sodium 135 mmol/L (137-145)
[2021-10-20 08:19] LABS: Glucose Point of Care 90 mg/dl (65-105)
[2021-10-20 08:32] LABS: Platelet Estimate Decreased (Adequate)
[2021-10-20 08:33] LABS: Microcytosis 1+ (NORMAL); Ovalocytes 1+ (NORMAL)
[2021-10-20] MEDS: APIXABAN 2.5 MG TABLET PO ×2 (08:34→18:00)
[2021-10-20] MEDS: FUROSEMIDE INJ 40 MG/4 ML VIAL 20 MG IV PUSH ×2 (08:34→18:00)
[2021-10-20] MEDS: FERROUS SULFATE 324 MG TABLET PO ×2 (08:34→18:00)
[2021-10-20] MEDS: SIMVASTATIN 20 MG TABLET 40 MG PO (08:34)
--- NOTE | 2021-10-20 12:10 | PM.IMPN ---
Progress Note: A&P Assessment and Plan (1) UTI (urinary tract infection): Qualifiers: Hematuria presence: with hematuria Urinary tract infection type: acute cystitis Qualified Code(s): N30.01 - Acute cystitis with hematuria Code(s): N39.0 - Urinary tract infection, site not specified Status: Acute Assessment and Plan: -UA suspicious for UTI -Ceftriaxone #6 -urine culture with klebsiella sensitive to ceftriaxone (2) COVID-19: Code(s): U07.1 - COVID-19 Status: Acute Assessment and Plan: - Not currently requiring oxygen. -Chest x-ray shows edema vs pneumonia. -Supportive care. -Not starting remdesivir at this time due to renal function. (3) Acute kidney injury: Code(s): N17.9 - Acute kidney failure, unspecified Status: Acute Assessment and Plan: -creat on admission 1.9, only improved to 1.8 after 48 hrs of IVF, baseline is around 0.8 -thought to be secondary to dehydration and over diuresis however she has not improved with IVF -CXR w/ cardiomegaly and edema vs pneumonia, BNP is 18,200 however unclear whether this is due to edema or elevated due to renal failure -pressure has been soft so gave albumin to help with that prior to giving one dose of 20 mg IV lasix, suspect she may be fluid overloaded -showing improvement with Lasix, will continue this with close monitoring. Her LE edema has improved. Also giving cautious IVF due to her elevated calcium levels. -nephrology consult (4) Hypercalcemia: Code(s): E83.52 - Hypercalcemia Status: Acute Assessment and Plan: -Somewhat concerning given acute kidney injury as well. -CT abd/pelv shows severe splenomegaly and abdominal and retroperitoneal lymphadenopathy, consistent with CLL. Calcified lymph nodes in the retroperitoneum and pelvis are consistent with treated CLL. -spoke w/ patient who states she was treated she thinks last year with chemo and has follow up every three months. Does not know the name of her oncologist. Will attempt to get more info from family. -oncology consult -currently getting cautious IVF (5) Fall from bed: Code(s): W06.XXXA - Fall from bed, initial encounter Status: Acute Assessment and Plan: Patient states this was a mechanical fall. No obvious head trauma on exam. Denies loss of consciousness. Initiate fall precautions. (6) Closed displaced fracture of proximal phalanx of left little finger: Qualifiers: Encounter type: initial encounter Qualified Code(s): S62.617A - Displaced fracture of proximal phalanx of left little finger, initial encounter for closed fracture Code(s): S62.617A - Displaced fracture of proximal phalanx of left little finger, initial encounter for closed fracture Status: Acute Assessment and Plan: Splinted. Seen by Dr. Car in the emergency department; she will need a close or possibly open reduction and possible internal fixation when she gets to feeling better. (7) Chronic anemia: Code(s): D64.9 - Anemia, unspecified Status: Acute Assessment and Plan: Hemoglobin and hematocrit are stable on review of previous labs. (8) Thrombocytopenia: Code(s): D69.6 - Thrombocytopenia, unspecified Status: Acute Assessment and Plan: An intermittent finding for the patient over the years. Continue monitoring. (9) Atrial fibrillation and flutter: Code(s): I48.91 - Unspecified atrial fibrillation; I48.92 - Unspecified atrial flutter Status: Acute Assessment and Plan: -Rate controlled. metoprolol on hold as BP has been soft. anticoagulation held for 48 hours as she has just sustained a fall with pretty significant bruising and hematoma to the left hand. -eliquis resumed (10) Hypertension: Code(s): I10 - Essential (primary) hypertension Status: Acute Assessment and Plan: Blood p
--- NOTE | 2021-10-20 12:45 | PDONCCN ---
HPI - Date of Consult Date/Time: 10/20/21 12:45 Requesting Physician: Lottie Calvin PA-C Primary Care Provider: Kel Burk, DO - Consult Narrative Reason for consult: Chronic lymphocytic leukemia Narrative: Nikky Urena is a 81 year old female with history of chronic lymphocytic leukemia and has been followed by likely Dr. Arango at [facility]. She has not received any treatment previously according the patient. Patient is a poor historian. She came into the hospital status post fall. She was complaining of tiredness and fatigue. She has generalized weakness body aches and subjective fever. She also has nonproductive cough. Night Tianna to coming to the hospital she fell with tears in the left forearm and injury to the finger of the left hand. He was also tested positive for COVID infection. Her labs showed significant anemia with hemoglobin of 7.5 with normal WBC of 7.5 with lymphocyte count of 70%. Patient platelet was 97,000. She denies any bleeding. CT abdomen showed mild pulmonary edema with severe splenomegaly and abdominal and retroperitoneal lymphadenopathy consistent with CLL. Review of Systems - Review of Systems All systems reviewed & are unremarkable except as noted in HPI and bel - Neurologic Denies headache(s), Denies weakness PMFSH Medical History: Medical History (Last Updated 10/14/21 @ 21:57 by Elma Alarcon PA-C) Atrial fibrillation and flutter Cerebrovascular accident Onset Date: 2003 Chronic anemia Chronic lymphocytic leukemia Onset Date: ~1999 Chronic pain of left knee Diastolic heart failure Echo 02/23/2020: EF 60-65%, moderately increased LV wall thickness, abnormal diastolic function, global longitudinal strain is normal, mild left atrial enlargement, mild aortic valve sclerosis, mild mitral valve regurgitation, severe pulmonary hypertension with RVSP of 62 mmHg, [id number] pulmonic regurgitation, elevated right atrial pressures. Emphysema lung Essential hypertension Hyperlipidemia Hypertension Hypothyroidism Severe pulmonary hypertension Thrombocytopenia Surgical History: Surgical History (Last Reviewed 10/14/21 @ 21:44 by Elma Alarcon PA-C) History of ankle surgery Onset Date: ~1999 Right ankle ORIF with hardware. History of bladder surgery History of cholecystectomy History of hysterectomy History of lumbar surgery Family History: Family History (Last Reviewed 10/14/21 @ 21:44 by Elma Alarcon PA-C) Father Asthma Mother Family history of heart disease in male family member before age 55 Cerebrovascular accident Family history of arthritis Other No problems noted. Sibling Diabetes mellitus - Social History Social History: Social History (Last Updated 10/14/21 @ 21:46 by Elma Alarcon PA-C) Others: Spiritual care concerns: No Meds Home Medications Medication Instructions Recorded Confirmed Type acetaminophen 325 mg tablet 325 mg PO Q6H PRN 03/05/21 10/14/21 History calcium carbonate 500 mg calcium 500 mg PO DAILY PRN 03/05/21 10/14/21 History (1,250 mg) chewable tablet ibuprofen 800 mg tablet 800 mg PO TID PRN 03/05/21 10/14/21 History fluticasone propionate [Flonase 1 spray NASAL DAILY 03/16/21 10/14/21 History Allergy Relief] ondansetron 4 mg disintegrating 4 mg PO Q8H PRN #20 tablet 04/07/21 10/14/21 Rx tablet apixaban 2.5 mg tablet 2.5 mg PO BID #60 tablet 04/22/21 10/14/21 Rx spironolactone 25 mg tablet 25 mg PO DAILY #30 tablet 06/24/21 10/14/21 Rx ferrous sulfate 325 mg (65 mg 325 mg PO BID 30 Days #60 tablet NS 07/28/21 10/14/21 Rx iron) tablet simvastatin 40 mg tablet 40 mg PO DAILY #90 tablet 08/20/21 10/14/21 Rx furosemide 40 mg tablet 40 mg PO DAILY #30 tablet 09/24/21 10/14/21 Rx metoprolol succinate 50 mg 50 mg PO DAILY #30 tablet 10/06/21 10/14/21 Rx tablet,extended release 24 hr Allergies Allergy/AdvReac Type Severity Re
[2021-10-20] MEDS: FLUTICASONE PROPIONATE 0.05% NA SPR 16 GM BTL (*BKC) 1 SPRAY NASAL (13:22)
[2021-10-20] MEDS: POTASSIUM CHLORIDE 20 MEQ TABLET 40 MEQ PO (13:23)
[2021-10-20 14:40] LABS: Lactate Dehydrogenase 576 U/L (313-618)
[2021-10-20 14:43] LABS: Iron 40 ug/dL (37-170)
[2021-10-20 14:52] LABS: Percent Iron Saturation 17 % (20-50)
--- NOTE | 2021-10-20 15:42 | PM.CNNEP ---
Assessment and Plan Assessment and plan (1) Acute kidney injury: Code(s): N17.9 - Acute kidney failure, unspecified Status: Acute Assessment and Plan: the patient has an elevated creatinine. This was 1.9 on admission and has improved with fluids. she had a renal ultrasound which is unremarkable. Urine electrolytes are pre renal. Urinalysis shows pyuria Based on the history I would suspect that she was dehydrated on admission because she was unable to access food and water for a while. The patient also has COVID-19 which can sometimes affect the kidneys. She had a normal CK so she does not have rhabdomyolysis. She was on ibuprofen at home which can also affect the kidneys. And she was on diuretics at home as well. she has a bladder infection which can also affect the kidneys. Allergic interstitial nephritis and glomerulonephritis are lot unlikely in this clinical scenario. At this point I agree with continuing IV fluids. She is off of her ibuprofen. She is off of her diuretics. She is on antibiotics for her UTI. And the Klebsiella that grew is sensitive to what she is on. (2) COVID-19: Code(s): U07.1 - COVID-19 Status: Acute Assessment and Plan: She is on respiratory isolation. (3) Hypercalcemia: Code(s): E83.52 - Hypercalcemia Status: Acute Assessment and Plan: Calcium was very high on admission. It is better now. Vitamin-D are okay. PTH is low appropriately. PTHrP is pending. Sitter a bone scan down the line if the calcium stays high and she is released from COVID isolation. (4) Abnormal urinalysis: Code(s): R82.90 - Unspecified abnormal findings in urine Status: Acute Assessment and Plan: She has pyuria. She is on antibiotics. (5) Atrial fibrillation and flutter: Code(s): I48.91 - Unspecified atrial fibrillation; I48.92 - Unspecified atrial flutter Status: Acute Assessment and Plan: Currently in a flutter (6) Hypertension: Code(s): I10 - Essential (primary) hypertension Status: Acute Assessment and Plan: blood pressure is doing pretty well (7) Hypokalemia: Code(s): E87.6 - Hypokalemia Status: Acute Assessment and Plan: potassium is mildly low. She received okay run (8) Chronic anemia: Code(s): D64.9 - Anemia, unspecified Status: Acute Assessment and Plan: hemoglobin is on the low side. This may be due to chronic disease and acute illness. High calcium plus the anemia and her debilitated state suggest some sort of cancer. Alfreda evaluation of this as an outpatient History of Present Illness Reason for Consult Consult date: 10/20/21 Chief Complaint Chief complaint: jodi,left 5th finger fracture History of Present Illness Narrative: Nikky is an unfortunate 81-year-old lady who has multiple medical problems including hypertension, diastolic dysfunction but good systolic function, paroxysmal atrial fibrillation,pulmonary hypertension, emphysema, stroke,CLL, thrombocytopenia, hypothyroidism, hyperlipidemia, and emphysema, the patient came in the hospital because of weakness. She fell the night before she came into the hospital. She had some back pain and finger pain. She also had bruises on her knees. When asked she admitted to aches and pains all over subjective fever cough and a little shortness of breath along with diarrhea. After her fall she lay on the ground for a little while before the getting the opportunity to call 911. She did so they came to her home and took her to the ER. In the ER she was evaluated. She has a fracture of her finger. X-rays of the lumbar , Thoracic, and cervical spine were negative. CT brain was negative. CPK was normal. she was swabbed and was positive for COVID-19. She was admitted to the floor on respiratory isolation. He does have mildly high creatinine in
[2021-10-20 15:46] LABS: Folic Acid 11.1 ng/mL (2.76->20)
--- NOTE | 2021-10-20 15:46 | PCNFU ---
Nutrition Follow-Up Complete: Inadequate oral intake related to reported decreased appetie as evidenced by reported intake of 10% Goal: Pt to meet 75% of estimated nutritional needs Pt is slowly progressing towards goal Pt current nutrition is heart healthy diet and dietary supplements Last recorded weight is 69 kg, stable. Bowel Motility: +BM 10/17 reported Labs Reviewed: hgb 7.5, hct 25.0, alb 2.6, Na 135, K 3.3, GFR 33, BUN 26, Cr 1.50, Ca 10.7, NT-Pro-BNP 53314 Meds Noted: eliquis, ferrous sulfate, lasix, zocor Skin: left finger wound, left arm skin tear Additional Notes: Unable to visit with pt due to following covid precautions. Current nutrition is a heart healthy diet and dietary supplements of Ensure Compact BID providing an additional 220kcal and 9g of protein and Frozen Nutritional Treat BID providing an additional 300kcal and 9g of protein to increase caloric intake. Reported intake is 0%, 50%, 24%, 25%, and 15%. Spoke to nursing via phone who confirms intake and reports that pt is drinking the Ensure Compact but are unsure if pt is eating the Frozen Nutritional Treat. Nursing encouraged to continue to encourage intake of heart healthy diet and dietary supplements. Agree with diet order at this time. Will continue to follow. Will monitors labs, medication, wt, and reported intake every 3 days
[2021-10-21] VITALS (8 sets, daily range): BP systolic 102–123; BP diastolic 41–77; PULSE 65–91; RESP 15–20; TEMP 36.3–37.1; O2SAT 91–96
[2021-10-21 06:58] LABS: Alanine Aminotransferase 15 U/L (4-35); Albumin Level 2.7 g/dL (3.5-5.1); Alkaline Phosphatase 122 U/L (38-126); Anion Gap 1 mmol/L (8-16); Aspartate Amino Transferase 27 U/L (14-36); Bilirubin,Total 0.4 mg/dL (0.2-1.3); Blood Urea Nitrogen 25 mg/dL (7-17); Calcium 10.8 mg/dL (8.4-10.2); Carbon Dioxide 29 mmol/L (22-30); Chloride 104 mmol/L (98-107); Estimated CRCL calculation 30 ml/min; Estimated Glomerular Filt Rate 36; Glucose 114 mg/dL (65-110); Phosphorus 3.3 mg/dL (2.5-4.5); Potassium 3.5 mmol/L (3.4-5.0); Sodium 134 mmol/L (137-145)
[2021-10-21 07:05] LABS: Basophils Absolute Auto 0.1 K/mm3 (0.0-0.1); Basophils Percent Auto 0.6 % (0.2-1.2); Eosinophils Absolute Auto 0.1 K/mm3 (0-0.3); Eosinophils Percent Auto 0.8 % (0-4.4); Hematocrit 26.3 % (37.0-47.0); Hemoglobin 8.3 g/dL (12.0-15.0); Immature Granulocyte Percent A 1.1 % (0-0.5); Immature Platelet Fraction Pct 5.4 % (0.9-11.2); Lymphocytes Absolute Auto 6.82 K/mm3 (0.9-3.2); Lymphocytes Percent Auto 72.1 % (18.3-44.2); Mean Corpuscular HGB Conc 31.6 g/dl (32-36); Mean Corpuscular Hemoglobin 32.2 pg (26-34); Mean Corpuscular Volume 101.9 fl (80-100); Mean Platelet Volume 11.7 fl (7.4-10.4); Monocytes Absolute Auto 1.4 K/mm3 (0.1-0.6); Monocytes Percent Auto 14.7 % (2.6-8.5); Neutrophils Percent Auto 10.7 % (45.5-73.1); Platelet Count Result 111 k/mm3 (150-375); Red Blood Count 2.58 M/mm3 (4.2-5.4); Red Cell Distribution Width 17.9 % (11.5-14.5); White Blood Count 9.5 K/mm3 (4.5-10.0)
[2021-10-21] MEDS: APIXABAN 2.5 MG TABLET PO ×2 (08:33→16:48)
[2021-10-21] MEDS: FUROSEMIDE INJ 40 MG/4 ML VIAL 20 MG IV PUSH ×2 (08:33→16:48)
[2021-10-21] MEDS: SIMVASTATIN 20 MG TABLET 40 MG PO (08:33)
[2021-10-21] MEDS: FERROUS SULFATE 324 MG TABLET PO ×2 (08:33→16:48)
[2021-10-21] MEDS: FLUTICASONE PROPIONATE 0.05% NA SPR 16 GM BTL (*BKC) 1 SPRAY NASAL (08:35)
[2021-10-21 08:48] LABS: Platelet Estimate Decreased (Adequate); Smudge Cells MODERATE
--- NOTE | 2021-10-21 09:44 | PM.PNNEP ---
Progress Note: A&P Assessment and Plan (1) Acute kidney injury: Code(s): N17.9 - Acute kidney failure, unspecified Status: Acute Assessment and Plan: the patient has an elevated creatinine. she had a renal ultrasound which is unremarkable. Urine electrolytes are pre renal. Urinalysis shows pyuria Most likely patient has dehydration. She was on ibuprofen at home. The patient is not oxygen so I doubt that the COVID-19 is having a big effect here. Will continue the IV fluids. See how she eats today. If the creatinine is better tomorrow consider stopping the IVF. (2) COVID-19: Code(s): U07.1 - COVID-19 Status: Acute Assessment and Plan: She is on respiratory isolation. (3) Hypercalcemia: Code(s): E83.52 - Hypercalcemia Status: Acute Assessment and Plan: Calcium was very high on admission. It is better now. It seems to have reached a baseline. Vitamin-D are okay. PTH is low appropriately. PTHrP is pending. (4) Abnormal urinalysis: Code(s): R82.90 - Unspecified abnormal findings in urine Status: Acute Assessment and Plan: She has pyuria. She is on antibiotics. (5) Atrial fibrillation and flutter: Code(s): I48.91 - Unspecified atrial fibrillation; I48.92 - Unspecified atrial flutter Status: Acute Assessment and Plan: Currently in a flutter (6) Hypertension: Code(s): I10 - Essential (primary) hypertension Status: Acute Assessment and Plan: blood pressure is doing pretty well (7) Hypokalemia: Code(s): E87.6 - Hypokalemia Status: Acute Assessment and Plan: potassium is mildly low. She received okay run (8) Chronic anemia: Code(s): D64.9 - Anemia, unspecified Status: Acute Assessment and Plan: hemoglobin is on the low side. This may be due to chronic disease and acute illness. High calcium plus the anemia and her debilitated state suggest some sort of cancer. Further evaluation of this as an outpatient per PCP Subjective Date/time seen: 10/21/21 09:44 Interval history: Patient is alert and oriented. She feels better. Cough is better and breathing is better. Review of Systems Cardiovascular: Cardiovascular: Reports no additional cardiovascular complaints Respiratory: Respiratory: Reports no additional respiratory complaints Gastrointestinal: Gastrointestinal: Reports no additional gastrointestinal complaints Genitourinary: Genitourinary: Reports no additional female genitourinary complaints Exam Narrative: WDWN in NAD skin no rash head ncat lungs clear cor reg no rub abd BS+ nontender and soft ext no edema. Objective Data Vital Signs Vital Signs: Vital Signs - 24 hr 10/20/21 12:00 10/20/21 16:00 10/20/21 20:00 Temperature 36.6 C 36.5 C 36.9 C Pulse Rate 100 87 74 Respiratory Rate 18 18 16 Blood Pressure 115/60 109/64 101/52 L Pulse Oximetry 98 97 93 10/21/21 00:00 10/21/21 04:00 10/21/21 08:00 Temperature 36.3 C L 36.6 C 36.5 C Pulse Rate 87 87 66 Respiratory Rate 16 19 18 Blood Pressure 110/56 L 119/64 123/68 Pulse Oximetry 93 94 91 Intake/Output Intake/Output: Intake & Output 10/18/21 10/19/21 10/20/21 10/21/21 23:59 23:59 23:59 23:59 Intake Total 1420 3070 2530 910 Balance 1420 3070 2530 910 Meds/Results Medications: Active Medications Generic Name Dose Route Start Last Admin Trade Name Ahsanq PRN Reason Stop Dose Admin Acetaminophen 325 mg 10/14/21 22:07 10/15/21 09:37 Acetaminophen 325 Mg Tablet PO 325 mg Q6H PRN Administration pain 1-3 Hydrocodone Bitart/Acetaminophen 1 tab 10/15/21 10:06 10/18/21 11:35 Hydrocodone/Acetaminophen (*Crx) 5-325 Mg Tablet PO 1 tab Q4H PRN Administration Pain Rated 4-6 Apixaban 2.5 mg 10/17/21 09:00 10/21/21 08:33 Apixaban 2.5 Mg Tablet PO 2.5 mg BID TANG Administration F
--- NOTE | 2021-10-21 10:00 | PM.IMPN ---
Progress Note: A&P Assessment and Plan (1) UTI (urinary tract infection): Qualifiers: Urinary tract infection type: acute cystitis Hematuria presence: with hematuria Qualified Code(s): N30.01 - Acute cystitis with hematuria Code(s): N39.0 - Urinary tract infection, site not specified Status: Acute Assessment and Plan: -UA suspicious for UTI -Ceftriaxone #6 -urine culture with klebsiella sensitive to ceftriaxone (2) COVID-19: Code(s): U07.1 - COVID-19 Status: Acute Assessment and Plan: - Not currently requiring oxygen. -Chest x-ray shows edema vs pneumonia. -Supportive care. -Not starting remdesivir at this time due to renal function. (3) Acute kidney injury: Code(s): N17.9 - Acute kidney failure, unspecified Status: Acute Assessment and Plan: -creat on admission 1.9, only improved to 1.4 after 72 hrs of IVF, baseline is around 0.8 -thought to be secondary to dehydration, NSAID intake and over diuresis however she has not improved with IVF -CXR w/ cardiomegaly and edema vs pneumonia, BNP is 18,200 however unclear whether this is due to edema or elevated due to renal failure -pressure has been soft so gave albumin to help with that prior to giving one dose of 20 mg IV lasix, suspect she may be fluid overloaded -showing improvement with Lasix, will continue this with close monitoring. Her LE edema has improved. Also giving cautious IVF due to her elevated calcium levels. -nephrology consult (4) Hypercalcemia: Code(s): E83.52 - Hypercalcemia Status: Acute Assessment and Plan: -Somewhat concerning given acute kidney injury as well. -CT abd/pelv shows severe splenomegaly and abdominal and retroperitoneal lymphadenopathy, consistent with CLL. Calcified lymph nodes in the retroperitoneum and pelvis are consistent with treated CLL. -spoke w/ patient who states she was treated she thinks last year with chemo and has follow up every three months. Does not know the name of her oncologist. Will attempt to get more info from family. -oncology consult -currently getting cautious IVF (5) Fall from bed: Code(s): W06.XXXA - Fall from bed, initial encounter Status: Acute Assessment and Plan: Patient states this was a mechanical fall. No obvious head trauma on exam. Denies loss of consciousness. Initiate fall precautions. (6) Closed displaced fracture of proximal phalanx of left little finger: Qualifiers: Encounter type: initial encounter Qualified Code(s): S62.617A - Displaced fracture of proximal phalanx of left little finger, initial encounter for closed fracture Code(s): S62.617A - Displaced fracture of proximal phalanx of left little finger, initial encounter for closed fracture Status: Acute Assessment and Plan: Splinted. Seen by Dr. Car in the emergency department; she will need a close or possibly open reduction and possible internal fixation when she gets to feeling better. (7) Chronic anemia: Code(s): D64.9 - Anemia, unspecified Status: Acute Assessment and Plan: Hemoglobin and hematocrit are stable on review of previous labs. (8) Thrombocytopenia: Code(s): D69.6 - Thrombocytopenia, unspecified Status: Acute Assessment and Plan: An intermittent finding for the patient over the years. Continue monitoring. (9) Atrial fibrillation and flutter: Code(s): I48.91 - Unspecified atrial fibrillation; I48.92 - Unspecified atrial flutter Status: Acute Assessment and Plan: -Rate controlled. metoprolol on hold as BP has been soft. anticoagulation held for 48 hours as she has just sustained a fall with pretty significant bruising and hematoma to the left hand. -eliquis resumed (10) Hypertension: Code(s): I10 - Essential (primary) hypertension Status: Acute Assessment and P
--- NOTE | 2021-10-21 13:06 | PCOTNOTE ---
Attempted to see patient this pm, however patient refused stating, No, I just want to sleep right now.
--- NOTE | 2021-10-21 16:37 | PC.NURSE ---
On 10/21/21, the student, [ Janiya Ny], provided care and completed [facility] documentation on this patient. I have reviewed the student's documentation and agree with the findings.
[2021-10-21] MEDS: SODIUM CHLORIDE 0.9% IV 1,000 ML 75 ML IV CONT (16:46)
--- NOTE | 2021-10-21 17:10 | WPDPN ---
Progress Note: A&P Assessment and Plan (1) Closed displaced fracture of proximal phalanx of left little finger: Qualifiers: Encounter type: initial encounter Qualified Code(s): S62.617A - Displaced fracture of proximal phalanx of left little finger, initial encounter for closed fracture Code(s): S62.617A - Displaced fracture of proximal phalanx of left little finger, initial encounter for closed fracture Status: Acute Assessment and Plan: Finger condition remains the same. Will papo splint with tape. May try to do a closed reduction with local at bedside tomorrow. Time Spent With Patient Time with patient: less than 15 minutes Subjective Date/time seen: 10/21/21 17:10 Pt up in chair. Says she has been sick to her stomach. Dr Bowles's note appreciated. Left 5th finger splint removed. Bruising has improved. Finger tender to passive ROM. Proximal phalanx angulated dorsally 80*. Also appears radially rotated. Active ROM very limited. Still in need of reduction. Will discontinue rigid splint and try papo taping to limber up the joints. May try Closed reduction under local at the bedside tomorrow. Objective Data Vital Signs Vital Signs: Vital Signs - 24 hr 10/20/21 20:00 10/21/21 00:00 10/21/21 04:00 Temperature 98.5 F 97.4 F L 97.9 F Pulse Rate 74 87 87 Respiratory Rate 16 16 19 Blood Pressure 101/52 L 110/56 L 119/64 Pulse Oximetry 93 93 94 10/21/21 08:00 10/21/21 11:58 10/21/21 13:34 Temperature 97.7 F 98.1 F 98.7 F Pulse Rate 66 65 77 Respiratory Rate 18 18 20 Blood Pressure 123/68 102/41 L 111/55 L Pulse Oximetry 93 96 93 10/21/21 16:00 Temperature 97.5 F L Pulse Rate 91 Respiratory Rate 18 Blood Pressure 107/77 Pulse Oximetry 95 Intake/Output Intake/Output: Intake & Output 10/18/21 10/19/21 10/20/21 10/21/21 23:59 23:59 23:59 23:59 Intake Total 1420 3070 2530 2150 Balance 1420 3070 2530 2150 Meds/Results Medications: Active Medications Generic Name Dose Route Start Last Admin Trade Name Freq PRN Reason Stop Dose Admin Acetaminophen 325 mg 10/14/21 22:07 10/15/21 09:37 Acetaminophen 325 Mg Tablet PO 325 mg Q6H PRN Administration pain 1-3 Hydrocodone Bitart/Acetaminophen 1 tab 10/15/21 10:06 10/18/21 11:35 Hydrocodone/Acetaminophen (*Crx) 5-325 Mg Tablet PO 1 tab Q4H PRN Administration Pain Rated 4-6 Apixaban 2.5 mg 10/17/21 09:00 10/21/21 16:48 Apixaban 2.5 Mg Tablet PO 2.5 mg BID TANG Administration Ferrous Sulfate 324 mg 10/15/21 09:00 10/21/21 16:48 Ferrous Sulfate 324 Mg Tablet PO 324 mg BID TANG Administration Fluticasone Propionate 1 spray 10/15/21 09:00 10/21/21 08:35 Fluticasone Propionate 0.05% Na Spr 16 Gm Btl (*Bkc) NASAL 1 spray DAILY TANG Administration Furosemide 20 mg 10/18/21 10:05 10/21/21 16:48 Furosemide Inj 40 Mg/4 Ml Vial IV PUSH 20 mg BID TANG Administration Ceftriaxone Sodium/Dextrose 1 gm in 50 mls @ 100 mls/hr 10/14/21 22:10 10/20/21 20:05 Rocephin 1 Gm/D5w 50 Ml IVPB 100 mls/hr HS TANG Administration Sodium Chloride 1,000 mls @ 75 mls/hr 10/18/21 13:50 10/21/21 16:46 Normal Saline Iv IV CONT 75 mls/hr .[id number] TANG Administration Metoprolol Succinate 50 mg 10/15/21 09:00 10/16/21 10:11 Metoprolol Succinate Ext Rel 50 Mg Tabcr PO 50 mg DAILY TANG Administration Ondansetron HCl 4 mg 10/19/21 14:16 10/19/21 17:33 Ondansetron Inj 4 Mg/2 Ml Vial IV PUSH 4 mg Q6H PRN Administration Nausea And Vomiting Oxycodone/Acetaminophen 1 tablet 10/15/21 10:06 Oxycodone/Acetaminophen (*Crx) 5-325 Mg Tablet PO Q4H PRN Pain Rated 7-10 Simvastatin 40 mg 10/15/21 09:00 10/21/21 08:33 Simvastatin 20 Mg Tablet PO 40 mg DAILY TANG Administration Radiology Results: ITS Impressions Lumbar Spine X-Ray 10/14/21 11:59 Impression: 1: Moderate lumbar spondylosis. 2: No acute abnorm
[2021-10-21 23:01] LABS: Parathyroid Hormone Related Pr 6 pg/mL (11-20)
[2021-10-22 04:00] VITALS: BP 116/52; PULSE 56; RESP 15; TEMP 37; O2SAT 95
[2021-10-22 04:55] LABS: Ionized Calcium 6.5 mg/dL (4.8-5.6)
[2021-10-22 07:25] LABS: Albumin Level 2.7 g/dL (3.5-5.1); Anion Gap 0 mmol/L (8-16); Blood Urea Nitrogen 22 mg/dL (7-17); Calcium 10.3 mg/dL (8.4-10.2); Carbon Dioxide 31 mmol/L (22-30); Chloride 106 mmol/L (98-107); Estimated CRCL calculation 35 ml/min; Estimated Glomerular Filt Rate 43; Glucose 93 mg/dL (65-110); Phosphorus 2.8 mg/dL (2.5-4.5); Potassium 3.3 mmol/L (3.4-5.0); Sodium 137 mmol/L (137-145)
[2021-10-22 08:09] LABS: Glucose Point of Care 93 mg/dl (65-105)
[2021-10-22] MEDS: FUROSEMIDE INJ 40 MG/4 ML VIAL 20 MG IV PUSH ×2 (08:23→18:45)
[2021-10-22] MEDS: FERROUS SULFATE 324 MG TABLET PO ×2 (08:24→18:46)
[2021-10-22] MEDS: SIMVASTATIN 20 MG TABLET 40 MG PO (08:24)
[2021-10-22] MEDS: APIXABAN 2.5 MG TABLET PO ×2 (08:24→18:45)
[2021-10-22] MEDS: FLUTICASONE PROPIONATE 0.05% NA SPR 16 GM BTL (*BKC) 1 SPRAY NASAL (08:24)
[2021-10-22 09:11] VITALS: BP 121/75; PULSE 98; RESP 20; TEMP 36.4; O2SAT 97
[2021-10-22 11:29] LABS: Glucose Point of Care 118 mg/dl (65-105)
--- NOTE | 2021-10-22 12:11 | WPDPN ---
Progress Note: A&P Assessment and Plan (1) Closed displaced fracture of proximal phalanx of left little finger: Qualifiers: Encounter type: initial encounter Qualified Code(s): S62.617A - Displaced fracture of proximal phalanx of left little finger, initial encounter for closed fracture Code(s): S62.617A - Displaced fracture of proximal phalanx of left little finger, initial encounter for closed fracture Status: Acute Assessment and Plan: Will try closed reduction of left 5th proximal phalanx under local and f/u with bedside x-ray. Subjective Date/time seen: 10/22/21 12:11 Pt resting in bed. Has been up for a while but has pain in back and shoulder. She agrees to try a closed reduction of the left 5th finger fracture. Objective Data Vital Signs Vital Signs: Vital Signs - 24 hr 10/21/21 13:34 10/21/21 16:00 10/21/21 20:00 Temperature 98.7 F 97.5 F L 97.6 F Pulse Rate 77 91 85 Respiratory Rate 20 18 16 Blood Pressure 111/55 L 107/77 121/60 Pulse Oximetry 93 95 95 10/21/21 23:53 10/22/21 04:00 10/22/21 09:11 Temperature 98.3 F 98.6 F 97.5 F L Pulse Rate 78 56 L 98 Respiratory Rate 15 15 20 Blood Pressure 120/62 116/52 L 121/75 Pulse Oximetry 95 95 97 Intake/Output Intake/Output: Intake & Output 10/19/21 10/20/21 10/21/21 10/22/21 23:59 23:59 23:59 23:59 Intake Total 3070 2580 2530 790 Balance 3070 2580 2530 790 Meds/Results Medications: Active Medications Generic Name Dose Route Start Last Admin Trade Name Freq PRN Reason Stop Dose Admin Acetaminophen 325 mg 10/14/21 22:07 10/15/21 09:37 Acetaminophen 325 Mg Tablet PO 325 mg Q6H PRN Administration pain 1-3 Hydrocodone Bitart/Acetaminophen 1 tab 10/15/21 10:06 10/18/21 11:35 Hydrocodone/Acetaminophen (*Crx) 5-325 Mg Tablet PO 1 tab Q4H PRN Administration Pain Rated 4-6 Apixaban 2.5 mg 10/17/21 09:00 10/22/21 08:24 Apixaban 2.5 Mg Tablet PO 2.5 mg BID TANG Administration Ferrous Sulfate 324 mg 10/15/21 09:00 10/22/21 08:24 Ferrous Sulfate 324 Mg Tablet PO 324 mg BID TANG Administration Fluticasone Propionate 1 spray 10/15/21 09:00 10/22/21 08:24 Fluticasone Propionate 0.05% Na Spr 16 Gm Btl (*Bkc) NASAL 1 spray DAILY TANG Administration Furosemide 20 mg 10/18/21 10:05 10/22/21 08:23 Furosemide Inj 40 Mg/4 Ml Vial IV PUSH 20 mg BID TANG Administration Ceftriaxone Sodium/Dextrose 1 gm in 50 mls @ 100 mls/hr 10/14/21 22:10 10/21/21 22:35 Rocephin 1 Gm/D5w 50 Ml IVPB Infused HS TANG Infusion Metoprolol Succinate 50 mg 10/15/21 09:00 10/16/21 10:11 Metoprolol Succinate Ext Rel 50 Mg Tabcr PO 50 mg DAILY TANG Administration Ondansetron HCl 4 mg 10/19/21 14:16 10/19/21 17:33 Ondansetron Inj 4 Mg/2 Ml Vial IV PUSH 4 mg Q6H PRN Administration Nausea And Vomiting Oxycodone/Acetaminophen 1 tablet 10/15/21 10:06 Oxycodone/Acetaminophen (*Crx) 5-325 Mg Tablet PO Q4H PRN Pain Rated 7-10 Simvastatin 40 mg 10/15/21 09:00 10/22/21 08:24 Simvastatin 20 Mg Tablet PO 40 mg DAILY TANG Administration Radiology Results: ITS Impressions Lumbar Spine X-Ray 10/14/21 11:59 Impression: 1: Moderate lumbar spondylosis. 2: No acute abnormality of the lumbar spine. Hand X-Ray 10/14/21 12:05 IMPRESSION: 1. Transverse fracture of base of fifth proximal phalanx. Thoracic Spine X-Ray 10/14/21 12:08 Impression: 1: Moderate thoracic spondylosis. Cervical Spine CT 10/14/21 12:11 IMPRESSION: 1. No acute intracranial findings or cervical fracture. 2. Rather extensive right-sided predominant sinus opacity, mucoperiosteal thickening or sinusitis. 3. Advanced cervical spondylosis. 4. Age-related intracranial findings. Head CT 10/14/21 12:11
--- NOTE | 2021-10-22 12:15 | P.OP_ITS ---
Procedure Note - Detailed Date of Procedure 10/22/21 Pre-op Diagnosis Displaced closed fracture proximal phalanx left 5th finger Post-op Diagnosis same Procedure Performed Closed reduction left 5th finger proximal phalanx and application of aluminum splint. Surgeon Evan Car MD Anesthesia local Description of Procedure The patient was resting in her bed on her left side. She signed a consent for closed reduction. The finger was exposed, all taping was removed. The base of the finger was prepped with alcohol. Local anesthetic with 1% lidocaine with epinephrine was infiltrated as a digital block. Adequate anesthesia was obtained. With gloved hands we were able to distract the fracture and repo sition it. It was fairly unstable but did well with the metacarpophalangeal joint flexed once it was reduced. We checked for rotation and made correction for that. There was no bleeding. The [place] splint was tailored and applied in a position of function with the metacarpophalangeal joint flexed approximately 60? and the IP joints straight. An x-ray was ordered. Complications No immediate complications Condition stable Disposition no change
[2021-10-22 12:38] VITALS: BP 102/41; PULSE 100; RESP 18; TEMP 36.2; O2SAT 95
--- NOTE | 2021-10-22 13:23 | PCNFU ---
Nutrition Follow-Up Complete: Inadequate oral intake related to reported decreased appetie as evidenced by reported intake of 10% Goal: Pt to meet 75% of estimated nutritional needs Pt is slowly progressing towards goal Pt current nutrition is heart healthy Last recorded weight is 69.5 kg. Bowel Motility: No new BM reported, LBM 10/17 Labs Reviewed: hgb 8.3, hct 26.3, alb 2.7, CO2 31, K 3.3, GFR 43, BUN 22, Cr 1.2, Ca 10.3, Ferritin 283 Meds Noted: eliquis, ferrous sulfate, lasix, zocor Skin: wound on left little finger, left arm skin tear Additional Notes: Unable to visit with pt due to following covid precautions. Current nutrition is a heart healthy diet and dietary supplements of Ensure Compact BID providing an additional 220kcal and 9g of protein and Frozen Nutritional Treat BID providing an additional 300kcal and 9g of protein to increase caloric intake. Reported intake of 100%, 0%, 10%, 25%, and 75%. Spoke to pt via phone who reports that her appetite is better. Pt reports that she has been trying to drink the Ensure Compact and eat the Frozen Nutritional Treat. RDN encourage intake of heart healthy diet and dietary supplements. Pt agreed. Agree with diet orders at this time. Will continue to follow. Will monitors labs, medication, wt, and reported intake every 3 days
--- NOTE | 2021-10-22 13:57 | PM.PNNEP ---
Progress Note: A&P Assessment and Plan (1) Acute kidney injury: Code(s): N17.9 - Acute kidney failure, unspecified Status: Acute Assessment and Plan: the patient has an elevated creatinine. she had a renal ultrasound which is unremarkable. Urine electrolytes are pre renal. Urinalysis shows pyuria Most likely patient has dehydration. She was on ibuprofen at home. she has been getting IV fluids. Now,there is been some suspicion of volume overload. So diuretics were begun. chest x-ray shows fluid. will stop IV fluids. (2) COVID-19: Code(s): U07.1 - COVID-19 Status: Acute Assessment and Plan: She is on respiratory isolation. Requires no oxygen at this point (3) Hypercalcemia: Code(s): E83.52 - Hypercalcemia Status: Acute Assessment and Plan: Calcium was very high on admission. It is better now. It seems to have reached a baseline in the low 10s ionized calcium is also high. Vitamin-D are okay. PTH is low appropriately. PTHrP is low. while she is here will get a 24hour urine calcium to make sure this isn't hereditaryhypocalcuric hypercalcemia. (4) Abnormal urinalysis: Code(s): R82.90 - Unspecified abnormal findings in urine Status: Acute Assessment and Plan: She has pyuria. She is on antibiotics. (5) Atrial fibrillation and flutter: Code(s): I48.91 - Unspecified atrial fibrillation; I48.92 - Unspecified atrial flutter Status: Acute Assessment and Plan: Currently in aflutter (6) Hypertension: Code(s): I10 - Essential (primary) hypertension Status: Acute Assessment and Plan: blood pressure is doing pretty well (7) Hypokalemia: Code(s): E87.6 - Hypokalemia Status: Acute Assessment and Plan: potassium is mildly low. She received okay run (8) Chronic anemia: Code(s): D64.9 - Anemia, unspecified Status: Acute Assessment and Plan: hemoglobin is on the low side. This may be due to chronic disease and acute illness. High calcium plus the anemia and her debilitated state suggest some sort of cancer. Further evaluation of this as an outpatient per PCP Subjective Date/time seen: 10/22/21 13:57 Interval history: Patient is alert and oriented. Comfortable. She feels better. Cough is better and breathing is better. Exam Narrative: WDWN in NAD skin no rash or subcu nodules head ncat lungs clear bilateral cor reg no rub abd BS+ nontender and soft ext no edema. Objective Data Vital Signs Vital Signs: Vital Signs - 24 hr 10/21/21 16:00 10/21/21 20:00 10/21/21 23:53 Temperature 36.4 C L 36.4 C 36.8 C Pulse Rate 91 85 78 Respiratory Rate 18 16 15 Blood Pressure 107/77 121/60 120/62 Pulse Oximetry 95 95 95 10/22/21 04:00 10/22/21 09:11 10/22/21 12:38 Temperature 37.0 C 36.4 C L 36.2 C L Pulse Rate 56 L 98 100 Respiratory Rate 15 20 18 Blood Pressure 116/52 L 121/75 102/41 L Pulse Oximetry 95 97 95 Intake/Output Intake/Output: Intake & Output 10/19/21 10/20/21 10/21/21 10/22/21 23:59 23:59 23:59 23:59 Intake Total 3070 2580 2530 820 Balance 3070 2580 2530 820 Meds/Results Medications: Active Medications Generic Name Dose Route Start Last Admin Trade Name Freq PRN Reason Stop Dose Admin Acetaminophen 325 mg 10/14/21 22:07 10/15/21 09:37 Acetaminophen 325 Mg Tablet PO 325 mg Q6H PRN Administration pain 1-3 Hydrocodone Bitart/Acetaminophen 1 tab 10/15/21 10:06 10/18/21 11:35 Hydrocodone/Acetaminophen (*Crx) 5-325 Mg Tablet PO 1 tab Q4H PRN Administration Pain Rated 4-6 Apixaban 2.5 mg 10/17/21 09:00 10/22/21 08:24 Apixaban 2.5 Mg Tablet PO 2.5 mg BID TANG Administration Ferrous Sulfate 324 mg 10/15/21 09:00 10/22/21 08:24 Ferrous Sulfate 324 Mg Tablet PO 324 mg BID TANG Administration Fluticasone Propionate
[2021-10-22] MEDS: HYDROcodone/acetaminophen (*CRX) 5-325 MG TABLET 1 TAB PO (15:44)
[2021-10-22 16:41] LABS: Glucose Point of Care 102 mg/dl (65-105)
[2021-10-22 16:53] VITALS: BP 110/59; PULSE 99; RESP 20; TEMP 36.6; O2SAT 95
--- NOTE | 2021-10-22 17:46 | PM.IMPN ---
Progress Note: A&P Assessment and Plan (1) UTI (urinary tract infection): Qualifiers: Urinary tract infection type: acute cystitis Hematuria presence: with hematuria Qualified Code(s): N30.01 - Acute cystitis with hematuria Code(s): N39.0 - Urinary tract infection, site not specified Status: Acute Assessment and Plan: -UA suspicious for UTI -Ceftriaxone #7 -urine culture with klebsiella sensitive to ceftriaxone (2) COVID-19: Code(s): U07.1 - COVID-19 Status: Acute Assessment and Plan: - Not currently requiring oxygen. -Chest x-ray shows edema vs pneumonia. -Supportive care. -Not starting remdesivir at this time due to renal function. (3) Acute kidney injury: Code(s): N17.9 - Acute kidney failure, unspecified Status: Acute Assessment and Plan: -creat on admission 1.9, only improved to 1.4 after 72 hrs of IVF, baseline is around 0.8. Stop IV fluid today. -thought to be secondary to dehydration, NSAID intake and over diuresis however she has not improved with IVF -CXR w/ cardiomegaly and edema vs pneumonia, BNP is 18,200 however unclear whether this is due to edema or elevated due to renal failure -pressure has been soft so gave albumin to help with that prior to giving one dose of 20 mg IV lasix, suspect she may be fluid overloaded -showing improvement with Lasix, will continue this with close monitoring. Her LE edema has improved. Also giving cautious IVF due to her elevated calcium levels. -nephrology consult was requested; appreciate recommendations. (4) Hypercalcemia: Code(s): E83.52 - Hypercalcemia Status: Acute Assessment and Plan: -Somewhat concerning given acute kidney injury as well. -CT abd/pelv shows severe splenomegaly and abdominal and retroperitoneal lymphadenopathy, consistent with CLL. Calcified lymph nodes in the retroperitoneum and pelvis are consistent with treated CLL. -spoke w/ patient who states she was treated she thinks last year with chemo and has follow up every three months. Does not know the name of her oncologist. Will attempt to get more info from family. -oncology consult -currently getting cautious IVF (5) Fall from bed: Code(s): W06.XXXA - Fall from bed, initial encounter Status: Acute Assessment and Plan: Patient states this was a mechanical fall. No obvious head trauma on exam. Denies loss of consciousness. Initiate fall precautions. (6) Closed displaced fracture of proximal phalanx of left little finger: Qualifiers: Encounter type: initial encounter Qualified Code(s): S62.617A - Displaced fracture of proximal phalanx of left little finger, initial encounter for closed fracture Code(s): S62.617A - Displaced fracture of proximal phalanx of left little finger, initial encounter for closed fracture Status: Acute Assessment and Plan: Splinted. Seen by Dr. Car in the emergency department; she will need a close or possibly open reduction and possible internal fixation when she gets to feeling better. (7) Chronic anemia: Code(s): D64.9 - Anemia, unspecified Status: Acute Assessment and Plan: Hemoglobin and hematocrit are stable on review of previous labs. (8) Thrombocytopenia: Code(s): D69.6 - Thrombocytopenia, unspecified Status: Acute Assessment and Plan: An intermittent finding for the patient over the years. Continue monitoring. (9) Atrial fibrillation and flutter: Code(s): I48.91 - Unspecified atrial fibrillation; I48.92 - Unspecified atrial flutter Status: Acute Assessment and Plan: -Rate controlled. metoprolol on hold as BP has been soft. anticoagulation held for 48 hours as she has just sustained a fall with pretty significant bruising and hematoma to the left hand. -eliquis resumed (10) Hypertension: Code(s): I10 - Essential (p
[2021-10-22 20:00] VITALS: BP 102/45; PULSE 84; RESP 16; TEMP 36.4; O2SAT 97
[2021-10-22 20:26] VITALS: O2SAT 95
[2021-10-23] VITALS: BP 112/51; PULSE 88; RESP 17; TEMP 36.8; O2SAT 96
[2021-10-23] MEDS: HYDROcodone/acetaminophen (*CRX) 5-325 MG TABLET 1 TAB PO ×3 (02:00→17:28)
[2021-10-23 04:00] VITALS: BP 106/57; PULSE 98; RESP 16; TEMP 37.4; O2SAT 96
[2021-10-23 07:26] LABS: Albumin Level 2.7 g/dL (3.5-5.1); Anion Gap 2 mmol/L (8-16); Blood Urea Nitrogen 22 mg/dL (7-17); Calcium 10.2 mg/dL (8.4-10.2); Carbon Dioxide 31 mmol/L (22-30); Chloride 101 mmol/L (98-107); Estimated CRCL calculation 33 ml/min; Estimated Glomerular Filt Rate 39; Glucose 95 mg/dL (65-110); Phosphorus 3.2 mg/dL (2.5-4.5); Potassium 3.2 mmol/L (3.4-5.0); Sodium 134 mmol/L (137-145)
[2021-10-23 08:11] VITALS: BP 100/50; PULSE 75; RESP 20; TEMP 36.1; O2SAT 93
[2021-10-23] MEDS: FUROSEMIDE INJ 40 MG/4 ML VIAL 20 MG IV PUSH ×2 (08:36→17:28)
[2021-10-23] MEDS: APIXABAN 2.5 MG TABLET PO ×2 (08:37→17:27)
[2021-10-23] MEDS: SIMVASTATIN 20 MG TABLET 40 MG PO (08:37)
[2021-10-23] MEDS: FERROUS SULFATE 324 MG TABLET PO ×2 (08:37→17:27)
[2021-10-23] MEDS: FLUTICASONE PROPIONATE 0.05% NA SPR 16 GM BTL (*BKC) 1 SPRAY NASAL (08:45)
--- NOTE | 2021-10-23 10:37 | PM.PNNEP ---
Progress Note: A&P Assessment and Plan (1) Acute kidney injury: Code(s): N17.9 - Acute kidney failure, unspecified Status: Acute Assessment and Plan: in June and July of 2021 patient's creatinine was running about 1.2-1.3. This may be a baseline for her such that she does have some mild chronic kidney disease. 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 The patient had normal creatinine is before that but I am not sure she is going to get back to that level of function. she has acute kidney injury on top of that. Her creatinine started out at 1.9 but has come back down to her former baseline. she had a renal ultrasound which is unremarkable. Urine electrolytes are pre renal. Urinalysis shows pyuria This is due to ibuprofen, bladder infection, possible dehydration. After hydration her chest x-ray showed some fluid so the IV fluids were stopped. She is doing well now off oxygen. (2) COVID-19: Code(s): U07.1 - COVID-19 Status: Acute Assessment and Plan: She is on respiratory isolation. Requires no oxygen at this point (3) Hypercalcemia: Code(s): E83.52 - Hypercalcemia Status: Acute Assessment and Plan: Calcium was very high on admission. It is better now. It seems to have reached a baseline in the low 10s ionized calcium is also high. Vitamin-D are okay. PTH is low appropriately. PTHrP is low. while she is here will get a 24hour urine calcium to make sure this isn't hereditaryhypocalcuric hypercalcemia. (4) Abnormal urinalysis: Code(s): R82.90 - Unspecified abnormal findings in urine Status: Acute Assessment and Plan: She has pyuria. She is on antibiotics. (5) Atrial fibrillation and flutter: Code(s): I48.91 - Unspecified atrial fibrillation; I48.92 - Unspecified atrial flutter Status: Acute Assessment and Plan: Currently in aflutter (6) Hypertension: Code(s): I10 - Essential (primary) hypertension Status: Acute Assessment and Plan: blood pressure is stable (7) Hypokalemia: Code(s): E87.6 - Hypokalemia Status: Acute Assessment and Plan: potassium is mildly low. will give her supplement. (8) Chronic anemia: Code(s): D64.9 - Anemia, unspecified Status: Acute Assessment and Plan: hemoglobin is on the low side. This may be due to chronic disease and acute illness. High calcium plus the anemia and her debilitated state suggest some sort of cancer. Further evaluation of this as an outpatient per PCP Subjective Date/time seen: 10/23/21 10:37 Interval history: Patient is alert and oriented. Comfortable. She feels better. No shortness of breath. She is not on oxygen. Exam Narrative: WDWN in NAD skin no rash head ncat lungs clear to auscultation cor reg no rub abd BS+ nontender and soft ext no edema or cyanosis. Objective Data Vital Signs Vital Signs: Vital Signs - 24 hr 10/22/21 12:38 10/22/21 16:53 10/22/21 20:00 Temperature 36.2 C L 36.6 C 36.4 C L Pulse Rate 100 99 84 Respiratory Rate 18 20 16 Blood Pressure 102/41 L 110/59 L 102/45 L Pulse Oximetry 95 95 97 10/22/21 20:26 10/23/21 00:00 10/23/21 04:00 Temperature 36.8 C 37.4 C Pulse Rate 88 98 Respiratory Rate 17 16 Blood Pressure 112/51 L 106/57 L Pulse Oximetry 95 96 96 10/23/21 08:11 Temperature 36.1 C L Pulse Rate 75 Respiratory Rate 20 Blood Pressure 100/50 L Pulse Oximetry 93 Intake/Output Intake/Output: Intake & Output 10/20/21 10/21/21 10/22/21 10/23/21 23:59 23:59 23:59 23:59 Intake Total 2580 2530 990 1460 Output Total 100 Balance 2580 2530 990 1360 Meds/Results Medications: Active Medications Generic Name Dose Route Start Last Admin Trade Name Freq PRN Reason Stop Dose Admin Acetaminophen 325 mg 10/14/21 22:07 10/15/21 09:37 Acetaminophen 325 Mg Tablet PO
--- NOTE | 2021-10-23 11:00 | P.PNIM_ITS ---
Progress Note: A&P Assessment and Plan (1) UTI (urinary tract infection): Qualifiers: Urinary tract infection type: acute cystitis Hematuria presence: with hematuria Qualified Code(s): N30.01 - Acute cystitis with hematuria Code(s): N39.0 - Urinary tract infection, site not specified Status: Acute Assessment and Plan: -UA suspicious for UTI -Ceftriaxone #8. -urine culture with klebsiella sensitive to ceftriaxone (2) COVID-19: Code(s): U07.1 - COVID-19 Status: Acute Assessment and Plan: - Not currently requiring oxygen. -Chest x-ray shows edema vs pneumonia. -Supportive care. -Not starting remdesivir at this time due to renal function. (3) Acute kidney injury: Code(s): N17.9 - Acute kidney failure, unspecified Status: Acute Assessment and Plan: -creat on admission 1.9, only improved to 1.4 after 72 hrs of IVF, baseline is around 0.8. Stop IV fluid today. -thought to be secondary to dehydration, NSAID intake and over diuresis however she has not improved with IVF -CXR w/ cardiomegaly and edema vs pneumonia, BNP is 18,200 however unclear whether this is due to edema or elevated due to renal failure -pressure has been soft so gave albumin to help with that prior to giving one dose of 20 mg IV lasix, suspect she may be fluid overloaded -showing improvement with Lasix, will continue this with close monitoring. Her LE edema has improved. Also giving cautious IVF due to her elevated calcium levels. -nephrology consult was requested; appreciate recommendations. (4) Hypercalcemia: Code(s): E83.52 - Hypercalcemia Status: Acute Assessment and Plan: -Somewhat concerning given acute kidney injury as well. -CT abd/pelv shows severe splenomegaly and abdominal and retroperitoneal lymphadenopathy, consistent with CLL. Calcified lymph nodes in the retroperitoneum and pelvis are consistent with treated CLL. -spoke w/ patient who states she was treated she thinks last year with chemo and has follow up every three months. Does not know the name of her oncologist. Will attempt to get more info from family. -oncology consult -currently getting cautious IVF (5) Fall from bed: Code(s): W06.XXXA - Fall from bed, initial encounter Status: Acute Assessment and Plan: Patient states this was a mechanical fall. No obvious head trauma on exam. Denies loss of consciousness. Initiate fall precautions. (6) Closed displaced fracture of proximal phalanx of left little finger: Qualifiers: Encounter type: initial encounter Qualified Code(s): S62.617A - Displaced fracture of proximal phalanx of left little finger, initial encounter for closed fracture Code(s): S62.617A - Displaced fracture of proximal phalanx of left little finger, initial encounter for closed fracture Status: Acute Assessment and Plan: Splinted. Seen by Dr. Car in the emergency department; she will need a close or possibly open reduction and possible internal fixation when she gets to feeling better. (7) Chronic anemia: Code(s): D64.9 - Anemia, unspecified Status: Acute Assessment and Plan: Hemoglobin and hematocrit are stable on review of previous labs. (8) Thrombocytopenia: Code(s): D69.6 - Thrombocytopenia, unspecified Status: Acute Assessment and Plan: An intermittent finding for the patient over the years. Continue monitoring. (9) Atrial fibrilla
[2021-10-23 12:24] VITALS: BP 115/56; PULSE 80; RESP 20; TEMP 36.2; O2SAT 94
--- NOTE | 2021-10-23 14:34 | WPDPN ---
Progress Note: A&P Assessment and Plan (1) Closed displaced fracture of proximal phalanx of left little finger: Qualifiers: Encounter type: initial encounter Qualified Code(s): S62.617A - Displaced fracture of proximal phalanx of left little finger, initial encounter for closed fracture Code(s): S62.617A - Displaced fracture of proximal phalanx of left little finger, initial encounter for closed fracture Status: Acute Assessment and Plan: Pt reported to be weakening. Still has many medical issues especially kidney disease and pyuria. The finger fracture remains a problem probably best treated in a way that causes her the least discomfort. It remains unstable and somewhat displaced. She is not a good candidate for surgical correction. Placement of hardware has many potential complications. Will D/C splint and apply papo tape for comfort. Time Spent With Patient Time with patient: less than 15 minutes Subjective Date/time seen: 10/23/21 14:34 Seems appropriate but lethargic. Says the left small finger hurts. The splint hurts. Exam Narrative: Splint removed today. Alignment remains abnormal. Appears to scissor today. Not able to flex well. Some edema. Objective Data Vital Signs Vital Signs: Vital Signs - 24 hr 10/22/21 16:53 10/22/21 20:00 10/22/21 20:26 Temperature 97.8 F 97.5 F L Pulse Rate 99 84 Respiratory Rate 20 16 Blood Pressure 110/59 L 102/45 L Pulse Oximetry 95 97 95 10/23/21 00:00 10/23/21 04:00 10/23/21 08:11 Temperature 98.2 F 99.3 F 97.0 F L Pulse Rate 88 98 75 Respiratory Rate 17 16 20 Blood Pressure 112/51 L 106/57 L 100/50 L Pulse Oximetry 96 96 93 10/23/21 12:24 Temperature 97.2 F L Pulse Rate 80 Respiratory Rate 20 Blood Pressure 115/56 L Pulse Oximetry 94 Intake/Output Intake/Output: Intake & Output 10/20/21 10/21/21 10/22/21 10/23/21 23:59 23:59 23:59 23:59 Intake Total 2580 2530 990 1460 Output Total 100 Balance 2580 2530 990 1360 Meds/Results Medications: Active Medications Generic Name Dose Route Start Last Admin Trade Name Freq PRN Reason Stop Dose Admin Acetaminophen 325 mg 10/14/21 22:07 10/15/21 09:37 Acetaminophen 325 Mg Tablet PO 325 mg Q6H PRN Administration pain 1-3 Hydrocodone Bitart/Acetaminophen 1 tab 10/15/21 10:06 10/23/21 08:39 Hydrocodone/Acetaminophen (*Crx) 5-325 Mg Tablet PO 1 tab Q4H PRN Administration Pain Rated 4-6 Apixaban 2.5 mg 10/17/21 09:00 10/23/21 08:37 Apixaban 2.5 Mg Tablet PO 2.5 mg BID TANG Administration Ferrous Sulfate 324 mg 10/15/21 09:00 10/23/21 08:37 Ferrous Sulfate 324 Mg Tablet PO 324 mg BID TANG Administration Fluticasone Propionate 1 spray 10/15/21 09:00 10/23/21 08:45 Fluticasone Propionate 0.05% Na Spr 16 Gm Btl (*Bkc) NASAL 1 spray DAILY TANG Administration Furosemide 20 mg 10/18/21 10:05 10/23/21 08:36 Furosemide Inj 40 Mg/4 Ml Vial IV PUSH 20 mg BID TANG Administration Ceftriaxone Sodium/Dextrose 1 gm in 50 mls @ 100 mls/hr 10/14/21 22:10 10/22/21 21:55 Rocephin 1 Gm/D5w 50 Ml IVPB Infused HS TANG Infusion Metoprolol Succinate 50 mg 10/15/21 09:00 10/16/21 10:11 Metoprolol Succinate Ext Rel 50 Mg Tabcr PO 50 mg DAILY TANG Administration Ondansetron HCl 4 mg 10/19/21 14:16 10/19/21 17:33 Ondansetron Inj 4 Mg/2 Ml Vial IV PUSH 4 mg Q6H PRN Administration Nausea And Vomiting Oxycodone/Acetaminophen 1 tablet 10/15/21 10:06 Oxycodone/Acetaminophen (*Crx) 5-325 Mg Tablet PO Q4H PRN Pain Rated 7-10 Simvastatin 40 mg 10/15/21 09:00 10/23/21 08:37 Simvastatin 20 Mg Tablet PO 40 mg DAILY TANG Administration Radiology Results: ITS Impressions Lumbar Spine X-Ray 10/14/21 11:59 Impression: 1: Moderate lumbar spondylosis. 2: No acute abnormality of the lumbar spine. Thoracic Spine X-Ray 10/14/21 12:08 Impression: 1: Mod
[2021-10-23 16:59] VITALS: BP 108/49; PULSE 84; RESP 20; TEMP 36.4; O2SAT 93
[2021-10-23] MEDS: POTASSIUM CHLORIDE 20 MEQ TABLET 40 MEQ PO (17:27)
[2021-10-23 20:00] VITALS: BP 101/46; PULSE 66; RESP 16; TEMP 36.6; O2SAT 95
[2021-10-24] VITALS (7 sets, daily range): BP systolic 104–114; BP diastolic 40–65; PULSE 63–98; RESP 14–16; TEMP 36.2–36.7; O2SAT 95–99
[2021-10-24 07:43] LABS: Albumin Level 2.8 g/dL (3.5-5.1); Anion Gap 2 mmol/L (8-16); Blood Urea Nitrogen 23 mg/dL (7-17); Calcium 10.3 mg/dL (8.4-10.2); Carbon Dioxide 31 mmol/L (22-30); Chloride 102 mmol/L (98-107); Estimated CRCL calculation 30 ml/min; Estimated Glomerular Filt Rate 36; Glucose 99 mg/dL (65-110); Phosphorus 3.5 mg/dL (2.5-4.5); Potassium 3.7 mmol/L (3.4-5.0); Sodium 135 mmol/L (137-145)
[2021-10-24] MEDS: SIMVASTATIN 20 MG TABLET 40 MG PO (09:56)
[2021-10-24] MEDS: FUROSEMIDE INJ 40 MG/4 ML VIAL 20 MG IV PUSH ×2 (09:56→16:45)
[2021-10-24] MEDS: APIXABAN 2.5 MG TABLET PO ×2 (09:56→16:45)
[2021-10-24] MEDS: FERROUS SULFATE 324 MG TABLET PO ×2 (09:56→16:45)
[2021-10-24] MEDS: FLUTICASONE PROPIONATE 0.05% NA SPR 16 GM BTL (*BKC) 1 SPRAY NASAL (09:57)
--- NOTE | 2021-10-24 11:00 | PM.IMPN ---
Progress Note: A&P Assessment and Plan (1) UTI (urinary tract infection): Qualifiers: Urinary tract infection type: acute cystitis Hematuria presence: with hematuria Qualified Code(s): N30.01 - Acute cystitis with hematuria Code(s): N39.0 - Urinary tract infection, site not specified Status: Acute Assessment and Plan: -UA suspicious for UTI -Ceftriaxone #8. -urine culture with klebsiella sensitive to ceftriaxone -Complete Iv antibiotics tomorrow. Discharge tomorrow after completion of 24-hour calcium creatinine. (2) COVID-19: Code(s): U07.1 - COVID-19 Status: Acute Assessment and Plan: - Not currently requiring oxygen. -Chest x-ray shows edema vs pneumonia. -Supportive care. -Not starting remdesivir at this time due to renal function. (3) Acute kidney injury: Code(s): N17.9 - Acute kidney failure, unspecified Status: Acute Assessment and Plan: -creat on admission 1.9, only improved to 1.4 after 72 hrs of IVF, baseline is around 0.8. Stop IV fluid today. -thought to be secondary to dehydration, NSAID intake and over diuresis however she has not improved with IVF -CXR w/ cardiomegaly and edema vs pneumonia, BNP is 18,200 however unclear whether this is due to edema or elevated due to renal failure -pressure has been soft so gave albumin to help with that prior to giving one dose of 20 mg IV lasix, suspect she may be fluid overloaded -showing improvement with Lasix, will continue this with close monitoring. Her LE edema has improved. Also giving cautious IVF due to her elevated calcium levels. -nephrology consult was requested; appreciate recommendations. (4) Hypercalcemia: Code(s): E83.52 - Hypercalcemia Status: Acute Assessment and Plan: -Somewhat concerning given acute kidney injury as well. -CT abd/pelv shows severe splenomegaly and abdominal and retroperitoneal lymphadenopathy, consistent with CLL. Calcified lymph nodes in the retroperitoneum and pelvis are consistent with treated CLL. -spoke w/ patient who states she was treated she thinks last year with chemo and has follow up every three months. Does not know the name of her oncologist. Will attempt to get more info from family. -oncology consult -currently getting cautious IVF (5) Fall from bed: Code(s): W06.XXXA - Fall from bed, initial encounter Status: Acute Assessment and Plan: Patient states this was a mechanical fall. No obvious head trauma on exam. Denies loss of consciousness. Initiate fall precautions. (6) Closed displaced fracture of proximal phalanx of left little finger: Qualifiers: Encounter type: initial encounter Qualified Code(s): S62.617A - Displaced fracture of proximal phalanx of left little finger, initial encounter for closed fracture Code(s): S62.617A - Displaced fracture of proximal phalanx of left little finger, initial encounter for closed fracture Status: Acute Assessment and Plan: Splinted. Seen by Dr. Car in the emergency department; she will need a close or possibly open reduction and possible internal fixation when she gets to feeling better. (7) Chronic anemia: Code(s): D64.9 - Anemia, unspecified Status: Acute Assessment and Plan: Hemoglobin and hematocrit are stable on review of previous labs. (8) Thrombocytopenia: Code(s): D69.6 - Thrombocytopenia, unspecified Status: Acute Assessment and Plan: An intermittent finding for the patient over the years. Continue monitoring. (9) Atrial fibrillation and flutter: Code(s): I48.91 - Unspecified atrial fibrillation; I48.92 - Unspecified atrial flutter Status: Acute Assessment and Plan: -Rate controlled. metoprolol on hold as BP has been soft. anticoagulation held for 48 hours as she has just sustained a fall with pretty significant bruising and hem
--- NOTE | 2021-10-24 11:29 | PM.PNNEP ---
Progress Note: A&P Assessment and Plan (1) Acute kidney injury: Code(s): N17.9 - Acute kidney failure, unspecified Status: Acute Assessment and Plan: in June and July of 2021 patient's creatinine was running about 1.2-1.3. This may be a baseline for her such that she does have some mild chronic kidney disease. 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 The patient had normal creatinine is before that but I am not sure she is going to get back to that level of function. she has acute kidney injury on top of that. Her creatinine started out at 1.9 but has come back down to her former baseline. she had a renal ultrasound which is unremarkable. Urine electrolytes are pre renal. Urinalysis shows pyuria This is due to ibuprofen, bladder infection, possible dehydration. her creatinine seems stable. (2) COVID-19: Code(s): U07.1 - COVID-19 Status: Acute Assessment and Plan: She is on respiratory isolation. Requires no oxygen at this point (3) Hypercalcemia: Code(s): E83.52 - Hypercalcemia Status: Acute Assessment and Plan: Calcium was very high on admission. It is better now. It seems to have reached a baseline in the low 10s ionized calcium is also high. Vitamin-D are okay. PTH is low appropriately. PTHrP is low. 24hour urine calcium is in progress. (4) Abnormal urinalysis: Code(s): R82.90 - Unspecified abnormal findings in urine Status: Acute Assessment and Plan: She has pyuria. She is on Ceftriaxone (5) Atrial fibrillation and flutter: Code(s): I48.91 - Unspecified atrial fibrillation; I48.92 - Unspecified atrial flutter Status: Acute Assessment and Plan: Currently in aflutter heart rate is well controlled (6) Hypertension: Code(s): I10 - Essential (primary) hypertension Status: Acute Assessment and Plan: blood pressure is stable (7) Hypokalemia: Code(s): E87.6 - Hypokalemia Status: Acute Assessment and Plan: potassium is mildly low. will give her supplement. (8) Chronic anemia: Code(s): D64.9 - Anemia, unspecified Status: Acute Assessment and Plan: hemoglobin is on the low side. This may be due to chronic disease and acute illness. check CBC tomorrow High calcium plus the anemia and her debilitated state suggest some sort of cancer. Further evaluation of this as an outpatient per PCP Subjective Date/time seen: 10/24/21 11:29 Interval history: Patient is alert and oriented. She has aches and pains in her joints. This happens from time to time. No shortness of breath. Exam Narrative: WDWN in NAD skin no rash head ncat lungs clear cor reg no rub or gallop abd BS+ nontender and soft ext no edema or cyanosis. Objective Data Vital Signs Vital Signs: Vital Signs - 24 hr 10/23/21 12:24 10/23/21 16:59 10/23/21 20:00 Temperature 36.2 C L 36.4 C 36.6 C Pulse Rate 80 84 66 Respiratory Rate 20 20 16 Blood Pressure 115/56 L 108/49 L 101/46 L Pulse Oximetry 94 93 95 10/24/21 00:00 10/24/21 04:00 10/24/21 08:00 Temperature 36.2 C L 36.4 C L 36.3 C L Pulse Rate 72 97 84 Respiratory Rate 16 16 16 Blood Pressure 104/52 L 112/40 L 114/46 L Pulse Oximetry 96 98 97 Intake/Output Intake/Output: Intake & Output 10/21/21 10/22/21 10/23/21 10/24/21 23:59 23:59 23:59 23:59 Intake Total 2530 990 1990 750 Output Total 560 Balance 2530 990 1430 750 Meds/Results Medications: Active Medications Generic Name Dose Route Start Last Admin Trade Name Freq PRN Reason Stop Dose Admin Acetaminophen 325 mg 10/14/21 22:07 10/15/21 09:37 Acetaminophen 325 Mg Tablet PO 325 mg Q6H PRN Administration pain 1-3 Hydrocodone Bitart/Acetaminophen 1 tab 10/15/21 10:06 10/23/21 17:28 Hydrocodone/Acetaminophen (*Crx) 5-325 Mg Tablet PO 1 tab Q4H PRN
--- NOTE | 2021-10-24 12:33 | PCNFU ---
Nutrition Follow-Up Complete: Inadequate oral intake related to reported decreased appetie as evidenced by reported intake of 10% Goal: Pt to meet 75% of estimated nutritional needs Pt is slowly progressing towards goal Pt current nutrition is heart healthy diet and dietary supplements Last recorded weight is 70 kg- stable. Bowel Motility:+BM 2/2 reported Labs Reviewed: alb 2.8, Na 135, CO2 31, GFR 36, BUN 23, Cr 1.4, Ca 10.3 Meds Noted: eliquis, ferrous sulfate, lasix, zocor Skin: wound on little finger, left arm skin tear Additional Notes: Unable to visit with pt due to following COVID precautions. Current nutrition is a heart healthy diet and dietary supplements of Ensure Compact TID w/meals providing an additional 220kcal and 9g of protein and Frozen Nutritional Treat BID providing an additional 300kcal and 9g of protein to increase caloric intake. Reported intake is 15%, 30%, 90%, 70%, and 60%. PO intake appears to be improving. Agree with diet orders at this time. Will continue to follow. Will monitors labs, medication, wt, and reported intake every 5 days
[2021-10-24] MEDS: HYDROcodone/acetaminophen (*CRX) 5-325 MG TABLET 1 TAB PO (14:47)
[2021-10-25 04:00] VITALS: BP 114/63; PULSE 74; RESP 16; TEMP 36.6; O2SAT 95
[2021-10-25 06:27] LABS: Hematocrit 28.1 % (37.0-47.0); Hemoglobin 8.5 g/dL (12.0-15.0); Immature Platelet Fraction Pct 4.3 % (0.9-11.2); Mean Corpuscular HGB Conc 30.2 g/dl (32-36); Mean Corpuscular Hemoglobin 29.6 pg (26-34); Mean Corpuscular Volume 97.9 fl (80-100); Mean Platelet Volume 10.8 fl (7.4-10.4); Platelet Count Result 130 k/mm3 (150-375); Red Blood Count 2.87 M/mm3 (4.2-5.4); White Blood Count 9.4 K/mm3 (4.5-10.0)
[2021-10-25 07:52] LABS: Albumin Level 2.9 g/dL (3.5-5.1); Anion Gap 1 mmol/L (8-16); Blood Urea Nitrogen 22 mg/dL (7-17); Calcium 10.7 mg/dL (8.4-10.2); Carbon Dioxide 33 mmol/L (22-30); Chloride 102 mmol/L (98-107); Estimated CRCL calculation 32 ml/min; Estimated Glomerular Filt Rate 39; Glucose 94 mg/dL (65-110); Phosphorus 3.5 mg/dL (2.5-4.5); Potassium 3.7 mmol/L (3.4-5.0); Sodium 136 mmol/L (137-145)
[2021-10-25 08:00] VITALS: BP 124/52; PULSE 70; PULSE 80; RESP 16; RESP 18; TEMP 36.7; O2SAT 95; O2SAT 96
[2021-10-25] MEDS: HYDROcodone/acetaminophen (*CRX) 5-325 MG TABLET 1 TAB PO (10:23)
[2021-10-25] MEDS: FERROUS SULFATE 324 MG TABLET PO (10:32)
[2021-10-25] MEDS: FUROSEMIDE INJ 40 MG/4 ML VIAL 20 MG IV PUSH (10:32)
[2021-10-25] MEDS: SIMVASTATIN 20 MG TABLET 40 MG PO (10:32)
[2021-10-25] MEDS: APIXABAN 2.5 MG TABLET PO (10:32)
[2021-10-25] MEDS: FLUTICASONE PROPIONATE 0.05% NA SPR 16 GM BTL (*BKC) 1 SPRAY NASAL (10:33)
--- NOTE | 2021-10-25 11:04 | P.PNNP_ITS ---
Progress Note: A&P Assessment and Plan (1) Acute kidney injury: Code(s): N17.9 - Acute kidney failure, unspecified Status: Acute Assessment and Plan: * resolving if not resolved * creatinine peaked at 1.9mg/dl * evaluation to date: * unremarkable renal ultrasound * urine electrolytes are prerenal * urinalysis with pyuria * suspect due to a combination of infection, NSAID use, and possible dehydration +/- COVID infection * continue supportive care (2) Stage 3b chronic kidney disease: Code(s): N18.32 - Chronic kidney disease, stage 3b Status: Chronic Assessment and Plan: * creatinine seems to run ~ 1.2 - 1.3mg/dl * probably due to her HTN, vascular disease, and age-related change (3) COVID-19: Code(s): U07.1 - COVID-19 Status: Acute Assessment and Plan: * oxygenation and respiratory status stable * respiratory isolation (4) Hypercalcemia: Code(s): E83.52 - Hypercalcemia Status: Acute Assessment and Plan: * calcium was extremely high on admission * better now but on the higher side of normal - low 10ish range * ionized calcium elevated as well * Vitamin D okay; PTH appropriately low and PTHrp is low * 24hour urine calcium is in progress to assess for FHH (5) UTI (urinary tract infection): Qualifiers: Hematuria presence: with hematuria Urinary tract infection type: acute cystitis Qualified Code(s): N30.01 - Acute cystitis with hematuria Code(s): N39.0 - Urinary tract infection, site not specified Status: Acute Assessment and Plan: * urine culture with Klebsiella * on antibiotics (6) Hypertension: Code(s): I10 - Essential (primary) hypertension Status: Acute Assessment and Plan: * under reasonable control * follow trend of hemodynamics (7) Chronic anemia: Code(s): D64.9 - Anemia, unspecified Status: Acute Assessment and Plan: * H/H on the low side * likely related to BJ, CKD, and acute illness * follow trend Will continue to follow. Subjective Date/time seen: 10/25/21 11:04 Chart reviewed - assuming care from Dr. Munroe; other than her joints given her issue with pain, she otherwise feels fairly well; no issues/events overnight or earlier this AM; no apparent distress to report. Exam Narrative: General: WD/WN female in NAD Heart: normal S1 and S2; no rub Lungs: clear to auscultation Abdomen: soft, nontender, nondistended, positive bowel sounds Extremities: no cyanosis or clubbing; no edema Skin: warm and dry Objective Data Vital Signs Vital Signs: Vital Signs Temp Pulse Resp BP Pulse Ox 10/25/21 08:00 36.7 C 80 16 124/52 L 95 10/25/21 04:00 36.6 C 74 16 114/63 95 10/24/21 23:55 36.6 C 87 16 113/65 95 10/24/21 20:00 36.7 C 85 16 104/49 L 97 10/24/21 16:00 36.4 C 98 14 110/45 L 99 10/24/21 12:00 36.3 C L 63 16 110/43 L 95 Intake/Output Intake/Output: Intake & Output 10/22/21 10/23/21 10/24/21 10/25/21 23:59 23:59 23:59 23:59 Intake Total 990 1990 1700 988 Output Total 560 1700 700 Balance 990 1430 0 288 Meds/Results Medications: Active Medications Generic Name Dose Route Start Last Admin
--- NOTE | 2021-10-25 11:04 | PM.PNNEP ---
Progress Note: A&P Assessment and Plan (1) Acute kidney injury: Code(s): N17.9 - Acute kidney failure, unspecified Status: Acute Assessment and Plan: resolving if not resolved creatinine peaked at 1.9mg/dl evaluation to date: unremarkable renal ultrasound urine electrolytes are prerenal urinalysis with pyuria suspect due to a combination of infection, NSAID use, and possible dehydration +/- COVID infection continue supportive care (2) Stage 3b chronic kidney disease: Code(s): N18.32 - Chronic kidney disease, stage 3b Status: Chronic Assessment and Plan: creatinine seems to run ~ 1.2 - 1.3mg/dl probably due to her HTN, vascular disease, and age-related change (3) COVID-19: Code(s): U07.1 - COVID-19 Status: Acute Assessment and Plan: oxygenation and respiratory status stable respiratory isolation (4) Hypercalcemia: Code(s): E83.52 - Hypercalcemia Status: Acute Assessment and Plan: calcium was extremely high on admission better now but on the higher side of normal - low 10ish range ionized calcium elevated as well Vitamin D okay; PTH appropriately low and PTHrp is low 24hour urine calcium is in progress to assess for FHH (5) UTI (urinary tract infection): Qualifiers: Hematuria presence: with hematuria Urinary tract infection type: acute cystitis Qualified Code(s): N30.01 - Acute cystitis with hematuria Code(s): N39.0 - Urinary tract infection, site not specified Status: Acute Assessment and Plan: urine culture with Klebsiella on antibiotics (6) Hypertension: Code(s): I10 - Essential (primary) hypertension Status: Acute Assessment and Plan: under reasonable control follow trend of hemodynamics (7) Chronic anemia: Code(s): D64.9 - Anemia, unspecified Status: Acute Assessment and Plan: H/H on the low side likely related to BJ, CKD, and acute illness follow trend Will continue to follow. Subjective Date/time seen: 10/25/21 11:04 Chart reviewed - assuming care from Dr. Munroe; other than her joints given her issue with pain, she otherwise feels fairly well; no issues/events overnight or earlier this AM; no apparent distress to report. Exam Narrative: General: WD/WN female in NAD Heart: normal S1 and S2; no rub Lungs: clear to auscultation Abdomen: soft, nontender, nondistended, positive bowel sounds Extremities: no cyanosis or clubbing; no edema Skin: warm and dry Objective Data Vital Signs Vital Signs: Vital Signs Temp Pulse Resp BP Pulse Ox 10/25/21 08:00 36.7 C 80 16 124/52 L 95 10/25/21 04:00 36.6 C 74 16 114/63 95 10/24/21 23:55 36.6 C 87 16 113/65 95 10/24/21 20:00 36.7 C 85 16 104/49 L 97 10/24/21 16:00 36.4 C 98 14 110/45 L 99 10/24/21 12:00 36.3 C L 63 16 110/43 L 95 Intake/Output Intake/Output: Intake & Output 10/22/21 10/23/21 10/24/21 10/25/21 23:59 23:59 23:59 23:59 Intake Total 990 1990 1700 988 Output Total 560 1700 700 Balance 990 1430 0 288 Meds/Results Medications: Active Medications Generic Name Dose Route Start Last Admin Trade Name Freq PRN Reason Stop Dose Admin Acetaminophen 325 mg 10/14/21 22:07 10/15/21 09:37 Acetaminophen 325 Mg Tablet PO 325 mg Q6H PRN Administration pain 1-3 Hydrocodone Bitart/Acetaminophen 1 tab 10/15/21 10:06 10/25/21 10:23 Hydrocodone/Acetaminophen (*Crx) 5-325 Mg Tablet PO 1 tab Q4H PRN Administration Pain Rated 4-6 Apixaban 2.5 mg 10/17/21 09:00 10/25/21 10:32 Apixaban 2.5 Mg Tablet PO 2.5 mg BID TANG Administration Ferrous Sulfate 324 mg 10/15/21 09:00 10/25/21 10:32 Ferrous Sulfate 324 Mg Tablet PO 324 mg BID TANG Administration Fluticasone Propionate 1 spray 10/15/21 09:00 10/25/21 10:33 Fluticasone Propionate 0.05% Na Spr 16 Gm B
--- NOTE | 2021-10-25 11:57 | PM.DS ---
DS: Admitting Diagnosis Discharge Date 10/25/2021 Admitting Diagnosis COVID painting infection Acute UTI History of hypertension DS: Discharge Diagnosis Discharge Diagnosis (1) UTI (urinary tract infection): Qualifiers: Urinary tract infection type: acute cystitis Hematuria presence: with hematuria Qualified Code(s): N30.01 - Acute cystitis with hematuria Code(s): N39.0 - Urinary tract infection, site not specified Status: Acute Assessment and Plan: -UA suspicious for UTI -Ceftriaxone #8. -urine culture with klebsiella sensitive to ceftriaxone -Complete Iv antibiotics tomorrow. Discharge tomorrow after completion of 24-hour calcium creatinine. (2) COVID-19: Code(s): U07.1 - COVID-19 Status: Acute Assessment and Plan: - Not currently requiring oxygen. -Chest x-ray shows edema vs pneumonia. -Supportive care. -Not starting remdesivir at this time due to renal function. (3) Acute kidney injury: Code(s): N17.9 - Acute kidney failure, unspecified Status: Acute Assessment and Plan: -creat on admission 1.9, only improved to 1.4 after 72 hrs of IVF, baseline is around 0.8. Stop IV fluid today. -thought to be secondary to dehydration, NSAID intake and over diuresis however she has not improved with IVF -CXR w/ cardiomegaly and edema vs pneumonia, BNP is 18,200 however unclear whether this is due to edema or elevated due to renal failure -pressure has been soft so gave albumin to help with that prior to giving one dose of 20 mg IV lasix, suspect she may be fluid overloaded -showing improvement with Lasix, will continue this with close monitoring. Her LE edema has improved. Also giving cautious IVF due to her elevated calcium levels. -nephrology consult was requested; appreciate recommendations. (4) Hypercalcemia: Code(s): E83.52 - Hypercalcemia Status: Acute Assessment and Plan: -Somewhat concerning given acute kidney injury as well. -CT abd/pelv shows severe splenomegaly and abdominal and retroperitoneal lymphadenopathy, consistent with CLL. Calcified lymph nodes in the retroperitoneum and pelvis are consistent with treated CLL. -spoke w/ patient who states she was treated she thinks last year with chemo and has follow up every three months. Does not know the name of her oncologist. Will attempt to get more info from family. -oncology consult -currently getting cautious IVF (5) Fall from bed: Code(s): W06.XXXA - Fall from bed, initial encounter Status: Acute Assessment and Plan: Patient states this was a mechanical fall. No obvious head trauma on exam. Denies loss of consciousness. Initiate fall precautions. (6) Closed displaced fracture of proximal phalanx of left little finger: Qualifiers: Encounter type: initial encounter Qualified Code(s): S62.617A - Displaced fracture of proximal phalanx of left little finger, initial encounter for closed fracture Code(s): S62.617A - Displaced fracture of proximal phalanx of left little finger, initial encounter for closed fracture Status: Acute Assessment and Plan: Splinted. Seen by Dr. Car in the emergency department; she will need a close or possibly open reduction and possible internal fixation when she gets to feeling better. (7) Chronic anemia: Code(s): D64.9 - Anemia, unspecified Status: Acute Assessment and Plan: Hemoglobin and hematocrit are stable on review of previous labs. (8) Thrombocytopenia: Code(s): D69.6 - Thrombocytopenia, unspecified Status: Acute Assessment and Plan: An intermittent finding for the patient over the years. Continue monitoring. (9) Atrial fibrillation and flutter: Code(s): I48.91 - Unspecified atrial fibrillation; I48.92 - Unspecified atrial flutter Status: Acute Assessment and Plan: -Rate controlled. meto
[2021-10-25 12:00] VITALS: BP 105/63; PULSE 70; RESP 18; TEMP 36.7; O2SAT 96
--- NOTE | 2021-10-25 14:30 | PC.NURSE ---
Pt voided clear, yellow urine. Offers no complaints.
[2021-10-29 04:00] LABS: Total Volume 2000 mL; Urine Calcium 3.3 mg/dL
== END 2021-10-25 16:00 | disposition home health service (06) | DRG 178 ==
LOC: ANHED 14:37 → ANH3MEDSUR 16:53
PROVIDERS: Internal Medicine Hematology & Oncology; Internal Medicine Nephrology; Physician Assistant; Admitting Provider Internal Medicine; Emergency Provider Emergency Medicine; PCP Internal Medicine; Visit Provider Internal Medicine
DX: U07.1 COVID-19 (principal); I13.0 Hypertensive heart and chronic kidney disease with heart failure and stage 1 through stage 4 chronic kidney disease, or unspecified chronic kidney disease; N17.9 Acute kidney failure, unspecified; I48.92 Unspecified atrial flutter; I50.32 Chronic diastolic (congestive) heart failure; N30.01 Acute cystitis with hematuria; Z16.11 Resistance to penicillins; M54.9 Dorsalgia, unspecified; M79.645 Pain in left finger(s); Z91.81 History of falling; Z86.73 Personal history of transient ischemic attack (TIA), and cerebral infarction without residual deficits; D64.9 Anemia, unspecified; Z85.6 Personal history of leukemia; G89.29 Other chronic pain; M25.562 Pain in left knee; J43.9 Emphysema, unspecified; E78.5 Hyperlipidemia, unspecified; E03.9 Hypothyroidism, unspecified; I27.20 Pulmonary hypertension, unspecified; D69.6 Thrombocytopenia, unspecified; S62.617A Displaced fracture of proximal phalanx of left little finger, initial encounter for closed fracture; W06.XXXA Fall from bed, initial encounter; Y93.9 Activity, unspecified; Y92.9 Unspecified place or not applicable; Y99.9 Unspecified external cause status; I48.0 Paroxysmal atrial fibrillation; E83.52 Hypercalcemia; R82.90 Unspecified abnormal findings in urine; Z87.891 Personal history of nicotine dependence; B96.1 Klebsiella pneumoniae [K. pneumoniae] as the cause of diseases classified elsewhere; E87.6 Hypokalemia; R16.1 Splenomegaly, not elsewhere classified; R53.83 Other fatigue; R50.9 Fever, unspecified; R53.1 Weakness; E86.0 Dehydration; N18.32 Chronic kidney disease, stage 3b
CPT/HCPCS: 36415; 51701; 70450; 71045; 72070; 72100; 72125; 73120; 73130; 74176; 76775; 80048; 80053; 80069; 80076; 81001; 82306; 82330; 82340; 82436; 82550; 82570; 82607; 82652; 82728; 82746; 82948; 83519; 83540; 83550; 83615; 83690; 83735; 83880; 83935; 83970; 84100; 84133; 84156; 84300; 84439; 84443; 84480; 85025; 85027; 85055; 85999; 86140; 87077; 87086; 87088; 87186; 90471; 90715; 93005; 93306; 93970; 96361; 96366; 96367; 96374; 97110; 97116; 97161; 97165; 97530; 97535; 99285; A9270; C9803; G0378; J0131; J0696; J1940; J2405; J7030; P9047; U0003; U0005

== ENCOUNTER 2021-11-06 12:42 | Outpatient (NON) | payer MEDICARE, SELFPAY ==
[2021-11-06 14:16] LABS: Hematocrit 25.9 % (37.0-47.0); Mean Corpuscular HGB Conc 30.9 g/dl (32-36); Mean Corpuscular Hemoglobin 30.9 pg (26-34); Mean Platelet Volume 11.5 fl (7.4-10.4); Platelet Count Result 109 k/mm3 (150-375); Red Blood Count 2.59 M/mm3 (4.2-5.4); Red Cell Distribution Width 18.1 % (11.5-14.5); White Blood Count 7.7 K/mm3 (4.5-10.0)
[2021-11-06 14:31] LABS: Alanine Aminotransferase 16 U/L (4-35); Albumin Level 2.8 g/dL (3.5-5.1); Alkaline Phosphatase 137 U/L (38-126); Anion Gap 4 mmol/L (8-16); Aspartate Amino Transferase 30 U/L (14-36); Bilirubin,Total 0.3 mg/dL (0.2-1.3); Blood Urea Nitrogen 30 mg/dL (7-17); Calcium 11.6 mg/dL (8.4-10.2); Carbon Dioxide 29 mmol/L (22-30); Chloride 106 mmol/L (98-107); Estimated Glomerular Filt Rate 33; Glucose 143 mg/dL (65-110); Phosphorus 3.6 mg/dL (2.5-4.5); Potassium 3.8 mmol/L (3.4-5.0); Sodium 139 mmol/L (137-145)
[2021-11-06 14:41] LABS: Parathyroid Intact < 3.4 pg/mL (7.5-53.5)
[2021-11-06 14:45] LABS: Vitamin D 25 Hydroxy 15.5 ng/mL
[2021-11-07 15:08] LABS: Add Urine Microscopic? YES; Amorphous Sediment Urine Moderate; Appearance Urine Cloudy (Clear); Bacteria Urine Trace /hpf; Bilirubin Urine Negative (Negative); Blood Urine Negative (Negative); Calcium Oxalate Crystals Urine Many /hpf; Color Urine Yellow (Yellow); Glucose Urine UA Negative (Negative); Ketones Urine Negative (Negative); Leukocyte Esterase Ur Trace LEU/UL (Negative); Mucus Urine Rare /lpf; Nitrate Urine Negative (Negative); Protein Urine Negative (Negative); RBC Urine 0-2 /hpf (0-2); Specific Grav Ur 1.015 (1.001-1.035); Squamous Epithelial Cell Urine Occasional /hpf (Few); Urobilinogen Urine Negative mg/dL (<2.0); WBC Urine 0-3 /hpf
[2021-11-07 15:37] LABS: Creatinine Urine 87.7 mg/dL
[2021-11-07 15:42] LABS: Microalbumin Urine Random 21.9 mg/L (0-16.7)
== END 2021-11-06 12:43 | disposition home or self-care (01) ==
PROVIDERS: PCP Internal Medicine; Visit Provider Internal Medicine
DX: N39.0 Urinary tract infection, site not specified (principal); N17.9 Acute kidney failure, unspecified; S62.617D Displaced fracture of proximal phalanx of left little finger, subsequent encounter for fracture with routine healing; E55.9 Vitamin D deficiency, unspecified
CPT/HCPCS: 80053; 81001; 82043; 82306; 83970; 84100; 85027

== ENCOUNTER 2021-11-10 17:26 | Inpatient (IN) | payer MEDICARE, SELFPAY ==
[2021-11-10] VITALS (7 sets, daily range): BP systolic 81–142; BP diastolic 37–84; PULSE 62–90; RESP 18–22; TEMP 36.7; O2SAT 94–97
--- NOTE | ~2021-11-10 | XR_ITS ---
EXAMINATION: XR chest 1V INDICATION: Head injury TECHNIQUE: AP view of the chest is obtained. COMPARISON: 10/22/2021 FINDINGS: Cardiomegaly is noted. There is a mild diffuse interstitial pattern. Left basilar airspace opacities are not significantly changed. No pleural effusion or pneumothorax is identified. IMPRESSION: 1. Cardiomegaly with mild pulmonary edema. 2. Left basilar airspace opacity, likely atelectasis. Reviewed, dictated and finalized at location F. TING GRAY CLOTH TENDER
--- NOTE | ~2021-11-10 | CT_ITS ---
EXAMINATION: CT cervical spine wo con DATE: 11/10/2021 18:28 INDICATION: Head injury TECHNIQUE: Computed tomography (CT) of the cervical spine was performed without intravenous contrast. The dose-length product (DLP) was 147.66 mGy-cm. Automated exposure control and iterative reconstruc tion technique were employed. COMPARISON: 10/14/2021 FINDINGS: Bone alignment is normal. There is no fracture. There is severe loss of intervertebral disc space height at C5-6. The vertebral body heights are otherwise maintained. The odontoid is intact. T he prevertebral soft tissues are normal. Small degenerative osteophytes project from the anterior end plates of multiple vertebral bodies. There is severe multilevel facet and uncovertebral joint osteoar thritis. A right mastoid effusion is noted. There are small pleural effusions. Multiple normal sized calcified cervical lymph nodes are identified. IMPRESSION: 1. Severe cervical spondylosis without acute findings or significant interval change. Reviewed, dictated and finalized at location F. [place] AREA MANAGER IMPRESSION: 1. Severe cervical spondylosis without acute findings or significant interval c fred.
--- NOTE | ~2021-11-10 | CT_ITS ---
EXAMINATION: CT brain wo con INDICATION: Head injury COMPARISON: None TECHNIQUE: Standard unenhanced head CT. The dose-length product (DLP) was 605.33 mGy-cm. The mA was a djusted according to patient size. Iterative reconstruction technique was employed. FINDINGS: There is a right parietal scalp hematoma. There is no acute intraparenchymal hemorrhage. No evidence of mass lesion. No evidence of acute infarction. There is mild periventricular and subcorti garth hypodensity probably related to small vessel ischemic disease. There is mild prominence of the brown lci and ventricles related to cerebral atrophy. Intracranial calcified cerebral atherosclerosis is no forest. There are no extra-axial collections. There is no mass effect or midline shift. Changes in the g lobes are likely from ocular lens surgery. There is mild mucosal thickening of the paranasal sinuses. A small right mastoid effusion is noted. IMPRESSION: 1. No acute intracranial abnormality. 2. Age related findings. Reviewed, dictated and finalized at location F. X MACHINE MECHANIC
--- NOTE | 2021-11-10 18:01 | ECG_ITS ---
Measurements Intervals [place] Rate: 61 P: NC: 0 QRS: -63 QRSD: 148 T: 94 QT: 437 QTc: 443 Interpretive Statements ATRIAL FIBRILLATION VENTRICULAR PREMATURE COMPLEX LEFT BUNDLE BRANCH BLOCK BASELINE ARTIFACT- I, II, AVR, V4-V6 ABNORMAL ECG Electronically Signed On 11-11-2021 10:13:56 TYPE PROOF REPRODUCER by Dannie Nance D.O.
[2021-11-10 18:27] LABS: Basophils Percent Auto 0.5 % (0.2-1.2); Eosinophils Percent Auto 0.5 % (0-4.4); Hematocrit 27.2 % (37.0-47.0); Immature Granulocyte Percent A 1.1 % (0-0.5); Immature Platelet Fraction Pct 4.8 % (0.9-11.2); Lymphocytes Absolute Auto 6.22 K/mm3 (0.9-3.2); Lymphocytes Percent Auto 70.9 % (18.3-44.2); Mean Corpuscular HGB Conc 29.4 g/dl (32-36); Mean Corpuscular Hemoglobin 29.9 pg (26-34); Mean Corpuscular Volume 101.5 fl (80-100); Mean Platelet Volume 10.9 fl (7.4-10.4); Monocytes Absolute Auto 1.5 K/mm3 (0.1-0.6); Monocytes Percent Auto 16.6 % (2.6-8.5); Neutrophils Absolute Auto 0.9 K/mm3 (1.3-6.7); Neutrophils Percent Auto 10.4 % (45.5-73.1); Nucleated Red Blood Cells Perc 0.3 % (0.0-0.2); Platelet Count Result 116 k/mm3 (150-375); Red Blood Count 2.68 M/mm3 (4.2-5.4); Red Cell Distribution Width 18.6 % (11.5-14.5); White Blood Count 8.8 K/mm3 (4.5-10.0)
[2021-11-10 18:35] LABS: INR 1.2; Prothrombin Time 14.4 Seconds (11.1-14.7)
[2021-11-10 18:36] LABS: Partial Thromboplastin Time 27.4 SECONDS (22.3-36.8)
--- NOTE | 2021-11-10 18:36 | ED.FALL ---
HPI - Fall General Chief Complaint: Fall Stated Complaint: fall, HI Time Seen by Provider: 11/10/21 17:51 Source: patient, family, EMS, RN notes reviewed and old records reviewed Mode of arrival: EMS Limitations: no limitations History of Present Illness HPI Narrative: This is an 81 year old female with multiple medical problems who presents for evaluation for head injury s/p fall. Patient was trying to get up on end of bed and she fell backwards. Her family is at bedside and they report patient fell onto her right side and she has a laceration to her right posterior scalp. She is complaining of neck pain so c collar was placed on patient on arrival. She also complains her facial mask is making it difficulty for her to breath. She has no further complaints. Patient takes anticoagulation due to atrial fibrillation. She denies nausea, vomiting, abdominal pain, or chest pain. Related Data Home Medications Medication Instructions Recorded Confirmed acetaminophen 325 mg tablet 325 mg PO Q6H PRN 03/05/21 11/05/21 calcium carbonate 500 mg calcium 500 mg PO DAILY PRN 03/05/21 11/05/21 (1,250 mg) chewable tablet Allergies Allergy/AdvReac Type Severity Reaction Status Date / Time codeine Allergy Unknown tachycardia Verified 11/05/21 11:30 morphine Allergy Unknown tachycardia Verified 11/05/21 11:30 Review of Systems Review of Systems: All systems reviewed & are unremarkable except as noted in HPI and below PMFSH Past Medical History Medical History (Updated 11/10/21 @ 23:05 by Beverly Brewer MD) Atrial fibrillation and flutter Broken fingers Left hand Cerebrovascular accident (2003) Chronic anemia Chronic lymphocytic leukemia (~1999) Chronic pain of left knee Diastolic heart failure Echo 02/23/2020: EF 60-65%, moderately increased LV wall thickness, abnormal diastolic function, global longitudinal strain is normal, mild left atrial enlargement, mild aortic valve sclerosis, mild mitral valve regurgitation, severe pulmonary hypertension with RVSP of 62 mmHg, [id number] pulmonic regurgitation, elevated right atrial pressures. Emphysema lung Essential hypertension Hyperlipidemia Hypertension Hypothyroidism Severe pulmonary hypertension Thrombocytopenia Surgical History Surgical History History of ankle surgery (~1999) Right ankle ORIF with hardware. History of bladder surgery History of cholecystectomy History of hysterectomy History of lumbar surgery Family History Family History Father Asthma Mother Family history of heart disease in male family member before age 55 Cerebrovascular accident Family history of arthritis Other No problems noted. Sibling Diabetes mellitus Social History Social History Social History: The patient lives in [place]. She has been for 16 years. She grew up in [place] but was raised in [place]. She and her lived in [place] for about 34 years before they retired, and then they moved to this region to be closer to their 2 children. In total, she had 6 children, lost 2. She smoked up to 3 packs of cigarettes per day for approximately 20 years and quit 1972. She denies alcohol and illicit substance use. She designates her grandchild, Merari Urena, as her surrogate decision maker and she wishes to be a full code. Spiritual care concerns: No Exam Const: General: alert Orientation/consciousness: patient oriented x3 Other: chronically ill appearing HENMT: Head: normocephalic, laceration (right posterior scalp 4 cm) and other (right posterior scalp wound appears 2 cm, no bleeding) Face and sinus: normal facial exam, sinuses nontender and face symmetric Mouth: Yes Normal oral and palatal mucosa present, Yes lip normal, Yes oropharynx normal and Yes moist
[2021-11-10 18:40] LABS: Alanine Aminotransferase 17 U/L (4-35); Alkaline Phosphatase 178 U/L (38-126); Anion Gap 0 mmol/L (8-16); Aspartate Amino Transferase 33 U/L (14-36); Bilirubin,Total 0.5 mg/dL (0.2-1.3); Blood Urea Nitrogen 36 mg/dL (7-17); Calcium 12.3 mg/dL (8.4-10.2); Carbon Dioxide 32 mmol/L (22-30); Chloride 105 mmol/L (98-107); Estimated CRCL calculation 26 ml/min; Estimated Glomerular Filt Rate 29; Glucose 133 mg/dL (65-110); Potassium 4.1 mmol/L (3.4-5.0); Sodium 137 mmol/L (137-145)
[2021-11-10] MEDS: SODIUM CHLORIDE 0.9% IV 500 ML 999 ML IV CONT (18:47)
[2021-11-10 18:58] LABS: Hypochromasia 1+ (NORMAL); Ovalocytes 1+ (NORMAL); Platelet Estimate Decreased (Adequate)
[2021-11-10 18:59] LABS: Atypical Lymphocytes Present
[2021-11-10 19:56] LABS: Add Urine Microscopic? YES; Amorphous Sediment Urine Few; Appearance Urine Turbid (Clear); Bacteria Urine Trace /hpf; Bilirubin Urine Negative (Negative); Color Urine Amber (Yellow); Glucose Urine UA Negative (Negative); Ketones Urine Negative (Negative); Leukocyte Esterase Ur Negative LEU/UL (Negative); Mucus Urine Rare /lpf; Nitrate Urine Negative (Negative); Protein Urine 2+ mg/dL (Negative); RBC Urine 21-50 /hpf (0-2); Specific Grav Ur 1.018 (1.001-1.035); Squamous Epithelial Cell Urine Occasional /hpf (Few); Urobilinogen Urine Negative mg/dL (<2.0); WBC Urine 16-20 /hpf
[2021-11-10 19:57] LABS: Blood Urine Negative (Negative)
--- NOTE | 2021-11-10 22:02 | PM.IMHP ---
H&P: HPI History of Present Illness Date/Time: 11/10/21 22:02 Chief Complaint: Fall Narrative: This is an 81-year-old female with past medical history significant for CLL, splenomegaly, dyslipidemia, chronic atrial fibrillation, anticoagulated and rate controlled. Patient just recently discharged treated for urinary tract infection. Presents to the emergency room after sustaining a fall with trauma to the head and open wound. Patient is unable to give much history but stated that she had fallen denies any loss of consciousness. Preliminary workup was significant for urinalysis with numerous wbc's present. CT of the head did not show any acute intracranial abnormalities, CT of cervical spine shows severe spondylosis. In emergency room patient received some sutures to laceration wound of the scalp. Patient has been admitted for further evaluation management and treatment. Review of Systems Review of Systems: Fall laceration wound to the scalp ROS unobtainable: Yes unobtainable due to medical condition (Dementia) [facility] Past Medical History Medical History (Updated 11/11/21 @ 02:41 by Soila Spencer MD) Atrial fibrillation and flutter Broken fingers Left hand Cerebrovascular accident (2003) Chronic anemia Chronic lymphocytic leukemia (~1999) Chronic pain of left knee Diastolic heart failure Echo 02/23/2020: EF 60-65%, moderately increased LV wall thickness, abnormal diastolic function, global longitudinal strain is normal, mild left atrial enlargement, mild aortic valve sclerosis, mild mitral valve regurgitation, severe pulmonary hypertension with RVSP of 62 mmHg, [id number] pulmonic regurgitation, elevated right atrial pressures. Emphysema lung Essential hypertension Hyperlipidemia Hypertension Hypothyroidism Severe pulmonary hypertension Thrombocytopenia Surgical History Surgical History History of ankle surgery (~1999) Right ankle ORIF with hardware. History of bladder surgery History of cholecystectomy History of hysterectomy History of lumbar surgery Family History Family History Father Asthma Mother Family history of heart disease in male family member before age 55 Cerebrovascular accident Family history of arthritis Other No problems noted. Sibling Diabetes mellitus Social History Social History Social History: The patient lives in [place]. She has been for 16 years. She grew up in [place] but was raised in [place]. She and her lived in [place] for about 34 years before they retired, and then they moved to this region to be closer to their 2 children. In total, she had 6 children, lost 2. She smoked up to 3 packs of cigarettes per day for approximately 20 years and quit 1972. She denies alcohol and illicit substance use. She designates her grandchild, Merari Urena, as her surrogate decision maker and she wishes to be a full code. Spiritual care concerns: No Meds Home Medications and Allergies Home Medications Medication Instructions Recorded Confirmed Type acetaminophen 325 mg tablet 325 mg PO Q6H PRN 03/05/21 11/11/21 History calcium carbonate 500 mg calcium 500 mg PO DAILY PRN 03/05/21 11/05/21 History (1,250 mg) chewable tablet simvastatin 40 mg tablet 40 mg PO DAILY #90 tablet 08/20/21 11/11/21 Rx metoprolol succinate 50 mg 50 mg PO DAILY #30 tablet 10/06/21 11/11/21 Rx tablet,extended release 24 hr ferrous sulfate 325 mg (65 mg 325 mg PO DAILY 30 Days #30 tablet 11/05/21 11/11/21 Rx iron) tablet NS apixaban [Eliquis] 2.5 mg PO BID 11/11/21 11/11/21 History spironolactone 25 mg PO DAILY 11/11/21 11/11/21 History Allergies Allergy/AdvReac Type Severity Reaction Status Date / Time codeine Allergy Unknown tachycardia Verified 11/05/21 11:30 morphine Allergy U
[2021-11-10 23:42] LABS: SARS-CoV-2 RNA PCR Positive
[2021-11-10] MEDS: SODIUM CHLORIDE 0.9% IV 1,000 ML 75 ML IV CONT (23:58)
[2021-11-11] VITALS (11 sets, daily range): BP systolic 105–115; BP diastolic 46–63; PULSE 64–85; RESP 16–20; TEMP 35.6–36.7; O2SAT 87–100
[2021-11-11] MEDS: SODIUM CHLORIDE 0.9% IV 1,000 ML 75 ML IV CONT (03:40)
[2021-11-11 06:50] LABS: Basophils Percent Auto 0.5 % (0.2-1.2); Eosinophils Percent Auto 0.3 % (0-4.4); Hematocrit 27.9 % (37.0-47.0); Hemoglobin 8.1 g/dL (12.0-15.0); Immature Granulocyte Percent A 1.1 % (0-0.5); Lymphocytes Absolute Auto 6.28 K/mm3 (0.9-3.2); Lymphocytes Percent Auto 71.8 % (18.3-44.2); Mean Corpuscular Hemoglobin 29.9 pg (26-34); Mean Platelet Volume 11.1 fl (7.4-10.4); Monocytes Absolute Auto 1.4 K/mm3 (0.1-0.6); Monocytes Percent Auto 16.3 % (2.6-8.5); Neutrophils Absolute Auto 0.9 K/mm3 (1.3-6.7); Nucleated Red Blood Cells Perc 0.5 % (0.0-0.2); Platelet Count Result 99 k/mm3 (150-375); Red Blood Count 2.71 M/mm3 (4.2-5.4); Red Cell Distribution Width 18.7 % (11.5-14.5); White Blood Count 8.8 K/mm3 (4.5-10.0)
[2021-11-11 06:59] LABS: Alanine Aminotransferase 16 U/L (4-35); Albumin Level 2.8 g/dL (3.5-5.1); Alkaline Phosphatase 169 U/L (38-126); Anion Gap 3 mmol/L (8-16); Aspartate Amino Transferase 28 U/L (14-36); Bilirubin,Total 0.5 mg/dL (0.2-1.3); Blood Urea Nitrogen 35 mg/dL (7-17); Calcium 11.6 mg/dL (8.4-10.2); Carbon Dioxide 26 mmol/L (22-30); Chloride 109 mmol/L (98-107); Estimated CRCL calculation 28 ml/min; Estimated Glomerular Filt Rate 31; Glucose 91 mg/dL (65-110); Potassium 4.1 mmol/L (3.4-5.0); Sodium 138 mmol/L (137-145)
[2021-11-11 08:22] LABS: Glucose Point of Care 96 mg/dl (65-105)
--- NOTE | 2021-11-11 09:52 | PCOTNOTE ---
Attempted to see pt. for evaluation. Per nurse, pt just returned to bed after getting up with physical therapy. Pt. declined to participate at this time, stating that she wanted to sleep.
[2021-11-11 12:05] LABS: Glucose Point of Care 83 mg/dl (65-105)
--- NOTE | 2021-11-11 14:17 | PM.IMPN ---
Progress Note: A&P Assessment and Plan (1) UTI (urinary tract infection): Code(s): N39.0 - Urinary tract infection, site not specified Status: Acute Assessment and Plan: Patient has been started on Rocephin Await cultures (2) Fall: Code(s): W19.XXXA - Unspecified fall, initial encounter Status: Acute Assessment and Plan: Fall precautions PT OT consult (3) Orthostatic hypotension: Code(s): I95.1 - Orthostatic hypotension Status: Acute Assessment and Plan: Gentle hydration (4) Atrial fibrillation, chronic: Code(s): I48.20 - Chronic atrial fibrillation, unspecified Status: Acute Assessment and Plan: Rate control and anticoagulated (5) Laceration of scalp: Code(s): S01.01XA - Laceration without foreign body of scalp, initial encounter Status: Acute Assessment and Plan: Status post sutures (6) Stage 3b chronic kidney disease: Code(s): N18.32 - Chronic kidney disease, stage 3b Status: Chronic Assessment and Plan: Continue to monitor BUN and creatinine (7) Splenomegaly: Code(s): R16.1 - Splenomegaly, not elsewhere classified Status: Acute Assessment and Plan: Secondary to CLL (8) Acute kidney injury: Code(s): N17.9 - Acute kidney failure, unspecified Status: Acute Assessment and Plan: Continue to monitor (9) Hypercalcemia: Code(s): E83.52 - Hypercalcemia Status: Acute Assessment and Plan: Likely secondary to underlying malignancy and dehydration (10) Chronic lymphocytic leukemia: Code(s): C91.10 - Chronic lymphocytic leukemia of B-cell type not having achieved remission Status: Acute Assessment and Plan: Unchanged Follow-up in outpatient setting (11) Severe pulmonary arterial systolic hypertension: Code(s): I27.21 - Secondary pulmonary arterial hypertension Status: Acute Assessment and Plan: Patient is not on supplemental oxygen. Additional Plan # Fall with head injury CT head without any acute intracranial abnormality. CT cervical spine with severe spondylosis # Head injury with laceration which was sutured in the ER laceration site clean and dry # UTI on ceftriaxone # Hypotension/orthostatic hypotension on gentle IV fluid with some improvement # Chronic lymphocytic leukemia # Chronic Splenomegaly # Chronic atrial fibrillation #History of CVA 2003 # Chronic anemia hemoglobin runs around a eats and remains stable compared to previous levels # Hypertension cold blood pressure in due to hypotension # Hyperlipidemia # Hypothyroidism # CKD stage 3 baseline creatinine 1.3-1.4 mild BJ noted on admission creatinine up to 1.7 continues to improve # Hypercalcemia noted on admission to 0.3 improve down to 11.6 today she is noted to be hypercalcemic last admission on September as well. PTH level was checked last admission and was low less than 3.4, vitamin-D level was was low at 15. Will check PTH rp; she is not on any thiazide diuretics. She is noted to be on calcium carbonate at home which can be 1 of the reason. Will stop that. Review of her calcium level in the past does not reveal hypercalcemia until this September 2021 # Recent COVID infection in September 2021 remains positive this admission # Pulmonary hypertension # Thrombocytopenia platelet count ranging between 90 to 110s continue to monitor # Diastolic heart failure, chest x-ray with mild pulmonary edema noted however more hypotensive # Chronic anticoagulation with Eliquis which will be resumed # DVT prophylaxis on Eliquis Subjective Date/time seen: 11/11/21 14:17 Interval history: HPI:This is an 81-year-old female with past medical history significant for CLL, splenomegaly, dyslipidemia, chronic atrial fibrillation, anticoagulated and rate controlled. Patient just recently discharged treated for urinary tract infection. Presents to the emergency room afte
[2021-11-11 17:02] LABS: Glucose Point of Care 86 mg/dl (65-105)
[2021-11-11] MEDS: APIXABAN 2.5 MG TABLET PO (20:20)
[2021-11-12] VITALS (11 sets, daily range): BP systolic 103–124; BP diastolic 46–54; PULSE 69–92; RESP 16–26; TEMP 36.2–36.4; O2SAT 90–100
[2021-11-12] MEDS: SODIUM CHLORIDE 0.9% IV 1,000 ML 75 ML IV CONT (02:00)
[2021-11-12 02:37] LABS: Glucose Point of Care 99 mg/dl (65-105)
[2021-11-12 06:53] LABS: Basophils Percent Auto 0.5 % (0.2-1.2); Eosinophils Percent Auto 0.4 % (0-4.4); Hematocrit 23.8 % (37.0-47.0); Immature Granulocyte Absolute 0.09 K/mm3 (0.00-0.031); Immature Granulocyte Percent A 1.2 % (0-0.5); Immature Platelet Fraction Pct 4.9 % (0.9-11.2); Lymphocytes Absolute Auto 4.81 K/mm3 (0.9-3.2); Lymphocytes Percent Auto 64.3 % (18.3-44.2); Mean Corpuscular HGB Conc 29.4 g/dl (32-36); Mean Corpuscular Hemoglobin 29.9 pg (26-34); Mean Corpuscular Volume 101.7 fl (80-100); Mean Platelet Volume 11.5 fl (7.4-10.4); Monocytes Absolute Auto 1.7 K/mm3 (0.1-0.6); Monocytes Percent Auto 22.5 % (2.6-8.5); Neutrophils Absolute Auto 0.8 K/mm3 (1.3-6.7); Neutrophils Percent Auto 11.1 % (45.5-73.1); Nucleated Red Blood Cells Perc 0.3 % (0.0-0.2); Platelet Count Result 100 k/mm3 (150-375); Red Blood Count 2.34 M/mm3 (4.2-5.4); Red Cell Distribution Width 18.8 % (11.5-14.5); White Blood Count 7.5 K/mm3 (4.5-10.0)
[2021-11-12 07:28] LABS: Alanine Aminotransferase 13 U/L (4-35); Albumin Level 2.6 g/dL (3.5-5.1); Alkaline Phosphatase 157 U/L (38-126); Anion Gap 1 mmol/L (8-16); Aspartate Amino Transferase 28 U/L (14-36); Bilirubin,Total 0.4 mg/dL (0.2-1.3); Blood Urea Nitrogen 33 mg/dL (7-17); Calcium 10.3 mg/dL (8.4-10.2); Carbon Dioxide 30 mmol/L (22-30); Chloride 107 mmol/L (98-107); Estimated CRCL calculation 28 ml/min; Estimated Glomerular Filt Rate 31; Glucose 85 mg/dL (65-110); Magnesium 2.5 mg/dL (1.6-2.3); Sodium 138 mmol/L (137-145)
[2021-11-12 08:18] LABS: Glucose Point of Care 83 mg/dl (65-105)
[2021-11-12 08:25] LABS: Platelet Estimate Decreased (Adequate)
[2021-11-12 08:26] LABS: Anisocytosis 1+ (NORMAL); Hypochromasia 1+ (NORMAL); Ovalocytes 2+ (NORMAL); Smudge Cells FEW; Tear Drop Cells 1+ (NORMAL)
[2021-11-12] MEDS: SIMVASTATIN 20 MG TABLET 40 MG PO (09:28)
[2021-11-12] MEDS: FERROUS SULFATE 324 MG TABLET PO (09:28)
[2021-11-12] MEDS: APIXABAN 2.5 MG TABLET PO ×2 (10:11→20:17)
[2021-11-12 12:08] LABS: Hematocrit 25.7 % (37.0-47.0); Hemoglobin 7.5 g/dL (12.0-15.0)
[2021-11-12 12:27] LABS: Glucose Point of Care 88 mg/dl (65-105)
[2021-11-12] MEDS: SODIUM CHLORIDE 0.9% IV 1,000 ML 100 ML IV CONT (12:55)
--- NOTE | 2021-11-12 13:24 | PM.IMPN ---
Progress Note: A&P Assessment and Plan (1) UTI (urinary tract infection): Code(s): N39.0 - Urinary tract infection, site not specified Status: Acute Assessment and Plan: Patient has been started on Rocephin Await cultures (2) Fall: Code(s): W19.XXXA - Unspecified fall, initial encounter Status: Acute Assessment and Plan: Fall precautions PT OT consult (3) Orthostatic hypotension: Code(s): I95.1 - Orthostatic hypotension Status: Acute Assessment and Plan: Gentle hydration (4) Atrial fibrillation, chronic: Code(s): I48.20 - Chronic atrial fibrillation, unspecified Status: Acute Assessment and Plan: Rate control and anticoagulated (5) Laceration of scalp: Code(s): S01.01XA - Laceration without foreign body of scalp, initial encounter Status: Acute Assessment and Plan: Status post sutures Hemoglobin slightly low today likely from her head contusion/laceration (6) Stage 3b chronic kidney disease: Code(s): N18.32 - Chronic kidney disease, stage 3b Status: Chronic Assessment and Plan: Continue to monitor BUN and creatinine (7) Splenomegaly: Code(s): R16.1 - Splenomegaly, not elsewhere classified Status: Acute Assessment and Plan: Secondary to CLL (8) Acute kidney injury: Code(s): N17.9 - Acute kidney failure, unspecified Status: Acute Assessment and Plan: Continue to monitor (9) Hypercalcemia: Code(s): E83.52 - Hypercalcemia Status: Acute Assessment and Plan: Likely secondary to underlying malignancy and dehydration (10) Chronic lymphocytic leukemia: Code(s): C91.10 - Chronic lymphocytic leukemia of B-cell type not having achieved remission Status: Acute Assessment and Plan: Unchanged Follow-up in outpatient setting (11) Severe pulmonary arterial systolic hypertension: Code(s): I27.21 - Secondary pulmonary arterial hypertension Status: Acute Assessment and Plan: Patient is not on supplemental oxygen. Additional Plan # Fall with head injury CT head without any acute intracranial abnormality. CT cervical spine with severe spondylosis # Head injury with laceration which was sutured in the ER laceration site clean and dry # UTI on ceftriaxone urine culture in progress # Hypotension/orthostatic hypotension on gentle IV fluid with some improvement this is improved. Her fluid today oral intake is adequate. She is noted to have increased pedal edema today will stop her IV fluids. # Chronic lymphocytic leukemia # Chronic Splenomegaly # Chronic atrial fibrillation #History of CVA 2003 # Chronic anemia hemoglobin runs around a eats and remains stable compared to previous levels # Hypertension cold blood pressure in due to hypotension # Hyperlipidemia # Hypothyroidism # CKD stage 3 baseline creatinine 1.3-1.4 mild BJ noted on admission creatinine up to 1.7 continues to improve # Hypercalcemia noted on admission to 0.3 improve down to 11.6 today she is noted to be hypercalcemic last admission on September as well. PTH level was checked last admission and was low less than 3.4, vitamin-D level was was low at 15. Will check PTH rp; she is not on any thiazide diuretics. She is noted to be on calcium carbonate at home which can be 1 of the reason. Will stop that. Review of her calcium level in the past does not reveal hypercalcemia until this September 2021 Hypercalcemia continues to improve down to 10.3 with IV hydration likely relates to dehydration. Now off IV fluid will recheck her calcium level in the morning # Recent COVID infection in September 2021 remains positive this admission # Pulmonary hypertension # Thrombocytopenia platelet count ranging between 90 to 110s continue to monitor # Diastolic heart failure, chest x-ray with mild pulmonary edema noted however more hypotensive # Chronic anticoagulation with Eliquis which w
[2021-11-12 17:08] LABS: Glucose Point of Care 88 mg/dl (65-105)
[2021-11-12] MEDS: ACETAMINOPHEN 325 MG TABLET PO ×2 (18:32→20:15)
[2021-11-12 21:57] LABS: Glucose Point of Care 99 mg/dl (65-105)
[2021-11-13 06:00] VITALS: BP 109/59; PULSE 52; RESP 22; TEMP 36.4; O2SAT 89
[2021-11-13 06:49] LABS: Hematocrit 26.4 % (37.0-47.0); Hemoglobin 7.9 g/dL (12.0-15.0); Immature Platelet Fraction Pct 3.9 % (0.9-11.2); Mean Corpuscular HGB Conc 29.9 g/dl (32-36); Mean Corpuscular Hemoglobin 29.6 pg (26-34); Mean Corpuscular Volume 98.9 fl (80-100); Mean Platelet Volume 11.1 fl (7.4-10.4); Platelet Count Result 107 k/mm3 (150-375); Red Blood Count 2.67 M/mm3 (4.2-5.4); Red Cell Distribution Width 18.8 % (11.5-14.5); White Blood Count 8.2 K/mm3 (4.5-10.0)
[2021-11-13 06:56] LABS: Alanine Aminotransferase 15 U/L (4-35); Albumin Level 2.7 g/dL (3.5-5.1); Alkaline Phosphatase 176 U/L (38-126); Anion Gap 3 mmol/L (8-16); Aspartate Amino Transferase 29 U/L (14-36); Bilirubin,Total 0.6 mg/dL (0.2-1.3); Blood Urea Nitrogen 30 mg/dL (7-17); Calcium 9.9 mg/dL (8.4-10.2); Carbon Dioxide 25 mmol/L (22-30); Chloride 107 mmol/L (98-107); Estimated CRCL calculation 34 ml/min; Estimated Glomerular Filt Rate 39; Glucose 90 mg/dL (65-110); Magnesium 2.5 mg/dL (1.6-2.3); Potassium 4.1 mmol/L (3.4-5.0); Sodium 135 mmol/L (137-145)
[2021-11-13 07:31] LABS: Anisocytosis 2+ (NORMAL); Atypical Lymphocytes Present; Band Neutrophils Percent 10 % (0-6); Basophils Absolute Manual 0.08 K/mm3 (0.0-0.1); Basophils Percent Manual 1 % (0-1); Eosinophils Absolute Manual 0.08 K/mm3 (0.02-0.5); Eosinophils Percent Manual 1 % (0-4); Lymphocytes Absolute Manual 5.49 K/mm3 (1.1-4.5); Monocytes Absolute Manual 0.16 K/mm3 (0.1-0.90); Monocytes Percent Manual 2 % (3-9); Neutrophils Absolute Manual 2.37 K/mm3 (1.7-7.2); Neutrophils Percent Manual 19 % (46-73); Ovalocytes 2+ (NORMAL); Smudge Cells PRESENT; Total Cells Counted 100
[2021-11-13 08:00] VITALS: O2SAT 95
[2021-11-13 08:15] LABS: Glucose Point of Care 84 mg/dl (65-105)
[2021-11-13] MEDS: FERROUS SULFATE 324 MG TABLET PO (08:27)
[2021-11-13] MEDS: APIXABAN 2.5 MG TABLET PO ×2 (08:27→20:30)
[2021-11-13] MEDS: SIMVASTATIN 20 MG TABLET 40 MG PO (08:28)
[2021-11-13 08:58] VITALS: O2SAT 93
[2021-11-13 11:35] LABS: Glucose Point of Care 115 mg/dl (65-105)
[2021-11-13 14:00] VITALS: BP 110/48; PULSE 69; RESP 19; TEMP 35.7; O2SAT 95
--- NOTE | 2021-11-13 14:27 | PCOTNOTE ---
Attempted to see patient this pm. Patient was sleeping upon entering and kindly declined requesting to sleep. Can I sleep a while longer? I haven't had a chance to sleep. Tomorrow would be better.
--- NOTE | 2021-11-13 15:26 | P.PNIM_ITS ---
Progress Note: A&P Assessment and Plan (1) UTI (urinary tract infection): Code(s): N39.0 - Urinary tract infection, site not specified Status: Acute Assessment and Plan: Patient has been started on Rocephin Urine culture with Enterococcus Switch to vancomycin (2) Fall: Code(s): W19.XXXA - Unspecified fall, initial encounter Status: Acute Assessment and Plan: Fall precautions PT OT consult (3) Orthostatic hypotension: Code(s): I95.1 - Orthostatic hypotension Status: Acute Assessment and Plan: Gentle hydration This has been stopped now (4) Atrial fibrillation, chronic: Code(s): I48.20 - Chronic atrial fibrillation, unspecified Status: Acute Assessment and Plan: Rate control and anticoagulated (5) Laceration of scalp: Code(s): S01.01XA - Laceration without foreign body of scalp, initial encounter Status: Acute Assessment and Plan: Status post sutures Hemoglobin lower down to 7 from her baseline of 8 likely from her head contusion/laceration (6) Stage 3b chronic kidney disease: Code(s): N18.32 - Chronic kidney disease, stage 3b Status: Chronic Assessment and Plan: Continue to monitor BUN and creatinine (7) Splenomegaly: Code(s): R16.1 - Splenomegaly, not elsewhere classified Status: Acute Assessment and Plan: Secondary to CLL (8) Acute kidney injury: Code(s): N17.9 - Acute kidney failure, unspecified Status: Acute Assessment and Plan: Continue to monitor (9) Hypercalcemia: Code(s): E83.52 - Hypercalcemia Status: Acute Assessment and Plan: Likely secondary to underlying malignancy and dehydration (10) Chronic lymphocytic leukemia: Code(s): C91.10 - Chronic lymphocytic leukemia of B-cell type not having achieved remission Status: Acute Assessment and Plan: Unchanged Follow-up in outpatient setting (11) Severe pulmonary arterial systolic hypertension: Code(s): I27.21 - Secondary pulmonary arterial hypertension Status: Acute Assessment and Plan: Patient is not on supplemental oxygen. Additional Plan # Fall with head injury CT head without any acute intracranial abnormality. CT cervical spine with severe spondylosis # Head injury with laceration which was sutured in the ER laceration site clean and dry # UTI on ceftriaxone urine culture i with Enterococcus change antibiotic to vancomycin # Hypotension/orthostatic hypotension on gentle IV fluid with some improvement this is improved. Her fluid today oral intake is adequate. She is noted to have increased pedal edema 11/12/2021 hence IV fluid was stopped # Chronic lymphocytic leukemia # Chronic Splenomegaly # Chronic atrial fibrillation #History of CVA 2003 # Chronic anemia hemoglobin runs around a eats and remains stable compared to previous levels # Hypertension cold blood pressure in due to hypotension # Hyperlipidemia # Hypothyroidism # CKD stage 3 baseline creatinine 1.3-1.4 mild BJ noted on admission creatinine up to 1.7 continues to improve and back to baseline today # Hypercalcemia noted on admission to 0.3 improve down to 11.6 today she is noted to be hypercalcemic last admission on September as well. PTH level was checked last admission and was low less than 3.4, vitamin-D level was was low at 15. Will check PTH rp; she is not on any thiazide diuretics. She is noted to be on calcium carbonate at home which can be 1 of the reason. Will stop that. Review of her calc
[2021-11-13 17:24] LABS: Glucose Point of Care 96 mg/dl (65-105)
[2021-11-13] MEDS: ACETAMINOPHEN 325 MG TABLET PO (20:29)
[2021-11-13 22:00] VITALS: BP 117/54; PULSE 96; RESP 18; TEMP 36.8; O2SAT 95
[2021-11-14 03:54] LABS: Glucose Point of Care 110 mg/dl (65-105)
[2021-11-14 06:44] LABS: Basophils Percent Auto 0.5 % (0.2-1.2); Eosinophils Absolute Auto 0.1 K/mm3 (0-0.3); Eosinophils Percent Auto 0.7 % (0-4.4); Hematocrit 25.7 % (37.0-47.0); Hemoglobin 7.8 g/dL (12.0-15.0); Immature Granulocyte Absolute 0.07 K/mm3 (0.00-0.031); Immature Granulocyte Percent A 0.8 % (0-0.5); Immature Platelet Fraction Pct 4.1 % (0.9-11.2); Lymphocytes Absolute Auto 7.19 K/mm3 (0.9-3.2); Lymphocytes Percent Auto 85.9 % (18.3-44.2); Mean Corpuscular HGB Conc 30.4 g/dl (32-36); Mean Corpuscular Hemoglobin 30.1 pg (26-34); Mean Corpuscular Volume 99.2 fl (80-100); Mean Platelet Volume 10.9 fl (7.4-10.4); Monocytes Absolute Auto 0.4 K/mm3 (0.1-0.6); Monocytes Percent Auto 4.5 % (2.6-8.5); Neutrophils Absolute Auto 0.6 K/mm3 (1.3-6.7); Neutrophils Percent Auto 7.6 % (45.5-73.1); Nucleated Red Blood Cells Perc 0.4 % (0.0-0.2); Platelet Count Result 96 k/mm3 (150-375); Red Blood Count 2.59 M/mm3 (4.2-5.4); White Blood Count 8.4 K/mm3 (4.5-10.0)
[2021-11-14 06:50] LABS: Alanine Aminotransferase 16 U/L (4-35); Albumin Level 2.5 g/dL (3.5-5.1); Alkaline Phosphatase 166 U/L (38-126); Anion Gap 1 mmol/L (8-16); Aspartate Amino Transferase 27 U/L (14-36); Bilirubin,Total 0.5 mg/dL (0.2-1.3); Blood Urea Nitrogen 26 mg/dL (7-17); Carbon Dioxide 26 mmol/L (22-30); Chloride 107 mmol/L (98-107); Estimated CRCL calculation 34 ml/min; Estimated Glomerular Filt Rate 39; Glucose 110 mg/dL (65-110); Magnesium 2.3 mg/dL (1.6-2.3); Potassium 4.1 mmol/L (3.4-5.0); Sodium 134 mmol/L (137-145)
[2021-11-14 07:13] LABS: Atypical Lymphocytes Present; Microcytosis 2+ (NORMAL); Platelet Estimate Decreased (Adequate)
[2021-11-14 08:18] LABS: Glucose Point of Care 102 mg/dl (65-105)
[2021-11-14 08:21] VITALS: O2SAT 95
[2021-11-14] MEDS: FERROUS SULFATE 324 MG TABLET PO (08:45)
[2021-11-14] MEDS: APIXABAN 2.5 MG TABLET PO ×2 (08:45→19:57)
[2021-11-14] MEDS: SIMVASTATIN 20 MG TABLET 40 MG PO (08:45)
[2021-11-14 11:37] LABS: Glucose Point of Care 106 mg/dl (65-105)
[2021-11-14 14:00] VITALS: BP 132/61; PULSE 84; RESP 20; TEMP 35.6; O2SAT 94
--- NOTE | 2021-11-14 15:43 | PC.NURSE ---
pt asked to speak with me. Pt stated quite adamantly that she was not going to be locked away in some home. I have a home! I asked her to explain to what she was referring. After further explanation, I clarified that pt was not going to be locked away and that she needed to go to rehab to get stronger before she could return to her home; that we are an acute care hospital not a rehab facility and that she was medically stable but needed more intensive therapy to improve her mobility and strength. This seem to appease her.
[2021-11-14 16:44] LABS: Glucose Point of Care 107 mg/dl (65-105)
--- NOTE | 2021-11-14 18:04 | PM.IMPN ---
Progress Note: A&P Assessment and Plan (1) UTI (urinary tract infection): Code(s): N39.0 - Urinary tract infection, site not specified Status: Acute Assessment and Plan: Patient has been started on Rocephin Urine culture with Enterococcus Switch to vancomycin (2) Fall: Code(s): W19.XXXA - Unspecified fall, initial encounter Status: Acute Assessment and Plan: Fall precautions PT OT consult (3) Orthostatic hypotension: Code(s): I95.1 - Orthostatic hypotension Status: Acute Assessment and Plan: Gentle hydration This has been stopped now (4) Atrial fibrillation, chronic: Code(s): I48.20 - Chronic atrial fibrillation, unspecified Status: Acute Assessment and Plan: Rate control and anticoagulated (5) Laceration of scalp: Code(s): S01.01XA - Laceration without foreign body of scalp, initial encounter Status: Acute Assessment and Plan: Status post sutures Hemoglobin lower down to 7 from her baseline of 8 likely from her head contusion/laceration (6) Stage 3b chronic kidney disease: Code(s): N18.32 - Chronic kidney disease, stage 3b Status: Chronic Assessment and Plan: Continue to monitor BUN and creatinine (7) Splenomegaly: Code(s): R16.1 - Splenomegaly, not elsewhere classified Status: Acute Assessment and Plan: Secondary to CLL (8) Acute kidney injury: Code(s): N17.9 - Acute kidney failure, unspecified Status: Acute Assessment and Plan: Continue to monitor (9) Hypercalcemia: Code(s): E83.52 - Hypercalcemia Status: Acute Assessment and Plan: Likely secondary to underlying malignancy and dehydration (10) Chronic lymphocytic leukemia: Code(s): C91.10 - Chronic lymphocytic leukemia of B-cell type not having achieved remission Status: Acute Assessment and Plan: Unchanged Follow-up in outpatient setting (11) Severe pulmonary arterial systolic hypertension: Code(s): I27.21 - Secondary pulmonary arterial hypertension Status: Acute Assessment and Plan: Patient is not on supplemental oxygen. Additional Plan # Fall with head injury CT head without any acute intracranial abnormality. CT cervical spine with severe spondylosis # Head injury with laceration which was sutured in the ER laceration site clean and dry # UTI on ceftriaxone urine culture i with Enterococcus change antibiotic to vancomycin, await sensitivity for further determination oral or iv antibiotics # Hypotension/orthostatic hypotension on gentle IV fluid with some improvement this is improved. Her fluid today oral intake is adequate. She is noted to have increased pedal edema 11/12/2021 hence IV fluid was stopped # Chronic lymphocytic leukemia # Chronic Splenomegaly # Chronic atrial fibrillation #History of CVA 2003 # Chronic anemia hemoglobin runs around a eats and remains stable compared to previous levels # Hypertension cold blood pressure in due to hypotension # Hyperlipidemia # Hypothyroidism # CKD stage 3 baseline creatinine 1.3-1.4 mild BJ noted on admission creatinine up to 1.7 continues to improve and back to baseline today # Hypercalcemia noted on admission to 0.3 improve down to 11.6 today she is noted to be hypercalcemic last admission on September as well. PTH level was checked last admission and was low less than 3.4, vitamin-D level was was low at 15. Will check PTH rp; she is not on any thiazide diuretics. She is noted to be on calcium carbonate at home which can be 1 of the reason. Will stop that. Review of her calcium level in the past does not reveal hypercalcemia until this September 2021 Hypercalcemia continues to improve down to 10.3 with IV hydration likely relates to dehydration. Now off IV fluid Repeat calcium has normalized now # Recent COVID infection in September 2021 remains positive this admission # Pulmonary hypertension # Thr
[2021-11-14] MEDS: HYDROcodone/acetaminophen (*CRX) 5-325 MG TABLET 1 TAB PO (18:30)
[2021-11-14 22:00] VITALS: BP 111/42; PULSE 70; RESP 18; TEMP 36.3; O2SAT 96
[2021-11-15 04:15] LABS: Glucose Point of Care 113 mg/dl (65-105)
[2021-11-15 05:33] VITALS: BP 107/60; PULSE 105; RESP 18; TEMP 36.8; O2SAT 94
[2021-11-15 06:20] LABS: Basophils Absolute Auto 0.1 K/mm3 (0.0-0.1); Basophils Percent Auto 0.6 % (0.2-1.2); Eosinophils Percent Auto 0.5 % (0-4.4); Hematocrit 25.7 % (37.0-47.0); Hemoglobin 7.9 g/dL (12.0-15.0); Immature Granulocyte Absolute 0.05 K/mm3 (0.00-0.031); Immature Granulocyte Percent A 0.6 % (0-0.5); Lymphocytes Absolute Auto 5.95 K/mm3 (0.9-3.2); Lymphocytes Percent Auto 75.1 % (18.3-44.2); Mean Corpuscular HGB Conc 30.7 g/dl (32-36); Mean Corpuscular Hemoglobin 30.6 pg (26-34); Mean Corpuscular Volume 99.6 fl (80-100); Mean Platelet Volume 11.4 fl (7.4-10.4); Monocytes Absolute Auto 1.3 K/mm3 (0.1-0.6); Monocytes Percent Auto 16.2 % (2.6-8.5); Neutrophils Absolute Auto 0.6 K/mm3 (1.3-6.7); Nucleated Red Blood Cells Perc 0.4 % (0.0-0.2); Platelet Count Result 94 k/mm3 (150-375); Red Blood Count 2.58 M/mm3 (4.2-5.4); Red Cell Distribution Width 18.9 % (11.5-14.5); White Blood Count 7.9 K/mm3 (4.5-10.0)
[2021-11-15 06:33] LABS: Alanine Aminotransferase 15 U/L (4-35); Albumin Level 2.7 g/dL (3.5-5.1); Alkaline Phosphatase 184 U/L (38-126); Anion Gap 0 mmol/L (8-16); Aspartate Amino Transferase 26 U/L (14-36); Bilirubin,Total 0.5 mg/dL (0.2-1.3); Blood Urea Nitrogen 24 mg/dL (7-17); Carbon Dioxide 28 mmol/L (22-30); Chloride 107 mmol/L (98-107); Estimated CRCL calculation 34 ml/min; Estimated Glomerular Filt Rate 39; Glucose 92 mg/dL (65-110); Magnesium 2.4 mg/dL (1.6-2.3); Sodium 135 mmol/L (137-145)
[2021-11-15] MEDS: HYDROcodone/acetaminophen (*CRX) 5-325 MG TABLET 1 TAB PO ×2 (06:33→17:41)
[2021-11-15 07:52] LABS: Anisocytosis 2+ (NORMAL); Ovalocytes 1+ (NORMAL); Platelet Estimate Decreased (Adequate); Rouleaux 1+ (NORMAL); Tear Drop Cells 1+ (NORMAL)
[2021-11-15 08:00] VITALS: PULSE 105; RESP 18; O2SAT 94
[2021-11-15 08:16] LABS: Glucose Point of Care 96 mg/dl (65-105)
[2021-11-15] MEDS: SIMVASTATIN 20 MG TABLET 40 MG PO (08:47)
[2021-11-15] MEDS: APIXABAN 2.5 MG TABLET PO ×2 (08:48→21:31)
[2021-11-15] MEDS: FERROUS SULFATE 324 MG TABLET PO (08:48)
[2021-11-15] MEDS: ACETAMINOPHEN 325 MG TABLET PO ×2 (09:56→23:02)
--- NOTE | 2021-11-15 10:49 | PM.IMPN ---
Progress Note: A&P Assessment and Plan (1) UTI (urinary tract infection): Code(s): N39.0 - Urinary tract infection, site not specified Status: Acute Assessment and Plan: Patient has been started on Rocephin Urine culture with Enterococcus Switch to vancomycin (2) Fall: Code(s): W19.XXXA - Unspecified fall, initial encounter Status: Acute Assessment and Plan: Fall precautions PT OT consult (3) Orthostatic hypotension: Code(s): I95.1 - Orthostatic hypotension Status: Acute Assessment and Plan: Gentle hydration This has been stopped now (4) Atrial fibrillation, chronic: Code(s): I48.20 - Chronic atrial fibrillation, unspecified Status: Acute Assessment and Plan: Rate control and anticoagulated (5) Laceration of scalp: Code(s): S01.01XA - Laceration without foreign body of scalp, initial encounter Status: Acute Assessment and Plan: Status post sutures Hemoglobin lower down to 7 from her baseline of 8 likely from her head contusion/laceration (6) Stage 3b chronic kidney disease: Code(s): N18.32 - Chronic kidney disease, stage 3b Status: Chronic Assessment and Plan: Continue to monitor BUN and creatinine (7) Splenomegaly: Code(s): R16.1 - Splenomegaly, not elsewhere classified Status: Acute Assessment and Plan: Secondary to CLL (8) Acute kidney injury: Code(s): N17.9 - Acute kidney failure, unspecified Status: Acute Assessment and Plan: Continue to monitor (9) Hypercalcemia: Code(s): E83.52 - Hypercalcemia Status: Acute Assessment and Plan: Likely secondary to underlying malignancy and dehydration (10) Chronic lymphocytic leukemia: Code(s): C91.10 - Chronic lymphocytic leukemia of B-cell type not having achieved remission Status: Acute Assessment and Plan: Unchanged Follow-up in outpatient setting (11) Severe pulmonary arterial systolic hypertension: Code(s): I27.21 - Secondary pulmonary arterial hypertension Status: Acute Assessment and Plan: Patient is not on supplemental oxygen. Additional Plan # Fall with head injury CT head without any acute intracranial abnormality. CT cervical spine with severe spondylosis # Head injury with laceration which was sutured in the ER laceration site clean and dry # UTI on ceftriaxone urine culture i with Enterococcus change antibiotic to vancomycin, sensitivity apparently could not be done. Discussed with the microbiology. Will have to continue IV vancomycin for least 5 days and will change to thus possibly nitrofurantoin at discharge. Will also check UA again today. # Hypotension/orthostatic hypotension on gentle IV fluid with some improvement this is improved. Her fluid today oral intake is adequate. She is noted to have increased pedal edema 11/12/2021 hence IV fluid was stopped # Chronic lymphocytic leukemia # Chronic Splenomegaly # Chronic atrial fibrillation #History of CVA 2003 # Chronic anemia hemoglobin runs around a eats and remains stable compared to previous levels # Hypertension cold blood pressure in due to hypotension # Hyperlipidemia # Hypothyroidism # CKD stage 3 baseline creatinine 1.3-1.4 mild BJ noted on admission creatinine up to 1.7 continues to improve and back to baseline today # Hypercalcemia noted on admission to 0.3 improve down to 11.6 today she is noted to be hypercalcemic last admission on September as well. PTH level was checked last admission and was low less than 3.4, vitamin-D level was was low at 15. Will check PTH rp; she is not on any thiazide diuretics. She is noted to be on calcium carbonate at home which can be 1 of the reason. Will stop that. Review of her calcium level in the past does not reveal hypercalcemia until this September 2021 Hypercalcemia continues to improve down to 10.3 with IV hydration likely relates to dehydration. N
[2021-11-15] MEDS: ONDANSETRON INJ 4 MG/2 ML VIAL IV PUSH (11:36)
[2021-11-15 12:26] LABS: Glucose Point of Care 104 mg/dl (65-105)
[2021-11-15 14:00] VITALS: BP 103/51; PULSE 98; RESP 14; TEMP 36.8; O2SAT 92
[2021-11-15 14:28] LABS: Add Urine Microscopic? YES; Appearance Urine Cloudy (Clear); Bacteria Urine Trace /hpf; Bilirubin Urine Negative (Negative); Blood Urine 1+ (Negative); Calcium Oxalate Crystals Urine Many /hpf; Color Urine Yellow (Yellow); Glucose Urine UA Negative (Negative); Ketones Urine Negative (Negative); Leukocyte Esterase Ur 3+ LEU/UL (NEGATIVE); Mucus Urine Rare /lpf; Nitrate Urine Negative (Negative); Protein Urine 2+ mg/dL (Negative); RBC Urine 51-75 /hpf (0-2); Specific Grav Ur 1.016 (1.001-1.035); Squamous Epithelial Cell Urine Many /hpf (Few); Urobilinogen Urine Negative mg/dL (<2.0); WBC Clumps Urine Present /HPF; WBC Urine >75 /hpf (0-3)
[2021-11-15 17:09] LABS: Glucose Point of Care 96 mg/dl (65-105)
[2021-11-15 17:16] LABS: Vancomycin Trough 10.7 ug/mL (10.0-20.0)
--- NOTE | 2021-11-15 18:01 | PHAR ---
VANCO TROUGH 11/15 = 10.7 NO CHANGE IN DOSING RECOMMENDED. WILL RECHECK TROUGH LEVEL 11/18/21.
[2021-11-15 21:55] VITALS: BP 97/59; PULSE 96; RESP 18; TEMP 36.6; O2SAT 93
[2021-11-16 05:54] VITALS: BP 104/58; PULSE 84; RESP 18; TEMP 36.5; O2SAT 91
[2021-11-16 08:00] VITALS: PULSE 84; RESP 18; O2SAT 91
[2021-11-16] MEDS: APIXABAN 2.5 MG TABLET PO ×2 (10:14→21:29)
[2021-11-16] MEDS: FERROUS SULFATE 324 MG TABLET PO (10:14)
[2021-11-16] MEDS: SIMVASTATIN 20 MG TABLET 40 MG PO (10:14)
[2021-11-16] MEDS: HYDROcodone/acetaminophen (*CRX) 5-325 MG TABLET 1 TAB PO ×2 (10:17→16:49)
[2021-11-16 12:05] LABS: Glucose Point of Care 110 mg/dl (65-105)
[2021-11-16 14:00] VITALS: BP 120/57; PULSE 71; RESP 18; TEMP 35.8; O2SAT 92
[2021-11-16] MEDS: ACETAMINOPHEN 325 MG TABLET PO (14:12)
[2021-11-16 14:23] VITALS: O2SAT 95
--- NOTE | 2021-11-16 15:24 | PM.IMPN ---
Progress Note: A&P Assessment and Plan (1) UTI (urinary tract infection): Code(s): N39.0 - Urinary tract infection, site not specified Status: Acute Assessment and Plan: Patient has been started on Rocephin Urine culture with Enterococcus Switch to vancomycin (2) Fall: Code(s): W19.XXXA - Unspecified fall, initial encounter Status: Acute Assessment and Plan: Fall precautions PT OT consult (3) Orthostatic hypotension: Code(s): I95.1 - Orthostatic hypotension Status: Acute Assessment and Plan: Gentle hydration This has been stopped now (4) Atrial fibrillation, chronic: Code(s): I48.20 - Chronic atrial fibrillation, unspecified Status: Acute Assessment and Plan: Rate control and anticoagulated (5) Laceration of scalp: Code(s): S01.01XA - Laceration without foreign body of scalp, initial encounter Status: Acute Assessment and Plan: Status post sutures Hemoglobin lower down to 7 from her baseline of 8 likely from her head contusion/laceration (6) Stage 3b chronic kidney disease: Code(s): N18.32 - Chronic kidney disease, stage 3b Status: Chronic Assessment and Plan: Continue to monitor BUN and creatinine (7) Splenomegaly: Code(s): R16.1 - Splenomegaly, not elsewhere classified Status: Acute Assessment and Plan: Secondary to CLL (8) Acute kidney injury: Code(s): N17.9 - Acute kidney failure, unspecified Status: Acute Assessment and Plan: Continue to monitor (9) Hypercalcemia: Code(s): E83.52 - Hypercalcemia Status: Acute Assessment and Plan: Likely secondary to underlying malignancy and dehydration (10) Chronic lymphocytic leukemia: Code(s): C91.10 - Chronic lymphocytic leukemia of B-cell type not having achieved remission Status: Acute Assessment and Plan: Unchanged Follow-up in outpatient setting (11) Severe pulmonary arterial systolic hypertension: Code(s): I27.21 - Secondary pulmonary arterial hypertension Status: Acute Assessment and Plan: Patient is not on supplemental oxygen. Additional Plan # Fall with head injury CT head without any acute intracranial abnormality. CT cervical spine with severe spondylosis # Head injury with laceration which was sutured in the ER laceration site clean and dry. Reports headache likely due to the head injury and laceration. The wound looks clean and dry # UTI on ceftriaxone urine culture i with Enterococcus change antibiotic to vancomycin, sensitivity apparently could not be done. Discussed with the microbiology. Will have to continue IV vancomycin for least 5 days and will change to thus possibly nitrofurantoin at discharge. Recheck UA with multiple squamous epithelial cells suggestive of contamination # Hypotension/orthostatic hypotension on gentle IV fluid with some improvement this is improved. Her fluid today oral intake is adequate. She is noted to have increased pedal edema 11/12/2021 hence IV fluid was stopped # Chronic lymphocytic leukemia # Chronic Splenomegaly # Chronic atrial fibrillation #History of CVA 2003 # Chronic anemia hemoglobin runs around a eats and remains stable compared to previous levels # Hypertension cold blood pressure in due to hypotension # Hyperlipidemia # Hypothyroidism # CKD stage 3 baseline creatinine 1.3-1.4 mild BJ noted on admission creatinine up to 1.7 continues to improve and back to baseline today # Hypercalcemia noted on admission to 0.3 improve down to 11.6 today she is noted to be hypercalcemic last admission on September as well. PTH level was checked last admission and was low less than 3.4, vitamin-D level was was low at 15. Will check PTH rp; she is not on any thiazide diuretics. She is noted to be on calcium carbonate at home which can be 1 of the reason. Will stop that. Review of her calcium level in the past does not re
[2021-11-16 16:46] LABS: Glucose Point of Care 105 mg/dl (65-105)
[2021-11-16 21:09] VITALS: BP 102/63; PULSE 103; RESP 18; TEMP 36.3; O2SAT 93
[2021-11-17 05:35] VITALS: BP 104/48; PULSE 95; RESP 18; TEMP 36.3; O2SAT 96
[2021-11-17 06:09] LABS: Hematocrit 27.2 % (37.0-47.0); Hemoglobin 8.2 g/dL (12.0-15.0); Immature Platelet Fraction Pct 4.3 % (0.9-11.2); Mean Corpuscular HGB Conc 30.1 g/dl (32-36); Mean Corpuscular Hemoglobin 30.1 pg (26-34); Mean Platelet Volume 10.5 fl (7.4-10.4); Platelet Count Result 121 k/mm3 (150-375); Red Blood Count 2.72 M/mm3 (4.2-5.4); Red Cell Distribution Width 19.6 % (11.5-14.5); White Blood Count 11.6 K/mm3 (4.5-10.0)
[2021-11-17 06:22] LABS: Alanine Aminotransferase 17 U/L (4-35); Albumin Level 2.7 g/dL (3.5-5.1); Alkaline Phosphatase 186 U/L (38-126); Anion Gap 3 mmol/L (8-16); Aspartate Amino Transferase 28 U/L (14-36); Bilirubin,Total 0.5 mg/dL (0.2-1.3); Blood Urea Nitrogen 23 mg/dL (7-17); Calcium 9.6 mg/dL (8.4-10.2); Carbon Dioxide 28 mmol/L (22-30); Chloride 105 mmol/L (98-107); Estimated CRCL calculation 30 ml/min; Estimated Glomerular Filt Rate 33; Glucose 94 mg/dL (65-110); Potassium 4.2 mmol/L (3.4-5.0); Sodium 136 mmol/L (137-145)
[2021-11-17 06:40] LABS: Anisocytosis 1+ (NORMAL); Band Neutrophils Percent 2 % (0-6); Basophils Absolute Manual 0.23 K/mm3 (0.0-0.1); Basophils Percent Manual 2 % (0-1); Eosinophils Absolute Manual 0.11 K/mm3 (0.02-0.5); Eosinophils Percent Manual 1 % (0-4); Lymphocytes Absolute Manual 9.62 K/mm3 (1.1-4.5); Monocytes Absolute Manual 0.58 K/mm3 (0.1-0.90); Monocytes Percent Manual 5 % (3-9); Neutrophils Absolute Manual 1.04 K/mm3 (1.7-7.2); Neutrophils Percent Manual 7 % (46-73); Ovalocytes 2+ (NORMAL); Platelet Estimate Decreased (Adequate); Tear Drop Cells 1+ (NORMAL); Total Cells Counted 100
[2021-11-17 06:41] LABS: Hypochromasia 1+ (NORMAL)
[2021-11-17 07:47] LABS: Glucose Point of Care 106 mg/dl (65-105)
[2021-11-17 08:00] VITALS: PULSE 95; RESP 18; O2SAT 96
[2021-11-17] MEDS: FERROUS SULFATE 324 MG TABLET PO (09:28)
[2021-11-17] MEDS: SIMVASTATIN 20 MG TABLET 40 MG PO (09:28)
[2021-11-17] MEDS: APIXABAN 2.5 MG TABLET PO (09:28)
[2021-11-17 11:44] LABS: Glucose Point of Care 109 mg/dl (65-105)
--- NOTE | 2021-11-17 11:45 | PM.DS ---
DS: Admitting Diagnosis Discharge Date 11/17/2021 Admitting Diagnosis Weakness and fall DS: Discharge Diagnosis Discharge Diagnosis (1) UTI (urinary tract infection): Code(s): N39.0 - Urinary tract infection, site not specified Status: Acute (2) Fall: Code(s): W19.XXXA - Unspecified fall, initial encounter Status: Acute (3) Orthostatic hypotension: Code(s): I95.1 - Orthostatic hypotension Status: Acute (4) Atrial fibrillation, chronic: Code(s): I48.20 - Chronic atrial fibrillation, unspecified Status: Acute (5) Laceration of scalp: Code(s): S01.01XA - Laceration without foreign body of scalp, initial encounter Status: Acute (6) Stage 3b chronic kidney disease: Code(s): N18.32 - Chronic kidney disease, stage 3b Status: Chronic (7) Splenomegaly: Code(s): R16.1 - Splenomegaly, not elsewhere classified Status: Acute (8) Acute kidney injury: Code(s): N17.9 - Acute kidney failure, unspecified Status: Acute (9) Hypercalcemia: Code(s): E83.52 - Hypercalcemia Status: Acute (10) Chronic lymphocytic leukemia: Code(s): C91.10 - Chronic lymphocytic leukemia of B-cell type not having achieved remission Status: Acute (11) Severe pulmonary arterial systolic hypertension: Code(s): I27.21 - Secondary pulmonary arterial hypertension Status: Acute DS: Summary Hospital Course Hospital Course: # Fall with head injury CT head without any acute intracranial abnormality. CT cervical spine with severe spondylosis # Head injury with laceration which was sutured in the ER laceration site clean and dry. Reports headache likely due to the head injury and laceration. The wound looks clean and dry needs stable out in 7-10 days (placed on 11/09) follow-up with PCP for removal of bonifacio # UTI on ceftriaxone urine culture back with Enterococcus. Antibiotics changed to vancomycin however sensory could not be done and hence continued IV vancomycin for 5 days. Will change to nitrofurantoin at discharge. She reports improvement in her urinary symptoms since placed on vancomycin. # Hypotension/orthostatic hypotension on gentle IV fluid with some improvement this is improved. Her fluid today oral intake is adequate. She is noted to have increased pedal edema 11/12/2021 hence IV fluid was stopped. Her blood pressure is improved her spironolactone is on hold. Will continue to hold spironolactone at discharge. He does have leg swelling however diuresis limited due to borderline blood pressure. # Chronic lymphocytic leukemia counts remained stable throughout the stay # Chronic Splenomegaly # Chronic atrial fibrillation rate controlled on Eliquis which will continue during the hospital stay #History of CVA 2003 # Chronic anemia hemoglobin runs around a eats and remains stable compared to previous levels # Hypertension hold blood pressure medication due to hypotension. Will hold spironolactone at discharge due to atrial fibrillation will resume lower dose of metoprolol at discharge with hold parameters. # Hyperlipidemia # Hypothyroidism # CKD stage 3 baseline creatinine 1.3-1.4 mild BJ noted on admission creatinine up to 1.7 continues to improve and back to baseline today # Hypercalcemia noted on admission to 0.3 improve down to 11.6 today she is noted to be hypercalcemic last admission on September as well. PTH level was checked last admission and was low less than 3.4, vitamin-D level was was low at 15. Will check PTH rp; she is not on any thiazide diuretics. She is noted to be on calcium carbonate at home which can be 1 of the reason. Will stop that. Review of her calcium level in the past does not reveal hypercalcemia until this September 2021 Hypercalcemia continues to improve down to 10.3 with IV hydration likely relates to dehydration. Now off IV fluid Repeat calcium has normalized now # Recent
[2021-11-17] MEDS: ONDANSETRON INJ 4 MG/2 ML VIAL IV PUSH (11:49)
[2021-11-17 14:00] VITALS: BP 101/44; PULSE 70; RESP 26; TEMP 36.7; O2SAT 93
== END 2021-11-17 13:55 | disposition home health service (06) | DRG 689 ==
LOC: ANHED 23:05 → ANH3MEDSUR 11-11 00:17
PROVIDERS: Admitting Provider Internal Medicine; Emergency Provider General Practice; PCP Internal Medicine; Visit Provider Internal Medicine
DX: N39.0 Urinary tract infection, site not specified (principal); U07.1 COVID-19; I48.20 Chronic atrial fibrillation, unspecified; N17.9 Acute kidney failure, unspecified; C91.10 Chronic lymphocytic leukemia of B-cell type not having achieved remission; I13.0 Hypertensive heart and chronic kidney disease with heart failure and stage 1 through stage 4 chronic kidney disease, or unspecified chronic kidney disease; I50.32 Chronic diastolic (congestive) heart failure; I95.1 Orthostatic hypotension; S01.01XA Laceration without foreign body of scalp, initial encounter; M47.812 Spondylosis without myelopathy or radiculopathy, cervical region; W19.XXXA Unspecified fall, initial encounter; B95.2 Enterococcus as the cause of diseases classified elsewhere; D69.6 Thrombocytopenia, unspecified; E03.9 Hypothyroidism, unspecified; E78.5 Hyperlipidemia, unspecified; E83.52 Hypercalcemia; I27.21 Secondary pulmonary arterial hypertension; J43.9 Emphysema, unspecified; N18.32 Chronic kidney disease, stage 3b; R16.1 Splenomegaly, not elsewhere classified; Z90.49 Acquired absence of other specified parts of digestive tract; Z79.01 Long term (current) use of anticoagulants; Z90.710 Acquired absence of both cervix and uterus; Z86.73 Personal history of transient ischemic attack (TIA), and cerebral infarction without residual deficits; Z87.891 Personal history of nicotine dependence
CPT/HCPCS: 12002; 36415; 51701; 70450; 71045; 72125; 80053; 80202; 81001; 82533; 82948; 83735; 84443; 85014; 85018; 85025; 85055; 85610; 85730; 87077; 87086; 87088; 93005; 96361; 96365; 96366; 96367; 96376; 97110; 97116; 97161; 97166; 97530; 97535; 99285; A9270; C9803; G0378; J0131; J0696; J2405; J3370; J7030; J7040; U0003; U0005

== ENCOUNTER 2021-11-28 12:36 | Emergency (ER) | payer MEDICARE, SELFPAY ==
--- NOTE | ~2021-11-28 | US_ITS ---
EXAMINATION: US venous doppler LE EXAM DATE: 11/28/2021 16:13 INDICATION: legs swollen, purple TECHNIQUE: Multiple grayscale, color flow and Doppler images of the lower extremity deep venous syste ms bilaterally were obtained and reviewed. Comparison is made to prior examination from 10/17/2021. FINDINGS: FINDINGS: RIGHT SIDE Common femoral: -------- Normal. Profunda femoral: ------- Normal. Femoral: Normal. Popliteal: Normal. Posterior tibial: ---------Thrombosed. Peroneal: Normal. Gastrocnemius: Not visualized. Soleus: Not visualized. Greater saphenous: ----- Normal. Lesser saphenous: ------ Not visualized. LEFT SIDE Common femoral: -------- Normal. Profunda femoral: ------- Normal. Femoral: Normal. Popliteal: Thrombosed. Posterior tibial: ---------Thrombosed. Peroneal: Normal. Gastrocnemius: Not visualized. Soleus: Not visualized. Greater saphenous: ----- Normal. Lesser saphenous: ------ Not visualized. IMPRESSION: Interval development of bilateral DVT. Reviewed, dictated and finalized at location A. ESTIMATOR
--- NOTE | ~2021-11-28 | XR_ITS ---
EXAMINATION: XR chest 1V EXAM DATE: 11/28/2021 13:10 INDICATION: Bilateral swollen legs. TECHNIQUE: Portable AP frontal chest x-ray was obtained. Comparison is made to prior examination from 11/10/2021. FINDINGS: There is cardiomegaly. Small pleural effusions. There is pulmonary vascular congestion. The re is indistinct reticulation with a bibasal predominance which may indicate pulmonary edema. No conf luent consolidation or pneumothorax. There is aortic arteriosclerosis. 11/28/2021 13:12 TRAFFIC OPERATIONS MANAGER IMPRESSION: Findings consistent with mild CHF exacerbation. Reviewed, dictated and finalized at location A. FIC OPERATIONS MANAGER
[2021-11-28 12:45] VITALS: BP 113/62; PULSE 73; RESP 18; TEMP 36.8; O2SAT 98
[2021-11-28 13:14] LABS: Hematocrit 32.4 % (37.0-47.0); Hemoglobin 9.5 g/dL (12.0-15.0); Immature Platelet Fraction Pct 4.6 % (0.9-11.2); Mean Corpuscular HGB Conc 29.3 g/dl (32-36); Mean Corpuscular Hemoglobin 30.7 pg (26-34); Mean Corpuscular Volume 104.9 fl (80-100); Mean Platelet Volume 10.4 fl (7.4-10.4); Platelet Count Result 117 k/mm3 (150-375); Red Blood Count 3.09 M/mm3 (4.2-5.4); Red Cell Distribution Width 20.9 % (11.5-14.5); White Blood Count 14.6 K/mm3 (4.5-10.0)
[2021-11-28 13:32] LABS: NT Pro B Type Natriuretic Pept 2290 pg/mL (5-100)
[2021-11-28 13:46] LABS: Band Neutrophils Percent 1 % (0-6); Lymphocytes Absolute Manual 11.97 K/mm3 (1.1-4.5); Monocytes Absolute Manual 0.43 K/mm3 (0.1-0.90); Monocytes Percent Manual 3 % (3-9); Neutrophils Absolute Manual 2.19 K/mm3 (1.7-7.2); Neutrophils Percent Manual 14 % (46-73); Total Cells Counted 100
[2021-11-28 13:47] LABS: Ovalocytes 1+ (NORMAL); Smudge Cells PRESENT; Tear Drop Cells 1+ (NORMAL)
--- NOTE | 2021-11-28 15:11 | PC.NURSE ---
Feet swollen, cool and purple in color. Unable to palpate pedal pulses. Found by dopplar and marked on pts feet
[2021-11-28 16:30] LABS: Alanine Aminotransferase 17 U/L (4-35); Albumin Level 3.2 g/dL (3.5-5.1); Alkaline Phosphatase 215 U/L (38-126); Anion Gap 4 mmol/L (8-16); Aspartate Amino Transferase 35 U/L (14-36); Bilirubin,Total 0.6 mg/dL (0.2-1.3); Blood Urea Nitrogen 35 mg/dL (7-17); Calcium 10.5 mg/dL (8.4-10.2); Carbon Dioxide 28 mmol/L (22-30); Chloride 105 mmol/L (98-107); Estimated CRCL calculation 37 ml/min; Estimated Glomerular Filt Rate 33; Glucose 98 mg/dL (65-110); Potassium 4.5 mmol/L (3.4-5.0); Sodium 137 mmol/L (137-145)
[2021-11-28 16:42] LABS: Troponin I < 0.012 ng/mL (0.000-0.034)
--- NOTE | 2021-11-28 16:54 | ED.EXTPRO ---
HPI - Extremity Problem General Chief complaint: Extremity Problem,Nontraumatic Stated complaint: edema Time Seen by Provider: 11/28/21 15:17 Source: patient History of Present Illness HPI Narrative: Patient presents with lower extremity swelling. The swelling is noted by her home health nurses who contacted her doctor and she was referred to the duration. Ports feel like her swelling is getting worse reports mild pain to the area she denies any chest pain or short of breath denies any lightheadedness or dizziness. She rested in taking her home medications. Related Data Home Medications Medication Instructions Recorded Confirmed acetaminophen 325 mg tablet 325 mg PO Q6H PRN 03/05/21 11/24/21 calcium carbonate 500 mg calcium 500 mg PO DAILY PRN 03/05/21 11/24/21 (1,250 mg) chewable tablet Eliquis 2.5 mg PO BID 11/11/21 11/24/21 Allergies Allergy/AdvReac Type Severity Reaction Status Date / Time codeine Allergy Unknown tachycardia Verified 11/05/21 11:30 morphine Allergy Unknown tachycardia Verified 11/05/21 11:30 Review of Systems Review of Systems: CONSTITUTIONAL: Denies fever, chills, or sweats. EYES: Denies visual changes, redness, or discharge. ENT: Denies rhinorrhea, congestion, sore throat, or otalgia. CARDIOVASCULAR: Denies chest pain, palpitations, or edema. RESPIRATORY: Denies cough or dyspnea. GASTROINTESTINAL: Denies abdominal pain, nausea, vomiting, or diarrhea. GENITOURINARY: Denies dysuria or hematuria. SKIN: Denies rash or itching. MUSCULOSKELETAL: Denies back pain, joint pain, or myalgia. NEUROLOGIC: Denies headache, numbness, dizziness, or weakness. PSYCHIATRIC: Denies anxiety or depression. All systems reviewed & are unremarkable except as noted in HPI and below PMFSH Past Medical History Medical History Atrial fibrillation and flutter Broken fingers Left hand Cerebrovascular accident (2003) Chronic anemia Chronic lymphocytic leukemia (~1999) Chronic pain of left knee Diastolic heart failure Echo 02/23/2020: EF 60-65%, moderately increased LV wall thickness, abnormal diastolic function, global longitudinal strain is normal, mild left atrial enlargement, mild aortic valve sclerosis, mild mitral valve regurgitation, severe pulmonary hypertension with RVSP of 62 mmHg, [id number] pulmonic regurgitation, elevated right atrial pressures. Emphysema lung Essential hypertension Hyperlipidemia Hypertension Hypothyroidism Severe pulmonary hypertension Thrombocytopenia Surgical History Surgical History History of ankle surgery (~1999) Right ankle ORIF with hardware. History of bladder surgery History of cholecystectomy History of hysterectomy History of lumbar surgery Family History Family History Father Asthma Mother Family history of heart disease in male family member before age 55 Cerebrovascular accident Family history of arthritis Other No problems noted. Sibling Diabetes mellitus Social History Social History Social History: The patient lives in [place]. She has been for 16 years. She grew up in [place] but was raised in [place]. She and her lived in [place] for about 34 years before they retired, and then they moved to this region to be closer to their 2 children. In total, she had 6 children, lost 2. She smoked up to 3 packs of cigarettes per day for approximately 20 years and quit 1972. She denies alcohol and illicit substance use. She designates her grandchild, Merair Urena, as her surrogate decision maker and she wishes to be a full code. Smoking status: Never smoker Second hand tobacco smoke exposure: No Alcohol intake: never Substance use: never Substance use type: does not use Spiritual care concerns:
[2021-11-28 17:13] VITALS: BP 118/61; PULSE 71; RESP 18; O2SAT 95
--- NOTE | 2021-11-28 17:15 | PC.NURSE ---
family en route to pick pt up
== END 2021-11-28 17:46 | disposition home or self-care (01) ==
PROVIDERS: Emergency Medicine; Emergency Provider Emergency Medicine; PCP Internal Medicine
DX: I82.443 Acute embolism and thrombosis of tibial vein, bilateral (principal); I82.432 Acute embolism and thrombosis of left popliteal vein; I48.91 Unspecified atrial fibrillation; I48.92 Unspecified atrial flutter; I50.30 Unspecified diastolic (congestive) heart failure; I11.0 Hypertensive heart disease with heart failure; C91.10 Chronic lymphocytic leukemia of B-cell type not having achieved remission; J43.9 Emphysema, unspecified; E03.9 Hypothyroidism, unspecified; D64.9 Anemia, unspecified; Z86.73 Personal history of transient ischemic attack (TIA), and cerebral infarction without residual deficits; Z79.01 Long term (current) use of anticoagulants; I27.20 Pulmonary hypertension, unspecified
CPT/HCPCS: 36415; 71045; 80053; 83880; 84484; 85025; 85055; 93970; 99284

== ENCOUNTER 2021-12-01 12:32 | Inpatient (IN) | payer MEDICARE, SELFPAY ==
[2021-12-01] VITALS (10 sets, daily range): BP systolic 98–143; BP diastolic 47–87; PULSE 65–101; RESP 14–29; TEMP 36.5–36.7; O2SAT 92–100; BMI 25.9
--- NOTE | ~2021-12-01 | CT_ITS ---
EXAMINATION: CTA chest PE protocol DATE: 12/01/2021 14:00 INDICATION: Dyspnea. TECHNIQUE: Computed tomography angiography (CTA) of the chest was performed with 100 mL Omnipaque-350 intravenous contrast timed to evaluate the pulmonary arteries. Coronal maximum intensity projection 3D-reconstructions were created by the technologist. Automated exposure control and iterative reconst ruction technique were employed. The dose-length product was 358.07 mGy-cm. COMPARISON: Chest CT 03/16/2021, CT abdomen and pelvis 10/18/2021 FINDINGS: The lungs demonstrate smooth septal thickening and mild groundglass opacities, consistent w ith mild pulmonary edema and atelectasis. Calcified pulmonary nodules are consistent with old granulo matous disease. There are small pleural effusions. Cardiomegaly is noted. There is no pulmonary embol us. The central pulmonary arteries are enlarged, consistent with pulmonary arterial hypertension. The re is ascites in the upper abdomen. Calcifications in the liver and spleen are consistent with old gr anulomatous disease. There is splenomegaly measuring at least 15.1 cm. There is left supraclavicular lymphadenopathy measuring up to 2.1 x 1.4 cm. There is periportal lymphadenopathy. There is mild thor acic spondylosis. IMPRESSION: 1. No pulmonary embolus. 2. Mild pulmonary edema. 3. Small pleural effusions. 4. Ascites. 5. Splenomegaly. 6. Left supraclavicular and periportal lymphadenopathy, consistent with CLL. Reviewed, dictated and finalized at location A.
--- NOTE | 2021-12-01 12:47 | ECG_ITS ---
Measurements Intervals [place] Rate: 79 P: NV: 0 QRS: -57 QRSD: 148 T: 96 QT: 386 QTc: 445 Interpretive Statements ATRIAL FIBRILLATION LEFT AXIS DEVIATION [QRS AXIS < -30] INTRAVENTRICULAR CONDUCTION ABNORMALITY WITH LEFT BUNDLE BRANCH BLOCK FEATURES NO PREVIOUS ECG AVAILABLE FOR COMPARISON Electronically Signed On 12-01-2021 14:33:29 CDT by Claudio Kwok M.D.
--- NOTE | 2021-12-01 12:59 | ED.SOB ---
HPI - SOB/Dyspnea General Chief Complaint: Shortness of Breath/Dyspnea Stated Complaint: dyspnea Time Seen by Provider: 12/01/21 12:38 Source: RN notes reviewed History of Present Illness HPI Narrative: Patient presents to emergency department from home for shortness of breath. Patient states has been feeling more short of breath since last night states that she was just recently diagnosed with blood clots in her bilateral legs and does have swelling in her legs but she states that has been improving she denies any fevers or chills chest pain abdominal pain nausea or vomiting or any other symptoms. The patient is currently on Eliquis Related Data Home Medications Medication Instructions Recorded Confirmed A and D Zinc Oxide Cream 1 applic BID 12/01/21 12/01/21 Antacid (calcium carbonate) 500 mg PO DAILY PRN 12/01/21 12/01/21 Imodium A-D 1 mg PO DAILY 12/01/21 12/01/21 acetaminophen 650 mg PO Q6-8H 12/01/21 12/01/21 apixaban [Eliquis] 5 mg PO BID 12/01/21 12/01/21 ferrous sulfate [FeroSul] 325 mg PO DAILY 12/01/21 12/01/21 hydrocodone-acetaminophen 0.5 tablet PO HS 12/01/21 12/01/21 metoprolol succinate 50 mg PO DAILY 12/01/21 12/01/21 ondansetron 4 mg PO Q6-8H PRN 12/01/21 12/01/21 simvastatin 40 mg PO DAILY 12/01/21 12/01/21 Allergies Allergy/AdvReac Type Severity Reaction Status Date / Time codeine Allergy Unknown Verified 12/01/21 15:19 Review of Systems Review of Systems: Gen.: Denies fevers or chills Eyes: Denies eye pain or visual change ENT: Denies congestion Respiratory: See HPI CV: Denies chest pain or palpitations GI: Denies abdominal pain nausea, emesis or diarrhea Musculoskeletal: Reports bilateral lower extremity DVT Neuro: Denies numbness, tingling, weakness or focal weakness Skin: Denies rash Except as documented, all other systems reviewed and negative [facility] Past Medical History Medical History (Updated 12/01/21 @ 22:01 by Evan Ling DO) Atrial fibrillation Chronic pain CLL (chronic lymphocytic leukemia) CVA (cerebral vascular accident) Diastolic heart failure DVT (deep venous thrombosis) Hypertension Hypothyroidism Pulmonary hypertension Thrombocytopenia Surgical History Surgical History (Updated 12/01/21 @ 21:12 by Nikkie Osuna APRN) History of bladder surgery History of cholecystectomy History of hysterectomy History of lumbar surgery Status post ORIF of fracture of ankle Right ankle Social History Social History (Updated 12/01/21 @ 21:14 by Nikkie Osuna APRN) Smoking packs per day: 3 Smoking cigarettes per day: 60.0 Years smoked: 20 Smoking pack-years: 60.00 Smoking status: Former smoker Alcohol intake: never Substance use: never Living arrangements: with family Additional living arrangements comments: Patient lives with her daughter Gender identity (if verbalized by the patient): Female Spiritual care concerns: No Exam Narrative: APPEARANCE: No acute distress, nontoxic, resting in bed EYES: EOMI HEENT: Normocephalic, atraumatic, OMM RESPIRATORY: No respiratory distress Clear to auscultation bilaterally with no rhonchi wheezing or rales. CARDIOVASCULAR: Irregular irregular without murmurs rubs or gallops. ABDOMINAL: Soft, nontender, nondistended, no rebound or guarding MUSCULOSKELETAl: Moves all extremities. No clubbing, cyanosis 3+ edema of the bilateral lower extremities NEURO: Awake and alert. Following commands, speech normal, no focal deficits SKIN:: Warm, dry. No rashes lesions or abrasions PSYCHIATRIC: Normal affect/mood, Course Course Emergency Course: Reviewed old records. The patient was just seen in the emergency department on 28 November this was under a different medical record number. The patient at that time has been diagnosed with bilateral DVTs in her blood thinner have been increased secondary to that Patient with home health increased swelling on Lasix will admit at this time Discussed with CAMELIA Khan
[2021-12-01 13:01] LABS: Basophils Percent Auto 0.4 % (0.2-1.2); Eosinophils Percent Auto 0.2 % (0-4.4); Hematocrit 30.6 % (42.0-52.0); Immature Granulocyte Absolute 0.08 K/mm3 (0.00-0.031); Immature Granulocyte Percent A 0.8 % (0-0.5); Immature Platelet Fraction Pct 4.2 % (0.9-11.2); Lymphocytes Absolute Auto 8.58 K/mm3 (0.9-3.2); Lymphocytes Percent Auto 81.7 % (18.3-44.2); Mean Corpuscular HGB Conc 29.4 g/dl (32-36); Mean Corpuscular Hemoglobin 30.6 pg (26-34); Mean Corpuscular Volume 104.1 fl (80-100); Mean Platelet Volume 10.8 fl (7.4-10.4); Monocytes Absolute Auto 1.2 K/mm3 (0.1-0.6); Neutrophils Absolute Auto 0.6 K/mm3 (1.3-6.7); Neutrophils Percent Auto 5.9 % (45.5-73.1); Nucleated Red Blood Cells Perc 0.4 % (0.0-0.2); Platelet Count Result 107 k/mm3 (150-375); Red Blood Count 2.94 M/mm3 (4.6-6.20); Red Cell Distribution Width 20.7 % (11.5-14.5); White Blood Count 10.5 K/mm3 (4.5-10.0)
[2021-12-01 13:09] LABS: Alanine Aminotransferase 17 U/L (4-50); Albumin Level 3.1 g/dL (3.5-5.1); Alkaline Phosphatase 194 U/L (38-126); Anion Gap 1 mmol/L (8-16); Aspartate Amino Transferase 34 U/L (17-59); Bilirubin,Total 0.5 mg/dL (0.2-1.3); Blood Urea Nitrogen 33 mg/dL (9-20); Calcium 10.4 mg/dL (8.4-10.2); Carbon Dioxide 33 mmol/L (22-30); Chloride 105 mmol/L (98-107); Estimated CRCL calculation 32 ml/min; Estimated Glomerular Filt Rate 48; Glucose 99 mg/dL (65-110); Potassium 4.1 mmol/L (3.4-5.0); Sodium 139 mmol/L (137-145)
[2021-12-01 13:15] LABS: INR 1.7; Prothrombin Time 19.6 Seconds (11.1-14.7)
[2021-12-01 13:21] LABS: NT Pro B Type Natriuretic Pept 2270 pg/mL (5-100); Troponin I < 0.012 ng/mL (0.000-0.034)
[2021-12-01 13:26] LABS: Hypochromasia 1+ (NORMAL); Ovalocytes 2+ (NORMAL); Stomatocytes 1+ (NORMAL); Tear Drop Cells 1+ (NORMAL)
[2021-12-01] MEDS: FUROSEMIDE INJ 40 MG/4 ML VIAL 20 MG IV PUSH (18:03)
--- NOTE | 2021-12-01 19:54 | ADMGEN ---
This patient, Nikky Urena, was admitted to Medical Room 253-01. Patient/family oriented to hospital policies and general routines including ID bracelet, bed and alarms, visiting hours, pain management, procedures, bathroom and other care routines, personal items, smoking policy, room service/diet, and visiting hours. Information on how to activate the Rapid Response Team has been discussed. Patient/Family are encouraged to report perceived risks to care and to ask questions if they do not understand what they are told or what they should do.
--- NOTE | 2021-12-01 21:03 | PM.IMHP ---
H&P: HPI History of Present Illness Date/Time: Patient was placed observation status for expected length of stay less than 23 hours for management, will plan to re-evaluate tomorrow for improvement. 12/01/21 21:03 Chief Complaint: Shortness of breath Narrative: Ms. Urena is an 81-year-old female who presented emergency room with complaints of increasing shortness of breath. Patient has a known past medical history of CLL, splenomegaly, dyslipidemia, chronic atrial fibrillation, DVT, and chronic kidney disease. Patient had recently been hospitalized on 11/10/2021 after a fall. At that point time patient was on 2.5 mg of Eliquis b.i.d.. Patient was then seen in the emergency room on 11/28/2021 for upper extremity edema and it was noted that patient had bilateral DVTs to lower extremities. After diagnosis with the DVTs patient's Eliquis was then increased to 5 mg b.i.d. today the patient presented emergency room with complaints of increasing shortness of breath this started last evening. Patient states she does wear oxygen at home at 2 L per nasal cannula at all times. Patient states she does live with her daughter and has home health coming in to help with her. Upon evaluation in the emergency room patient was noted to have mild pulmonary vascular congestion on CT scan as well as an elevated BNP. Patient was noted to have edema to upper and lower extremities. Patient denied any chest discomfort, lightheadedness, dizziness, syncopal, or near syncopal episodes. Review of Systems Review of Systems: A 12 point review of systems was completed patient all pertinent positive and negative per HPI the remainder are unremarkable. [facility] Past Medical History Medical History (Updated 12/01/21 @ 21:18 by Nikkie Osuna APRN) Atrial fibrillation Chronic pain CLL (chronic lymphocytic leukemia) CVA (cerebral vascular accident) Diastolic heart failure DVT (deep venous thrombosis) Hypertension Hypothyroidism Pulmonary hypertension Thrombocytopenia Surgical History Surgical History (Updated 12/01/21 @ 21:12 by Nikkie Osuna APRN) History of bladder surgery History of cholecystectomy History of hysterectomy History of lumbar surgery Status post ORIF of fracture of ankle Right ankle Social History Social History (Updated 12/01/21 @ 21:14 by Nikkie Osuna APRN) Smoking packs per day: 3 Smoking cigarettes per day: 60.0 Years smoked: 20 Smoking pack-years: 60.00 Smoking status: Former smoker Alcohol intake: never Substance use: never Living arrangements: with family Additional living arrangements comments: Patient lives with her daughter Gender identity (if verbalized by the patient): Female Spiritual care concerns: No Meds Home Medications and Allergies Allergies Allergy/AdvReac Type Severity Reaction Status Date / Time codeine Allergy Unknown Verified 12/01/21 15:19 Vital Signs Vital Signs - 24 hr 12/01/21 12:37 12/01/21 12:57 12/01/21 13:33 Temperature 36.7 C Pulse Rate 78 71 87 Respiratory Rate 14 28 H Blood Pressure 114/47 L 143/87 H Pulse Oximetry 94 92 12/01/21 14:48 12/01/21 15:03 12/01/21 15:15 Temperature Pulse Rate 79 65 80 Respiratory Rate 23 H 29 H 28 H Blood Pressure Pulse Oximetry 95 12/01/21 15:16 12/01/21 19:53 Temperature 36.6 C Pulse Rate 71 78 Respiratory Rate 21 H 18 Blood Pressure 98/60 L 117/52 L Pulse Oximetry 97 Exam Narrative: Constitutional: Patient is well-nourished in no acute distress. Patient is alert and oriented x3 HEENT: Moist mucous membranes. No scleral icterus. No lymphadenopathy. Neck: No carotid bruits noted no JVD noted Lungs: Lung sounds are decreased to auscultation bilaterally. No accessory muscle use. No rhonchi, rales, or wheezes noted. Cardiovascular: Apical pulse is irregularly irregular, S1 variable S2, no S3-S4.. Abdomen: Soft, round, and nontender. No palpable masses. Extremities
[2021-12-01 21:18] LABS: Troponin I < 0.012 ng/mL (0.000-0.034)
--- NOTE | 2021-12-01 22:39 | PC.NURSE ---
CALLED GRANDDAUGHTER TO ANSWER ADMISSION QUESTIONS BECAUSE PT IS CONFUSED AND COCOPAH. GRANDDAUGHTER DULCE MARIA IS PRIMARY CONTACT AND DESIRES TO BE HEALTHCARE POA FOR PT.
[2021-12-02] VITALS (13 sets, daily range): BP systolic 107–115; BP diastolic 37–50; PULSE 66–92; RESP 16–18; TEMP 36.4–36.6; O2SAT 92–100
[2021-12-02 05:55] LABS: Basophils Percent Auto 0.4 % (0.2-1.2); Eosinophils Percent Auto 0.5 % (0-4.4); Hematocrit 25.7 % (37.0-47.0); Hemoglobin 7.5 g/dL (12.0-15.0); Immature Granulocyte Absolute 0.07 K/mm3 (0.00-0.031); Immature Granulocyte Percent A 0.9 % (0-0.5); Immature Platelet Fraction Pct 4.4 % (0.9-11.2); Lymphocytes Absolute Auto 6.85 K/mm3 (0.9-3.2); Lymphocytes Percent Auto 85.5 % (18.3-44.2); Mean Corpuscular HGB Conc 29.2 g/dl (32-36); Mean Corpuscular Hemoglobin 30.4 pg (26-34); Mean Platelet Volume 11.3 fl (7.4-10.4); Monocytes Absolute Auto 0.5 K/mm3 (0.1-0.6); Monocytes Percent Auto 6.7 % (2.6-8.5); Neutrophils Absolute Auto 0.5 K/mm3 (1.3-6.7); Platelet Count Result 92 k/mm3 (150-375); Red Blood Count 2.47 M/mm3 (4.2-5.4); Red Cell Distribution Width 20.4 % (11.5-14.5)
[2021-12-02 06:10] LABS: Alanine Aminotransferase 15 U/L (4-35); Albumin Level 2.7 g/dL (3.5-5.1); Alkaline Phosphatase 172 U/L (38-126); Anion Gap 1 mmol/L (8-16); Aspartate Amino Transferase 26 U/L (14-36); Bilirubin,Total 0.5 mg/dL (0.2-1.3); Blood Urea Nitrogen 31 mg/dL (7-17); Calcium 9.7 mg/dL (8.4-10.2); Carbon Dioxide 32 mmol/L (22-30); Chloride 107 mmol/L (98-107); Estimated CRCL calculation 23 ml/min; Estimated Glomerular Filt Rate 31; Glucose 86 mg/dL (65-110); Potassium 3.9 mmol/L (3.4-5.0); Sodium 140 mmol/L (137-145)
[2021-12-02 07:07] LABS: Platelet Estimate Decreased (Adequate)
[2021-12-02 07:08] LABS: Ovalocytes 1+ (NORMAL); Stomatocytes 1+ (NORMAL); Tear Drop Cells 1+ (NORMAL)
[2021-12-02 07:10] LABS: Smudge Cells FEW
[2021-12-02] MEDS: FUROSEMIDE INJ 40 MG/4 ML VIAL 20 MG IV PUSH (09:27)
[2021-12-02] MEDS: APIXABAN 5 MG TABLET PO ×2 (11:29→21:24)
--- NOTE | 2021-12-02 12:19 | PM.IMPN ---
Progress Note: A&P Assessment and Plan (1) Diastolic heart failure: Code(s): I50.30 - Unspecified diastolic (congestive) heart failure Status: Acute Assessment and Plan: acute on chronic BNP elevated at 2270 CTA PE protocol showed no PE but mild pulmonary edema along with small pleural effusion Ascites started on IV Lasix daily. Intake and output Weight daily echo on 09/2021 with ejection fraction 60-65% severe asymmetric septal increased left ventricular wall thickness with septal wall thickness 2.3 cm and posterior wall 0.8 cm suggestive of hypertrophic cardiomyopathy with no LVOT obstruction. There is associated severe pulmonary hypertension and no other significant valvular abnormality detected in the echocardiogram (2) Atrial fibrillation: Code(s): I48.91 - Unspecified atrial fibrillation Status: Acute Assessment and Plan: Patient's ventricular rate remains well controlled. On Eliquis at home recently increased dose of Eliquis due to bilateral DVT (3) DVT (deep venous thrombosis): Code(s): I82.409 - Acute embolism and thrombosis of unspecified deep veins of unspecified lower extremity Status: Acute Assessment and Plan: recently diagnosed with bilateral upper extremity DVT While on Eliquis 2.5 mg b.i.d. This is been increased to 5 mg p.o. b.i.d. Will continue with Eliquis 5 mg p.o. b.i.d. (4) Generalized weakness: Code(s): R53.1 - Weakness Status: Acute Assessment and Plan: PT/OT to evaluate and treat for possible placement. Additional Plan # Anemia H&H dropped to 7.5 from 9 yesterday. Continue to trend H&H will recheck again in this evening. Does have history of anemia and thrombocytopenia related to CLL hemoglobin fluctuates between 7-9. #Thrombocytopenia continue to monitor #CKD stage 3 baseline creatinine mid 1s Currently between 1.4-1.6 continue to monitor #Hyper calcemia mild recent admission with severe hyper calcemia due to dehydration treated with IV fluid. Spironolactone was on hold at the time of discharge. Now presents with acute on chronic heart failure . She has diastolic dysfunction. # recent fall with head injury with laceration needing bonifacio. # severe cervical spondylosis # recent UTI treated with IV antibiotics no symptoms currently # chronic lymphocytic leukemia continue to monitor counts. With anemia and thrombocytopenia # chronic splenomegaly # chronic atrial fibrillation rate controlled on metoprolol. Eliquis on increased dose. # history of CVA 2003 # hypertension continue home medication # hyperlipidemia # hypothyroidism # hypercalcemia recent admission with elevated calcium at 11.6. PTH was low at 3.4. # recent COVID infection September 2021 # pulmonary hypertension # chronic anticoagulation with Eliquis # DVT prophylaxis on Eliquis # disposition order PT OT for evaluation had home health prior to admission family had refused to go to rehabilitation in the past Subjective Date/time seen: 12/02/21 12:19 Interval history: HPI: Ms. Urena is an 81-year-old female who presented emergency room with complaints of increasing shortness of breath. Patient has a known past medical history of CLL, splenomegaly, dyslipidemia, chronic atrial fibrillation, DVT, and chronic kidney disease. Patient had recently been hospitalized on 11/10/2021 after a fall. At that point time patient was on 2.5 mg of Eliquis b.i.d.. Patient was then seen in the emergency room on 11/28/2021 for upper extremity edema and it was noted that patient had bilateral DVTs to lower extremities. After diagnosis with the DVTs patient's Eliquis was then increased to 5 mg b.i.d. today the patient presented emergency room with complaints of increasing shortness of breath this started last evening. Patient states she does wear oxygen at home at 2 L per nasal cannula at all times. Patient states she does live with her daughter and has home heal
[2021-12-02 13:20] LABS: Hematocrit 25.3 % (37.0-47.0); Hemoglobin 7.4 g/dL (12.0-15.0)
[2021-12-02] MEDS: ACETAMINOPHEN 325 MG TABLET 650 MG PO (14:05)
[2021-12-02] MEDS: VITAMIN A & D OINTMENT 60 GM TUBE 1 APPLIC TOPICAL (16:32)
[2021-12-02] MEDS: HYDROcodone/acetaminophen (*CRX) 5-325 MG TABLET 0.5 TAB PO (21:21)
[2021-12-03] VITALS (11 sets, daily range): BP systolic 90–109; BP diastolic 43–83; PULSE 71–103; RESP 16–20; TEMP 36.7–36.9; O2SAT 94–99
[2021-12-03 06:15] LABS: Basophils Percent Auto 0.5 % (0.2-1.2); Eosinophils Percent Auto 0.4 % (0-4.4); Hematocrit 26.7 % (37.0-47.0); Hemoglobin 7.8 g/dL (12.0-15.0); Immature Granulocyte Absolute 0.08 K/mm3 (0.00-0.031); Immature Platelet Fraction Pct 4.6 % (0.9-11.2); Lymphocytes Absolute Auto 6.51 K/mm3 (0.9-3.2); Lymphocytes Percent Auto 83.2 % (18.3-44.2); Mean Corpuscular HGB Conc 29.2 g/dl (32-36); Mean Corpuscular Hemoglobin 31.1 pg (26-34); Mean Corpuscular Volume 106.4 fl (80-100); Monocytes Absolute Auto 0.6 K/mm3 (0.1-0.6); Monocytes Percent Auto 7.8 % (2.6-8.5); Neutrophils Absolute Auto 0.6 K/mm3 (1.3-6.7); Neutrophils Percent Auto 7.1 % (45.5-73.1); Nucleated Red Blood Cells Perc 0.4 % (0.0-0.2); Platelet Count Result 103 k/mm3 (150-375); Red Blood Count 2.51 M/mm3 (4.2-5.4); Red Cell Distribution Width 20.2 % (11.5-14.5); White Blood Count 7.8 K/mm3 (4.5-10.0)
[2021-12-03 06:29] LABS: Alanine Aminotransferase 15 U/L (4-35); Albumin Level 2.6 g/dL (3.5-5.1); Alkaline Phosphatase 183 U/L (38-126); Anion Gap 2 mmol/L (8-16); Aspartate Amino Transferase 28 U/L (14-36); Bilirubin,Total 0.5 mg/dL (0.2-1.3); Blood Urea Nitrogen 31 mg/dL (7-17); Calcium 9.3 mg/dL (8.4-10.2); Carbon Dioxide 31 mmol/L (22-30); Chloride 105 mmol/L (98-107); Estimated CRCL calculation 25 ml/min; Estimated Glomerular Filt Rate 33; Glucose 84 mg/dL (65-110); Magnesium 2.4 mg/dL (1.6-2.3); Potassium 3.8 mmol/L (3.4-5.0); Sodium 138 mmol/L (137-145)
[2021-12-03 07:04] LABS: Platelet Estimate Decreased (Adequate)
[2021-12-03 07:05] LABS: Helmet Cells 1+ (NORMAL); Ovalocytes 2+ (NORMAL); Smudge Cells MODERATE; Tear Drop Cells 2+ (NORMAL)
[2021-12-03] MEDS: FERROUS SULFATE 324 MG TABLET PO (08:16)
[2021-12-03] MEDS: APIXABAN 5 MG TABLET PO ×2 (08:16→20:07)
[2021-12-03] MEDS: SIMVASTATIN 20 MG TABLET 40 MG PO (08:16)
[2021-12-03] MEDS: SPIRONOLACTONE 25 MG TABLET PO (08:16)
[2021-12-03] MEDS: VITAMIN A & D OINTMENT 60 GM TUBE 1 APPLIC TOPICAL ×2 (08:17→19:29)
--- NOTE | 2021-12-03 09:43 | PC.NURSE ---
BP 90/40 DR SHERIDAN NOTIFIED LASIX IV AND METOPROLOL PO HELD
[2021-12-03] MEDS: ACETAMINOPHEN 325 MG TABLET 650 MG PO (12:17)
--- NOTE | 2021-12-03 13:03 | PM.IMPN ---
Progress Note: A&P Additional Plan (1) Diastolic heart failure: Continue oxygen and iv lasix (2) Atrial fibrillation: Beta timoteo and eliquis (3) DVT (deep venous thrombosis): Continue with Eliquis 5 mg p.o. b.i.d. (4) Generalized weakness: PT/OT to evaluate and treat for possible placement. (5) Other medical problems # Anemia H&H dropped to 7.8 from 9 yesterday. #Thrombocytopenia continue to monitor #CKD stage 3 baseline creatinine is 1.5 Currently between 1.4-1.6 continue to monitor #Hypercalcemia mild recent admission with severe hypercalcemia. She has diastolic dysfunction. # recent fall with head injury with laceration needing bonifacio. # severe cervical spondylosis # recent UTI treated with IV antibiotics no symptoms currently # chronic lymphocytic leukemia continue to monitor counts. With anemia and thrombocytopenia # chronic splenomegaly # chronic atrial fibrillation rate controlled on metoprolol. Eliquis on increased dose. # history of CVA 2003 # hypertension continue home medication # hyperlipidemia # hypothyroidism # hypercalcemia recent admission with elevated calcium at 11.6. PTH was low at 3.4. # recent COVID infection September 2021 # pulmonary hypertension # chronic anticoagulation with Eliquis # DVT prophylaxis on Eliquis # disposition order PT OT for evaluation had home health prior to admission family had refused to go to rehabilitation in the past Subjective Date/time seen: 12/03/21 13:03 Interval history: HPI: Ms. Urena is an 81-year-old female who presented emergency room with complaints of increasing shortness of breath. Patient has a known past medical history of CLL, splenomegaly, dyslipidemia, chronic atrial fibrillation, DVT, and chronic kidney disease. Patient had recently been hospitalized on 11/10/2021 after a fall. At that point time patient was on 2.5 mg of Eliquis b.i.d.. Patient was then seen in the emergency room on 11/28/2021 for upper extremity edema and it was noted that patient had bilateral DVTs to lower extremities. After diagnosis with the DVTs patient's Eliquis was then increased to 5 mg b.i.d. today the patient presented emergency room with complaints of increasing shortness of breath this started last evening. Patient states she does wear oxygen at home at 2 L per nasal cannula at all times. Patient states she does live with her daughter and has home health coming in to help with her. Upon evaluation in the emergency room patient was noted to have mild pulmonary vascular congestion on CT scan as well as an elevated BNP. Patient was noted to have edema to upper and lower extremities. Patient denied any chest discomfort, lightheadedness, dizziness, syncopal, or near syncopal episodes. 12/02/2021 Feels better today. Legs Swollen. Denies any cough. has not been up yet. 12/03/2021 Pt is feeling better, pt is still needing 2 liters of oxygen. Review of Systems Review of Systems: All systems reviewed & are unremarkable except as noted in HPI and below ( HPI) Exam Const: General: cooperative and healthy appearing; No in distress Nutritional Appearance: overweight Orientation/consciousness: oriented to person HENMT: Head: normal to inspection Resp: Effort & Inspection: no respiratory distress Auscultation: rhonchi and wheezes Cardio: Rate: regular rate Rhythm: regular rhythm GI: Inspection: normal to inspection GI Palp: No abdominal tenderness, No Guarding due to palpation present (GI) and No Hepatomegaly present Auscultation: normal bowel sounds Neuro: General: oriented to person Objective Data Vital Signs Vital Signs: Vital Signs - 24 hr 12/02/21 14:00 12/02/21 16:03 12/02/21 16:19 Temperature 36.6 C Pulse Rate 74 92 67 Respiratory Rate 18 Blood Pressure 110/50 L Pulse Oximetry 99 92 12/02/21 20:00 12/02/21 20:12 12/03/21 00:00 Temperature 36.5 C Pulse Rate 87 87 71 Respiratory Rate 17 17
[2021-12-03] MEDS: HYDROcodone/acetaminophen (*CRX) 5-325 MG TABLET 0.5 TAB PO (20:07)
[2021-12-04] VITALS (13 sets, daily range): BP systolic 100–120; BP diastolic 46–79; PULSE 75–100; RESP 16; TEMP 36.6–37.1; O2SAT 93–99
[2021-12-04] MEDS: SIMVASTATIN 20 MG TABLET 40 MG PO (08:11)
[2021-12-04] MEDS: FERROUS SULFATE 324 MG TABLET PO (08:12)
[2021-12-04] MEDS: SPIRONOLACTONE 25 MG TABLET PO (08:12)
[2021-12-04] MEDS: METOPROLOL SUCCINATE EXT REL 50 MG TABCR PO (08:12)
[2021-12-04] MEDS: APIXABAN 5 MG TABLET PO (08:12)
[2021-12-04] MEDS: FUROSEMIDE INJ 40 MG/4 ML VIAL 20 MG IV PUSH (08:19)
[2021-12-04] MEDS: VITAMIN A & D OINTMENT 60 GM TUBE 1 APPLIC TOPICAL ×2 (08:20→16:27)
--- NOTE | 2021-12-04 11:30 | PM.IMPN ---
Progress Note: A&P Assessment and Plan (1) DVT (deep venous thrombosis): Code(s): I82.409 - Acute embolism and thrombosis of unspecified deep veins of unspecified lower extremity Status: Acute (2) Atrial fibrillation: Code(s): I48.91 - Unspecified atrial fibrillation Status: Acute (3) CLL (chronic lymphocytic leukemia): Code(s): C91.10 - Chronic lymphocytic leukemia of B-cell type not having achieved remission Status: Acute (4) Chronic pain: Code(s): G89.29 - Other chronic pain Status: Acute (5) Diastolic heart failure: Code(s): I50.30 - Unspecified diastolic (congestive) heart failure Status: Acute Additional Plan # acute hypoxic respiratory failure # congestive heart failure with perserved EF -continue diuresis 20 mg IV Lasix daily -wean oxygen as tolerated to keep O2 saturation greater than 90% -currently 2 L oxygen by nasal cannula -continue spironolactone? with normal EF, metoprolol succinate -TTE 10/17/2021: LVEF 60-65%, left ventricular septal wall motion abnormal with septal motion related to BBB -will re-evaluate tomorrow, BMP # left lower extremity DVT -continue Eliquis anticoagulation, (should be 2.5mg dose, failed outpatient and changed to 5mg BID?, will check BMP again tomorrow) #CKD3 -baseline Cr 1.5, currently at around baseline # atrial fibrillation -change eliquis to 2.5 mg b.i.d. with BJ and age greater than 80 -rate control with beta timoteo # other chronic conditions -hyperlipidemia continue Zocor -iron deficiency anemia continue ferrous sulfate Diet: Cardiac DVT prophylaxis: on Eliquis Code status: Do not resuscitate Disposition: Oxygen weaning, pending PT evaluation Time Spent With Patient Time with patient: 25 - 35 minutes Subjective Date/time seen: 12/04/21 11:30 Patient seen examined she is on Eliquis for left lower extremity DVT, lower extremities still very swollen. The weaning oxygen as tolerated. Patient to continue work with physical therapy. Diuresing for overload Lasix IV 20 mg daily. Patient is on Aldactone. Patient denies fever, chills, nausea vomiting. She endorses loose stools. Review of Systems Review of Systems: 10 point ROS complete, negative other than what is specified in HPI. Exam Narrative: - GENERAL: Pleasant woman in no acute distress. Well-nourished. - EYES: EOMI. Anicteric. - HENT: Moist mucous membranes. - LUNGS: Clear to auscultation bilaterally, no wheezing, rhonchi, or rales. Patient complained L oxygen - CARDIOVASCULAR: Regular rate and rhythm. No murmur. No JVD. - ABDOMEN: Soft, non-tender and non-distended. No palpable masses. - EXTREMITIES: No edema. Peripheral pulses 2+. Non-tender. - NEUROLOGIC: No focal neurological deficits. CN II-XII grossly intact. - PSYCHIATRIC: Awake, Alert and oriented x 3. Patient anxious. - SKIN: No rashes or lesions. Warm. - LYMPH: No cervical lymphadenopathy. Objective Data Vital Signs Vital Signs: Vital Signs - 24 hr 12/03/21 12:00 12/03/21 14:15 12/03/21 16:00 Temperature 36.8 C Pulse Rate 89 103 H 84 Respiratory Rate 20 Blood Pressure 109/66 Pulse Oximetry 94 12/03/21 20:00 12/03/21 20:30 12/03/21 20:49 Temperature 36.7 C 36.7 C Pulse Rate 91 82 82 Respiratory Rate 16 16 Blood Pressure 105/53 L 105/83 Pulse Oximetry 98 98 98 12/04/21 00:00 12/04/21 04:00 12/04/21 05:50 Temperature 37.1 C Pulse Rate 88 86 90 Respiratory Rate 16 Blood Pressure 100/46 L Pulse Oximetry 96 12/04/21 08:03 12/04/21 08:12 12/04/21 08:16 Temperature Pulse Rate 82 81 81 Respiratory Rate Blood Pressure 120/79 Pulse Oximetry 12/04/21 10:47 Temperature Pulse Rate Respiratory Rate Blood Pressure Pulse Oximetry 98 Intake/Output Intake/Output: Intake & Output 12/01/21 12/02/21 12/03/21 12/04/21 23:59 23:59 23:59 23:59 Intake Total 1290 1280 400 Balance 1290 1280 400 Meds/Results Medicat
--- NOTE | 2021-12-04 12:45 | PC.NURSE ---
On 12/04/21, the student, [Reece Wells], provided care and completed [facility] documentation on this patient. I have reviewed the student's documentation and agree with the findings.
[2021-12-04] MEDS: ACETAMINOPHEN 325 MG TABLET 650 MG PO (15:22)
[2021-12-04] MEDS: HYDROcodone/acetaminophen (*CRX) 5-325 MG TABLET 0.5 TAB PO (21:48)
[2021-12-04] MEDS: APIXABAN 2.5 MG TABLET PO (21:49)
[2021-12-05] VITALS (11 sets, daily range): BP systolic 100–108; BP diastolic 50–56; PULSE 85–116; RESP 18–26; TEMP 36.6–36.8; O2SAT 87–98
[2021-12-05 06:06] LABS: Anion Gap 3 mmol/L (8-16); Blood Urea Nitrogen 34 mg/dL (7-17); Calcium 9.5 mg/dL (8.4-10.2); Carbon Dioxide 31 mmol/L (22-30); Chloride 102 mmol/L (98-107); Estimated CRCL calculation 25 ml/min; Estimated Glomerular Filt Rate 33; Glucose 92 mg/dL (65-110); Potassium 4.4 mmol/L (3.4-5.0); Sodium 136 mmol/L (137-145)
[2021-12-05 07:54] LABS: Basophils Absolute Auto 0.1 K/mm3 (0.0-0.1); Basophils Percent Auto 0.5 % (0.2-1.2); Eosinophils Percent Auto 0.2 % (0-4.4); Hematocrit 28.9 % (37.0-47.0); Hemoglobin 8.5 g/dL (12.0-15.0); Immature Granulocyte Absolute 0.09 K/mm3 (0.00-0.031); Immature Granulocyte Percent A 0.7 % (0-0.5); Lymphocytes Absolute Auto 11.25 K/mm3 (0.9-3.2); Lymphocytes Percent Auto 81.4 % (18.3-44.2); Mean Corpuscular HGB Conc 29.4 g/dl (32-36); Mean Corpuscular Volume 102.1 fl (80-100); Mean Platelet Volume 11.5 fl (7.4-10.4); Monocytes Absolute Auto 1.5 K/mm3 (0.1-0.6); Monocytes Percent Auto 11.1 % (2.6-8.5); Neutrophils Absolute Auto 0.8 K/mm3 (1.3-6.7); Neutrophils Percent Auto 6.1 % (45.5-73.1); Platelet Count Result 109 k/mm3 (150-375); Red Blood Count 2.83 M/mm3 (4.2-5.4); Red Cell Distribution Width 19.6 % (11.5-14.5); White Blood Count 13.8 K/mm3 (4.5-10.0)
[2021-12-05] MEDS: FERROUS SULFATE 324 MG TABLET PO (08:13)
[2021-12-05] MEDS: METOPROLOL SUCCINATE EXT REL 50 MG TABCR PO (08:13)
[2021-12-05] MEDS: APIXABAN 2.5 MG TABLET PO (08:14)
[2021-12-05] MEDS: SPIRONOLACTONE 25 MG TABLET PO (08:14)
[2021-12-05] MEDS: FUROSEMIDE INJ 40 MG/4 ML VIAL 20 MG IV PUSH (08:14)
[2021-12-05] MEDS: SIMVASTATIN 20 MG TABLET 40 MG PO (08:14)
[2021-12-05] MEDS: VITAMIN A & D OINTMENT 60 GM TUBE 1 APPLIC TOPICAL (08:18)
[2021-12-05 08:27] LABS: Ovalocytes 1+ (NORMAL); Platelet Estimate Decreased (Adequate); Tear Drop Cells 1+ (NORMAL)
--- NOTE | 2021-12-05 14:21 | PDONCCN ---
HPI - Date of Consult Date/Time: 12/05/21 14:21 Requesting Physician: Tyshawn Eddy DO Primary Care Provider: Kel Burk DO - Consult Narrative Reason for consult: Hypercoagulable state and anemia Narrative: Nikky Urena is a 81 year old female with multiple comorbidities including history of CLL, splenomegaly, chronic atrial fibrillation, chronic kidney disease and DVT. Patient is a poor historian. Patient was admitted to the hospital on November 28 with upper extremity edema and noted to have bilateral DVTs involving lower extremities. Previously she was on Eliquis 2.5 mg b.i.d. apparently for atrial fibrillation. She was also admitted to the hospital in October of 2021 status post fall. Patient now got admitted to the hospital with increasing shortness of breath. CTA chest showed no evidence of pulmonary embolism. There is mild pulmonary edema, ascites, splenomegaly and left supraclavicular and periportal lymphadenopathy consistent with CLL. Lower extremity Doppler study showed interval development of bilateral lower extremity DVT. Patient denies any previous history of thromboembolic events. Other labs showed macrocytic anemia with normal WBC count a and thrombocytopenia. She denies any bleeding but does have some bruising in the lower extremities. She denies any weight loss. Review of Systems - Review of Systems All systems reviewed & are unremarkable except as noted in HPI and [facility] Medical History: Medical History (This Medical Record has been edited. Action required.) Atrial fibrillation Atrial fibrillation and flutter Broken fingers Left hand Cerebrovascular accident Onset Date: 2003 Chronic anemia Chronic lymphocytic leukemia Onset Date: ~1999 Chronic pain Chronic pain of left knee CLL (chronic lymphocytic leukemia) CVA (cerebral vascular accident) Diastolic heart failure Echo 02/23/2020: EF 60-65%, moderately increased LV wall thickness, abnormal diastolic function, global longitudinal strain is normal, mild left atrial enlargement, mild aortic valve sclerosis, mild mitral valve regurgitation, severe pulmonary hypertension with RVSP of 62 mmHg, [id number] pulmonic regurgitation, elevated right atrial pressures. Diastolic heart failure DVT (deep venous thrombosis) Emphysema lung Essential hypertension Hyperlipidemia Hypertension Hypertension Hypothyroidism Hypothyroidism Pulmonary hypertension Severe pulmonary hypertension Thrombocytopenia Thrombocytopenia Surgical History: Surgical History (This Medical Record has been edited. Action required.) History of ankle surgery Onset Date: ~1999 Right ankle ORIF with hardware. History of bladder surgery History of bladder surgery History of cholecystectomy History of cholecystectomy History of hysterectomy History of hysterectomy History of lumbar surgery History of lumbar surgery Status post ORIF of fracture of ankle Right ankle Family History: Family History (This Medical Record has been edited. Action required.) Father Asthma Mother Family history of heart disease in male family member before age 55 Cerebrovascular accident Family history of arthritis Other No problems noted. Sibling Diabetes mellitus Other Unknown family medical history - Social History Social History: Social History (This Medical Record has been edited. Action required.) Gender Identity: Gender identity (if verbalized by the patient): Female Alcohol Use: Alcohol intake: never Substance Use: Substance use: never Substance use type: does not use Others: Spiritual care concerns: No Living Arrangements: Living arrangements: with family Smoking Status: Smoking status: Former smoker Second hand tobacco smoke exposure: No Smoking Pack-years: Smoking packs per day: 3 Smoking cigarettes per day: 60.0 Years smoked: 20 Smoking pack-years:
--- NOTE | 2021-12-05 15:15 | HOMEO2EVAL ---
Evaluation was performed at [facility] Home Oxygen Evaluation RC: Home Oxygen (O2) Evaluation Start: 12/05/21 14:33 Freq: ONCE Status: Active Protocol: RPE Activity Type Activity Date Activity User E-Sign Co-Sign Detail Recorded Client Recorded Date Recorded By Document 12/05/21 14:45 PK [email or web address] 12/05/21 15:14 PK Document 12/05/21 14:50 PK [email or web address] 12/05/21 15:14 PK Document 12/05/21 14:50 [facility] [email or web address] 12/05/21 15:14 [facility] Document 12/05/21 15:00 [facility] [email or web address] 12/05/21 15:14 [facility] 12/05/21 12/05/21 12/05/21 14:45 14:50 14:50 Home O2 Evaluation Test Phase Resting Exercise Exercise Oxygen Delivery Room Air Room Air Nasal Cannula Oxygen Flow Rate (L/min) 1 Pulse Oximetry (90-100 %) 94 87 L 92 Pulse Rate (60-100 beats/min) 88 86 87 Ambulation Distance (feet) 200 Ambulation Distance (meters) 60.95 Home Oxygen Evaluation Comments Treatment Charges O2 Evaluation - Inpatient 12/05/21 15:00 Home O2 Evaluation Test Phase Resting Oxygen Delivery Room Air Oxygen Flow Rate (L/min) Pulse Oximetry (90-100 %) 94 Pulse Rate (60-100 beats/min) 88 Ambulation Distance (feet) Ambulation Distance (meters) Home Oxygen Evaluation Comments Patient requires 1 liter with activity. No oxygen with rest. Treatment Charges
[2021-12-05 15:20] LABS: Iron 75 ug/dL (37-170)
[2021-12-05 15:32] LABS: Percent Iron Saturation 31 % (20-50)
--- NOTE | 2021-12-05 15:40 | PM.DS ---
DS: Admitting Diagnosis Discharge Date 12/05/21 Admitting Diagnosis Bilateral lower extremity DVT, dyspnea DS: Discharge Diagnosis Discharge Diagnosis (1) CKD (chronic kidney disease): Code(s): N18.9 - Chronic kidney disease, unspecified Status: Acute (2) Patient denies significant medical history: Status: Acute (3) Atrial fibrillation: Code(s): I48.91 - Unspecified atrial fibrillation Status: Acute (4) CLL (chronic lymphocytic leukemia): Code(s): C91.10 - Chronic lymphocytic leukemia of B-cell type not having achieved remission Status: Acute (5) DVT (deep venous thrombosis): Code(s): I82.409 - Acute embolism and thrombosis of unspecified deep veins of unspecified lower extremity Status: Acute (6) Diastolic heart failure: Code(s): I50.30 - Unspecified diastolic (congestive) heart failure Status: Acute DS: Summary Hospital Course Reason for hospitalization: DVTs, hypoxia Hospital Course: Patient is a 81-year-old female with past medical history of CLL, splenomegaly, dyslipidemia, chronic atrial fibrillation on Eliquis, DVT, chronic kidney diseas Cr 1.5 baseline e presents the ED with dyspnea. Patient recently was hospitalized on 11/10/2021 for a fall. Patient has been on Eliquis 2.5 mg b.i.d. because of her age greater than 80 and CKD with creatinine greater than 1.5 she came to ER on 11/28/2021 with upper extremity edema and at that time patient had ultrasounds which found bilateral lower extremity DVTs. Eliquis was increased to 5 mg b.i.d. in patient presents hospital with dyspnea. With patient's kidney function it was unclear if patient should be on 2.5 mg dose or 5 mg dose or she actually failed the Eliquis. I consulted Dr. Bowles rn psychiatric who recommended 5 mg BID dosing for 1 month and follow-up with Dr. Bowles in the clinic. Of note patient also has CLL which she follows oncology. Rx for 5 mg dose Eliquis given. Her hemoglobin has been stable on discharge with 8.5, was fluctuating from 7.5 to 8.5 previously. On admission patient also had signs of mild home pulmonary congestion treated with Lasix. Echocardiogram 09/2021 showed EF 60-65% and severe asymmetrical septal increased left ventricle wall thickness, severe pulmonary hypertension. Patient has been adequately diuresed and lower extremity edema secondary to her DVTs which she is on appropriate treatment with Eliquis 5 mg dosing at this time. Patient would like [facility], patient will be discharged home with home health. Home oxygen therapy evaluation patient requires 1 L of oxygen with activity. Will give prescriptions for home oxygen. She will follow up with Hematology in 1 month and PCP next week with BMP. At time of discharge patient's vitals are stable, labs stable, patient is stable for discharge home. Patient understands and agrees with plan. Status at Discharge Functional status at discharge: uses cane/walker Overall status at discharge: patient is back to baseline Time Spent with Patient Time attestation: Total time spent providing and/or coordinating discharge services:35 Time spent: Greater than 30 minutes Exam Narrative: - GENERAL: Pleasant woman in no acute distress. Well-nourished. - EYES: EOMI. Anicteric. - HENT: Moist mucous membranes. - LUNGS: Clear to auscultation bilaterally, no wheezing, rhonchi, or rales. - CARDIOVASCULAR: Regular rate and rhythm. No murmur. No JVD. - ABDOMEN: Soft, non-tender and non-distended. No palpable masses. - EXTREMITIES: Bilateral lower extremity 1+. Peripheral pulses 2+. Non-tender. - NEUROLOGIC: No focal neurological deficits. CN II-XII grossly intact. - PSYCHIATRIC: Awake, Alert and oriented. Calm, appropriate - SKIN: Erythematous uses lower extremity - LYMPH: No cervical lymphadenopathy. DS: Data Data Completed and Pending Labs on day of discharge: Labs from last 24 hours 12/05/21 12/05/21 12/05/21 14:38 14:38 05:25 WBC RB
--- NOTE | 2021-12-05 15:47 | PCRCNOTE ---
HOME EVAL COMPLETED. PATIENT REQUIRES 1 LITER WITH ACTIVITY. ROOM AIR AT REST. [facility] [phone]. RV NOTIFIED.
[2021-12-05 16:10] LABS: Folic Acid 14.6 ng/mL (2.76->20)
--- NOTE | 2021-12-06 09:36 | PC.NURSE ---
Soke with daughter regarding Nikky's prescriptions available at [facility]. She received no notification for the prescription for the Apixaban 5mg PO BID from [facility]. I called [facility], pharmacist stated patient currently has a previous prescription for a 15 day supply, her insurance will not approve to fill the new script until the older script has been used, & will approve the new script around the 12/18/2021. Pharmacist said he will explain the issue to pt's daughter when she comes to miner pick her other new script.
== END 2021-12-05 17:18 | disposition home health service (06) | DRG 291 ==
LOC: ANHED 13:43 → ANH2MED 18:35
PROVIDERS: Internal Medicine; Internal Medicine Hematology & Oncology; Admitting Provider Internal Medicine; Emergency Provider Emergency Medicine; PCP Internal Medicine; Visit Provider Student in an Organized Health Care Education/Training Program
DX: I13.0 Hypertensive heart and chronic kidney disease with heart failure and stage 1 through stage 4 chronic kidney disease, or unspecified chronic kidney disease (principal); J96.01 Acute respiratory failure with hypoxia; I50.31 Acute diastolic (congestive) heart failure; I48.20 Chronic atrial fibrillation, unspecified; C91.10 Chronic lymphocytic leukemia of B-cell type not having achieved remission; I82.403 Acute embolism and thrombosis of unspecified deep veins of lower extremity, bilateral; D68.32 Hemorrhagic disorder due to extrinsic circulating anticoagulants; I27.20 Pulmonary hypertension, unspecified; Z86.718 Personal history of other venous thrombosis and embolism; E03.9 Hypothyroidism, unspecified; Z86.73 Personal history of transient ischemic attack (TIA), and cerebral infarction without residual deficits; G89.29 Other chronic pain; R53.1 Weakness; N18.30 Chronic kidney disease, stage 3 unspecified; Z87.440 Personal history of urinary (tract) infections; E78.5 Hyperlipidemia, unspecified; Z79.01 Long term (current) use of anticoagulants; Z86.16 Personal history of COVID-19; M47.812 Spondylosis without myelopathy or radiculopathy, cervical region; E83.52 Hypercalcemia; D50.9 Iron deficiency anemia, unspecified; D69.59 Other secondary thrombocytopenia; Z79.899 Other long term (current) drug therapy; Z91.81 History of falling; Z87.891 Personal history of nicotine dependence; T45.525A Adverse effect of antithrombotic drugs, initial encounter
CPT/HCPCS: 36415; 71275; 80048; 80053; 82607; 82728; 82746; 83540; 83550; 83735; 83880; 84484; 85014; 85018; 85025; 85055; 85610; 85730; 93005; 94618; 96374; 96376; 97110; 97161; 97165; 97530; 97535; 99285; A9270; G0378; J1940; Q9967

== ENCOUNTER 2021-12-08 13:08 | Inpatient (IN) | payer MEDICARE, SELFPAY ==
[2021-12-08] VITALS (27 sets, daily range): BP systolic 96–134; BP diastolic 42–78; PULSE 58–95; RESP 15–30; TEMP 36.1–36.6; O2SAT 93–100; BMI 20.8
--- NOTE | ~2021-12-08 | CT_ITS ---
EXAMINATION: CT abdomen pelvis wo con EXAM DATE: 12/23/2021 12:38 INDICATION: Diarrhea, abd pain. TECHNIQUE: Spiral CT of the abdomen and pelvis was performed without contrast. Axial, coronal and s agittal images of the abdomen and pelvis were reviewed. The dose-length product (DLP) for this exami nation was 749.96 mGy-cm. The exposure was tailored according to patient size (auto mA exposure cont rol), and iterative reconstruction (ASIR) was used as additional dose reduction technique. Comparison is made to prior examination from 12/08/2021. FINDINGS: There is moderate cardiomegaly. Moderate right, small left pleural effusions, adjacent subs egmental atelectasis. Small amount of ascites. There is severe splenomegaly, spleen measuring 18.4 cm craniocaudal dimension. No focal liver mass identified. There are punctate bilateral calyceal stones . Adrenal glands and pancreas are unremarkable. Gallbladder not identified. No hydronephrosis. Atroph ic uterus or hysterectomy. Bladder is unremarkable. Extensive aortic arteriosclerosis. Multiple pathologically enlarged upper retroperitoneal lymph nodes, differential diagnosis including lymphoma, metastatic disease (patient does have history of CLL). Extensive generalized body wall and mesenteric fat stranding, decreasing sensitivity for acute findings. There is mild sigmoid colonic di verticulosis without definite superimposed diverticulitis. Colonic fluid, correlate for diarrhea. No evidence of colonic wall thickening/edema. Appendix is normal. No free intraperitoneal gas. Colonic fluid is the new finding compared to previous examination, otherwise no significant interval change. IMPRESSION: 1. Interval development of colonic fluid, correlate for diarrhea. 2. Pleural effusions, ascites, generalized body wall edema. 3. Upper retroperitoneal lymphadenopathy probably patient's underlying CLL. 4. Severe splenomegaly. 5. Cardiomegaly. Reviewed, dictated and finalized at location A.
--- NOTE | ~2021-12-08 | XR_ITS ---
EXAMINATION: XR chest 1V portable EXAM DATE: 12/17/2021 13:07 INDICATION: COVID . TECHNIQUE: Portable AP frontal chest x-ray was obtained. Comparison is made to prior examination from 12/15, 12/10. FINDINGS: Moderate amount of mid and lower lung zone groundglass airspace disease, with mild continue d interval progression. There is no pneumothorax suspected. There are no pleural effusions. Mild card iomegaly. There is aortic arteriosclerosis. There are bony degenerative changes. IMPRESSION: Progression of moderate bilateral edema or pneumonia. Reviewed, dictated and finalized at location B.
--- NOTE | ~2021-12-08 | XR_ITS ---
EXAMINATION: XR chest 1V portable INDICATION: Weakness and shortness of breath TECHNIQUE: Portable AP chest at 1345 hours COMPARISON: 11/28/2021 FINDINGS: There are minimal airspace opacities of the mid and lower lung zones. Cardiomegaly is noted . There is no pleural effusion or pneumothorax. Bilateral axillary soft tissue calcifications are not ed which could be related to CLL. IMPRESSION: 1. Airspace opacities of the mid and lower lung zones, consistent with atelectasis versus pneumonia. 2. Cardiomegaly. Reviewed, dictated and finalized at location B. IMPRESSION: 1. Airspace opacities of the mid and lower lung zones, consistent with atelecta sis versus pneumonia. 2. Cardiomegaly.
--- NOTE | ~2021-12-08 | US_ITS ---
EXAMINATION: US abdomen complete EXAM DATE: 12/18/2021 14:54 INDICATION: Diffuse pain. ascites. TECHNIQUE: Multiple grayscale and Doppler images of the complete abdomen were obtained (by a technolo dmitri who performed the scan) and subsequently reviewed. Correlation is made to CT 12/08/2021. FINDINGS: There is small amount of perihepatic and perisplenic ascites, not suspected to be enough fo r paracentesis. The abdominal aorta is normal in caliber. Scattered aortic arterial sclerosis.. Visualized portion IVC is patent. The pancreatic head and body are normal in appearance. The pancreatic tail is not v isualized. The liver has normal echogenicity and contour. There are no focal liver lesions identified. There is no evidence of intrahepatic biliary duct dilation. Portal venous flow was seen in the hepatopedal , normal direction and has normal Doppler waveform. There is no hepatic venous or portal venous throm bosis suspected. Common bile duct measures 3 mm, which is normal. The gallbladder fossa is unremarkable. On the cine images there is evidence of enlarged portacaval lymph node, measuring about 2 x 1 x 4 cm. Right kidney: There is normal contour and echogenicity. It measures 9.4 x 5.2 x 4.2 centimeters. T here are no focal renal lesions identified. There is no hydronephrosis. Left kidney: There is normal contour and echogenicity. It measures 8.8 x 3.7 x 4.1 centimeters. Th ere are no focal renal lesions identified. There is no hydronephrosis. The spleen is enlarged, measuring 18 x 8 cm and there are numerous splenic punctate echogenic foci. IMPRESSION: 1. Severe splenomegaly and nonspecific scattered echogenic splenic foci. 2. Small amount of perihepatic and perisplenic ascites. 3. Portacaval lymphadenopathy. Reviewed, dictated and finalized at location B.
--- NOTE | ~2021-12-08 | XR_ITS ---
EXAMINATION: XR chest 2V DATE: 12/15/2021 13:31 INDICATION: Congestive heart failure. Shortness of breath. TECHNIQUE: frontal and lateral views of the chest were obtained. COMPARISON: Chest radiograph dated 12/10/2021 FINDINGS: Cardio Julissa. Increasing opacities with peribronchial cuffing in the bilateral posterior lower lung zones. There are also small bilateral pleural effusions at the posterior sulci. No pneumothorax. Athe rosclerotic aorta. IMPRESSION: 1. Mild airspace opacities with peribronchial cuffing in the posterior lower lung zones and favor con gestive heart failure related mild pulmonary edema over pneumonia. 2. Small bilateral pleural effusions. 3. Cardiomegaly. Reviewed, dictated and finalized at location A. IMPRESSION: 1. Mild airspace opacities with peribronchial cuffing in the posterior lower tatyana ng zones and favor congestive heart failure related mild pulmonary edema over p neumonia. 2. Small bilateral pleural effusions. 3. Cardiomegaly.
--- NOTE | ~2021-12-08 | CT_ITS ---
EXAMINATION: CT abdomen pelvis w con INDICATION: Abdominal pain and weakness TECHNIQUE: Computed tomographic images of the abdomen and pelvis were obtained after the administrati on of 100 cc of Omnipaque 350 intravenous contrast. The dose-length product (DLP) was 362.20 mGy-cm. Automated exposure control and iterative reconstruction technique were employed. COMPARISON: 10/18/2021 FINDINGS: There are small pleural effusions, right greater than left. Cardiomegaly is noted. There is diffuse anasarca. Calcified coronary artery atherosclerosis is noted. The enlarged spleen measures u p to 21.1 cm. There are scattered areas of subcapsular hypoattenuation in the spleen. The liver, panc reas, and adrenal glands are normal. Hypoattenuating lesions in the kidneys, measuring up to 3 mm on the right, are too small to characterize but likely represent cysts. There is calcified atheroscleros is of the aorta and many of the other arteries. There is a retroperitoneal lymphadenopathy. Some retr operitoneal lymph nodes demonstrate calcification. There is a moderate volume of ascites. Gas is pres ent in the urinary bladder. There is severe thoracic and lumbar spondylosis. IMPRESSION: 1. Splenomegaly and lymphadenopathy, consistent with history of CLL. Scattered areas of subcapsular h ypoattenuation in the spleen could possibly reflect small areas of infarction. 2. Diffuse anasarca and moderate volume of ascites. 3. Small pleural effusions, right greater than left. 4. Cardiomegaly. Reviewed, dictated and finalized at location B. IMPRESSION: 1. Splenomegaly and lymphadenopathy, consistent with history of CLL. Scattered areas of subcapsular hypoattenuation in the spleen could possibly reflect small areas of infarction. 2. Diffuse anasarca and moderate volume of ascites. 3. Small pleural effusions, right greater than left. 4. Cardiomegaly.
--- NOTE | ~2021-12-08 | XR_ITS ---
EXAMINATION: XR ankle RT 2V DATE: 12/15/2021 13:31 INDICATION: Bruising and swelling at the right ankle post fall TECHNIQUE: Anteroposterior and lateral views of the right ankle were obtained. COMPARISON: None. FINDINGS: Solidly fused right ankle arthrodesis with anterior plate and screw fixation and additional oblique m edial and lateral lag screws. There are additional lucent screw tracks in the distal tibia likely rel ated to an earlier fixation. There is been resection of the distal fibula. Alignment appears near-marisabel tomic. No fracture. Mild osteoarthritis at the subtalar, talonavicular and naviculocuneiform joints. Achilles calcaneal spur. Mild soft tissue swelling about the ankle with medial sided predominance. IMPRESSION: 1. Instrumented right tibiotalar arthrodesis. No acute osseous abnormality. Reviewed, dictated and finalized at location A.
--- NOTE | ~2021-12-08 | XR_ITS ---
EXAMINATION: XR chest 1V portable EXAM DATE: 12/10/2021 14:27 INDICATION: SOB TECHNIQUE: Portable AP frontal chest x-ray was obtained. Comparison is made to prior examination from 12/08/2021. FINDINGS: Again there is cardiomegaly and pulmonary vascular congestion. There is indistinct reticula tion with a bibasal predominance which may indicate pulmonary edema. There is no pneumothorax suspect ed. Possible small pleural effusions. No confluent consolidation. There are bony degenerative changes . IMPRESSION: Findings consistent with CHF exacerbation unchanged. Pneumonia not excludable. Reviewed, dictated and finalized at location G.
--- NOTE | 2021-12-08 13:17 | ECG_ITS ---
Measurements Intervals [place] Rate: 82 P: [place]: 0 QRS: 242 QRSD: 145 T: 71 QT: 381 QTc: 447 Interpretive Statements ATRIAL FIBRILLATION MARKED RIGHT AXIS DEVIATION [QRS AXIS > 100] INTRAVENTRICULAR CONDUCTION DELAY [130+ ms QRS DURATION] ABNORMAL ECG COMPARED TO ECG 11/10/2021 18:11:48 NO DIFFERENCE Electronically Signed On 12-08-2021 15:50:21 CDT by Claudio Kwok M.D.
[2021-12-08 13:42] LABS: Basophils Absolute Auto 0.1 K/mm3 (0.0-0.1); Basophils Percent Auto 0.4 % (0.2-1.2); Hematocrit 33.4 % (37.0-47.0); Hemoglobin 9.6 g/dL (12.0-15.0); Immature Granulocyte Absolute 0.22 K/mm3 (0.00-0.031); Immature Granulocyte Percent A 1.1 % (0-0.5); Immature Platelet Fraction Pct 4.9 % (0.9-11.2); Lymphocytes Absolute Auto 17.27 K/mm3 (0.9-3.2); Lymphocytes Percent Auto 84.8 % (18.3-44.2); Mean Corpuscular HGB Conc 28.7 g/dl (32-36); Mean Corpuscular Hemoglobin 30.4 pg (26-34); Mean Corpuscular Volume 105.7 fl (80-100); Mean Platelet Volume 10.7 fl (7.4-10.4); Monocytes Percent Auto 9.7 % (2.6-8.5); Neutrophils Absolute Auto 0.8 K/mm3 (1.3-6.7); Nucleated Red Blood Cells Absolute Auto 0.1 K/mm3 (0.0-0.012); Nucleated Red Blood Cells Perc 0.2 % (0.0-0.2); Platelet Count Result 144 k/mm3 (150-375); Red Blood Count 3.16 M/mm3 (4.2-5.4); Red Cell Distribution Width 19.6 % (11.5-14.5); White Blood Count 20.4 K/mm3 (4.5-10.0)
[2021-12-08 13:50] LABS: INR 1.6; Prothrombin Time 18.5 Seconds (11.1-14.7)
[2021-12-08 13:51] LABS: Alanine Aminotransferase 17 U/L (4-35); Albumin Level 3.1 g/dL (3.5-5.1); Alkaline Phosphatase 226 U/L (38-126); Anion Gap 1 mmol/L (8-16); Aspartate Amino Transferase 33 U/L (14-36); Bilirubin,Total 0.8 mg/dL (0.2-1.3); Blood Urea Nitrogen 39 mg/dL (7-17); Calcium 10.2 mg/dL (8.4-10.2); Carbon Dioxide 35 mmol/L (22-30); Chloride 104 mmol/L (98-107); Estimated CRCL calculation 28 ml/min; Estimated Glomerular Filt Rate 31; Glucose 107 mg/dL (65-110); Lipase 74 U/L (23-300); Partial Thromboplastin Time 31.5 SECONDS (22.3-36.8); Potassium 4.1 mmol/L (3.4-5.0); Sodium 140 mmol/L (137-145)
[2021-12-08 13:56] LABS: Ovalocytes 2+ (NORMAL); Platelet Estimate Adequate (Adequate); Tear Drop Cells 1+ (NORMAL)
--- NOTE | 2021-12-08 13:56 | PC.NURSE ---
Bilateral lower extremities doppled at this time. Sites marked with skin pen.
[2021-12-08 14:03] LABS: Troponin I < 0.012 ng/mL (0.000-0.034)
[2021-12-08] MEDS: ASPIRIN 81 MG CHEWABLE TABLET 324 MG PO (14:43)
[2021-12-08] MEDS: SODIUM CHLORIDE 0.9% IV 500 ML 999 ML IV CONT (14:43)
[2021-12-08 14:46] LABS: Lactic Acid Reflex 0.9 mmol/L (0.7-2.1)
--- NOTE | 2021-12-08 15:30 | PC.NURSE ---
Pt in ct
[2021-12-08 16:44] LABS: Add Urine Microscopic? YES; Appearance Urine Turbid (Clear); Bacteria Urine 4+ /hpf; Bilirubin Urine Negative (Negative); Blood Urine Negative (Negative); Calcium Oxalate Crystals Urine Present /hpf; Color Urine Yellow (Yellow); Glucose Urine UA Negative (Negative); Ketones Urine Negative (Negative); Leukocyte Esterase Ur 2+ LEU/UL (Negative); Mucus Urine Heavy /lpf; Nitrate Urine Negative (Negative); Protein Urine 1+ mg/dL (Negative); Specific Grav Ur 1.024 (1.001-1.035); Squamous Epithelial Cell Urine Many /hpf (Few); Urobilinogen Urine Negative mg/dL (<2.0); WBC Clumps Urine Present /HPF; WBC Urine >75 /hpf
[2021-12-08 17:16] LABS: SARS-CoV-2 RNA PCR Negative
[2021-12-08 17:21] LABS: Troponin I < 0.012 ng/mL (0.000-0.034)
--- NOTE | 2021-12-08 17:41 | ED.WEAKNESS ---
HPI - Weakness General Chief complaint: Weakness Stated complaint: Weakness Time Seen by Provider: 12/08/21 13:55 Source: patient History of Present Illness HPI Narrative: Patient with a history of CLL recently admitted for DVT and anticoagulation. Patient was discharged home and has had increased weakness since that time she was sent back to the ER for further evaluation she is requiring more care than her family can provide. For she is weak all over and feels sick to her stomach with diffuse abdominal pain. Does report shortness of breath denies any dizziness or congestion. Related Data Home Medications Medication Instructions Recorded Confirmed A and D Zinc Oxide Cream 1 applic BID 12/01/21 12/01/21 Antacid (calcium carbonate) 500 mg PO DAILY PRN 12/01/21 12/01/21 Imodium A-D 1 mg PO DAILY 12/01/21 12/01/21 acetaminophen 650 mg PO Q6-8H 12/01/21 12/01/21 ferrous sulfate [FeroSul] 325 mg PO DAILY 12/01/21 12/01/21 hydrocodone-acetaminophen 0.5 tablet PO HS 12/01/21 12/01/21 metoprolol succinate 50 mg PO DAILY 12/01/21 12/01/21 ondansetron 4 mg PO Q6-8H PRN 12/01/21 12/01/21 simvastatin 40 mg PO DAILY 12/01/21 12/01/21 Allergies Allergy/AdvReac Type Severity Reaction Status Date / Time codeine Allergy Unknown tachycardia Verified 12/02/21 15:11 morphine Allergy Unknown tachycardia Verified 12/02/21 15:11 Review of Systems Review of Systems: CONSTITUTIONAL: Denies fever, chills, or sweats. EYES: Denies visual changes, redness, or discharge. ENT: Denies rhinorrhea, congestion, sore throat, or otalgia. CARDIOVASCULAR: Denies chest pain, palpitations, or edema. RESPIRATORY: Denies cough GASTROINTESTINAL: Denies vomiting, or diarrhea. GENITOURINARY: Denies dysuria or hematuria. SKIN: Denies rash or itching. MUSCULOSKELETAL: Denies back pain, joint pain, or myalgia. NEUROLOGIC: Denies headache, numbness, dizziness, or weakness. PSYCHIATRIC: Denies anxiety or depression. All systems reviewed & are unremarkable except as noted in HPI and below PMFSH Past Medical History Medical History Atrial fibrillation Atrial fibrillation and flutter Broken fingers Left hand Cerebrovascular accident (2003) Chronic anemia Chronic lymphocytic leukemia (~1999) Chronic pain Chronic pain of left knee CLL (chronic lymphocytic leukemia) CVA (cerebral vascular accident) Diastolic heart failure Echo 02/23/2020: EF 60-65%, moderately increased LV wall thickness, abnormal diastolic function, global longitudinal strain is normal, mild left atrial enlargement, mild aortic valve sclerosis, mild mitral valve regurgitation, severe pulmonary hypertension with RVSP of 62 mmHg, [id number] pulmonic regurgitation, elevated right atrial pressures. Diastolic heart failure DVT (deep venous thrombosis) Emphysema lung Essential hypertension Hyperlipidemia Hypertension Hypertension Hypothyroidism Hypothyroidism Pulmonary hypertension Severe pulmonary hypertension Thrombocytopenia Thrombocytopenia Surgical History Surgical History History of ankle surgery (~1999) Right ankle ORIF with hardware. History of bladder surgery History of bladder surgery History of cholecystectomy History of cholecystectomy History of hysterectomy History of hysterectomy History of lumbar surgery History of lumbar surgery Status post ORIF of fracture of ankle Right ankle Family History Family History Father Asthma Mother Family history of heart disease in male family member before age 55 Cerebrovascular accident Family history of arthritis Other No problems noted. Sibling Diabetes mellitus Other Unknown family medical history Social History Social History Social History: The patient lives in [place]. She has been for
[2021-12-08] MEDS: SODIUM CHLORIDE 0.9% IV 1,000 ML 125 ML IV CONT (19:15)
--- NOTE | 2021-12-08 19:45 | PM.IMHP ---
H&P: HPI History of Present Illness Date/Time: 12/08/21 19:45 Chief Complaint: Generalized weakness. Narrative: This is an 81-year-old female with dementia, hypertension, paroxysmal atrial fibrillation/flutter, chronic lymphocytic leukemia, severe pulmonary hypertension, emphysema, and recent history of DVT on anticoagulation who presented to the emergency department via EMS from home for evaluation of weakness. She has been admitted to the hospital several times this year and she was most recently admitted just about a week ago when she came in for dyspnea, found to have worsening renal function in bilateral lower extremity DVTs. Daughter reports that the patient's Lasix has been on hold since that admission. Unfortunately she continues to be quite weak and family members are having difficulties caring for her at home. Home health came out today and felt that she needed to be sent back to the emergency room for evaluation due to the weakness and reported low blood pressures. Since arrival to the ED today are blood pressures have been stable and are on par with what she typically runs. Her labs seems stable on review of previous labs as well however her white count is elevated again from baseline and her urine looks infected with than 75 wbc's and 4+ bacteria. She is being admitted in this setting. At the time my evaluation she is sleepy and confused and really cannot provide much history. She specifically denies pain, shortness breast, and nausea at this time. Review of Systems Review of Systems: A review of systems is attempted but limited as the patient is confused and not really participating much. [facility] Past Medical History Medical History (Updated 12/08/21 @ 23:13 by Elma Alarcon PA-C) Atrial fibrillation and flutter Cerebrovascular accident (2003) Chronic anemia Chronic anticoagulation Chronic lymphocytic leukemia (1999) Chronic pain Deep venous thrombosis (11/2021) Dementia Diastolic heart failure Echo 02/23/2020: EF 60-65%, moderately increased LV wall thickness, abnormal diastolic function, global longitudinal strain is normal, mild left atrial enlargement, mild aortic valve sclerosis, mild mitral valve regurgitation, severe pulmonary hypertension with RVSP of 62 mmHg, [id number] pulmonic regurgitation, elevated right atrial pressures. Diastolic heart failure Emphysema lung Hyperlipidemia Hypertension Hypothyroidism Severe pulmonary hypertension Thrombocytopenia Surgical History Surgical History (Updated 12/08/21 @ 23:11 by Elma Alarcon PA-C) History of ankle surgery (~1999) Right ankle ORIF with hardware. History of bladder surgery History of cholecystectomy History of hysterectomy History of lumbar surgery Family History Family History Father Asthma Mother Family history of heart disease in male family member before age 55 Cerebrovascular accident Family history of arthritis Other No problems noted. Sibling Diabetes mellitus Other Unknown family medical history Social History Social History (Updated 12/08/21 @ 23:11 by Elma Alarcon PA-C) Social History: The patient lives in [place]. She has been for 16 years. She grew up in [place] but was raised in [place]. She and her lived in [place] for about 34 years before they retired, and then they moved to this region to be closer to their 2 children. In total, she had 6 children, lost 2. She smoked up to 3 packs of cigarettes per day for approximately 20 years and quit 1972. She denies alcohol and illicit substance use. She designates her grandchild, Merari Urena, as her surrogate decision maker and she wishes to be a full code. Meds Home Medications and Allergies Home Medications Medication Instructions Recorded Confirmed Type apixaban [Eliquis] mg 12/08/21 History ferrous sulfate [FeroSul] mg 12/08/21 History hydrocodone
--- NOTE | 2021-12-08 20:31 | ADMGEN ---
This patient, Nikky Urena, was admitted to Medical Room 241-. Patient/family oriented to hospital policies and general routines including ID bracelet, bed and alarms, visiting hours, pain management, procedures, bathroom and other care routines, personal items, smoking policy, room service/diet, and visiting hours. Information on how to activate the Rapid Response Team has been discussed. Patient/Family are encouraged to report perceived risks to care and to ask questions if they do not understand what they are told or what they should do.
[2021-12-08 21:28] LABS: Troponin I < 0.012 ng/mL (0.000-0.034)
[2021-12-09] VITALS (10 sets, daily range): BP systolic 95–98; BP diastolic 39–60; PULSE 56–98; RESP 18–28; TEMP 35.7–36.8; O2SAT 94–99
[2021-12-09] MEDS: MIDODRINE HCL 10 MG TABLET PO (05:03)
[2021-12-09] MEDS: SIMVASTATIN 20 MG TABLET 40 MG PO (08:55)
[2021-12-09] MEDS: APIXABAN 5 MG TABLET PO ×2 (08:56→20:00)
[2021-12-09] MEDS: FERROUS SULFATE 324 MG TABLET PO (08:56)
--- NOTE | 2021-12-09 09:21 | PM.IMPN ---
Progress Note: A&P Assessment and Plan (1) Urinary tract infection: Code(s): N39.0 - Urinary tract infection, site not specified Status: Acute Assessment and Plan: Patient has been started on ceftriaxone, pending urine culture. (2) Renal failure: Code(s): N19 - Unspecified kidney failure Status: Acute Assessment and Plan: Her baseline creatinine now is probably anywhere between 1.3 and 1.50.creat is 1.6 today (3) Diastolic heart failure: Code(s): I50.30 - Unspecified diastolic (congestive) heart failure Status: Acute Assessment and Plan: Some edema in feet. (4) Chronic anticoagulation: Code(s): Z79.01 - skilled nursing (current) use of anticoagulants Status: Acute Assessment and Plan: Continue apixaban for recent DVTs. (5) Generalized weakness: Code(s): R53.1 - Weakness Status: Acute Assessment and Plan: Secondary to a combination of the above in addition to her chronic medical conditions and deconditioning. (6) Dementia: Code(s): F03.90 - Unspecified dementia without behavioral disturbance Status: Acute Assessment and Plan: Plan is as detailed above. Initiate fall precautions. (7) Hypotension: Code(s): I95.9 - Hypotension, unspecified Status: Acute Assessment and Plan: Hold Bp medications today continue midodrine and IVF continue to watch Pt remains full code trying to contact family to update on patient low Bp today Subjective Date/time seen: 12/09/21 09:21 Interval history: 81-year-old female with dementia, hypertension, paroxysmal atrial fibrillation/flutter, chronic lymphocytic leukemia, severe pulmonary hypertension, emphysema, and recent history of DVT on anticoagulation who presented to the emergency department via EMS from home for evaluation of weakness. Nurse reports pt has been unwell this morning Bp is low and breathing fast. Pt appears to have had recent admission few weeks ago. For CHF anaemia and CLL. Pt is here with UTi and weakness this visit. Review of Systems Review of Systems: All systems reviewed & are unremarkable except as noted in HPI and below Exam Narrative: General: Chronically ill-appearing elderly female Neck: Supple. Respiratory: Faint crackles at the bases. Cardiovascular: Irregularly irregular rate and rhythm. Systolic murmur best heard at the apex. Gastrointestinal: Abdomen is soft, nontender, and nondistended with positive bowel sounds. Extremities: No cyanosis or clubbing. Neurological: Alert and oriented Psychiatric: Pleasantly confused. Objective Data Vital Signs Vital Signs: Vital Signs - 24 hr 12/08/21 13:26 12/08/21 13:42 12/08/21 13:49 Temperature 36.4 C 36.4 C Pulse Rate 58 L 95 72 Respiratory Rate 18 25 H 26 H Blood Pressure 96/42 L 113/63 Pulse Oximetry 100 100 12/08/21 13:57 12/08/21 14:00 12/08/21 14:01 Temperature Pulse Rate 77 83 83 Respiratory Rate 30 H 20 Blood Pressure 111/55 L Pulse Oximetry 99 12/08/21 14:15 12/08/21 14:30 12/08/21 14:31 Temperature Pulse Rate 75 73 76 Respiratory Rate 29 H 23 H 29 H Blood Pressure 105/52 L Pulse Oximetry 12/08/21 14:45 12/08/21 15:00 12/08/21 15:01 Temperature Pulse Rate 73 70 73 Respiratory Rate 27 H 28 H 23 H Blood Pressure 112/51 L Pulse Oximetry 12/08/21 15:52 12/08/21 16:03 12/08/21 16:07 Temperature Pulse Rate 72 83 79 Respiratory Rate 22 H 15 28 H Blood Pressure 105/60 Pulse Oximetry 12/08/21 16:15 12/08/21 16:30 12/08/21 16:45 Temperature Pulse Rate 78 62 69 Respiratory Rate 25 H 22 H 20 Blood Pressure Pulse Oximetry 12/08/21 17:00 12/08/21 17:15 12/08/21 17:30 Temperature Pulse Rate 79 73 73 Respiratory Rate 27 H 26 H 25 H Blood Pressure Pulse Oximetry 12/08/21 17:45 12/08/21 19:14 12/08/21 20:01 Temperature Pulse Rate 68 71 79
[2021-12-10] VITALS (16 sets, daily range): BP systolic 97–118; BP diastolic 47–65; PULSE 68–120; RESP 16–22; TEMP 36–36.4; O2SAT 81–96
[2021-12-10] MEDS: HYDROcodone/acetaminophen (*CRX) 5-325 MG TABLET 0.5 TAB PO ×2 (02:16→17:21)
[2021-12-10] MEDS: METOPROLOL SUCCINATE EXT REL 50 MG TABCR PO (08:05)
[2021-12-10] MEDS: SIMVASTATIN 20 MG TABLET 40 MG PO (08:05)
[2021-12-10] MEDS: FERROUS SULFATE 324 MG TABLET PO (08:05)
[2021-12-10] MEDS: APIXABAN 5 MG TABLET PO ×2 (08:05→20:16)
--- NOTE | 2021-12-10 11:18 | PM.IMPN ---
Progress Note: A&P Assessment and Plan (1) Urinary tract infection: Code(s): N39.0 - Urinary tract infection, site not specified Status: Acute Assessment and Plan: Patient has been started on ceftriaxone, pending urine culture. (2) Renal failure: Code(s): N19 - Unspecified kidney failure Status: Acute Assessment and Plan: Her baseline creatinine now is probably anywhere between 1.3 and 1.50 (3) Diastolic heart failure: Code(s): I50.30 - Unspecified diastolic (congestive) heart failure Status: Acute Assessment and Plan: Some edema in feet. 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 (5) Generalized weakness: Code(s): R53.1 - Weakness Status: Acute Assessment and Plan: Secondary to a combination of the above in addition to her chronic medical conditions and deconditioning. (6) Dementia: Code(s): F03.90 - Unspecified dementia without behavioral disturbance Status: Acute Assessment and Plan: Plan is as detailed above. Initiate fall precautions. (7) Hypotension: Code(s): I95.9 - Hypotension, unspecified Status: Acute Assessment and Plan: Bp is better today on midodrine (8) Pneumonia: Qualifiers: Laterality: unspecified laterality Lung location: unspecified part of lung Pneumonia type: due to unspecified organism Qualified Code(s): J18.9 - Pneumonia, unspecified organism Code(s): J18.9 - Pneumonia, unspecified organism Status: Acute Assessment and Plan: Possible pneumonia Pt is on iv rocephin and zithromax Pt is sob today on oxygen will reorder cxr and follow labs wcc remain high continue treating with iv ABX awaiting culture report Subjective Date/time seen: 12/10/21 11:18 Interval history: 81-year-old female with dementia, hypertension, paroxysmal atrial fibrillation/flutter, chronic lymphocytic leukemia, severe pulmonary hypertension, emphysema, and recent history of DVT on anticoagulation who presented to the emergency department via EMS from home for evaluation of weakness. Pt appears to have had recent admission few weeks ago. For CHF anaemia and CLL. Pt is here with UTi and weakness this visit. 12/10 Pt is needing oxygen today sob at rest. Cxr on admission showed possible pneumonia i will rpt cxr and follow labs today, still awaiting cultures on patient Review of Systems Review of Systems: All systems reviewed & are unremarkable except as noted in HPI and below Exam Narrative: General: Chronically ill-appearing elderly female Neck: Supple. Respiratory: Faint crackles at the bases. Cardiovascular: Irregularly irregular rate and rhythm. Systolic murmur best heard at the apex. Gastrointestinal: Abdomen is soft, nontender, and nondistended with positive bowel sounds. Extremities: No cyanosis or clubbing. Neurological: Alert and oriented Psychiatric: Pleasantly confused. Objective Data Vital Signs Vital Signs: Vital Signs - 24 hr 12/09/21 14:36 12/09/21 14:54 12/09/21 19:26 Temperature 36.8 C 35.9 C L Pulse Rate 87 56 L Respiratory Rate 26 H 18 Blood Pressure 98/48 L 95/60 L Pulse Oximetry 99 97 95 12/09/21 20:00 12/09/21 22:00 12/09/21 23:29 Temperature 35.9 C L 36.6 C Pulse Rate 56 L 98 Respiratory Rate 18 18 Blood Pressure 95/60 L 96/49 L Pulse Oximetry 95 95 94 12/10/21 01:37 12/10/21 03:55 12/10/21 03:56 Temperature 36.4 C 36.4 C Pulse Rate 103 H 103 H Respiratory Rate 20 20 Blood Pressure 112/57 L 112/57 L Pulse Oximetry 94 94 94 12/10/21 08:05 12/10/21 10:15 12/10/21 10:20 Temperature 36.0 C L Pulse Rate 70 80 Respiratory Rate 22 H Blood Pressure 111/48 L Pulse Oximetry 92 94 94 Intake/Output Intake/Output: Intake & Output
[2021-12-11] VITALS (12 sets, daily range): BP systolic 91–138; BP diastolic 45–74; PULSE 63–99; RESP 14–22; TEMP 36.1–36.7; O2SAT 99–100
--- NOTE | 2021-12-11 08:05 | PCOTNOTE ---
Attempted to see patient this am, however patient refused stating, I don't feel good. Pt initially agreed to ADLs, however upon initiation of activity, patient declined stating I just don't feel well. Spo2 100% on 3 L nasal cannula, BP 91/54 (supine) , pulse 81, temp 98.1 at this time.
[2021-12-11] MEDS: SIMVASTATIN 20 MG TABLET 40 MG PO (08:19)
[2021-12-11] MEDS: METOPROLOL SUCCINATE EXT REL 50 MG TABCR PO (08:19)
[2021-12-11] MEDS: FERROUS SULFATE 324 MG TABLET PO (08:19)
[2021-12-11] MEDS: APIXABAN 5 MG TABLET PO ×2 (08:20→20:03)
[2021-12-11 09:12] LABS: Hematocrit 29.1 % (37.0-47.0); Hemoglobin 8.4 g/dL (12.0-15.0); Immature Platelet Fraction Pct 5.3 % (0.9-11.2); Mean Corpuscular HGB Conc 28.9 g/dl (32-36); Mean Corpuscular Hemoglobin 30.3 pg (26-34); Mean Corpuscular Volume 105.1 fl (80-100); Mean Platelet Volume 10.9 fl (7.4-10.4); Platelet Count Result 122 k/mm3 (150-375); Red Blood Count 2.77 M/mm3 (4.2-5.4); Red Cell Distribution Width 19.5 % (11.5-14.5); White Blood Count 15.4 K/mm3 (4.5-10.0)
[2021-12-11 09:21] LABS: Anion Gap 0 mmol/L (8-16); Blood Urea Nitrogen 38 mg/dL (7-17); Calcium 9.2 mg/dL (8.4-10.2); Carbon Dioxide 31 mmol/L (22-30); Chloride 103 mmol/L (98-107); Estimated CRCL calculation 33 ml/min; Estimated Glomerular Filt Rate 39; Glucose 101 mg/dL (65-110); Potassium 4.3 mmol/L (3.4-5.0); Sodium 134 mmol/L (137-145)
--- NOTE | 2021-12-11 09:30 | PCPTNOTE ---
Patient refused treatment this session due to not feeling well. Patient reported she feels sick to her stomach and does not want to do therapy right now.
--- NOTE | 2021-12-11 10:58 | PM.IMPN ---
Progress Note: A&P Assessment and Plan (1) Urinary tract infection: Code(s): N39.0 - Urinary tract infection, site not specified Status: Acute Assessment and Plan: Patient has been started on ceftriaxone, Bc is negative Uc is pending Pt has history of UTIs (2) Renal failure: Code(s): N19 - Unspecified kidney failure Status: Acute Assessment and Plan: Her baseline creatinine now is 1.3, baseline between 1.3 and 1.50 (3) Diastolic heart failure: Code(s): I50.30 - Unspecified diastolic (congestive) heart failure Status: Chronic Assessment and Plan: No edema in feet. (4) Chronic anticoagulation: Code(s): Z79.01 - prison (current) use of anticoagulants Status: Acute Assessment and Plan: Continue apixaban for recent DVTs. (5) Generalized weakness: Code(s): R53.1 - Weakness Status: Acute Assessment and Plan: Secondary to a combination of the above in addition to her chronic medical conditions and deconditioning. (6) Dementia: Code(s): F03.90 - Unspecified dementia without behavioral disturbance Status: Acute Assessment and Plan: Plan is as detailed above. Initiate fall precautions. (7) Hypotension: Code(s): I95.9 - Hypotension, unspecified Status: Acute Assessment and Plan: Bp is better today on midodrine (8) Pneumonia: Qualifiers: Laterality: unspecified laterality Lung location: unspecified part of lung Pneumonia type: due to unspecified organism Qualified Code(s): J18.9 - Pneumonia, unspecified organism Code(s): J18.9 - Pneumonia, unspecified organism Status: Acute Assessment and Plan: Possible pneumonia on CXR Pt is on oxygen Pt is on iv rocephin and zithromax Wcc remain high continue treating with iv ABX Wcc trending down Can order CT PE to rule out PE Subjective Date/time seen: 12/11/21 10:58 Interval history: 81-year-old female with dementia, hypertension, paroxysmal atrial fibrillation/flutter, chronic lymphocytic leukemia, severe pulmonary hypertension, emphysema, and recent history of DVT on anticoagulation who presented to the emergency department via EMS from home for evaluation of weakness. Pt appears to have had recent admission few weeks ago. For CHF anaemia and CLL. Pt is here with UTi and weakness this visit. 12/10 Pt is needing oxygen today sob at rest. Cxr on admission showed possible pneumonia i will rpt cxr and follow labs today, still awaiting cultures on patient 12/11 Pt being treated for pneumonia and UTI pt complains of R flank pains, cultures are negative to date, pt needing oxygen at 2 liters for SOB, can order CT PE to rule out PE Review of Systems Review of Systems: All systems reviewed & are unremarkable except as noted in HPI and below Exam Narrative: General: Chronically ill-appearing elderly female Neck: Supple. Respiratory: BL decreased BS Cardiovascular: Irregularly irregular rate and rhythm. Systolic murmur best heard at the apex. Gastrointestinal: Abdomen is soft, nontender, and nondistended with positive bowel sounds. Extremities: No cyanosis or clubbing. Neurological: Alert and oriented Objective Data Vital Signs Vital Signs: Vital Signs - 24 hr 12/10/21 11:40 12/10/21 11:45 12/10/21 14:40 Temperature 36.4 C Pulse Rate 80 120 H 106 H Respiratory Rate 20 Blood Pressure 107/59 L 105/64 99/47 L Pulse Oximetry 94 93 91 12/10/21 18:00 12/10/21 18:20 12/10/21 18:25 Temperature 36.3 C L Pulse Rate 101 H Respiratory Rate 18 Blood Pressure 97/50 L Pulse Oximetry 96 81 L 12/10/21 18:50 12/10/21 18:59 12/10/21 20:00 Temperature 36.2 C L Pulse Rate 74 Respiratory Rate 16 Blood Pressure 118/65 Pulse Oximetry 92 92 94 12/10/21 20:32 12/11/21 00:00 12/11/21 04:00 Temperature 36.1 C L 36.2 C L Pulse Rate 65 99 Respiratory
--- NOTE | 2021-12-11 13:13 | PC.NURSE ---
On 12/11/21, the student, [Luis Schilling, Reece Wells], provided care and completed [employer] documentation on this patient. I have reviewed the student's documentation and agree with the findings.
[2021-12-11] MEDS: HYDROcodone/acetaminophen (*CRX) 5-325 MG TABLET 0.5 TAB PO (20:06)
[2021-12-12] VITALS (15 sets, daily range): BP systolic 90–120; BP diastolic 45–79; PULSE 68–88; RESP 12–16; TEMP 36.4–37.1; O2SAT 79–100
[2021-12-12 06:15] LABS: Anion Gap 0 mmol/L (8-16); Blood Urea Nitrogen 34 mg/dL (7-17); Carbon Dioxide 30 mmol/L (22-30); Chloride 103 mmol/L (98-107); Estimated CRCL calculation 35 ml/min; Estimated Glomerular Filt Rate 43; Glucose 81 mg/dL (65-110); Potassium 4.3 mmol/L (3.4-5.0); Sodium 133 mmol/L (137-145)
[2021-12-12] MEDS: FERROUS SULFATE 324 MG TABLET PO (08:50)
[2021-12-12] MEDS: METOPROLOL SUCCINATE EXT REL 50 MG TABCR PO (08:50)
[2021-12-12] MEDS: SIMVASTATIN 20 MG TABLET 40 MG PO (08:50)
[2021-12-12] MEDS: APIXABAN 5 MG TABLET PO ×2 (08:50→20:37)
[2021-12-12] MEDS: HYDROcodone/acetaminophen (*CRX) 5-325 MG TABLET 0.5 TAB PO ×2 (08:51→21:34)
--- NOTE | 2021-12-12 12:31 | PM.IMPN ---
Progress Note: A&P Assessment and Plan (1) Pneumonia: Qualifiers: Laterality: unspecified laterality Lung location: unspecified part of lung Pneumonia type: due to unspecified organism Qualified Code(s): J18.9 - Pneumonia, unspecified organism Code(s): J18.9 - Pneumonia, unspecified organism Status: Acute Assessment and Plan: Chest x-ray more consistent with CHF than pneumonia but there was concern for pneumonia. Patient remains on oxygen. White count was elevated but she does have CLL. White count has improved. Continue Rocephin azithromycin to complete a course. (2) Urinary tract infection: Code(s): N39.0 - Urinary tract infection, site not specified Status: Acute Assessment and Plan: Patient was started on ceftriaxone. Urine culture growing Klebsiella and E coli both sensitive to Rocephin. Continue the same. (3) Hypotension: Code(s): I95.9 - Hypotension, unspecified Status: Acute Assessment and Plan: Blood pressure soft at times. Midodrine was given once a few days ago. Will add low-dose midodrine as we attempt diuresis. (4) Diastolic heart failure: Code(s): I50.30 - Unspecified diastolic (congestive) heart failure Status: Chronic Assessment and Plan: Concern for acute on chronic diastolic CHF exacerbation. Echocardiogram in September showed EF of 60-65%, diastolic dysfunction and severe pulmonary hypertension. BNP on 12/01/2021 was 2270. Chest x-ray 323 shows finding consistent with CHF. CT abdomen pelvis shows diffuse anasarca and ascites as well as small pleural effusions. Blood pressure soft. Will attempt low-dose Lasix to see how she tolerates this. Wean oxygen as tolerated. (5) Renal failure: Code(s): N19 - Unspecified kidney failure Status: Acute Assessment and Plan: Patient with CKD. Her baseline creatinine between 1.3 and 1.50. Creatinine 1.2 and within baseline. Follow (6) Chronic anticoagulation: Code(s): Z79.01 - half-way (current) use of anticoagulants Status: Acute Assessment and Plan: Continue apixaban for recent DVTs. Also has atrial fibrillation which will require anticoagulation. (7) Generalized weakness: Code(s): R53.1 - Weakness Status: Acute Assessment and Plan: Secondary to a combination of the above in addition to her chronic medical conditions and deconditioning. Continue PT and OT. (8) Dementia: Code(s): F03.90 - Unspecified dementia without behavioral disturbance Status: Acute Assessment and Plan: Plan is as detailed above. Initiate fall precautions. (9) DVT (deep venous thrombosis): Code(s): I82.409 - Acute embolism and thrombosis of unspecified deep veins of unspecified lower extremity Status: Acute Assessment and Plan: Patient was diagnosed with DVTs on 11/28/2021. Presumably she was on a lower dose Eliquis and this dose was advanced. Continue same for now. (10) Atrial fibrillation: Code(s): I48.91 - Unspecified atrial fibrillation Status: Acute Assessment and Plan: Rate controlled. Continue Toprol-XL. Continue Eliquis. Subjective Date/time seen: 12/12/21 12:31 Interval history: 81-year-old female with dementia, hypertension, paroxysmal atrial fibrillation/flutter, chronic lymphocytic leukemia, severe pulmonary hypertension, emphysema, and recent history of DVT on anticoagulation who presented to the emergency department via EMS from home for evaluation of weakness. Assuming care. Chart reviewed. Patient not eating much. She complains of pain all over. This includes abdominal pain but denies chest pain. She does not wear oxygen at home. No nausea or vomiting. Normal bowel movements Exam Narrative: AF 98.2 100/45 80 12 90% Gen - NARD Chest -few scattered inspiratory rhonchi. Normal respiratory rate CV -irregularly irregular
[2021-12-12] MEDS: FUROSEMIDE INJ 40 MG/4 ML VIAL 20 MG IV PUSH ×2 (13:27→20:33)
[2021-12-12] MEDS: MIDODRINE HCL 2.5 MG TABLET PO ×2 (13:27→17:02)
--- NOTE | 2021-12-12 13:57 | PC.NURSE ---
On 12/12/21, the student, [Christine Mustafa & Kandice Amado], provided care and completed [employer] documentation on this patient. I have reviewed the student's documentation and agree with the findings.
[2021-12-13] VITALS (8 sets, daily range): BP systolic 100–123; BP diastolic 46–64; PULSE 67–83; RESP 16–30; TEMP 36.1–36.6; O2SAT 90–96
[2021-12-13 05:13] LABS: Basophils Percent Auto 0.3 % (0.2-1.2); Eosinophils Percent Auto 0.2 % (0-4.4); Hematocrit 27.7 % (37.0-47.0); Hemoglobin 8.1 g/dL (12.0-15.0); Immature Granulocyte Absolute 0.12 K/mm3 (0.00-0.031); Immature Granulocyte Percent A 0.9 % (0-0.5); Immature Platelet Fraction Pct 6.5 % (0.9-11.2); Lymphocytes Absolute Auto 11.15 K/mm3 (0.9-3.2); Lymphocytes Percent Auto 79.5 % (18.3-44.2); Mean Corpuscular HGB Conc 29.2 g/dl (32-36); Mean Corpuscular Hemoglobin 30.1 pg (26-34); Mean Platelet Volume 11.4 fl (7.4-10.4); Monocytes Absolute Auto 1.7 K/mm3 (0.1-0.6); Monocytes Percent Auto 12.1 % (2.6-8.5); Nucleated Red Blood Cells Perc 0.2 % (0.0-0.2); Platelet Count Result 123 k/mm3 (150-375); Red Blood Count 2.69 M/mm3 (4.2-5.4); Red Cell Distribution Width 18.9 % (11.5-14.5)
[2021-12-13 05:39] LABS: Albumin Level 2.6 g/dL (3.5-5.1); Anion Gap -1 mmol/L (8-16); Blood Urea Nitrogen 36 mg/dL (7-17); Calcium 9.1 mg/dL (8.4-10.2); Carbon Dioxide 34 mmol/L (22-30); Chloride 98 mmol/L (98-107); Estimated CRCL calculation 32 ml/min; Estimated Glomerular Filt Rate 39; Glucose 81 mg/dL (65-110); Magnesium 2.4 mg/dL (1.6-2.3); Phosphorus 3.3 mg/dL (2.5-4.5); Potassium 4.3 mmol/L (3.4-5.0); Sodium 131 mmol/L (137-145)
[2021-12-13] MEDS: FUROSEMIDE INJ 40 MG/4 ML VIAL 20 MG IV PUSH (06:21)
[2021-12-13 07:04] LABS: Ovalocytes 1+ (NORMAL); Platelet Estimate Decreased (Adequate)
[2021-12-13 07:05] LABS: Atypical Lymphocytes Present; Smudge Cells FEW
[2021-12-13] MEDS: MIDODRINE HCL 2.5 MG TABLET PO ×3 (08:46→17:22)
[2021-12-13] MEDS: SIMVASTATIN 20 MG TABLET 40 MG PO (08:46)
[2021-12-13] MEDS: METOPROLOL SUCCINATE EXT REL 50 MG TABCR PO (08:47)
[2021-12-13] MEDS: FERROUS SULFATE 324 MG TABLET PO (08:47)
[2021-12-13] MEDS: APIXABAN 5 MG TABLET PO ×2 (08:47→20:45)
--- NOTE | 2021-12-13 09:26 | PM.IMPN ---
Progress Note: A&P Assessment and Plan (1) Pneumonia: Qualifiers: Laterality: unspecified laterality Lung location: unspecified part of lung Pneumonia type: due to unspecified organism Qualified Code(s): J18.9 - Pneumonia, unspecified organism Code(s): J18.9 - Pneumonia, unspecified organism Status: Acute Assessment and Plan: Chest x-ray more consistent with CHF than pneumonia but there was concern for pneumonia. Patient remains on oxygen. White count was elevated but she does have CLL. White count has improved. Continue Rocephin azithromycin to complete a course. Improved (2) Urinary tract infection: Code(s): N39.0 - Urinary tract infection, site not specified Status: Acute Assessment and Plan: Patient was started on ceftriaxone. Urine culture growing Klebsiella and E coli both sensitive to Rocephin. Matter. (3) Hypotension: Code(s): I95.9 - Hypotension, unspecified Status: Acute Assessment and Plan: Blood pressure soft at times. Midodrine was given once a few days ago. Continue midodrine adjust diuresis. (4) Diastolic heart failure: Code(s): I50.30 - Unspecified diastolic (congestive) heart failure Status: Chronic Assessment and Plan: Acute and of chronic diastolic CHF exacerbation associated with ascites anasarca started on IV diuresis monitor renal function monitor blood pressure Diuresis adjusted (5) Renal failure: Code(s): N19 - Unspecified kidney failure Status: Acute Assessment and Plan: Patient with CKD stage III. Her baseline creatinine between 1.3 and 1.50. Creatinine 1.2 and within baseline. 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 Also has atrial fibrillation which will require anticoagulation. (7) Generalized weakness: Code(s): R53.1 - Weakness Status: Acute Assessment and Plan: Secondary to a combination of the above in addition to her chronic medical conditions and deconditioning. Continue PT and OT. (8) Dementia: Code(s): F03.90 - Unspecified dementia without behavioral disturbance Status: Acute Assessment and Plan: Plan is as detailed above. Initiate fall precautions. (9) DVT (deep venous thrombosis): Code(s): I82.409 - Acute embolism and thrombosis of unspecified deep veins of unspecified lower extremity Status: Acute Assessment and Plan: Patient was diagnosed with DVTs on 11/28/2021. Presumably she was on a lower dose Eliquis and this dose was advanced. Continue same for now. (10) Atrial fibrillation: Code(s): I48.91 - Unspecified atrial fibrillation Status: Acute Assessment and Plan: Rate controlled. Continue Toprol-XL. Continue Eliquis. Subjective Date/time seen: 12/13/21 09:26 Interval history: 81-year-old female with dementia, hypertension, paroxysmal atrial fibrillation/flutter, chronic lymphocytic leukemia, severe pulmonary hypertension, emphysema, and recent history of DVT on anticoagulation who presented to the emergency department via EMS from home for evaluation of weakness. Patient seen and examined Patient feels better shortness of breath abdominal distension has improved with IV diuresis Patient denies fever headache chest pain I am seeing the patient for pneumonia Exam Narrative: Alert Chest no wheeze crackles Abdomen nontender nondistended CVS S1 + S2 Lower extremity positive edema Objective Data Vital Signs Vital Signs: Vital Signs - 24 hr 12/12/21 09:45 12/12/21 10:00 12/12/21 10:53 Temperature 98.2 F Pulse Rate 80 Respiratory Rate 12 Blood Pressure 100/45 L Pulse Oximetry 79 L 93 90 12/12/21 12:41 12/12/21 13:33 12/12/21 13:36 Temperature Pulse Rate Respiratory Rate
[2021-12-13] MEDS: HYDROcodone/acetaminophen (*CRX) 5-325 MG TABLET 0.5 TAB PO ×2 (11:20→18:06)
--- NOTE | 2021-12-13 14:06 | PCPTNOTE ---
Attempted to see patient for Physical Therapy session; patient refused at this time stating I've barely gotten any sleep, can you come back tomorrow
[2021-12-14] VITALS (9 sets, daily range): BP systolic 98–119; BP diastolic 46–63; PULSE 64–91; RESP 16–28; TEMP 36.6–37; O2SAT 91–96
[2021-12-14] MEDS: HYDROcodone/acetaminophen (*CRX) 5-325 MG TABLET 0.5 TAB PO ×2 (02:11→20:39)
[2021-12-14] MEDS: SIMVASTATIN 20 MG TABLET 40 MG PO (08:28)
[2021-12-14] MEDS: METOPROLOL SUCCINATE EXT REL 50 MG TABCR PO (08:29)
[2021-12-14] MEDS: FERROUS SULFATE 324 MG TABLET PO (08:29)
[2021-12-14] MEDS: APIXABAN 5 MG TABLET PO ×2 (08:29→20:39)
[2021-12-14] MEDS: MIDODRINE HCL 2.5 MG TABLET PO ×3 (08:29→16:45)
[2021-12-14] MEDS: FUROSEMIDE INJ 40 MG/4 ML VIAL 20 MG IV PUSH (08:29)
--- NOTE | 2021-12-14 08:34 | PM.IMPN ---
Progress Note: A&P Assessment and Plan (1) Pneumonia: Qualifiers: Laterality: unspecified laterality Lung location: unspecified part of lung Pneumonia type: due to unspecified organism Qualified Code(s): J18.9 - Pneumonia, unspecified organism Code(s): J18.9 - Pneumonia, unspecified organism Status: Acute Assessment and Plan: Chest x-ray more consistent with CHF than pneumonia but there was concern for pneumonia. Patient remains on oxygen. White count was elevated but she does have CLL. Pending repeat CBC from today Continue Rocephin azithromycin to complete a course expected total 7 days of antibiotic last day of antibiotic expected to be 12/16/21 for pneumonia but also patient has UTI expected the antibiotic course of UTI to be completed after 10 days total of antibiotic patient can be switched to oral antibiotics on discharge expect patient will be discharged on cefprozil adjusted to renal function once placement available. Improved Pending placement (2) Urinary tract infection: Code(s): N39.0 - Urinary tract infection, site not specified Status: Acute Assessment and Plan: Patient was started on ceftriaxone. Urine culture growing Klebsiella and E coli both sensitive to Rocephin. Matter. Expected 10 days total of antibiotics (3) Hypotension: Code(s): I95.9 - Hypotension, unspecified Status: Acute Assessment and Plan: Blood pressure soft at times. Midodrine was given once a few days ago. Continue midodrine adjust diuresis. (4) Diastolic heart failure: Code(s): I50.30 - Unspecified diastolic (congestive) heart failure Status: Chronic Assessment and Plan: Acute and of chronic diastolic CHF exacerbation associated with ascites anasarca started on IV diuresis monitor renal function monitor blood pressure Diuresis adjusted Pending CMP (5) Renal failure: Code(s): N19 - Unspecified kidney failure Status: Acute Assessment and Plan: Patient with CKD stage III. Her baseline creatinine between 1.3 and 1.50. Creatinine 1.2 and within baseline. 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 Also has atrial fibrillation which will require anticoagulation. (7) Generalized weakness: Code(s): R53.1 - Weakness Status: Acute Assessment and Plan: Secondary to a combination of the above in addition to her chronic medical conditions and deconditioning. Continue PT and OT. (8) Dementia: Code(s): F03.90 - Unspecified dementia without behavioral disturbance Status: Acute Assessment and Plan: Plan is as detailed above. Initiate fall precautions. (9) DVT (deep venous thrombosis): Code(s): I82.409 - Acute embolism and thrombosis of unspecified deep veins of unspecified lower extremity Status: Acute Assessment and Plan: Patient was diagnosed with DVTs on 11/28/2021. Presumably she was on a lower dose Eliquis and this dose was advanced. Eliquis (10) Atrial fibrillation: Code(s): I48.91 - Unspecified atrial fibrillation Status: Acute Assessment and Plan: Rate controlled. Continue Toprol-XL. Continue Eliquis. Subjective Date/time seen: 12/14/21 08:34 Interval history: 81-year-old female with dementia, hypertension, paroxysmal atrial fibrillation/flutter, chronic lymphocytic leukemia, severe pulmonary hypertension, emphysema, and recent history of DVT on anticoagulation who presented to the emergency department via EMS from home for evaluation of weakness. Patient feels better shortness of breath abdominal distension has improved with IV diuresis Patient complains of generalized pain Pending placement Expected to complete antibiotics on 12/16/2021 Pending repeat CBC from today Patient den
[2021-12-14 08:56] LABS: Basophils Absolute Auto 0.1 K/mm3 (0.0-0.1); Basophils Percent Auto 0.5 % (0.2-1.2); Eosinophils Percent Auto 0.1 % (0-4.4); Hematocrit 30.5 % (37.0-47.0); Hemoglobin 9.2 g/dL (12.0-15.0); Immature Granulocyte Absolute 0.21 K/mm3 (0.00-0.031); Immature Granulocyte Percent A 1.1 % (0-0.5); Lymphocytes Absolute Auto 17.91 K/mm3 (0.9-3.2); Lymphocytes Percent Auto 89.9 % (18.3-44.2); Mean Corpuscular HGB Conc 30.2 g/dl (32-36); Mean Corpuscular Hemoglobin 30.1 pg (26-34); Mean Corpuscular Volume 99.7 fl (80-100); Mean Platelet Volume 11.5 fl (7.4-10.4); Monocytes Absolute Auto 0.5 K/mm3 (0.1-0.6); Monocytes Percent Auto 2.4 % (2.6-8.5); Neutrophils Absolute Auto 1.2 K/mm3 (1.3-6.7); Nucleated Red Blood Cells Absolute Auto 0.1 K/mm3 (0.0-0.012); Nucleated Red Blood Cells Perc 0.4 % (0.0-0.2); Platelet Count Result 151 k/mm3 (150-375); Red Blood Count 3.06 M/mm3 (4.2-5.4); Red Cell Distribution Width 19.2 % (11.5-14.5); White Blood Count 19.9 K/mm3 (4.5-10.0)
[2021-12-14 09:07] LABS: Alanine Aminotransferase 15 U/L (4-35); Albumin Level 2.9 g/dL (3.5-5.1); Alkaline Phosphatase 212 U/L (38-126); Anion Gap 2 mmol/L (8-16); Aspartate Amino Transferase 30 U/L (14-36); Bilirubin,Total 0.6 mg/dL (0.2-1.3); Blood Urea Nitrogen 32 mg/dL (7-17); Calcium 9.3 mg/dL (8.4-10.2); Carbon Dioxide 32 mmol/L (22-30); Chloride 96 mmol/L (98-107); Estimated CRCL calculation 33 ml/min; Estimated Glomerular Filt Rate 39; Glucose 121 mg/dL (65-110); Potassium 4.4 mmol/L (3.4-5.0); Sodium 130 mmol/L (137-145)
[2021-12-14 10:04] LABS: Platelet Estimate Adequate (Adequate)
[2021-12-14 10:05] LABS: Atypical Lymphocytes Present; Ovalocytes 1+ (NORMAL); Tear Drop Cells 1+ (NORMAL)
[2021-12-14 10:06] LABS: Smudge Cells MODERATE
[2021-12-14] MEDS: METOCLOPRAMIDE HCL 10 MG TABLET PO (12:17)
[2021-12-15] VITALS (11 sets, daily range): BP systolic 98–130; BP diastolic 48–70; PULSE 74–88; RESP 15–18; TEMP 36.1–36.8; O2SAT 90–95
[2021-12-15] MEDS: MIDODRINE HCL 2.5 MG TABLET PO ×3 (08:12→16:22)
[2021-12-15] MEDS: APIXABAN 5 MG TABLET PO ×2 (08:12→20:03)
[2021-12-15] MEDS: SIMVASTATIN 20 MG TABLET 40 MG PO (08:12)
[2021-12-15] MEDS: METOPROLOL SUCCINATE EXT REL 50 MG TABCR PO (08:12)
[2021-12-15] MEDS: FERROUS SULFATE 324 MG TABLET PO (08:12)
[2021-12-15] MEDS: FUROSEMIDE INJ 40 MG/4 ML VIAL 20 MG IV PUSH ×2 (08:12→20:03)
[2021-12-15 08:21] LABS: Hematocrit 29.1 % (37.0-47.0); Hemoglobin 8.9 g/dL (12.0-15.0); Immature Platelet Fraction Pct 4.9 % (0.9-11.2); Mean Corpuscular HGB Conc 30.6 g/dl (32-36); Mean Corpuscular Hemoglobin 30.6 pg (26-34); Mean Platelet Volume 10.7 fl (7.4-10.4); Platelet Count Result 150 k/mm3 (150-375); Red Blood Count 2.91 M/mm3 (4.2-5.4); Red Cell Distribution Width 18.9 % (11.5-14.5); White Blood Count 18.3 K/mm3 (4.5-10.0)
[2021-12-15 08:28] LABS: Alanine Aminotransferase 13 U/L (4-35); Albumin Level 2.7 g/dL (3.5-5.1); Alkaline Phosphatase 192 U/L (38-126); Anion Gap 1 mmol/L (8-16); Aspartate Amino Transferase 31 U/L (14-36); Bilirubin,Total 0.5 mg/dL (0.2-1.3); Blood Urea Nitrogen 28 mg/dL (7-17); Calcium 8.9 mg/dL (8.4-10.2); Carbon Dioxide 34 mmol/L (22-30); Chloride 94 mmol/L (98-107); Estimated CRCL calculation 33 ml/min; Estimated Glomerular Filt Rate 39; Glucose 85 mg/dL (65-110); Potassium 4.2 mmol/L (3.4-5.0); Sodium 129 mmol/L (137-145)
[2021-12-15 08:51] LABS: Atypical Lymphocytes Present; Band Neutrophils Percent 1 % (0-6); Lymphocytes Absolute Manual 15.37 K/mm3 (1.1-4.5); Metamyelocytes Percent 4 %; Myelocytes Percent 1 %; Neutrophils Absolute Manual 2.01 K/mm3 (1.7-7.2); Neutrophils Percent Manual 10 % (46-73); Platelet Estimate Adequate (Adequate); Tear Drop Cells 1+ (NORMAL); Total Cells Counted 100
[2021-12-15] MEDS: METOCLOPRAMIDE HCL 10 MG TABLET PO (08:53)
[2021-12-15] MEDS: HYDROcodone/acetaminophen (*CRX) 5-325 MG TABLET 0.5 TAB PO ×2 (10:57→20:22)
[2021-12-15] MEDS: BISACODYL 10 MG SUPPOSITORY RECTAL (12:57)
[2021-12-15] MEDS: polyethylene glycoL 3350 17 GM POWD.PACK PO (12:57)
--- NOTE | 2021-12-15 14:53 | PM.IMPN ---
Progress Note: A&P Assessment and Plan (1) Pneumonia: Qualifiers: Laterality: unspecified laterality Lung location: unspecified part of lung Pneumonia type: due to unspecified organism Qualified Code(s): J18.9 - Pneumonia, unspecified organism Code(s): J18.9 - Pneumonia, unspecified organism Status: Acute Assessment and Plan: Chest x-ray more consistent with CHF than pneumonia but there was concern for pneumonia. White count was elevated to 20K again yesterday but she does have CLL. White count has improved today. Has completed 8 days of Rocephin and azithromycin so will stop after today. (2) Diastolic heart failure: Code(s): I50.30 - Unspecified diastolic (congestive) heart failure Status: Chronic Assessment and Plan: Patient with acute on chronic diastolic CHF exacerbation. Echo in September showed EF of 60-65%, diastolic dysfunction and severe pulmonary hypertension. BNP on 12/01/2021 was 2270. Chest x-ray on admission shows finding consistent with CHF. CT abdomen pelvis shows diffuse anasarca and ascites as well as small pleural effusions. Blood pressure soft so Midodrine added. CXR today showing mild airspace opacities with peribronchial cuffing in the posterior lower lung zones related to mild pulmonary edema over pneumonia. Will continue Lasix but advance dose. (3) Urinary tract infection: Code(s): N39.0 - Urinary tract infection, site not specified Status: Acute Assessment and Plan: Patient was started on ceftriaxone. Urine culture growing Klebsiella and E coli both sensitive to Rocephin. She has completed 8 day course. No need to treat for 10 days. Stop abx after today. (4) Hypotension: Code(s): I95.9 - Hypotension, unspecified Status: Acute Assessment and Plan: Blood pressure soft at times. TSH and Cortisol level normal in Oct. Midodrine was started as we attempt diuresis. Repeat Cortisol (5) Renal failure: Code(s): N19 - Unspecified kidney failure Status: Acute Assessment and Plan: Patient with CKD. Her baseline creatinine between 1.3 and 1.50. Creatinine 1.3 and within baseline. Tolerating Lasix. Follow (6) Chronic anticoagulation: Code(s): Z79.01 - retirement (current) use of anticoagulants Status: Acute Assessment and Plan: Continue apixaban for recent DVTs. Also has atrial fibrillation which will require anticoagulation. (7) Generalized weakness: Code(s): R53.1 - Weakness Status: Acute Assessment and Plan: Secondary to a combination of the above in addition to her chronic medical conditions and deconditioning. Continue PT and OT. (8) Dementia: Code(s): F03.90 - Unspecified dementia without behavioral disturbance Status: Acute Assessment and Plan: Plan is as detailed above. Not currently on treatment. Continue fall precautions. (9) DVT (deep venous thrombosis): Code(s): I82.409 - Acute embolism and thrombosis of unspecified deep veins of unspecified lower extremity Status: Acute Assessment and Plan: Patient was diagnosed with DVTs on 11/28/2021. Presumably she was on a lower dose Eliquis and this dose was advanced. Continue same for now. (10) Atrial fibrillation: Code(s): I48.91 - Unspecified atrial fibrillation Status: Acute Assessment and Plan: Rate controlled. Continue Toprol-XL. Continue Eliquis. Additional Plan Right ankle bruising - Concern or injury but ankle xray negative for fracture. Follow Subjective Date/time seen: 12/15/21 14:53 Interval history: 81-year-old female with dementia, hypertension, paroxysmal atrial fibrillation/flutter, chronic lymphocytic leukemia, severe pulmonary hypertension, emphysema, and recent history of DVT on anticoagulation who presented to the emergency department via EMS from home for evaluation of weakness. Resuming
[2021-12-16] VITALS (11 sets, daily range): BP systolic 107–124; BP diastolic 48–81; PULSE 72–79; RESP 16–18; TEMP 35.6–37; O2SAT 93–98
[2021-12-16] MEDS: HYDROcodone/acetaminophen (*CRX) 5-325 MG TABLET 0.5 TAB PO ×3 (04:33→18:44)
[2021-12-16] MEDS: FUROSEMIDE INJ 40 MG/4 ML VIAL 20 MG IV PUSH (05:41)
[2021-12-16 06:07] LABS: Basophils Absolute Auto 0.1 K/mm3 (0.0-0.1); Basophils Percent Auto 0.4 % (0.2-1.2); Eosinophils Percent Auto 0.2 % (0-4.4); Hematocrit 26.7 % (37.0-47.0); Hemoglobin 7.9 g/dL (12.0-15.0); Immature Granulocyte Absolute 0.11 K/mm3 (0.00-0.031); Immature Granulocyte Percent A 0.9 % (0-0.5); Immature Platelet Fraction Pct 4.2 % (0.9-11.2); Lymphocytes Percent Auto 85.9 % (18.3-44.2); Mean Corpuscular HGB Conc 29.6 g/dl (32-36); Mean Corpuscular Hemoglobin 30.3 pg (26-34); Mean Corpuscular Volume 102.3 fl (80-100); Mean Platelet Volume 10.8 fl (7.4-10.4); Monocytes Absolute Auto 0.5 K/mm3 (0.1-0.6); Monocytes Percent Auto 4.1 % (2.6-8.5); Neutrophils Absolute Auto 1.1 K/mm3 (1.3-6.7); Neutrophils Percent Auto 8.5 % (45.5-73.1); Nucleated Red Blood Cells Perc 0.2 % (0.0-0.2); Platelet Count Result 129 k/mm3 (150-375); Red Blood Count 2.61 M/mm3 (4.2-5.4); Red Cell Distribution Width 19.1 % (11.5-14.5); White Blood Count 12.8 K/mm3 (4.5-10.0)
[2021-12-16 06:33] LABS: Alanine Aminotransferase 13 U/L (4-35); Albumin Level 2.4 g/dL (3.5-5.1); Alkaline Phosphatase 167 U/L (38-126); Anion Gap 0 mmol/L (8-16); Aspartate Amino Transferase 30 U/L (14-36); Bilirubin,Total 0.5 mg/dL (0.2-1.3); Blood Urea Nitrogen 27 mg/dL (7-17); Calcium 8.4 mg/dL (8.4-10.2); Carbon Dioxide 32 mmol/L (22-30); Chloride 95 mmol/L (98-107); Estimated CRCL calculation 38 ml/min; Estimated Glomerular Filt Rate 47; Glucose 78 mg/dL (65-110); Potassium 3.8 mmol/L (3.4-5.0); Sodium 127 mmol/L (137-145)
[2021-12-16 07:33] LABS: Anisocytosis 1+ (NORMAL); Platelet Estimate Adequate (Adequate); Smudge Cells MODERATE
[2021-12-16 07:34] LABS: Burr Cells 2+ (NORMAL); Ovalocytes 2+ (NORMAL); Tear Drop Cells 2+ (NORMAL)
[2021-12-16] MEDS: polyethylene glycoL 3350 17 GM POWD.PACK PO (08:31)
[2021-12-16] MEDS: FERROUS SULFATE 324 MG TABLET PO (08:31)
[2021-12-16] MEDS: MIDODRINE HCL 2.5 MG TABLET PO ×3 (08:31→16:20)
[2021-12-16] MEDS: APIXABAN 5 MG TABLET PO ×2 (08:31→20:15)
[2021-12-16] MEDS: SIMVASTATIN 20 MG TABLET 40 MG PO (08:31)
[2021-12-16] MEDS: METOCLOPRAMIDE HCL 10 MG TABLET PO (08:32)
[2021-12-16] MEDS: METOPROLOL SUCCINATE EXT REL 50 MG TABCR PO (08:40)
--- NOTE | 2021-12-16 10:41 | PCPTNOTE ---
Patient refused treatment this session due to not feeling well. Patient reported she does not feel good and wants to rest at this time.
[2021-12-16 12:13] LABS: Hematocrit 27.6 % (37.0-47.0); Hemoglobin 8.4 g/dL (12.0-15.0)
--- NOTE | 2021-12-16 14:19 | PM.DS ---
DS: Admitting Diagnosis Discharge Date 12/16/21 Admitting Diagnosis Weakness DS: Discharge Diagnosis Discharge Diagnosis (1) Pneumonia: Qualifiers: Laterality: unspecified laterality Lung location: unspecified part of lung Pneumonia type: due to unspecified organism Qualified Code(s): J18.9 - Pneumonia, unspecified organism Code(s): J18.9 - Pneumonia, unspecified organism Status: Acute Assessment and Plan: Patient presents with weakness and Chest x-ray more consistent with CHF than pneumonia but there was concern for pneumonia. White count was elevated to 20K but she does have CLL. White count has improved today. She completed 8 days of Rocephin and azithromycin. WBC down to 12.8K but still mostly lymphocytes. (2) Diastolic heart failure: Code(s): I50.30 - Unspecified diastolic (congestive) heart failure Status: Chronic Assessment and Plan: Patient with acute on chronic diastolic CHF exacerbation. Echo in September showed EF of 60-65%, diastolic dysfunction and severe pulmonary hypertension. BNP on 12/01/2021 was 2270. Chest x-ray on admission shows finding consistent with CHF. CT abdomen pelvis shows diffuse anasarca and ascites as well as small pleural effusions. Blood pressure soft so Midodrine added. CXR today showing mild airspace opacities with peribronchial cuffing in the posterior lower lung zones related to mild pulmonary edema over pneumonia. Lasix IV started at low dose with good diuresis. She did well and was able to be weaned off O2. She was transitioned to oral lasix. [place] hose added. (3) Urinary tract infection: Code(s): N39.0 - Urinary tract infection, site not specified Status: Acute Assessment and Plan: Patient was started on ceftriaxone. Urine culture growing Klebsiella and E coli both sensitive to Rocephin. She has completed 8 day course. (4) Hypotension: Code(s): I95.9 - Hypotension, unspecified Status: Acute Assessment and Plan: Blood pressure soft at times. TSH and Cortisol level normal in Oct. Repeat cortisol here was still okay. Midodrine was started as we attempt diuresis. BP remained stable. (5) Renal failure: Code(s): N19 - Unspecified kidney failure Status: Acute Assessment and Plan: Patient with CKD. Her baseline creatinine between 1.3 and 1.50. Patient tolerated diuresis well. Creatinine today is 1.1. 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 Also has atrial fibrillation which will require anticoagulation. (7) Generalized weakness: Code(s): R53.1 - Weakness Status: Acute Assessment and Plan: Secondary to a combination of the above in addition to her chronic medical conditions and deconditioning. She worked with PT and OT. (8) Dementia: Code(s): F03.90 - Unspecified dementia without behavioral disturbance Status: Acute Assessment and Plan: Patient has frequent and multiple complaints without clear connection to medical issues. Not currently on treatment for her dementia. Fall precautions were instituted. (9) DVT (deep venous thrombosis): Code(s): I82.409 - Acute embolism and thrombosis of unspecified deep veins of unspecified lower extremity Status: Acute Assessment and Plan: Patient was diagnosed with DVTs on 11/28/2021 treated with Eliquis. We continued the same (10) Atrial fibrillation: Code(s): I48.91 - Unspecified atrial fibrillation Status: Acute Assessment and Plan: Rate controlled. We continued Toprol-XL and her Eliquis. DS: Summary Hospital Course Reason for hospitalization: 81-year-old female with dementia, hypertension, paroxysmal atrial fibrillation/flutter, chronic lymphocytic leukemia, severe pulmonary hyper
[2021-12-16 15:34] LABS: EDCOVIDSCREEN Positive (Negative)
[2021-12-16 17:02] LABS: SARS-CoV-2 RNA PCR Positive
--- NOTE | 2021-12-16 17:35 | PCCCNOTE ---
Spoke with granddaughter c/o discharge. Pt turned positive for COVID and cannot go to [facility]. She would like to be involved in the planning and would like a call in the AM from . Message left for call to be made.
[2021-12-17] VITALS (11 sets, daily range): BP systolic 107–123; BP diastolic 57–68; PULSE 70–100; RESP 16–20; TEMP 35.6–36.3; O2SAT 90–96
[2021-12-17 06:45] LABS: Hematocrit 27.5 % (37.0-47.0); Hemoglobin 8.5 g/dL (12.0-15.0); Immature Platelet Fraction Pct 5.6 % (0.9-11.2); Mean Corpuscular HGB Conc 30.9 g/dl (32-36); Mean Corpuscular Hemoglobin 30.7 pg (26-34); Mean Corpuscular Volume 99.3 fl (80-100); Mean Platelet Volume 11.3 fl (7.4-10.4); Platelet Count Result 146 k/mm3 (150-375); Red Blood Count 2.77 M/mm3 (4.2-5.4); Red Cell Distribution Width 18.9 % (11.5-14.5); White Blood Count 16.9 K/mm3 (4.5-10.0)
[2021-12-17 07:23] LABS: Alanine Aminotransferase 13 U/L (4-35); Albumin Level 2.5 g/dL (3.5-5.1); Alkaline Phosphatase 170 U/L (38-126); Anion Gap 2 mmol/L (8-16); Aspartate Amino Transferase 36 U/L (14-36); Bilirubin,Total 0.7 mg/dL (0.2-1.3); Blood Urea Nitrogen 25 mg/dL (7-17); Calcium 8.4 mg/dL (8.4-10.2); Carbon Dioxide 32 mmol/L (22-30); Chloride 92 mmol/L (98-107); Estimated CRCL calculation 37 ml/min; Estimated Glomerular Filt Rate 47; Glucose 77 mg/dL (65-110); Potassium 4.1 mmol/L (3.4-5.0); Sodium 126 mmol/L (137-145)
[2021-12-17 07:54] LABS: Anisocytosis 2+ (NORMAL); Band Neutrophils Percent 11 % (0-6); Hypochromasia 1+ (NORMAL); Lymphocytes Absolute Manual 11.49 K/mm3 (1.1-4.5); Monocytes Percent Manual 3 % (3-9); Neutrophils Percent Manual 18 % (46-73); Ovalocytes 1+ (NORMAL); Platelet Estimate Adequate (Adequate); Smudge Cells PRESENT; Total Cells Counted 100
[2021-12-17] MEDS: APIXABAN 5 MG TABLET PO ×2 (08:39→20:31)
[2021-12-17] MEDS: METOPROLOL SUCCINATE EXT REL 50 MG TABCR PO (08:39)
[2021-12-17] MEDS: FERROUS SULFATE 324 MG TABLET PO (08:39)
[2021-12-17] MEDS: SIMVASTATIN 20 MG TABLET 40 MG PO (08:40)
[2021-12-17] MEDS: FUROSEMIDE 20 MG TABLET PO (08:40)
[2021-12-17] MEDS: polyethylene glycoL 3350 17 GM POWD.PACK PO (08:40)
[2021-12-17] MEDS: SODIUM CHLORIDE 500 MG TABLET PO ×2 (09:16→16:48)
[2021-12-17] MEDS: MIDODRINE HCL 2.5 MG TABLET PO ×2 (09:16→17:21)
[2021-12-17] MEDS: HYDROcodone/acetaminophen (*CRX) 5-325 MG TABLET 0.5 TAB PO ×2 (10:32→20:31)
[2021-12-17 10:49] LABS: Creatinine Urine 63.1 mg/dL
[2021-12-17 10:59] LABS: Sodium Urine Random 33 meq/L
--- NOTE | 2021-12-17 12:29 | PM.IMPN ---
Progress Note: A&P Assessment and Plan (1) COVID: Code(s): U07.1 - COVID-19 Status: Acute Assessment and Plan: Patient tested negative for COVID on 12/08 but positive on 12/16. She was postive for COVID on 10/14/21 and again 11/10/21 so unclear if she cleared the viral particles and now re-infected or if the 12/08 swab was a false negative. Repeat CXR. Discharge planning in process. She remains on room air. (2) Pneumonia: Qualifiers: Laterality: unspecified laterality Lung location: unspecified part of lung Pneumonia type: due to unspecified organism Qualified Code(s): J18.9 - Pneumonia, unspecified organism Code(s): J18.9 - Pneumonia, unspecified organism Status: Acute Assessment and Plan: Patient presents with weakness and Chest x-ray more consistent with CHF than pneumonia but there was concern for pneumonia. White count was elevated to 20K but she does have CLL. She completed 8 days of Rocephin and azithromycin. White count is up and down but mostly lymphocytes. (3) Diastolic heart failure: Code(s): I50.30 - Unspecified diastolic (congestive) heart failure Status: Chronic Assessment and Plan: Patient with acute on chronic diastolic CHF exacerbation. Echo in September showed EF of 60-65%, diastolic dysfunction and severe pulmonary hypertension. BNP on 12/01/2021 was 2270. Chest x-ray on admission shows finding consistent with CHF. CT abdomen pelvis shows diffuse anasarca and ascites as well as small pleural effusions. Blood pressure soft so Midodrine added. CXR showing mild airspace opacities with peribronchial cuffing in the posterior lower lung zones related to mild pulmonary edema over pneumonia. Lasix IV started at low dose with good diuresis. She did well and was able to be weaned off O2. She was transitioned to oral lasix. Salvador hose added. BP better so will cut back Midodrine. (4) Urinary tract infection: Code(s): N39.0 - Urinary tract infection, site not specified Status: Acute Assessment and Plan: Patient was started on ceftriaxone. Urine culture growing Klebsiella and E coli both sensitive to Rocephin. She has completed 8 day course. (5) Hypotension: Code(s): I95.9 - Hypotension, unspecified Status: Acute Assessment and Plan: Blood pressure soft at times. TSH and Cortisol level normal in Oct. Repeat cortisol here was still okay. Midodrine was started as we attempt diuresis. BP remained stable. Will cut back Midodrine and monitor. (6) Renal failure: Code(s): N19 - Unspecified kidney failure Status: Acute Assessment and Plan: Patient with CKD. Her baseline creatinine between 1.3 and 1.50. Patient tolerated diuresis well. Creatinine again today is 1.1. 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 Also has atrial fibrillation which will require anticoagulation. (8) Generalized weakness: Code(s): R53.1 - Weakness Status: Acute Assessment and Plan: Secondary to a combination of the above in addition to her chronic medical conditions and deconditioning. She worked with PT and OT. (9) Dementia: Code(s): F03.90 - Unspecified dementia without behavioral disturbance Status: Acute Assessment and Plan: Patient has frequent and multiple complaints without clear connection to medical issues. Spoke with dtr who stated patient has not been diagnosed with dementia as far as she is aware. CT brain in Sep 2021 and Oct 2021 showing no old CVAs and no acute findings. Not currently on treatment for dementia. Fall precautions were instituted. (10) DVT (deep venous thrombosis): Code(s): I82.409 - Acute embolism and thrombosis of unspecified deep veins of unspecified lower extremity Status: Acute
[2021-12-17] MEDS: METOCLOPRAMIDE HCL 10 MG TABLET PO (17:21)
[2021-12-18] VITALS (9 sets, daily range): BP systolic 114–131; BP diastolic 42–71; PULSE 68–83; RESP 16–18; TEMP 36.3–36.4; O2SAT 93–95; BMI 20.6
[2021-12-18] MEDS: HYDROcodone/acetaminophen (*CRX) 5-325 MG TABLET 0.5 TAB PO ×3 (00:46→17:22)
[2021-12-18 06:19] LABS: Hematocrit 27.4 % (37.0-47.0); Hemoglobin 8.6 g/dL (12.0-15.0); Immature Platelet Fraction Pct 3.9 % (0.9-11.2); Mean Corpuscular HGB Conc 31.4 g/dl (32-36); Mean Corpuscular Hemoglobin 30.4 pg (26-34); Mean Corpuscular Volume 96.8 fl (80-100); Mean Platelet Volume 10.3 fl (7.4-10.4); Platelet Count Result 141 k/mm3 (150-375); Red Blood Count 2.83 M/mm3 (4.2-5.4); Red Cell Distribution Width 18.9 % (11.5-14.5); White Blood Count 18.4 K/mm3 (4.5-10.0)
[2021-12-18 06:32] LABS: Anion Gap 1 mmol/L (8-16); Blood Urea Nitrogen 23 mg/dL (7-17); Calcium 8.3 mg/dL (8.4-10.2); Carbon Dioxide 32 mmol/L (22-30); Chloride 90 mmol/L (98-107); Estimated CRCL calculation 37 ml/min; Estimated Glomerular Filt Rate 47; Glucose 82 mg/dL (65-110); Potassium 3.8 mmol/L (3.4-5.0); Sodium 123 mmol/L (137-145)
[2021-12-18] MEDS: SODIUM CHLORIDE 0.9% IV 1,000 ML 100 ML IV CONT (08:08)
[2021-12-18] MEDS: APIXABAN 5 MG TABLET PO ×2 (08:11→20:21)
[2021-12-18] MEDS: FUROSEMIDE 20 MG TABLET PO (08:11)
[2021-12-18] MEDS: FERROUS SULFATE 324 MG TABLET PO (08:11)
[2021-12-18] MEDS: METOPROLOL SUCCINATE EXT REL 50 MG TABCR PO (08:11)
[2021-12-18] MEDS: METOCLOPRAMIDE HCL 10 MG TABLET PO (08:13)
[2021-12-18] MEDS: polyethylene glycoL 3350 17 GM POWD.PACK PO (08:13)
[2021-12-18] MEDS: SIMVASTATIN 20 MG TABLET 40 MG PO (08:13)
[2021-12-18] MEDS: SODIUM CHLORIDE 500 MG TABLET PO ×2 (08:13→11:35)
--- NOTE | 2021-12-18 10:20 | PM.IMPN ---
Progress Note: A&P Assessment and Plan (1) Hyponatremia: Code(s): E87.1 - Hypo-osmolality and hyponatremia Status: Acute Assessment and Plan: Na down to 123. Possibly related to Lasix. She had urine Na 33 with FENa 0.5%. NaCl tabs added. IV fluids for 500mL. Closer monitoring of the Na levels. (2) COVID: Code(s): U07.1 - COVID-19 Status: Acute Assessment and Plan: Patient tested negative for COVID on 12/08 but positive on 12/16. She was postive for COVID on 10/14/21 and again 11/10/21 so unclear if she cleared the viral particles and now re-infected or if the 12/08 swab was a false negative. Repeat CXR showing progression of moderate bilateral edema or pneumonia; COVID related?. Discharge planning in process. She remains on room air. (3) Pneumonia: Qualifiers: Laterality: unspecified laterality Lung location: unspecified part of lung Pneumonia type: due to unspecified organism Qualified Code(s): J18.9 - Pneumonia, unspecified organism Code(s): J18.9 - Pneumonia, unspecified organism Status: Acute Assessment and Plan: Patient presents with weakness and Chest x-ray more consistent with CHF than pneumonia but there was concern for pneumonia. White count was elevated to 20K but she does have CLL. She completed 8 days of Rocephin and azithromycin. White count is up and down but mostly lymphocytes. (4) Diastolic heart failure: Code(s): I50.30 - Unspecified diastolic (congestive) heart failure Status: Chronic Assessment and Plan: Patient with acute on chronic diastolic CHF exacerbation. Echo in September showed EF of 60-65%, diastolic dysfunction and severe pulmonary hypertension. BNP on 12/01/2021 was 2270. Chest x-ray on admission shows finding consistent with CHF. CT abdomen pelvis shows diffuse anasarca and ascites as well as small pleural effusions. Blood pressure soft so Midodrine added. CXR showing mild airspace opacities with peribronchial cuffing in the posterior lower lung zones related to mild pulmonary edema over pneumonia. Lasix IV started at low dose with good diuresis. She did well and was able to be weaned off O2. She was transitioned to oral Lasix. Salvador hose added. Abd pain persistent - CT scan Abd/Pelvis (12/08) showing splenomegaly and possible splenic infarct and ascites related to CLL. She has been diuresed. Will check abd US. (5) Urinary tract infection: Code(s): N39.0 - Urinary tract infection, site not specified Status: Acute Assessment and Plan: Patient was started on ceftriaxone. Urine culture growing Klebsiella and E coli both sensitive to Rocephin. She has completed 8 day course. (6) Hypotension: Code(s): I95.9 - Hypotension, unspecified Status: Acute Assessment and Plan: Blood pressure soft at times. TSH and Cortisol level normal in Oct. Repeat cortisol here was still okay. Midodrine was started as we attempt diuresis. BP improved and remained stable. We were able to wean off Midodrine. (7) Renal failure: Code(s): N19 - Unspecified kidney failure Status: Acute Assessment and Plan: Patient with CKD. Her baseline creatinine between 1.3 and 1.50. Patient tolerated diuresis well. Creatinine down to 1.1. 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 Also has atrial fibrillation which will require anticoagulation. (9) Generalized weakness: Code(s): R53.1 - Weakness Status: Acute Assessment and Plan: Secondary to a combination of the above in addition to her chronic medical conditions and deconditioning. She worked with PT and OT. (10) Dementia: Code(s): F03.90 - Unspecified dementia without behavioral disturbance Status: Acute Assessment and Plan: Patient is confuse
[2021-12-18 11:11] LABS: Sodium 123 mmol/L (137-145)
--- NOTE | 2021-12-18 12:10 | PC.NURSE ---
[employer] Driver reviewed and agrees student nurse tech assessment and charting
--- NOTE | 2021-12-18 13:55 | PCPTNOTE ---
Attempted to see pt for PT session at 1330 but pt adamantly declined, reporting she is not feeling well and just wants to sleep. Pt was offered encouragement and educated on the importance of therapy but continued to decline participation on this date.
[2021-12-18] MEDS: SODIUM CHLORIDE 1 GM TABLET PO (17:22)
[2021-12-18 18:31] LABS: Sodium 125 mmol/L (137-145)
[2021-12-18 23:07] LABS: Sodium 123 mmol/L (137-145)
[2021-12-19] VITALS (9 sets, daily range): BP systolic 92–127; BP diastolic 48–78; PULSE 63–82; RESP 17–18; TEMP 35.7–37.1; O2SAT 95–99
[2021-12-19] MEDS: HYDROcodone/acetaminophen (*CRX) 5-325 MG TABLET 0.5 TAB PO (03:07)
[2021-12-19 05:21] LABS: Hemoglobin 8.5 g/dL (12.0-15.0); Immature Platelet Fraction Pct 4.4 % (0.9-11.2); Mean Corpuscular HGB Conc 29.3 g/dl (32-36); Mean Corpuscular Hemoglobin 30.2 pg (26-34); Mean Corpuscular Volume 103.2 fl (80-100); Mean Platelet Volume 10.4 fl (7.4-10.4); Platelet Count Result 136 k/mm3 (150-375); Red Blood Count 2.81 M/mm3 (4.2-5.4); Red Cell Distribution Width 19.2 % (11.5-14.5); White Blood Count 18.2 K/mm3 (4.5-10.0)
[2021-12-19 05:35] LABS: Alanine Aminotransferase 12 U/L (4-35); Albumin Level 2.6 g/dL (3.5-5.1); Alkaline Phosphatase 172 U/L (38-126); Anion Gap 4 mmol/L (8-16); Aspartate Amino Transferase 32 U/L (14-36); Bilirubin,Total 0.8 mg/dL (0.2-1.3); Blood Urea Nitrogen 21 mg/dL (7-17); Calcium 7.9 mg/dL (8.4-10.2); Carbon Dioxide 25 mmol/L (22-30); Chloride 93 mmol/L (98-107); Estimated CRCL calculation 41 ml/min; Estimated Glomerular Filt Rate 53; Glucose 79 mg/dL (65-110); Lipase 82 U/L (23-300); Magnesium 2.5 mg/dL (1.6-2.3); Phosphorus 3.3 mg/dL (2.5-4.5); Sodium 122 mmol/L (137-145)
[2021-12-19 07:23] LABS: Basophils Absolute Manual 0.36 K/mm3 (0.0-0.1); Basophils Percent Manual 2 % (0-1); Lymphocytes Absolute Manual 12.55 K/mm3 (1.1-4.5); Monocytes Absolute Manual 0.36 K/mm3 (0.1-0.90); Monocytes Percent Manual 2 % (3-9); Neutrophils Percent Manual 27 % (46-73); Platelet Estimate Adequate (Adequate); Total Cells Counted 100
[2021-12-19 07:24] LABS: Anisocytosis 1+ (NORMAL); Ovalocytes 1+ (NORMAL); Tear Drop Cells 2+ (NORMAL)
[2021-12-19 07:25] LABS: Acanthocytes 1+ (NORMAL)
[2021-12-19 07:52] LABS: Smudge Cells MODERATE
[2021-12-19] MEDS: SIMVASTATIN 20 MG TABLET 40 MG PO (09:01)
[2021-12-19] MEDS: FERROUS SULFATE 324 MG TABLET PO (09:01)
[2021-12-19] MEDS: SODIUM CHLORIDE 1 GM TABLET PO ×2 (09:01→17:20)
[2021-12-19] MEDS: FUROSEMIDE 20 MG TABLET PO (09:01)
[2021-12-19] MEDS: polyethylene glycoL 3350 17 GM POWD.PACK PO (09:01)
[2021-12-19] MEDS: APIXABAN 5 MG TABLET PO ×2 (09:43→20:02)
[2021-12-19 11:13] LABS: Sodium 126 mmol/L (137-145)
--- NOTE | 2021-12-19 12:43 | PM.IMPN ---
Progress Note: A&P Assessment and Plan (1) Hyponatremia: Code(s): E87.1 - Hypo-osmolality and hyponatremia Status: Acute Assessment and Plan: Na down to 122 this morning. Possibly related to Lasix vs COVID lung disease. Occult CVA less likely. TSH and cortisol okay. Urine Na 33 with FENa 0.5% but could be related to the Lasix. IV fluids were unhelpful. NaCl tabs increased. Fluid restriction ordered. Na better at 126. Monitor for too rapid of an elevation. (2) COVID: Code(s): U07.1 - COVID-19 Status: Acute Assessment and Plan: Patient tested negative for COVID on 12/08 but positive on 12/16. She was postive for COVID on 10/14/21 and again 11/10/21 so unclear if she cleared the viral particles and now re-infected or if the 12/08 swab was a false negative. Repeat CXR showing progression of moderate bilateral edema or pneumonia but felt more likely COVID related. She remains on room air. (3) Pneumonia: Qualifiers: Laterality: unspecified laterality Lung location: unspecified part of lung Pneumonia type: due to unspecified organism Qualified Code(s): J18.9 - Pneumonia, unspecified organism Code(s): J18.9 - Pneumonia, unspecified organism Status: Acute Assessment and Plan: Patient presents with weakness and CXR more consistent with CHF than pneumonia but there was concern for pneumonia. White count was elevated to 20K but she does have CLL. She completed 8 days of Rocephin and azithromycin. White count is up and down but mostly lymphocytes. PNA has resolved. (4) Diastolic heart failure: Code(s): I50.30 - Unspecified diastolic (congestive) heart failure Status: Chronic Assessment and Plan: Patient with acute on chronic diastolic CHF exacerbation. Echo in September showed EF of 60-65%, diastolic dysfunction and severe pulmonary hypertension. BNP on 12/01/21 was 2270. Chest x-ray on admission shows finding consistent with CHF. CT abdomen pelvis shows diffuse anasarca and ascites as well as small pleural effusions. Blood pressure soft so Midodrine added. Repeat CXR showing mild airspace opacities with peribronchial cuffing in the posterior lower lung zones related to mild pulmonary edema over pneumonia. Lasix IV started at low dose with good diuresis. She did well and was able to be weaned off O2. She was transitioned to oral Lasix. Salvador dhaliwal added. Abd pain persisted but CT scan Abd/Pelvis (12/08) showing splenomegaly and possible splenic infarct and ascites related to CLL. Abd US showing small ascites. She has been diuresed. Continue low dose oral lasix. (5) Urinary tract infection: Code(s): N39.0 - Urinary tract infection, site not specified Status: Acute Assessment and Plan: Patient was started on ceftriaxone. Urine culture growing Klebsiella and E coli both sensitive to Rocephin. She has completed 8 day course. (6) Hypotension: Code(s): I95.9 - Hypotension, unspecified Status: Acute Assessment and Plan: Blood pressure soft at times. TSH and Cortisol level normal in Oct. Repeat cortisol here was still okay. Midodrine was started as we attempt diuresis. BP improved and remained stable. We were able to wean off Midodrine but BP soft this morning. Will add back low dose midodrine (7) Renal failure: Code(s): N19 - Unspecified kidney failure Status: Acute Assessment and Plan: Patient with CKD. Her baseline creatinine between 1.3 and 1.50. Patient tolerated diuresis well. Creatinine down to 1.0. (8) Chronic anticoagulation: Code(s): Z79.01 - senior care (current) use of anticoagulants Status: Acute Assessment and Plan: We continued apixaban for recent DVTs. Also has atrial fibrillation which will require anticoagulation. (9) Generalized weakness: Code(s): R53.1 - Weakness Status: Acute Assessment and Plan: Secondary to a combination of th
[2021-12-19] MEDS: MIDODRINE HCL 2.5 MG TABLET PO ×2 (14:12→17:20)
[2021-12-19] MEDS: ACETAMINOPHEN 325 MG TABLET 650 MG PO ×2 (14:12→21:57)
[2021-12-19 18:19] LABS: Sodium 125 mmol/L (137-145)
[2021-12-20] VITALS (8 sets, daily range): BP systolic 109–125; BP diastolic 48–70; PULSE 61–102; RESP 14–20; TEMP 36.3–36.7; O2SAT 93–96
[2021-12-20 01:00] LABS: Sodium 125 mmol/L (137-145)
[2021-12-20 05:30] LABS: Anion Gap 0 mmol/L (8-16); Blood Urea Nitrogen 20 mg/dL (7-17); Calcium 8.1 mg/dL (8.4-10.2); Carbon Dioxide 33 mmol/L (22-30); Chloride 92 mmol/L (98-107); Estimated CRCL calculation 45 ml/min; Estimated Glomerular Filt Rate 60; Glucose 84 mg/dL (65-110); Potassium 3.9 mmol/L (3.4-5.0); Sodium 125 mmol/L (137-145)
[2021-12-20] MEDS: METOPROLOL SUCCINATE EXT REL 50 MG TABCR PO (08:35)
[2021-12-20] MEDS: APIXABAN 5 MG TABLET PO ×2 (08:35→20:36)
[2021-12-20] MEDS: polyethylene glycoL 3350 17 GM POWD.PACK PO (08:35)
[2021-12-20] MEDS: SIMVASTATIN 20 MG TABLET 40 MG PO (08:35)
[2021-12-20] MEDS: SODIUM CHLORIDE 1 GM TABLET PO ×2 (08:35→17:06)
[2021-12-20] MEDS: MIDODRINE HCL 2.5 MG TABLET PO ×2 (08:35→17:06)
[2021-12-20] MEDS: FERROUS SULFATE 324 MG TABLET PO (08:35)
[2021-12-20] MEDS: FUROSEMIDE 20 MG TABLET PO ×2 (08:35→12:35)
--- NOTE | 2021-12-20 08:42 | PM.IMPN ---
Progress Note: A&P Assessment and Plan (1) Hyponatremia: Code(s): E87.1 - Hypo-osmolality and hyponatremia Status: Acute Assessment and Plan: Nephrology consult No significant improvement Increase the dose of Lasix today as patient has edema Monitor sodium level (2) COVID: Code(s): U07.1 - COVID-19 Status: Acute Assessment and Plan: Patient tested negative for COVID on 12/08 but positive on 12/16. She was postive for COVID on 10/14/21 and again 11/10/21 so unclear if she cleared the viral particles and now re-infected or if the 12/08 swab was a false negative. Repeat CXR showing progression of moderate bilateral edema or pneumonia; COVID related?. Discharge planning in process. She remains on room air. (3) Pneumonia: Qualifiers: Laterality: unspecified laterality Lung location: unspecified part of lung Pneumonia type: due to unspecified organism Qualified Code(s): J18.9 - Pneumonia, unspecified organism Code(s): J18.9 - Pneumonia, unspecified organism Status: Acute Assessment and Plan: Patient presents with weakness and Chest x-ray more consistent with CHF than pneumonia but there was concern for pneumonia. White count was elevated to 20K but she does have CLL. She completed 8 days of Rocephin and azithromycin. Continue to monitor (4) Diastolic heart failure: Code(s): I50.30 - Unspecified diastolic (congestive) heart failure Status: Chronic Assessment and Plan: Patient with acute on chronic diastolic CHF exacerbation. Echo in September showed EF of 60-65%, diastolic dysfunction and severe pulmonary hypertension. BNP on 12/01/2021 was 2270. Chest x-ray on admission shows finding consistent with CHF. CT abdomen pelvis shows diffuse anasarca and ascites as well as small pleural effusions. Blood pressure soft so Midodrine added. CXR showing mild airspace opacities with peribronchial cuffing in the posterior lower lung zones related to mild pulmonary edema over pneumonia. Lasix IV started at low dose with good diuresis. She did well and was able to be weaned off O2. She was transitioned to oral Lasix. Salvador dhaliwal added. Abd pain persistent - CT scan Abd/Pelvis (12/08) showing splenomegaly and possible splenic infarct and ascites related to CLL. She has been diuresed. Abdominal ultrasound improved (5) Urinary tract infection: Code(s): N39.0 - Urinary tract infection, site not specified Status: Acute Assessment and Plan: Patient was started on ceftriaxone. Urine culture growing Klebsiella and E coli both sensitive to Rocephin. She has completed 8 day course. (6) Hypotension: Code(s): I95.9 - Hypotension, unspecified Status: Acute Assessment and Plan: Blood pressure soft at times. TSH and Cortisol level normal in Oct. Repeat cortisol here was still okay. Midodrine was started as we attempt diuresis. BP improved and remained stable. Wean off midodrine as tolerated (7) Renal failure: Code(s): N19 - Unspecified kidney failure Status: Acute Assessment and Plan: Patient with CKD. Her baseline creatinine between 1.3 and 1.50. Patient tolerated diuresis well. Improved (8) Chronic anticoagulation: Code(s): Z79.01 - detention (current) use of anticoagulants Status: Acute Assessment and Plan: We continued apixaban for recent DVTs. Also has atrial fibrillation which will require anticoagulation. (9) Generalized weakness: Code(s): R53.1 - Weakness Status: Acute Assessment and Plan: Secondary to a combination of the above in addition to her chronic medical conditions and deconditioning. She worked with PT and OT. (10) Dementia: Code(s): F03.90 - Unspecified dementia without behavioral disturbance Status: Acute Assessment and Plan: Patient is confused at times. Spoke with dtr who stated patient has not been diagnose
[2021-12-20 09:08] LABS: Basophils Absolute Auto 0.1 K/mm3 (0.0-0.1); Basophils Percent Auto 0.4 % (0.2-1.2); Eosinophils Percent Auto 0.1 % (0-4.4); Immature Granulocyte Absolute 0.08 K/mm3 (0.00-0.031); Immature Granulocyte Percent A 0.4 % (0-0.5); Immature Platelet Fraction Pct 3.2 % (0.9-11.2); Lymphocytes Absolute Auto 17.57 K/mm3 (0.9-3.2); Lymphocytes Percent Auto 85.7 % (18.3-44.2); Mean Corpuscular Hemoglobin 30.6 pg (26-34); Mean Corpuscular Volume 98.6 fl (80-100); Mean Platelet Volume 9.9 fl (7.4-10.4); Monocytes Absolute Auto 1.6 K/mm3 (0.1-0.6); Monocytes Percent Auto 7.8 % (2.6-8.5); Neutrophils Absolute Auto 1.2 K/mm3 (1.3-6.7); Neutrophils Percent Auto 5.6 % (45.5-73.1); Nucleated Red Blood Cells Perc 0.1 % (0.0-0.2); Platelet Count Result 156 k/mm3 (150-375); Red Blood Count 2.94 M/mm3 (4.2-5.4); Red Cell Distribution Width 19.3 % (11.5-14.5); White Blood Count 20.5 K/mm3 (4.5-10.0)
[2021-12-20 09:52] LABS: Anisocytosis 1+ (NORMAL); Ovalocytes 2+ (NORMAL); Platelet Estimate Adequate (Adequate); Smudge Cells MANY; Tear Drop Cells 2+ (NORMAL)
--- NOTE | 2021-12-20 12:28 | PM.CNNEP ---
Assessment and Plan Assessment and plan (1) Hyponatremia: Code(s): E87.1 - Hypo-osmolality and hyponatremia Status: Acute Assessment and Plan: fluctuating since admission precipitated by diuretic use +/- COVID +/- pneumonia(?) TSH and cortisol okay urine studies noted but on diuretics currently on diuretics, fluid restriction, and salt tabs check SPEP and UPEP noted diuretic increased today... follow trend of repeat sodium levels (2) COVID: Code(s): U07.1 - COVID-19 Status: Acute Assessment and Plan: respiratory status stable CXR findings noted supportive care for now (3) Pneumonia: Qualifiers: Laterality: unspecified laterality Lung location: unspecified part of lung Pneumonia type: due to unspecified organism Qualified Code(s): J18.9 - Pneumonia, unspecified organism Code(s): J18.9 - Pneumonia, unspecified organism Status: Acute Assessment and Plan: s/p course of antibiotics respiratory status better (due to antibiotics or diuretics or both?) (4) CHF exacerbation: Code(s): I50.9 - Heart failure, unspecified Status: Acute Assessment and Plan: thought to be due to diastolic heart failure complicated by pulmonary HTN responded to diuretic therapy still with some edema - diuretics increased today follow clinical exam Will continue to follow. History of Present Illness Reason for Consult Consult date: 12/20/21 Reason for consult: hyponatremia Chief Complaint Chief complaint: uti History of Present Illness Narrative: The patient is an 78-year-old female with a past medical history as outlined below who presented to [facility] room via EMS for further evaluation of generalized weakness. The patient has been hospitalized multiple times in the last year with a recent hospitalization about a week ago for shortness of breath. During that hospitalization, she had worsening renal function and was also found to have bilateral lower extremity DVTs. Apparently, her diuretics were discontinued at that time. However, since discharge, she has been feeling quite weak and family members are having difficulty taking care of her at home. Reportedly, home health came out to see the patient on the day of admission and felt that she needed to be sent back to the emergency room for evaluation due to her relative hypotension and worsening weakness. Workup and evaluation emergency room demonstrated the patient to have relative hypotension but was stable in comparison to her previous values with routine blood tests showing an elevated white blood cell count above her baseline and a urinalysis that was highly suggestive of a urinary tract infection. Her chest x-ray and imaging studies were somewhat concerning for possible pneumonia as well although there a component of volume overload could not be completely ruled out. Given her complex history and multiple hospitalizations as already mentioned, she was admitted the hospital for further evaluation and therapy Since her admission, she was treated with antibiotics for her pneumonia as well as diuretics for what appeared to be evidence of volume overload which both of which were thought to be culprits for her generalized weakness. She was also found to be COVID positive although by the time of this result, her respiratory status had improved with the a for mentioned antibiotics and diuretic therapy. It was noted that during this admission her sodium levels seem to drop and stay on the lower end of normal since her admission and seems somewhat correlate with the use of diuretic therapy. She has been mentation but there is some discrepancy of whether not the patient has underlying dementia as part of her ongoing medical problems rather than it being secondary to her hyponatremia. Renal consultation was requested due to her fluctuating him hyponatremia. As mentioned, an
[2021-12-20] MEDS: ACETAMINOPHEN 325 MG TABLET 650 MG PO ×2 (12:35→20:36)
[2021-12-21] VITALS (9 sets, daily range): BP systolic 100–123; BP diastolic 42–68; PULSE 58–95; RESP 14–20; TEMP 36.3–36.9; O2SAT 60–96
[2021-12-21] MEDS: ACETAMINOPHEN 325 MG TABLET 650 MG PO ×3 (02:23→18:06)
[2021-12-21 05:08] LABS: Hematocrit 29.9 % (37.0-47.0); Immature Platelet Fraction Pct 3.9 % (0.9-11.2); Mean Corpuscular HGB Conc 30.1 g/dl (32-36); Mean Corpuscular Hemoglobin 29.7 pg (26-34); Mean Corpuscular Volume 98.7 fl (80-100); Mean Platelet Volume 10.4 fl (7.4-10.4); Platelet Count Result 136 k/mm3 (150-375); Red Blood Count 3.03 M/mm3 (4.2-5.4); White Blood Count 20.9 K/mm3 (4.5-10.0)
[2021-12-21 05:21] LABS: Alanine Aminotransferase 13 U/L (4-35); Albumin Level 2.6 g/dL (3.5-5.1); Alkaline Phosphatase 171 U/L (38-126); Anion Gap 0 mmol/L (8-16); Aspartate Amino Transferase 30 U/L (14-36); Bilirubin,Total 0.6 mg/dL (0.2-1.3); Blood Urea Nitrogen 20 mg/dL (7-17); Calcium 8.6 mg/dL (8.4-10.2); Carbon Dioxide 31 mmol/L (22-30); Chloride 96 mmol/L (98-107); Estimated CRCL calculation 46 ml/min; Estimated Glomerular Filt Rate 60; Glucose 88 mg/dL (65-110); Potassium 3.9 mmol/L (3.4-5.0); Sodium 127 mmol/L (137-145)
[2021-12-21 05:52] LABS: Band Neutrophils Percent 1 % (0-6); Lymphocytes Absolute Manual 17.76 K/mm3 (1.1-4.5); Lymphocytes Percent Manual 85 % (18-44); Monocytes Absolute Manual 1.04 K/mm3 (0.1-0.90); Monocytes Percent Manual 5 % (3-9); Neutrophils Absolute Manual 2.09 K/mm3 (1.7-7.2); Neutrophils Percent Manual 9 % (46-73); Smudge Cells PRESENT; Total Cells Counted 100
[2021-12-21 05:53] LABS: Anisocytosis 2+ (NORMAL)
[2021-12-21] MEDS: MIDODRINE HCL 2.5 MG TABLET PO ×2 (08:45→18:06)
[2021-12-21] MEDS: FUROSEMIDE 40 MG TABLET PO (08:45)
[2021-12-21] MEDS: FERROUS SULFATE 324 MG TABLET PO (08:45)
[2021-12-21] MEDS: APIXABAN 5 MG TABLET PO ×2 (08:45→21:04)
[2021-12-21] MEDS: SIMVASTATIN 20 MG TABLET 40 MG PO (08:45)
[2021-12-21] MEDS: polyethylene glycoL 3350 17 GM POWD.PACK PO (08:46)
[2021-12-21] MEDS: METOPROLOL SUCCINATE EXT REL 50 MG TABCR PO (08:46)
[2021-12-21] MEDS: SODIUM CHLORIDE 1 GM TABLET PO ×2 (08:46→18:06)
--- NOTE | 2021-12-21 08:46 | PM.IMPN ---
Progress Note: A&P Assessment and Plan (1) Hyponatremia: Code(s): E87.1 - Hypo-osmolality and hyponatremia Status: Acute Assessment and Plan: Nephrology consult No significant improvement Increase the dose of Lasix today as patient has edema Monitor sodium level (2) COVID: Code(s): U07.1 - COVID-19 Status: Acute Assessment and Plan: Patient tested negative for COVID on 12/08 but positive on 12/16. She was postive for COVID on 10/14/21 and again 11/10/21 so unclear if she cleared the viral particles and now re-infected or if the 12/08 swab was a false negative. Repeat CXR showing progression of moderate bilateral edema or pneumonia; COVID related?. Discharge planning in process. She remains on room air Anticipate discharge once sodium is 130 or above. (3) Pneumonia: Qualifiers: Laterality: unspecified laterality Lung location: unspecified part of lung Pneumonia type: due to unspecified organism Qualified Code(s): J18.9 - Pneumonia, unspecified organism Code(s): J18.9 - Pneumonia, unspecified organism Status: Acute Assessment and Plan: Patient presents with weakness and Chest x-ray more consistent with CHF than pneumonia but there was concern for pneumonia. White count was elevated to 20K but she does have CLL. She completed 8 days of Rocephin and azithromycin. Continue to monitor (4) Diastolic heart failure: Code(s): I50.30 - Unspecified diastolic (congestive) heart failure Status: Chronic Assessment and Plan: Patient with acute on chronic diastolic CHF exacerbation. Echo in September showed EF of 60-65%, diastolic dysfunction and severe pulmonary hypertension. BNP on 12/01/2021 was 2270. Chest x-ray on admission shows finding consistent with CHF. CT abdomen pelvis shows diffuse anasarca and ascites as well as small pleural effusions. Blood pressure soft so Midodrine added. CXR showing mild airspace opacities with peribronchial cuffing in the posterior lower lung zones related to mild pulmonary edema over pneumonia. Lasix IV started at low dose with good diuresis. She did well and was able to be weaned off O2. She was transitioned to oral Lasix. Salvador dhaliwal added. Abd pain persistent - CT scan Abd/Pelvis (12/08) showing splenomegaly and possible splenic infarct and ascites related to CLL. She has been diuresed. Abdominal ultrasound showed severely enlarged spleen (5) Urinary tract infection: Code(s): N39.0 - Urinary tract infection, site not specified Status: Acute Assessment and Plan: Patient was started on ceftriaxone. Urine culture growing Klebsiella and E coli both sensitive to Rocephin. She has completed 8 day course. (6) Hypotension: Code(s): I95.9 - Hypotension, unspecified Status: Acute Assessment and Plan: Blood pressure soft at times. TSH and Cortisol level normal in Oct. Repeat cortisol here was still okay. Midodrine was started as we attempt diuresis. BP improved and remained stable. Wean off midodrine as tolerated (7) Renal failure: Code(s): N19 - Unspecified kidney failure Status: Acute Assessment and Plan: Patient with CKD. Her baseline creatinine between 1.3 and 1.50. Patient tolerated diuresis well. 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 Also has atrial fibrillation which will require anticoagulation. (9) Generalized weakness: Code(s): R53.1 - Weakness Status: Acute Assessment and Plan: Secondary to a combination of the above in addition to her chronic medical conditions and deconditioning. She worked with PT and OT. (10) Dementia: Code(s): F03.90 - Unspecified dementia without behavioral disturbance Status: Acute Assessment and Plan: Patient is
--- NOTE | 2021-12-21 12:18 | PM.PNNEP ---
Progress Note: A&P Assessment and Plan (1) Hyponatremia: Code(s): E87.1 - Hypo-osmolality and hyponatremia Status: Acute Assessment and Plan: fluctuating since admission precipitated by diuretic use +/- COVID +/- pneumonia(?) TSH and cortisol okay urine studies noted but on diuretics currently on diuretics, fluid restriction, and salt tabs follow-up on SPEP and UPEP noted diuretic increased yesteray... follow trend of repeat sodium levels (2) COVID: Code(s): U07.1 - COVID-19 Status: Acute Assessment and Plan: respiratory status stable CXR findings noted supportive care for now (3) Pneumonia: Qualifiers: Laterality: unspecified laterality Lung location: unspecified part of lung Pneumonia type: due to unspecified organism Qualified Code(s): J18.9 - Pneumonia, unspecified organism Code(s): J18.9 - Pneumonia, unspecified organism Status: Acute Assessment and Plan: s/p course of antibiotics respiratory status better (due to antibiotics or diuretics or both?) (4) CHF exacerbation: Code(s): I50.9 - Heart failure, unspecified Status: Acute Assessment and Plan: thought to be due to diastolic heart failure complicated by pulmonary HTN responded to diuretic therapy still with some edema - diuretics increased yesterday follow clinical exam Will continue to follow. Subjective Date/time seen: 12/21/21 12:18 No apparent distress voiced on my visit aside from some abdominal pain (thought to be secondary to a large spleen by imaging); denies any other pain when seen; no other acute complaints voiced; no new issues/events overnight or earlier this morning. Exam Narrative: General: elderly female in NAD Heart: normal S1 and S2; no rub Lungs: clear to auscultation Abdomen: soft, nontender, nondistended, positive bowel sounds Extremities: no cyanosis or clubbing; trace edema Skin: warm and dry Objective Data Vital Signs Vital Signs: Vital Signs Temp Pulse Resp BP Pulse Ox 12/21/21 08:55 96 12/21/21 08:52 36.8 C 68 16 121/68 96 12/21/21 08:46 70 12/21/21 04:59 36.9 C 72 16 111/51 L 95 12/21/21 04:00 92 12/21/21 02:00 36.9 C 88 16 114/57 L 91 12/20/21 20:51 36.4 C 74 16 120/63 96 12/20/21 18:30 61 20 125/48 L 93 Intake/Output Intake/Output: Intake & Output 12/18/21 12/19/21 12/20/21 12/21/21 23:59 23:59 23:59 23:59 Intake Total 1860 1690 390 350 Balance 1860 1690 390 350 Meds/Results Medications: Active Medications Generic Name Dose Route Start Last Admin Trade Name Freq PRN Reason Stop Dose Admin Acetaminophen 650 mg 12/19/21 12:55 12/21/21 13:02 Acetaminophen 325 Mg Tablet PO 650 mg Q6H PRN Administration Mild Pain (1-3) or Fever Apixaban 5 mg 12/09/21 09:00 12/21/21 08:45 Apixaban 5 Mg Tablet PO 5 mg Q12HR TANG Administration Ferrous Sulfate 324 mg 12/09/21 08:00 12/21/21 08:45 Ferrous Sulfate 324 Mg Tablet PO 324 mg DAILY@0800 TANG Administration Furosemide 40 mg 12/21/21 09:00 12/21/21 08:45 Furosemide 40 Mg Tablet PO 40 mg DAILY TANG Administration Metoprolol Succinate 50 mg 12/09/21 09:00 12/21/21 08:46 Metoprolol Succinate Ext Rel 50 Mg Tabcr PO 50 mg DAILY TANG Administration Miconazole Nitrate 1 applic 12/15/21 21:00 12/21/21 08:46 Miconazole 2% Antifungal Ointment 56 Gm TOPICAL 1 applic Q12HR TANG Administration Midodrine 2.5 mg 12/19/21 12:55 12/21/21 08:45 Midodrine Hcl 2.5 Mg Tablet PO 2.5 mg BID TANG Administration Polyethylene Glycol 17 gm 12/15/21 12:45 12/21/21 08:46 Polyethylene Glycol 3350 17 Gm Powd.Pack PO 17 gm QAM TANG Administration Simvastatin 40 mg 12/09/21 09:00 12/21/21 08:45 Simvastatin 20 Mg Tablet PO 40 mg DAILY TANG Administration Sodium Chloride 1 gm 12/18/21 17:00 12/21/21 08:46 [place]
[2021-12-22] VITALS (7 sets, daily range): BP systolic 104–121; BP diastolic 47–68; PULSE 61–96; RESP 14–20; TEMP 36.2–37; O2SAT 57–98
[2021-12-22] MEDS: ACETAMINOPHEN 325 MG TABLET 650 MG PO ×4 (00:12→21:36)
[2021-12-22 05:20] LABS: Basophils Absolute Auto 0.1 K/mm3 (0.0-0.1); Basophils Percent Auto 0.4 % (0.2-1.2); Eosinophils Percent Auto 0.1 % (0-4.4); Hematocrit 29.2 % (37.0-47.0); Immature Granulocyte Absolute 0.09 K/mm3 (0.00-0.031); Immature Granulocyte Percent A 0.5 % (0-0.5); Immature Platelet Fraction Pct 3.7 % (0.9-11.2); Lymphocytes Absolute Auto 16.94 K/mm3 (0.9-3.2); Mean Corpuscular HGB Conc 30.8 g/dl (32-36); Mean Corpuscular Hemoglobin 30.3 pg (26-34); Mean Corpuscular Volume 98.3 fl (80-100); Mean Platelet Volume 10.4 fl (7.4-10.4); Monocytes Percent Auto 5.1 % (2.6-8.5); Neutrophils Absolute Auto 0.9 K/mm3 (1.3-6.7); Neutrophils Percent Auto 4.9 % (45.5-73.1); Nucleated Red Blood Cells Absolute Auto 0.1 K/mm3 (0.0-0.012); Nucleated Red Blood Cells Perc 0.4 % (0.0-0.2); Platelet Count Result 138 k/mm3 (150-375); Red Blood Count 2.97 M/mm3 (4.2-5.4)
[2021-12-22 05:35] LABS: Alanine Aminotransferase 12 U/L (4-35); Albumin Level 2.5 g/dL (3.5-5.1); Alkaline Phosphatase 163 U/L (38-126); Anion Gap -1 mmol/L (8-16); Aspartate Amino Transferase 28 U/L (14-36); Bilirubin,Total 0.6 mg/dL (0.2-1.3); Blood Urea Nitrogen 20 mg/dL (7-17); Calcium 8.4 mg/dL (8.4-10.2); Carbon Dioxide 34 mmol/L (22-30); Chloride 96 mmol/L (98-107); Estimated CRCL calculation 45 ml/min; Estimated Glomerular Filt Rate 60; Glucose 83 mg/dL (65-110); Potassium 3.8 mmol/L (3.4-5.0); Sodium 129 mmol/L (137-145)
[2021-12-22 06:54] LABS: Hypochromasia 2+ (NORMAL); Platelet Estimate Adequate (Adequate); Smudge Cells PRESENT
[2021-12-22] MEDS: FERROUS SULFATE 324 MG TABLET PO (08:02)
[2021-12-22] MEDS: FUROSEMIDE 40 MG TABLET PO (08:03)
[2021-12-22] MEDS: MIDODRINE HCL 2.5 MG TABLET PO ×2 (08:03→16:40)
[2021-12-22] MEDS: APIXABAN 5 MG TABLET PO ×2 (08:03→20:26)
[2021-12-22] MEDS: SODIUM CHLORIDE 1 GM TABLET PO ×2 (08:04→16:40)
[2021-12-22] MEDS: SIMVASTATIN 20 MG TABLET 40 MG PO (08:04)
[2021-12-22] MEDS: METOPROLOL SUCCINATE EXT REL 50 MG TABCR PO (08:04)
--- NOTE | 2021-12-22 11:17 | PM.PNNEP ---
Progress Note: A&P Assessment and Plan (1) Hyponatremia: Code(s): E87.1 - Hypo-osmolality and hyponatremia Status: Acute Assessment and Plan: hyponatremia. TSH and cortisol okay Serum anion gap is negative. Chest had an abdomen CT done. These are all consistent with her CLL. sodium has been low off and on for at least 2 years. Etiology of the hyponatremia most likely related to Multiple issues. She was on diuretics, and hydrocodone. She also has CLL. Answer can cause hyponatremia. But also with the negative anion gap she might have a paraprotein from the CLL causing pseudo hyponatremia. currently on diuretics, fluid restriction, and salt tabs Sodium level is up a little to 129. follow-up on SPEP and UPEP (2) COVID: Code(s): U07.1 - COVID-19 Status: Acute Assessment and Plan: respiratory status stable CXR findings noted supportive care for now Still on respiratory isolation (3) Pneumonia: Qualifiers: Laterality: unspecified laterality Lung location: unspecified part of lung Pneumonia type: due to unspecified organism Qualified Code(s): J18.9 - Pneumonia, unspecified organism Code(s): J18.9 - Pneumonia, unspecified organism Status: Acute Assessment and Plan: s/p course of antibiotics respiratory status better (due to antibiotics or diuretics or both?) (4) CHF exacerbation: Code(s): I50.9 - Heart failure, unspecified Status: Acute Assessment and Plan: thought to be due to diastolic heart failure complicated by pulmonary HTN responded to diuretic therapy still with some edema - diuretics increased yesterday follow clinical exam Will continue to follow. (5) Fluid overload, unspecified: Code(s): E87.70 - Fluid overload, unspecified Status: Acute Assessment and Plan: patient has ascites and edema. Liver looks okay on CT. Echo shows severe pulmonary hypertension although no tricuspid regurgitation. Albumin level is moderately low. She has splenomegaly due to the CLL. Perhaps there is some infiltration of the liver as well ? But not visible on CT. Probably her edema is multifactorial , nutrition, CLL, pulmonary hypertension , liver disease? apparently her edema is better according to nursing. Continue diuretics along with the salt pills to help the fluid and the Sodium at the same time Subjective Date/time seen: 12/22/21 11:17 Interval history: Patient feels okay today. She is eating breakfast. No chest pain or shortness of breath. She is thirsty all the time Exam Narrative: General: elderly female in NAD Heart: normal S1 and S2; no rub Lungs: clear bilaterally Abdomen: soft, nontender, nondistended, positive bowel sounds Extremities: no cyanosis or clubbing; trace edema Skin: no rash Objective Data Vital Signs Vital Signs: Vital Signs - 24 hr 12/21/21 14:17 12/21/21 18:00 12/21/21 21:11 Temperature 36.3 C L 36.8 C 36.6 C Pulse Rate 70 95 58 L Respiratory Rate 20 18 14 Blood Pressure 110/52 L 100/42 L 123/60 Pulse Oximetry 94 60 L 94 12/22/21 01:41 12/22/21 04:50 12/22/21 08:04 Temperature 37.0 C 36.6 C Pulse Rate 71 63 63 Respiratory Rate 14 14 Blood Pressure 121/66 120/68 Pulse Oximetry 92 98 Intake/Output Intake/Output: Intake & Output 12/19/21 12/20/21 12/21/21 12/22/21 23:59 23:59 23:59 23:59 Intake Total 1690 390 470 240 Balance 1690 390 470 240 Meds/Results Medications: Active Medications Generic Name Dose Route Start Last Admin Trade Name Surendra PRN Reason Stop Dose Admin Acetaminophen 650 mg 12/21/21 17:28 12/22/21 05:34 Acetaminophen 325 Mg Tablet PO 650 mg Q4H PRN Administration Headache Apixaban 5 mg 12/09/21 09:00 12/22/21 08:03 Apixaban 5 Mg Tablet PO 5 mg Q12HR TANG Administration Ferrous Sulfate 324 mg 12/09/21 08:00 12/22/21 08:
--- NOTE | 2021-12-22 11:50 | PM.IMPN ---
Progress Note: A&P Assessment and Plan (1) Hyponatremia: Code(s): E87.1 - Hypo-osmolality and hyponatremia Status: Acute Assessment and Plan: Na dropped to 122. Possibly related to Lasix vs COVID lung disease. Occult CVA less likely. TSH normal in Feb. Cortisol normal. Urine Na 33 with FENa 0.5% but could be related to the Lasix. NaCl tabs increased and fluid restriction ordered. Na better at 129. Nephrology consulted and appreciate their input. (2) COVID: Code(s): U07.1 - COVID-19 Status: Acute Assessment and Plan: Patient tested negative for COVID on 12/08 but positive on 12/16. She was postive for COVID on 10/14/21 and again 11/10/21 so unclear if she cleared the viral particles and now re-infected or if the 12/08 swab was a false negative. Repeat CXR showing progression of moderate bilateral edema or pneumonia; COVID related?. Discharge planning in process. She remains on room air (3) Pneumonia: Qualifiers: Laterality: unspecified laterality Lung location: unspecified part of lung Pneumonia type: due to unspecified organism Qualified Code(s): J18.9 - Pneumonia, unspecified organism Code(s): J18.9 - Pneumonia, unspecified organism Status: Acute Assessment and Plan: Patient presents with weakness and Chest x-ray more consistent with CHF than pneumonia but there was concern for pneumonia. White count was elevated to 20K but she does have CLL. She completed 8 days of Rocephin and azithromycin. Continue to monitor (4) Diastolic heart failure: Code(s): I50.30 - Unspecified diastolic (congestive) heart failure Status: Chronic Assessment and Plan: Patient with acute on chronic diastolic CHF exacerbation. Echo in September showed EF of 60-65%, diastolic dysfunction and severe pulmonary hypertension. BNP on 12/01/2021 was 2270. Chest x-ray on admission shows finding consistent with CHF. CT abdomen pelvis shows diffuse anasarca and ascites as well as small pleural effusions. Blood pressure soft so Midodrine added. CXR showing mild airspace opacities with peribronchial cuffing in the posterior lower lung zones related to mild pulmonary edema over pneumonia. Lasix IV started at low dose with good diuresis. She did well and was able to be weaned off O2. She was transitioned to oral Lasix. Salvador hose added. Abd pain persistent - CT scan Abd/Pelvis (12/08) showing splenomegaly and possible splenic infarct and ascites related to CLL. She has been diuresed. Abdominal ultrasound showed severely enlarged spleen. Lasix increased over the weekend and blood pressure appears to be tolerating this. (5) Urinary tract infection: Code(s): N39.0 - Urinary tract infection, site not specified Status: Acute Assessment and Plan: Patient was started on ceftriaxone. Urine culture growing Klebsiella and E coli both sensitive to Rocephin. She has completed 8 day course. (6) Hypotension: Code(s): I95.9 - Hypotension, unspecified Status: Acute Assessment and Plan: Blood pressure soft at times. TSH and Cortisol level normal in Oct. Repeat cortisol here was still okay. Midodrine was started as we attempt diuresis. BP improved and remained stable. Wean off midodrine as tolerated (7) Renal failure: Code(s): N19 - Unspecified kidney failure Status: Acute Assessment and Plan: Patient with CKD. Her baseline creatinine between 1.3 and 1.50. Patient tolerated diuresis well. creatinine now normal. Will follow. 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 Also has atrial fibrillation which will require anticoagulation. (9) Generalized weakness: Code(s): R53.1 - Weakness Status: Acute Assessment and Plan: Secondary to a combination of the above in addit
--- NOTE | 2021-12-22 12:52 | PDONCCN ---
HPI - Date of Consult Date/Time: 12/22/21 12:52 Requesting Physician: Winsome Osei MD Primary Care Provider: Kel Burk, DO - Consult Narrative Reason for consult: Chronic lymphocytic leukemia Narrative: Nikky Urena is a 81 year old female with history of chronic lymphocytic leukemia and has been followed by Dr. Celsa Rodriguez at [facility] along with history of atrial fibrillation and DVT on anticoagulation therapy came into the hospital for evaluation of generalized weakness. Patient recently fell and developed left upper quadrant abdominal pain. She was also diagnosed with UTI. Labs showed platelet count of 235164 [place] 9[place] [address]. Abdominal ultrasound showed severe splenomegaly with small amount of perihepatic and perisplenic ascites and portacaval lymphadenopathy. His complaining of abdominal pain. Denies any night sweats fevers and chills. Denies any bleeding and bruising. Review of Systems - Review of Systems All systems reviewed & are unremarkable except as noted in [facility] and [facility] Medical History: Medical History (Last Updated 12/22/21 @ 11:24 by Alfredo Munroe MD) Atrial fibrillation and flutter Cerebrovascular accident Onset Date: 2003 Chronic anemia Chronic anticoagulation Chronic lymphocytic leukemia Onset Date: 1999 Chronic pain Deep venous thrombosis Onset Date: 11/2021 Dementia Diastolic heart failure Echo 02/23/2020: EF 60-65%, moderately increased LV wall thickness, abnormal diastolic function, global longitudinal strain is normal, mild left atrial enlargement, mild aortic valve sclerosis, mild mitral valve regurgitation, severe pulmonary hypertension with RVSP of 62 mmHg, [id number] pulmonic regurgitation, elevated right atrial pressures. Diastolic heart failure Emphysema lung Fluid overload, unspecified Hyperlipidemia Hypertension Hypothyroidism Severe pulmonary hypertension Thrombocytopenia Surgical History: Surgical History (Last Updated 12/08/21 @ 23:11 by Elma Alarcon PA-C) History of ankle surgery Onset Date: ~1999 Right ankle ORIF with hardware. History of bladder surgery History of cholecystectomy History of hysterectomy History of lumbar surgery Family History: Family History (Last Reviewed 12/08/21 @ 23:11 by Elma Alarcon PA-C) Father Asthma Mother Family history of heart disease in male family member before age 55 Cerebrovascular accident Family history of arthritis Other No problems noted. Sibling Diabetes mellitus Other Unknown family medical history - Social History Social History: Social History (Last Updated 12/08/21 @ 23:11 by Elma Alarcon PA-C) Others: Spiritual care concerns: No Meds Home Medications Medication Instructions Recorded Confirmed Type Eliquis 5 mg PO BID 12/08/21 12/08/21 History ferrous sulfate [FeroSul] 325 mg PO DAILY 12/08/21 12/08/21 History metoprolol succinate 50 mg PO DAILY 12/08/21 12/08/21 History simvastatin 40 mg PO DAILY 12/08/21 12/08/21 History furosemide 20 mg PO DAILY #30 tablet 12/16/21 Rx hydrocodone-acetaminophen 0.5 tablet PO QID PRN #1 tablet 12/16/21 Rx hydrocodone-acetaminophen 0.5 tablet PO QID PRN #10 tablet 12/16/21 Rx metoclopramide HCl [Reglan] 5 mg PO Q6H PRN #10 tablet 12/16/21 Rx midodrine 2.5 mg PO TID #90 tablet 12/16/21 Rx polyethylene glycol 3350 [Miralax] 17 g PO QAM #30 ea 12/16/21 Rx Allergies Allergy/AdvReac Type Severity Reaction Status Date / Time codeine Allergy Unknown tachycardia Verified 12/02/21 15:11 morphine Allergy Unknown tachycardia Verified 12/02/21 15:11 Results - Labs CBC & Chem 7: 12/22/21 04:30 12/22/21 04:30 Labs: Short CBC 12/22/21 Range/Units 04:30 WBC 19.0 H (4.5-10.0) K/mm3 Hgb 9.0 L (12.0-15.0) g/dL Hct 29.2 L (37.0-47.0) % Plt Count 138 L (150-375) k/mm3 BMP 12/22/21 04:30 Sodium 129 L Potassium 3.8
[2021-12-22] MEDS: SIMETHICONE 80 MG TAB.CHEW PO ×2 (16:40→20:26)
[2021-12-23] VITALS (10 sets, daily range): BP systolic 93–120; BP diastolic 42–67; PULSE 52–76; RESP 16–20; TEMP 35.9–36.6; O2SAT 93–100
[2021-12-23 06:06] LABS: Basophils Absolute Auto 0.1 K/mm3 (0.0-0.1); Basophils Percent Auto 0.5 % (0.2-1.2); Eosinophils Percent Auto 0.1 % (0-4.4); Hematocrit 31.3 % (37.0-47.0); Hemoglobin 9.3 g/dL (12.0-15.0); Immature Granulocyte Absolute 0.08 K/mm3 (0.00-0.031); Immature Granulocyte Percent A 0.4 % (0-0.5); Immature Platelet Fraction Pct 3.7 % (0.9-11.2); Lymphocytes Absolute Auto 17.12 K/mm3 (0.9-3.2); Lymphocytes Percent Auto 84.3 % (18.3-44.2); Mean Corpuscular HGB Conc 29.7 g/dl (32-36); Mean Corpuscular Hemoglobin 30.3 pg (26-34); Mean Platelet Volume 10.5 fl (7.4-10.4); Monocytes Percent Auto 9.8 % (2.6-8.5); Neutrophils Percent Auto 4.9 % (45.5-73.1); Nucleated Red Blood Cells Perc 0.1 % (0.0-0.2); Platelet Count Result 138 k/mm3 (150-375); Red Blood Count 3.07 M/mm3 (4.2-5.4); Red Cell Distribution Width 19.3 % (11.5-14.5); White Blood Count 20.3 K/mm3 (4.5-10.0)
[2021-12-23] MEDS: ACETAMINOPHEN 325 MG TABLET 650 MG PO ×2 (06:08→10:22)
[2021-12-23 06:09] LABS: Alanine Aminotransferase 13 U/L (4-35); Albumin Level 2.6 g/dL (3.5-5.1); Alkaline Phosphatase 158 U/L (38-126); Anion Gap 1 mmol/L (8-16); Aspartate Amino Transferase 29 U/L (14-36); Bilirubin,Total 0.6 mg/dL (0.2-1.3); Blood Urea Nitrogen 21 mg/dL (7-17); Calcium 8.4 mg/dL (8.4-10.2); Carbon Dioxide 33 mmol/L (22-30); Chloride 97 mmol/L (98-107); Estimated CRCL calculation 45 ml/min; Estimated Glomerular Filt Rate 60; Glucose 73 mg/dL (65-110); Phosphorus 3.3 mg/dL (2.5-4.5); Potassium 3.8 mmol/L (3.4-5.0); Sodium 131 mmol/L (137-145)
[2021-12-23 07:00] LABS: Anisocytosis 1+ (NORMAL); Platelet Estimate Decreased (Adequate); Smudge Cells MODERATE
[2021-12-23 07:13] LABS: Free T4 Free Thyroxine Reflex 0.65 ng/dL (0.78-2.19)
[2021-12-23] MEDS: METOPROLOL SUCCINATE EXT REL 50 MG TABCR PO (08:03)
[2021-12-23] MEDS: FUROSEMIDE 40 MG TABLET PO (08:03)
[2021-12-23] MEDS: LEVOTHYROXINE SODIUM 25 MCG TABLET PO (08:03)
[2021-12-23] MEDS: APIXABAN 5 MG TABLET PO ×2 (08:03→20:43)
[2021-12-23] MEDS: FERROUS SULFATE 324 MG TABLET PO (08:03)
[2021-12-23] MEDS: MIDODRINE HCL 2.5 MG TABLET PO ×2 (08:03→16:59)
[2021-12-23] MEDS: SODIUM CHLORIDE 1 GM TABLET PO ×2 (08:04→16:59)
[2021-12-23] MEDS: SIMETHICONE 80 MG TAB.CHEW PO ×4 (08:04→20:44)
[2021-12-23] MEDS: SIMVASTATIN 20 MG TABLET 40 MG PO (08:04)
--- NOTE | 2021-12-23 11:42 | PM.IMPN ---
Progress Note: A&P Assessment and Plan (1) Diarrhea: Code(s): R19.7 - Diarrhea, unspecified Status: Acute Assessment and Plan: Patient has been having loose stools the past few days. No blood noted in stool. Hemoglobin stable. She continues to have abdominal pain. Will check CT of the abdomen and pelvis to assess for colitis. Check stool culture. Add Flagyl. (2) Hypothyroidism: Code(s): E03.9 - Hypothyroidism, unspecified Status: Acute Assessment and Plan: TSH normal in October but now TSH 36. Could explain her soft blood pressure and hyponatremia. Will add low-dose levothyroxine given her CHF. Advance does as she tolerates and as required. (3) Hyponatremia: Code(s): E87.1 - Hypo-osmolality and hyponatremia Status: Acute Assessment and Plan: Na dropped to 122. Possibly related to Lasix and/or COVID lung disease. Occult CVA less likely. TSH normal in Oct but elevated here now to 36. Cortisol normal. Urine Na 33 with FENa 0.5% but could be related to the Lasix. NaCl tabs increased and fluid restriction ordered. Na better at 131. Nephrology consulted and appreciate their input. Add Synthroid. (4) COVID: Code(s): U07.1 - COVID-19 Status: Acute Assessment and Plan: Patient tested negative for COVID on 12/08 but positive on 12/16. She was postive for COVID on 10/14/21 and again 11/10/21 so unclear if she cleared the viral particles and now re-infected or if the 12/08 swab was a false negative. Repeat CXR showed progression of moderate bilateral edema or pneumonia but more likely COVID related. Discharge planning in process. She remains on room air. (5) Pneumonia: Qualifiers: Laterality: unspecified laterality Lung location: unspecified part of lung Pneumonia type: due to unspecified organism Qualified Code(s): J18.9 - Pneumonia, unspecified organism Code(s): J18.9 - Pneumonia, unspecified organism Status: Acute Assessment and Plan: Patient presents with weakness and Chest x-ray more consistent with CHF than pneumonia but there was concern for pneumonia. White count was elevated to 20K but she does have CLL. She completed 8 days of Rocephin and azithromycin. She remains on room air. Continue to monitor (6) Diastolic heart failure: Code(s): I50.30 - Unspecified diastolic (congestive) heart failure Status: Chronic Assessment and Plan: Patient with acute on chronic diastolic CHF exacerbation. Echo in September showed EF of 60-65%, diastolic dysfunction and severe pulmonary hypertension. BNP on 12/01/2021 was 2270. Chest x-ray on admission shows finding consistent with CHF. CT abdomen pelvis shows diffuse anasarca and ascites as well as small pleural effusions. Blood pressure soft so Midodrine added. Repeat CXR showing mild pulmonary edema over pneumonia. Lasix IV started at low dose with good diuresis. She did well and was able to be weaned off O2. She was transitioned to oral Lasix. Salvador hose added. Abd pain persistent - CT scan Abd/Pelvis (12/08) showing splenomegaly and possible splenic infarct and ascites related to CLL. She has been diuresed. Abdominal ultrasound showed severely enlarged spleen. Lasix increased and blood pressure appears to be tolerating this. Still with edema but more depenent and suspect low albumin playing a part. (7) Urinary tract infection: Code(s): N39.0 - Urinary tract infection, site not specified Status: Acute Assessment and Plan: Patient was started on ceftriaxone. Urine culture growing Klebsiella and E coli both sensitive to Rocephin. She has completed 8 day course. (8) Hypotension: Code(s): I95.9 - Hypotension, unspecified Status: Acute Assessment and Plan: Blood pressure soft at times. TSH and Cortisol level normal in Fe. Repeat cortisol here was still okay. Midodrine was started as we attempt diuresis. BP improved and rem
[2021-12-23] MEDS: metroNIDAZOLE 250 MG TABLET PO ×3 (13:23→20:44)
[2021-12-23] MEDS: ONDANSETRON INJ 4 MG/2 ML VIAL IV PUSH (14:23)
--- NOTE | 2021-12-23 18:25 | PC.NURSE ---
Dr Tyson notified of pt on ra sat 86% placed on 2l 02 and sat was then 95% bp 96/50, new orders received.
[2021-12-24] VITALS (8 sets, daily range): BP systolic 90–149; BP diastolic 40–80; PULSE 70–104; RESP 14–21; TEMP 36.2–37.1; O2SAT 95–100
[2021-12-24 05:47] LABS: Hematocrit 27.4 % (37.0-47.0); Immature Platelet Fraction Pct 3.7 % (0.9-11.2); Mean Corpuscular HGB Conc 29.2 g/dl (32-36); Mean Corpuscular Hemoglobin 30.3 pg (26-34); Mean Corpuscular Volume 103.8 fl (80-100); Mean Platelet Volume 10.4 fl (7.4-10.4); Platelet Count Result 125 k/mm3 (150-375); Red Blood Count 2.64 M/mm3 (4.2-5.4); White Blood Count 14.6 K/mm3 (4.5-10.0)
[2021-12-24 05:53] LABS: Albumin Level 2.3 g/dL (3.5-5.1); Anion Gap 1 mmol/L (8-16); Blood Urea Nitrogen 21 mg/dL (7-17); Calcium 7.9 mg/dL (8.4-10.2); Carbon Dioxide 32 mmol/L (22-30); Chloride 97 mmol/L (98-107); Estimated CRCL calculation 41 ml/min; Estimated Glomerular Filt Rate 53; Glucose 71 mg/dL (65-110); Phosphorus 3.8 mg/dL (2.5-4.5); Potassium 3.7 mmol/L (3.4-5.0); Sodium 130 mmol/L (137-145)
[2021-12-24] MEDS: LEVOTHYROXINE SODIUM 25 MCG TABLET PO (06:04)
[2021-12-24] MEDS: FUROSEMIDE 20 MG TABLET PO (09:00)
[2021-12-24] MEDS: METOPROLOL SUCCINATE EXT REL 50 MG TABCR PO (09:00)
[2021-12-24] MEDS: APIXABAN 5 MG TABLET PO ×2 (09:00→20:22)
[2021-12-24] MEDS: FERROUS SULFATE 324 MG TABLET PO (09:00)
[2021-12-24] MEDS: metroNIDAZOLE 250 MG TABLET PO ×4 (09:02→20:22)
[2021-12-24] MEDS: SIMVASTATIN 20 MG TABLET 40 MG PO (09:03)
[2021-12-24] MEDS: MIDODRINE HCL 2.5 MG TABLET PO ×2 (09:03→17:51)
[2021-12-24] MEDS: SODIUM CHLORIDE 1 GM TABLET PO ×2 (09:03→17:51)
[2021-12-24] MEDS: SIMETHICONE 80 MG TAB.CHEW PO ×3 (09:03→20:21)
--- NOTE | 2021-12-24 09:36 | PM.PNNEP ---
Progress Note: A&P Assessment and Plan (1) Hyponatremia: Code(s): E87.1 - Hypo-osmolality and hyponatremia Status: Acute Assessment and Plan: hyponatremia. TSH and cortisol okay in october but TSH very high now. Serum anion gap is negative. Chest had an abdomen CT done. These are all consistent with her CLL. sodium has been low off and on for at least 2 years. Etiology of the hyponatremia most likely related to Multiple issues. She was on diuretics, and hydrocodone. She also has CLL. Her TSH is high which can cause hyponatremia. But also with the negative anion gap she might have a paraprotein from the CLL causing pseudo hyponatremia. currently on diuretics, fluid restriction, and salt tabs (we are also treating the edema) Sodium level is up a little to 130. SPEP and UPEP pending (2) COVID: Code(s): U07.1 - COVID-19 Status: Acute Assessment and Plan: respiratory status stable CXR findings noted supportive care for now Still on respiratory isolation (3) Pneumonia: Qualifiers: Laterality: unspecified laterality Lung location: unspecified part of lung Pneumonia type: due to unspecified organism Qualified Code(s): J18.9 - Pneumonia, unspecified organism Code(s): J18.9 - Pneumonia, unspecified organism Status: Acute Assessment and Plan: s/p course of antibiotics respiratory status better (due to antibiotics or diuretics or both?) (4) CHF exacerbation: Code(s): I50.9 - Heart failure, unspecified Status: Acute Assessment and Plan: thought to be due to diastolic heart failure complicated by pulmonary HTN responded to diuretic therapy still with some edema follow clinical exam because urine is not being collected. (5) Fluid overload, unspecified: Code(s): E87.70 - Fluid overload, unspecified Status: Acute Assessment and Plan: patient has ascites and edema. Liver looks okay on CT. Echo shows severe pulmonary hypertension although no tricuspid regurgitation. Albumin level is moderately low. She has splenomegaly due to the CLL. Perhaps there is some infiltration of the liver as well ? But not visible on CT. she also has hypothyroidism. Probably her edema is multifactorial , nutrition, CLL, pulmonary hypertension, thyroid ds, liver disease? apparently her edema is better according to nursing. Continue diuretics along with the salt pills to help the fluid and the Sodium at the same time Subjective Date/time seen: 12/24/21 09:36 Interval history: Patient feels blah. She still has belly pain. No chest pain or shortness of breath. Exam Narrative: General: elderly female in NAD Heart: normal S1 and S2; no rub Lungs: clear to ausc Abdomen: soft, nontender, nondistended, positive bowel sounds Extremities: no cyanosis or clubbing; 1+ bilateral edema Skin: no rash or sq nodules Objective Data Vital Signs Vital Signs: Vital Signs - 24 hr 12/23/21 10:03 12/23/21 14:27 12/23/21 18:08 Temperature 36.2 C L 36.1 C L 36.2 C L Pulse Rate 71 71 66 Respiratory Rate 20 16 20 Blood Pressure 106/42 L 120/54 L 96/50 L Pulse Oximetry 96 93 96 12/23/21 20:00 12/23/21 20:50 12/23/21 23:43 Temperature 36.6 C 36.1 C L Pulse Rate 52 L 66 Respiratory Rate 18 18 Blood Pressure 98/50 L 93/48 L Pulse Oximetry 96 100 99 12/24/21 04:51 12/24/21 08:00 12/24/21 09:00 Temperature 36.2 C L Pulse Rate 70 74 Respiratory Rate 20 Blood Pressure 149/80 H Pulse Oximetry 100 100 Intake/Output Intake/Output: Intake & Output 12/21/21 12/22/21 12/23/21 12/24/21 23:59 23:59 23:59 23:59 Intake Total 470 1200 170 320 Balance 470 1200 170 320 Meds/Results Medications: Active Medications Generic Name Dose Route Start Last Admin Trade Name Surendra PRN Reason Stop Dose Admin Acetaminophen 650 mg 12/21/21 17:28 12/23/21 10:
--- NOTE | 2021-12-24 11:37 | PCNFU ---
Nutrition Follow-Up Complete: Inadequate Oral Intake as related to pain as evidenced by poor po intake. Goal: Adequate Intake of at least 75% of meals/supplements Patient has limited progress towards goal. We will continue current goal. Pt current nutrition is Heart Healthy. Ensure compact BID. Last recorded weight is 69.7 kg, up from 68.9 kg on admit. Bowel Motility: +BM reported 4/5. Diarrhea has slowed. Labs Reviewed:BUN 21, Na 130, Hct 27.4,Hgb 8.0 Meds Noted:Sodium Chloride Tablet, Zocor, Eliquis, Ferrous Sulfate, Synthroid, Topol, Mylicon, Flagyl. Skin: WNL Additional Notes: Patient remains on a heart healthy diet. Oral intake has been poor, 0-10% of meals reported. Patient did drink her ensure compact today, providing an additional 220 kcals and 9 gms protein. PO intake encouraged. Agree with diet orders. Will monitor, weight,labs, oral intake, meds every 3 days.
[2021-12-24 12:02] LABS: Hemoglobin 8.2 g/dL (12.0-15.0)
--- NOTE | 2021-12-24 13:01 | PCPTNOTE ---
The patient treatment was not able to be completed due to patient stating that she isn't feeling too well this date. Will plan to continue treatment per plan of care.
[2021-12-24] MEDS: ACETAMINOPHEN 325 MG TABLET 650 MG PO ×2 (13:14→18:19)
--- NOTE | 2021-12-24 14:48 | PM.IMPN ---
Progress Note: A&P Assessment and Plan (1) Hypotension: Code(s): I95.9 - Hypotension, unspecified Status: Acute Assessment and Plan: Blood pressure soft at times. TSH and Cortisol level normal in Oct. Repeat cortisol here was still okay. Midodrine was started as we attempt diuresis. BP improved and remained stable. TSH actually elevated now to 36. Synthroid started. BP soft again so Lasix dose decreased - probably related to the diarrhea. Wean off midodrine as tolerated and might be easier with the addition Synthroid. Possible discharge tomorrow if BP remains stable, diarrhea resolves and HH stable. (2) Diarrhea: Code(s): R19.7 - Diarrhea, unspecified Status: Acute Assessment and Plan: Patient has been having loose stools the past few days. No blood noted in stool. Hemoglobin stable dropped to 8.0 but stable on repeat. CT A/P showing interval development of colonic fluid o/w no change. She continues to have abdominal pain. Stool culture ordered. Symptoms better. WBC better but WBC unreliable as an indictor. Will continue Flagyl. (3) Hypothyroidism: Code(s): E03.9 - Hypothyroidism, unspecified Status: Acute Assessment and Plan: TSH normal in October but now TSH 36. Could explain her soft blood pressure and hyponatremia. Low-dose levothyroxine started given her CHF. Advance does as she tolerates and as required. (4) Hyponatremia: Code(s): E87.1 - Hypo-osmolality and hyponatremia Status: Acute Assessment and Plan: Na dropped to 122. Possibly related to Lasix and/or COVID lung disease. Occult CVA less likely. TSH normal in Oct but elevated here now to 36. Cortisol normal. Urine Na 33 with FENa 0.5% but could be related to the Lasix. NaCl tabs increased and fluid restriction ordered. Na better at 130. Nephrology consulted and appreciate their input. Continue Synthroid. (5) COVID: Code(s): U07.1 - COVID-19 Status: Acute Assessment and Plan: Patient tested negative for COVID on 12/08 but positive on 12/16. She was postive for COVID on 10/14/21 and again 11/10/21 so unclear if she cleared the viral particles and now re-infected or if the 12/08 swab was a false negative. Repeat CXR showed progression of moderate bilateral edema or pneumonia but more likely COVID related. Discharge planning in process. She is back on oxygen. Wean as tolerated. (6) Pneumonia: Qualifiers: Laterality: unspecified laterality Lung location: unspecified part of lung Pneumonia type: due to unspecified organism Qualified Code(s): J18.9 - Pneumonia, unspecified organism Code(s): J18.9 - Pneumonia, unspecified organism Status: Acute Assessment and Plan: Patient presents with weakness and CXR more consistent with CHF than pneumonia but there was concern for pneumonia. White count was elevated to 20K but she does have CLL. She completed 8 days of Rocephin and azithromycin. She remains on room air. Continue to monitor (7) Diastolic heart failure: Code(s): I50.30 - Unspecified diastolic (congestive) heart failure Status: Chronic Assessment and Plan: Patient with acute on chronic diastolic CHF exacerbation. Echo in September showed EF of 60-65%, diastolic dysfunction and severe pulmonary hypertension. BNP on 12/01/2021 was 2270. Chest x-ray on admission shows finding consistent with CHF. CT abdomen pelvis shows diffuse anasarca and ascites as well as small pleural effusions. Blood pressure soft so Midodrine added. Repeat CXR showing mild pulmonary edema over pneumonia. Lasix IV started at low dose with good diuresis. She did well and was able to be weaned off O2. She was transitioned to oral Lasix. Salvador dhaliwal added. Abd pain persistent - CT scan Abd/Pelvis (12/08) showing splenomegaly and possible splenic infarct and ascites related to CLL. She has been diuresed. Abdominal ultrasound showed severely enlarged spleen. La
[2021-12-25] VITALS (8 sets, daily range): BP systolic 94–113; BP diastolic 46–67; PULSE 51–75; RESP 14–18; TEMP 36.5–37.1; O2SAT 93–99
[2021-12-25] MEDS: ACETAMINOPHEN 325 MG TABLET 650 MG PO ×5 (01:23→21:34)
[2021-12-25] MEDS: LEVOTHYROXINE SODIUM 25 MCG TABLET PO (05:32)
[2021-12-25 06:01] LABS: Hematocrit 27.7 % (37.0-47.0); Hemoglobin 8.1 g/dL (12.0-15.0); Immature Platelet Fraction Pct 3.7 % (0.9-11.2); Mean Corpuscular HGB Conc 29.2 g/dl (32-36); Mean Corpuscular Hemoglobin 30.3 pg (26-34); Mean Corpuscular Volume 103.7 fl (80-100); Mean Platelet Volume 10.3 fl (7.4-10.4); Platelet Count Result 120 k/mm3 (150-375); Red Blood Count 2.67 M/mm3 (4.2-5.4); Red Cell Distribution Width 18.7 % (11.5-14.5)
[2021-12-25 06:16] LABS: Anion Gap -2 mmol/L (8-16); Blood Urea Nitrogen 23 mg/dL (7-17); Calcium 8.1 mg/dL (8.4-10.2); Carbon Dioxide 33 mmol/L (22-30); Chloride 99 mmol/L (98-107); Estimated CRCL calculation 46 ml/min; Estimated Glomerular Filt Rate 60; Glucose 76 mg/dL (65-110); Potassium 3.7 mmol/L (3.4-5.0); Sodium 130 mmol/L (137-145)
[2021-12-25] MEDS: APIXABAN 5 MG TABLET PO ×2 (08:50→21:34)
[2021-12-25] MEDS: metroNIDAZOLE 250 MG TABLET PO ×4 (08:50→21:35)
[2021-12-25] MEDS: FUROSEMIDE 20 MG TABLET PO (08:50)
[2021-12-25] MEDS: FERROUS SULFATE 324 MG TABLET PO (08:50)
[2021-12-25] MEDS: SODIUM CHLORIDE 1 GM TABLET PO ×2 (08:51→17:22)
[2021-12-25] MEDS: MIDODRINE HCL 2.5 MG TABLET PO ×2 (08:51→17:22)
[2021-12-25] MEDS: SIMVASTATIN 20 MG TABLET 40 MG PO (08:51)
--- NOTE | 2021-12-25 10:57 | PC.NURSE ---
Dr Silva notified of holding am lopressor, sbp in 90's
--- NOTE | 2021-12-25 13:56 | P.PNNP_ITS ---
Progress Note: A&P Assessment and Plan (1) Hyponatremia: Code(s): E87.1 - Hypo-osmolality and hyponatremia Status: Acute Assessment and Plan: * hyponatremia. * TSH and cortisol okay in october but TSH very high now. * Serum anion gap is negative. * Chest had an abdomen CT done. These are all consistent with her CLL. * sodium has been low off and on for at least 2 years. * Etiology of the hyponatremia most likely related to low thyroid, CLL, diuretics, hydrocodone. * currently on diuretics, fluid restriction, and salt tabs (we are also treating the edema) * Sodium level is stable at 130. * SPEP and UPEP pending (2) COVID: Code(s): U07.1 - COVID-19 Status: Acute Assessment and Plan: * respiratory status stable * CXR findings noted * supportive care for now * isolation timed out. (3) Pneumonia: Qualifiers: Laterality: unspecified laterality Lung location: unspecified part of lung Pneumonia type: due to unspecified organism Qualified Code(s): J18.9 - Pneumonia, unspecified organism Code(s): J18.9 - Pneumonia, unspecified organism Status: Acute Assessment and Plan: * s/p course of antibiotics * respiratory status better (due to antibiotics or diuretics or both?) (4) CHF exacerbation: Code(s): I50.9 - Heart failure, unspecified Status: Acute Assessment and Plan: * thought to be due to diastolic heart failure complicated by pulmonary HTN * responded to diuretic therapy * still with some edema . This seems better. * follow clinical exam because urine is not being collected. (5) Fluid overload, unspecified: Code(s): E87.70 - Fluid overload, unspecified Status: Acute Assessment and Plan: patient has ascites and edema. Possibly related to hypothyroidism, low albumin from nutrition, CLL,?splenomegaly. On diuretics. Subjective Date/time seen: 12/25/21 13:56 Interval history: Patient feels blah. eager to go to the custodial. No chest pain or shortness of breath. Exam Narrative: General: elderly female in NAD Heart: normal S1 and S2; no rub or gallop Lungs: clear Abdomen: soft, nontender, nondistended, positive bowel sounds Extremities: no cyanosis or clubbing; 1+ bilateral edema Skin: no rash Objective Data Vital Signs Vital Signs: Vital Signs - 24 hr 12/24/21 14:00 12/24/21 20:00 12/24/21 20:01 Temperature 37.1 C 36.9 C Pulse Rate 93 74 Respiratory Rate 14 Blood Pressure 90/40 L 105/57 L Pulse Oximetry 98 98 12/25/21 01:15 12/25/21 04:56 12/25/21 07:59 Temperature 36.5 C 36.5 C Pulse Rate 63 51 L Respiratory Rate 18 16 Blood Pressure 102/46 L 97/47 L Pulse Oximetry 95 93 93 12/25/21 08:00 12/25/21 10:00 Temperature 36.6 C Pulse Rate 75 Respiratory Rate 16 Blood Pressure 94/67 L Pulse Oximetry 93 99 Intake/Output Intake/Output: Intake & Output 12/22/21 12/23/21 12/24/21 12/25/21 23:59 23:59 23:59 23:59 Intake Total 1200 170 900 600 Output Total 30 Balance 1200 170 870 600 Meds/Results Medications: Active Medications Generic Name Dos
--- NOTE | 2021-12-25 13:56 | PM.PNNEP ---
Progress Note: A&P Assessment and Plan (1) Hyponatremia: Code(s): E87.1 - Hypo-osmolality and hyponatremia Status: Acute Assessment and Plan: hyponatremia. TSH and cortisol okay in october but TSH very high now. Serum anion gap is negative. Chest had an abdomen CT done. These are all consistent with her CLL. sodium has been low off and on for at least 2 years. Etiology of the hyponatremia most likely related to low thyroid, CLL, diuretics, hydrocodone. currently on diuretics, fluid restriction, and salt tabs (we are also treating the edema) Sodium level is stable at 130. SPEP and UPEP pending (2) COVID: Code(s): U07.1 - COVID-19 Status: Acute Assessment and Plan: respiratory status stable CXR findings noted supportive care for now isolation timed out. (3) Pneumonia: Qualifiers: Laterality: unspecified laterality Lung location: unspecified part of lung Pneumonia type: due to unspecified organism Qualified Code(s): J18.9 - Pneumonia, unspecified organism Code(s): J18.9 - Pneumonia, unspecified organism Status: Acute Assessment and Plan: s/p course of antibiotics respiratory status better (due to antibiotics or diuretics or both?) (4) CHF exacerbation: Code(s): I50.9 - Heart failure, unspecified Status: Acute Assessment and Plan: thought to be due to diastolic heart failure complicated by pulmonary HTN responded to diuretic therapy still with some edema . This seems better. follow clinical exam because urine is not being collected. (5) Fluid overload, unspecified: Code(s): E87.70 - Fluid overload, unspecified Status: Acute Assessment and Plan: patient has ascites and edema. Possibly related to hypothyroidism, low albumin from nutrition, CLL,?splenomegaly. On diuretics. Subjective Date/time seen: 12/25/21 13:56 Interval history: Patient feels blah. eager to go to the long-term. No chest pain or shortness of breath. Exam Narrative: General: elderly female in NAD Heart: normal S1 and S2; no rub or gallop Lungs: clear Abdomen: soft, nontender, nondistended, positive bowel sounds Extremities: no cyanosis or clubbing; 1+ bilateral edema Skin: no rash Objective Data Vital Signs Vital Signs: Vital Signs - 24 hr 12/24/21 14:00 12/24/21 20:00 12/24/21 20:01 Temperature 37.1 C 36.9 C Pulse Rate 93 74 Respiratory Rate 14 Blood Pressure 90/40 L 105/57 L Pulse Oximetry 98 98 12/25/21 01:15 12/25/21 04:56 12/25/21 07:59 Temperature 36.5 C 36.5 C Pulse Rate 63 51 L Respiratory Rate 18 16 Blood Pressure 102/46 L 97/47 L Pulse Oximetry 95 93 93 12/25/21 08:00 12/25/21 10:00 Temperature 36.6 C Pulse Rate 75 Respiratory Rate 16 Blood Pressure 94/67 L Pulse Oximetry 93 99 Intake/Output Intake/Output: Intake & Output 12/22/21 12/23/21 12/24/21 12/25/21 23:59 23:59 23:59 23:59 Intake Total 1200 170 900 600 Output Total 30 Balance 1200 170 870 600 Meds/Results Medications: Active Medications Generic Name Dose Route Start Last Admin Trade Name Freq PRN Reason Stop Dose Admin Acetaminophen 650 mg 12/21/21 17:28 12/25/21 12:38 Acetaminophen 325 Mg Tablet PO 650 mg Q4H PRN Administration Headache Apixaban 5 mg 12/09/21 09:00 12/25/21 08:50 Apixaban 5 Mg Tablet PO 5 mg Q12HR TANG Administration Ferrous Sulfate 324 mg 12/09/21 08:00 12/25/21 08:50 Ferrous Sulfate 324 Mg Tablet PO 324 mg DAILY@0800 TANG Administration Furosemide 20 mg 12/24/21 09:00 12/25/21 08:50 Furosemide 20 Mg Tablet PO 20 mg DAILY TANG Administration Levothyroxine Sodium 25 mcg 12/23/21 07:05 12/25/21 05:32 Levothyroxine Sodium 25 Mcg Tablet PO 25 mcg DAILY@0630 TANG Administration Metoprolol Succinate 50 mg 12/09/21 09:00 12/25/21 10:57 Metoprolol Succinate Ex
--- NOTE | 2021-12-25 14:07 | PC.NURSE ---
On 12/25/21, the student, [ Jayshree Lambert], provided care and completed [facility] documentation on this patient. I have reviewed the student's documentation and agree with the findings.
--- NOTE | 2021-12-25 14:41 | P.PNIM_ITS ---
Progress Note: A&P Assessment and Plan (1) Hypotension: Code(s): I95.9 - Hypotension, unspecified Status: Acute Assessment and Plan: Blood pressure soft at times. TSH and Cortisol level normal in Fe. Repeat c ortisol here was still okay. Midodrine was started as we attempt diuresis. BP improved and remained stable. TSH actually elevated now to 36. Synthroid started. BP soft again so Lasix dose decreased - probably related to the diarrhea. Wean off midodrine as tolerated and might be easier with the addition Synthroid. Possible discharge tomorrow if BP remains stable, diarrhea resolves and HH stable. (2) Diarrhea: Code(s): R19.7 - Diarrhea, unspecified Status: Acute Assessment and Plan: Patient has been having loose stools the past few days. No blood noted in stool. Hemoglobin stable dropped to 8.0 but stable on repeat. CT A/P showing interval development of colonic fluid o/w no change. She continues to have abdominal pain. Stool culture ordered. Symptoms better. WBC better but WBC unreliable as an indictor. Will continue Flagyl. (3) Hypothyroidism: Code(s): E03.9 - Hypothyroidism, unspecified Status: Acute Assessment and Plan: TSH normal in October but now TSH 36. Could explain her soft blood pressure and hyponatremia. Low-dose levothyroxine started given her CHF. Advance does as she tolerates and as required. (4) Hyponatremia: Code(s): E87.1 - Hypo-osmolality and hyponatremia Status: Acute Assessment and Plan: Na dropped to 122. Possibly related to Lasix and/or COVID lung disease. Occult CVA less likely. TSH normal in Oct but elevated here now to 36. Cortisol normal. Urine Na 33 with FENa 0.5% but could be related to the Lasix. NaCl tabs increased and fluid restriction ordered. Na better at 130. Nephrology consulted and appreciate their input. Continue Synthroid. (5) COVID: Code(s): U07.1 - COVID-19 Status: Acute Assessment and Plan: Patient tested negative for COVID on 12/08 but positive on 12/16. She was postive for COVID on 10/14/21 and again 11/10/21 so unclear if she cleared the viral particles and now re-infected or if the 3/21 swab was a false negative. Repeat CXR showed progression of moderate bilateral edema or pneumonia but more likely COVID related. Discharge planning in process. She is back on oxygen. Wean as tolerated. (6) Pneumonia: Qualifiers: Laterality: unspecified laterality Lung location: unspecified part of lung Pneumonia type: due to unspecified organism Qualified Code(s): J18.9 - Pneumonia, unspecified organism Code(s): J18.9 - Pneumonia, unspecified organism Status: Acute Assessment and Plan: Patient presents with weakness and CXR more consistent with CHF than pneumonia but there was concern for pneumonia. White count was elevated to 20K but she does have CLL. She completed 8 days of Rocephin and azithromycin. She remains on room air. Continue to monitor (7) Diastolic heart failure: Code(s): I50.30 - Unspecified diastolic (congestive) heart failure Status: Chronic Assessment and Plan: Patient with acute on chronic diastolic CHF exacerbation. Echo in September showed EF of 60-65%, diastolic dysfunction and severe pulmonary hypertension. BNP on 12/01/2021 was 2270. Chest x-ray on admission shows finding consistent with CHF. CT abdomen pelvis shows diffuse anasarca and ascites as well as small pleural effusions. Blood pressure soft so Midodrine added. Repeat CXR showing mild pulmonary edema over pneumonia. Lasix IV started
[2021-12-25] MEDS: SIMETHICONE 80 MG TAB.CHEW PO (21:35)
[2021-12-26] VITALS (8 sets, daily range): BP systolic 91–111; BP diastolic 43–56; PULSE 64–100; RESP 16–18; TEMP 36.3–37; O2SAT 92–99
[2021-12-26] MEDS: ACETAMINOPHEN 325 MG TABLET 650 MG PO ×4 (03:51→18:58)
[2021-12-26] MEDS: LEVOTHYROXINE SODIUM 25 MCG TABLET PO (06:35)
[2021-12-26] MEDS: ONDANSETRON INJ 4 MG/2 ML VIAL IV PUSH (08:33)
[2021-12-26] MEDS: METOPROLOL SUCCINATE EXT REL 50 MG TABCR PO (08:34)
[2021-12-26] MEDS: metroNIDAZOLE 250 MG TABLET PO ×4 (08:34→20:06)
[2021-12-26] MEDS: SIMETHICONE 80 MG TAB.CHEW PO ×4 (08:36→20:06)
[2021-12-26] MEDS: MIDODRINE HCL 2.5 MG TABLET PO ×2 (08:37→16:30)
[2021-12-26] MEDS: FERROUS SULFATE 324 MG TABLET PO (08:37)
[2021-12-26] MEDS: APIXABAN 5 MG TABLET PO ×2 (08:37→20:07)
[2021-12-26] MEDS: SIMVASTATIN 20 MG TABLET 40 MG PO (08:37)
[2021-12-26] MEDS: SODIUM CHLORIDE 1 GM TABLET PO ×2 (08:37→16:30)
[2021-12-26] MEDS: FUROSEMIDE 20 MG TABLET PO (08:37)
--- NOTE | 2021-12-26 12:58 | PCNFU ---
Nutrition Follow-Up Complete: Inadequate Oral Intake as related to pain as evidenced by poor po intake. Goal: Adequate Intake of at least 75% of meals/supplements Patient has limited progress towards goal. We will continue current goal. Pt current nutrition is Heart Healthy/1200 ml FR Last recorded weight is 69.5 kg, up from 68 kg on admit Bowel Motility:+BM reported 12/25 Labs Reviewed:BUN 23, Na 130, Hct 27.7,Hgb 8.1 Meds Noted:Eliquis, Ferrous Sulfate, Zocor, Synthroid, Flagyl, Mylicon, Synthroid, Toprol, Lasix, Zofran. Skin: WNL Additional Notes: Patient remains on a heart healthy/1200 ml FR diet. Na 130 up from 123 on 12/18. Oral intake remains poor 0-25% intake reported. Some nausea and cramping reported today. Patient is drinking diet supplements of Ensure compact BID providing an additional 220 kcals and 9 gms protein. Agree with diet orders. Monitoring: Will monitor, weight,labs, oral intake, meds every 3 days.
--- NOTE | 2021-12-26 13:20 | PM.IMPN ---
Progress Note: A&P Assessment and Plan (1) Hypotension: Code(s): I95.9 - Hypotension, unspecified Status: Acute Assessment and Plan: Blood pressure soft at times. Pt is on midodrine Dc when Bp is more stable (2) Diarrhea: Code(s): R19.7 - Diarrhea, unspecified Status: Acute Assessment and Plan: Patient has been having loose stools the past few days. No blood noted in stool. CT A/P showing interval development of colonic fluid o/w no change. H is 8.1 today stool culture is pending pt is on flagyl (3) Hypothyroidism: Code(s): E03.9 - Hypothyroidism, unspecified Status: Acute Assessment and Plan: Pt is on Low-dose levothyroxine. (4) Hyponatremia: Code(s): E87.1 - Hypo-osmolality and hyponatremia Status: Acute Assessment and Plan: Na dropped to 122. NaCl tabs increased and fluid restriction ordered. Na better at 130. (5) COVID: Code(s): U07.1 - COVID-19 Status: Acute Assessment and Plan: interval history Patient tested negative for COVID on 12/08 but positive on 12/16. She was postive for COVID on 10/14/21 and again 11/10/21 so unclear if she cleared the viral particles and now re-infected or if the 12/08 swab was a false negative. Repeat CXR showed progression of moderate bilateral edema or pneumonia but more likely COVID related. Discharge planning in process. She is back on oxygen. Wean as tolerated. 12/26 Dc Wednesday/ Wednesday to [facility]. (6) Pneumonia: Qualifiers: Laterality: unspecified laterality Lung location: unspecified part of lung Pneumonia type: due to unspecified organism Qualified Code(s): J18.9 - Pneumonia, unspecified organism Code(s): J18.9 - Pneumonia, unspecified organism Status: Acute Assessment and Plan: White count was elevated to 15K but she does have CLL. She completed 8 days of Rocephin and azithromycin. She remains on room air. (7) Diastolic heart failure: Code(s): I50.30 - Unspecified diastolic (congestive) heart failure Status: Chronic Assessment and Plan: Patient with acute on chronic diastolic CHF exacerbation. Echo in September showed EF of 60-65%, diastolic dysfunction and severe pulmonary hypertension. BNP on 12/01/2021 was 2270. Chest x-ray on admission shows finding consistent with CHF. CT abdomen pelvis shows diffuse anasarca and ascites as well as small pleural effusions. Blood pressure soft so Midodrine added. Repeat CXR showing mild pulmonary edema over pneumonia. Lasix IV started at low dose with good diuresis. She did well and was able to be weaned off O2. She was transitioned to oral Lasix. Salvador hose added. Abd pain persistent - CT scan Abd/Pelvis (12/08) showing splenomegaly and possible splenic infarct and ascites related to CLL. She has been diuresed. Abdominal ultrasound showed severely enlarged spleen. Sparing diuresis with oral lasix as bp is low once Bp stable dc patient (8) Urinary tract infection: Code(s): N39.0 - Urinary tract infection, site not specified Status: Acute Assessment and Plan: Patient was started on ceftriaxone. Urine culture growing Klebsiella and E coli both sensitive to Rocephin. She has completed 8 day course. (9) Renal failure: Code(s): N19 - Unspecified kidney failure Status: Acute Assessment and Plan: Patient with CKD. Her baseline creatinine between 1.3 and 1.50. Creatinine remaining normal at 0.9. 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 Also has atrial fibrillation which will require anticoagulation. (11) Generalized weakness: Code(s): R53.1 - Weakness Status: Acute Assessment and Plan: Secondary to a combination of the above in addition to her chronic medical conditions and
--- NOTE | 2021-12-26 13:42 | PC.NURSE ---
On 12/26/21, the student, [Kulwinder Lambert], provided care and completed [facility] documentation on this patient. I have reviewed the student's documentation and agree with the findings.
[2021-12-27] VITALS (9 sets, daily range): BP systolic 98–127; BP diastolic 41–85; PULSE 56–112; RESP 16–24; TEMP 35.7–36.7; O2SAT 91–99
[2021-12-27] MEDS: ACETAMINOPHEN 325 MG TABLET 650 MG PO ×3 (00:11→14:18)
[2021-12-27] MEDS: LEVOTHYROXINE SODIUM 25 MCG TABLET PO (06:03)
[2021-12-27] MEDS: APIXABAN 5 MG TABLET PO ×2 (08:45→19:48)
[2021-12-27] MEDS: FUROSEMIDE 20 MG TABLET PO ×2 (08:45→10:50)
[2021-12-27] MEDS: METOPROLOL SUCCINATE EXT REL 50 MG TABCR PO (08:45)
[2021-12-27] MEDS: FERROUS SULFATE 324 MG TABLET PO (08:45)
[2021-12-27] MEDS: ONDANSETRON INJ 4 MG/2 ML VIAL IV PUSH (08:46)
[2021-12-27] MEDS: SIMVASTATIN 20 MG TABLET 40 MG PO (08:46)
[2021-12-27] MEDS: MIDODRINE HCL 2.5 MG TABLET PO ×2 (08:46→16:32)
[2021-12-27] MEDS: metroNIDAZOLE 250 MG TABLET PO (08:46)
[2021-12-27] MEDS: SIMETHICONE 80 MG TAB.CHEW PO ×4 (08:46→19:48)
[2021-12-27] MEDS: SODIUM CHLORIDE 1 GM TABLET PO (08:46)
--- NOTE | 2021-12-27 09:43 | PM.PNNEP ---
Progress Note: A&P Assessment and Plan (1) Hyponatremia: Code(s): E87.1 - Hypo-osmolality and hyponatremia Status: Acute Assessment and Plan: hyponatremia. TSH and cortisol okay in october but TSH very high now. Serum anion gap is negative. Chest had an abdomen CT done. These are all consistent with her CLL. sodium has been low off and on for at least 2 years. Etiology of the hyponatremia most likely related to low thyroid, CLL, diuretics, hydrocodone. currently on diuretics, fluid restriction, and salt tabs (we are also treating the edema) she had some more swelling. This seems to be a little bit better. She has diarrhea her blood pressure has been soft. So her Lasix was decreased to once a day. Will reduce salt tablets to once a day as well. At this point the diuretics are for her swelling. And the salt tablets are to keep the diuretics from making her sodium go low. Will continue fluid restriction for long-term management of her low sodium. Therefore if we stop diuretics then we should stop the salt tablets as well. (2) COVID: Code(s): U07.1 - COVID-19 Status: Acute Assessment and Plan: Resolved (3) Pneumonia: Qualifiers: Laterality: unspecified laterality Lung location: unspecified part of lung Pneumonia type: due to unspecified organism Qualified Code(s): J18.9 - Pneumonia, unspecified organism Code(s): J18.9 - Pneumonia, unspecified organism Status: Acute Assessment and Plan: s/p course of antibiotics respiratory status better (due to antibiotics or diuretics or both?) (4) CHF exacerbation: Code(s): I50.9 - Heart failure, unspecified Status: Acute Assessment and Plan: thought to be due to diastolic heart failure complicated by pulmonary HTN edema is gradually better (5) Fluid overload, unspecified: Code(s): E87.70 - Fluid overload, unspecified Status: Acute Assessment and Plan: patient has ascites and edema. Possibly related to hypothyroidism, low albumin from nutrition, CLL,?splenomegaly. On diuretics at a lower dose. Subjective Date/time seen: 12/27/21 09:43 Interval history: Patient feels blah. Breathing okay. Still has diarrhea Exam Narrative: General: elderly female in NAD Heart: normal S1 and S2; no rub or gallop Lungs: clear bilaterally Abdomen: soft, nontender, nondistended, positive bowel sounds Extremities: no cyanosis or clubbing; 1+ bilateral edema Skin: no rash or subcu nodules Objective Data Vital Signs Vital Signs: Vital Signs - 24 hr 12/26/21 10:00 12/26/21 13:53 12/26/21 18:20 Temperature 36.9 C 36.6 C 37.0 C Pulse Rate 83 69 64 Respiratory Rate 16 16 16 Blood Pressure 91/43 L 100/50 L 100/48 L Pulse Oximetry 96 96 98 12/26/21 20:29 12/26/21 20:33 12/27/21 00:09 Temperature 36.3 C L 36.6 C Pulse Rate 71 77 Respiratory Rate 18 18 Blood Pressure 95/53 L 98/54 L Pulse Oximetry 96 92 96 12/27/21 05:13 12/27/21 08:30 12/27/21 08:40 Temperature 35.7 C L Pulse Rate 112 H Respiratory Rate 20 20 Blood Pressure 101/53 L Pulse Oximetry 95 91 93 12/27/21 08:45 Temperature Pulse Rate 72 Respiratory Rate Blood Pressure Pulse Oximetry Intake/Output Intake/Output: Intake & Output 12/24/21 12/25/21 12/26/21 12/27/21 23:59 23:59 23:59 23:59 Intake Total 900 700 570 320 Output Total 30 Balance 870 700 570 320 Meds/Results Medications: Active Medications Generic Name Dose Route Start Last Admin Trade Name Freq PRN Reason Stop Dose Admin Acetaminophen 650 mg 12/21/21 17:28 12/27/21 08:46 Acetaminophen 325 Mg Tablet PO 650 mg Q4H PRN Administration Headache Apixaban 5 mg 12/09/21 09:00 12/27/21 08:45 Apixaban 5 Mg Tablet PO 5 mg Q12HR TANG Administration Ferrous Sulfate 324 mg 12/09/21 08:00 12/27/21 08:45 Ferrous Sulfate 324 Mg T
--- NOTE | 2021-12-27 09:48 | PM.IMPN ---
Progress Note: A&P Assessment and Plan (1) Hypotension: Code(s): I95.9 - Hypotension, unspecified Status: Acute Assessment and Plan: Blood pressure is soft at times. Continue midodrine. (2) Diarrhea: Code(s): R19.7 - Diarrhea, unspecified Status: Acute Assessment and Plan: Still reports diarrhea. Stool cultures pending. Continue metronidazole. (3) Hypothyroidism: Code(s): E03.9 - Hypothyroidism, unspecified Status: Acute (4) Hyponatremia: Code(s): E87.1 - Hypo-osmolality and hyponatremia Status: Acute Assessment and Plan: On sodium chloride tablets. Monitor electrolytes (5) COVID: Code(s): U07.1 - COVID-19 Status: Acute Assessment and Plan: interval history Patient tested negative for COVID on 12/08 but positive on 12/16. She was postive for COVID on 10/14/21 and again 11/10/21 so unclear if she cleared the viral particles and now re-infected or if the 12/08 swab was a false negative. Patient is breathing okay. Not on oxygen. Monitor. Will likely discharge in 1-2 days (6) Pneumonia: Qualifiers: Laterality: unspecified laterality Lung location: unspecified part of lung Pneumonia type: due to unspecified organism Qualified Code(s): J18.9 - Pneumonia, unspecified organism Code(s): J18.9 - Pneumonia, unspecified organism Status: Acute Assessment and Plan: Completed a course of Rocephin and azithromycin (7) Diastolic heart failure: Code(s): I50.30 - Unspecified diastolic (congestive) heart failure Status: Chronic Assessment and Plan: Chronic. Appears currently compensated. Does have some lower extremity edema. Will increase Lasix. 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 Also has atrial fibrillation which will require anticoagulation. (11) Generalized weakness: Code(s): R53.1 - Weakness Status: Acute Assessment and Plan: Continue PTOT (12) Dementia: Code(s): F03.90 - Unspecified dementia without behavioral disturbance Status: Acute Assessment and Plan: Improved (13) DVT (deep venous thrombosis): Code(s): I82.409 - Acute embolism and thrombosis of unspecified deep veins of unspecified lower extremity Status: Acute Assessment and Plan: Patient was diagnosed with DVTs on 11/28/2021 treated with Eliquis. (14) Atrial fibrillation: Code(s): I48.91 - Unspecified atrial fibrillation Status: Acute Assessment and Plan: Rate controlled. We continued Toprol-XL and her Eliquis. (15) Chronic anemia: Code(s): D64.9 - Anemia, unspecified Status: Acute Assessment and Plan: Hgb low but stable in 8-9 range. Chronic anemia related to her CLL. Appreciate oncology input (16) Splenomegaly, not elsewhere classified: Code(s): R16.1 - Splenomegaly, not elsewhere classified Status: Acute Assessment and Plan: Most likely related to CLL. (17) CLL (chronic lymphocytic leukemia): Code(s): C91.10 - Chronic lymphocytic leukemia of B-cell type not having achieved remission Status: Acute Assessment and Plan: Plan for possible treatment as outpatient Subjective Date/time seen: 12/27/21 09:48 Interval history: Patient feels blah. Breathing okay. Still has diarrhea Exam Narrative: Elderly lady frail HEENT: eyes are clear and none
[2021-12-27] MEDS: HYDROcodone/acetaminophen (*CRX) 5-325 MG TABLET 1 TAB PO (16:32)
[2021-12-28] VITALS (10 sets, daily range): BP systolic 86–103; BP diastolic 40–48; PULSE 64–89; RESP 14–17; TEMP 35.9–36.7; O2SAT 98–100
[2021-12-28 05:39] LABS: Albumin Level 2.5 g/dL (3.5-5.1); Anion Gap 1 mmol/L (8-16); Blood Urea Nitrogen 25 mg/dL (7-17); Calcium 8.1 mg/dL (8.4-10.2); Carbon Dioxide 33 mmol/L (22-30); Chloride 100 mmol/L (98-107); Estimated CRCL calculation 37 ml/min; Estimated Glomerular Filt Rate 47; Glucose 78 mg/dL (65-110); Phosphorus 3.1 mg/dL (2.5-4.5); Potassium 4.1 mmol/L (3.4-5.0); Sodium 134 mmol/L (137-145)
[2021-12-28] MEDS: ACETAMINOPHEN 325 MG TABLET 650 MG PO ×4 (05:56→20:25)
[2021-12-28] MEDS: LEVOTHYROXINE SODIUM 25 MCG TABLET PO (05:56)
[2021-12-28 07:43] LABS: Hemoglobin 8.5 g/dL (12.0-15.0); Immature Platelet Fraction Pct 4.3 % (0.9-11.2); Mean Corpuscular HGB Conc 29.3 g/dl (32-36); Mean Corpuscular Hemoglobin 30.2 pg (26-34); Mean Corpuscular Volume 103.2 fl (80-100); Mean Platelet Volume 10.6 fl (7.4-10.4); Platelet Count Result 113 k/mm3 (150-375); Red Blood Count 2.81 M/mm3 (4.2-5.4); Red Cell Distribution Width 18.6 % (11.5-14.5); White Blood Count 15.7 K/mm3 (4.5-10.0)
[2021-12-28] MEDS: FERROUS SULFATE 324 MG TABLET PO (08:23)
[2021-12-28] MEDS: FUROSEMIDE 40 MG TABLET PO (08:23)
[2021-12-28] MEDS: APIXABAN 5 MG TABLET PO ×2 (08:23→20:27)
[2021-12-28] MEDS: METOPROLOL SUCCINATE EXT REL 50 MG TABCR PO (08:23)
[2021-12-28] MEDS: SIMVASTATIN 20 MG TABLET 40 MG PO (08:24)
[2021-12-28] MEDS: MIDODRINE HCL 2.5 MG TABLET PO ×2 (08:24→15:47)
[2021-12-28] MEDS: SODIUM CHLORIDE 1 GM TABLET PO (08:24)
[2021-12-28] MEDS: SIMETHICONE 80 MG TAB.CHEW PO ×4 (08:24→20:27)
--- NOTE | 2021-12-28 08:48 | PM.PNNEP ---
Progress Note: A&P Assessment and Plan (1) Hyponatremia: Code(s): E87.1 - Hypo-osmolality and hyponatremia Status: Acute Assessment and Plan: hyponatremia. TSH and cortisol okay in october but TSH very high now. supplemented. Serum anion gap is negative. Chest had an abdomen CT done. These are all consistent with her CLL. sodium has been low off and on for at least 2 years. Etiology of the hyponatremia most likely related to low thyroid, CLL, diuretics, hydrocodone. currently on diuretics, fluid restriction, and salt tabs (we are also treating the edema) Her swelling is better. Her creatinine is up a little bit. Will stop the Lasix and salt tablets and continue the fluid restriction. (2) COVID: Code(s): U07.1 - COVID-19 Status: Acute Assessment and Plan: Resolved (3) Pneumonia: Qualifiers: Laterality: unspecified laterality Lung location: unspecified part of lung Pneumonia type: due to unspecified organism Qualified Code(s): J18.9 - Pneumonia, unspecified organism Code(s): J18.9 - Pneumonia, unspecified organism Status: Acute Assessment and Plan: Resolved (4) CHF exacerbation: Code(s): I50.9 - Heart failure, unspecified Status: Acute Assessment and Plan: thought to be due to diastolic heart failure complicated by pulmonary HTN edema is gradually better (5) Fluid overload, unspecified: Code(s): E87.70 - Fluid overload, unspecified Status: Acute Assessment and Plan: patient has ascites and edema. Possibly related to hypothyroidism, low albumin from nutrition, CLL,?splenomegaly. swelling is better. Subjective Date/time seen: 12/28/21 08:48 Interval history: Patient feels About the same Breathing okay. Still has diarrhea Exam Narrative: General: elderly female in NAD Heart: normal S1 and S2; no rub or gallop Lungs: clear to auscultation Abdomen: soft, nontender, nondistended, positive bowel sounds Extremities: no cyanosis or clubbing; 1+ bilateral edema Skin: no rash Objective Data Vital Signs Vital Signs: Vital Signs - 24 hr 12/27/21 10:09 12/27/21 15:09 12/27/21 18:00 Temperature 36.6 C 36.3 C L 36.7 C Pulse Rate 79 56 L 108 H Respiratory Rate 24 H 16 16 Blood Pressure 114/85 127/75 108/41 L Pulse Oximetry 97 99 91 12/27/21 19:31 12/28/21 01:14 12/28/21 03:37 Temperature 36.4 C 35.9 C L 36.5 C Pulse Rate 96 71 67 Respiratory Rate 17 16 17 Blood Pressure 98/56 L 92/40 L 90/48 L Pulse Oximetry 98 100 100 12/28/21 08:23 12/28/21 08:25 Temperature Pulse Rate 64 Respiratory Rate Blood Pressure Pulse Oximetry 98 Intake/Output Intake/Output: Intake & Output 12/25/21 12/26/21 12/27/21 12/28/21 23:59 23:59 23:59 23:59 Intake Total 700 570 670 100 Balance 700 570 670 100 Meds/Results Medications: Active Medications Generic Name Dose Route Start Last Admin Trade Name Freq PRN Reason Stop Dose Admin Acetaminophen 650 mg 12/21/21 17:28 12/28/21 05:56 Acetaminophen 325 Mg Tablet PO 650 mg Q4H PRN Administration Headache Apixaban 5 mg 12/09/21 09:00 12/28/21 08:23 Apixaban 5 Mg Tablet PO 5 mg Q12HR TANG Administration Ferrous Sulfate 324 mg 12/09/21 08:00 12/28/21 08:23 Ferrous Sulfate 324 Mg Tablet PO 324 mg DAILY@0800 TANG Administration Furosemide 40 mg 12/28/21 09:00 12/28/21 08:23 Furosemide 40 Mg Tablet PO 40 mg DAILY TANG Administration Levothyroxine Sodium 25 mcg 12/23/21 07:05 12/28/21 05:56 Levothyroxine Sodium 25 Mcg Tablet PO 25 mcg DAILY@0630 TANG Administration Loperamide HCl 2 mg 12/27/21 09:58 Loperamide Hcl 2 Mg Capsule PO PRN PRN Diarrhea Metoprolol Succinate 50 mg 12/09/21 09:00 12/28/21 08:23 Metoprolol Succinate Ext Rel 50 Mg Tabcr PO 50 mg DAILY TANG Administration Miconazole Nitrate 1 abimbola
--- NOTE | 2021-12-28 09:23 | PM.IMPN ---
Progress Note: A&P Assessment and Plan (1) Hypotension: Code(s): I95.9 - Hypotension, unspecified Status: Acute Assessment and Plan: Blood pressure is soft at times. Continue midodrine. (2) Diarrhea: Code(s): R19.7 - Diarrhea, unspecified Status: Acute Assessment and Plan: Still reports diarrhea. Stool cultures negative. DC metronidazole. Imodium is helping. (3) Hypothyroidism: Code(s): E03.9 - Hypothyroidism, unspecified Status: Acute Assessment and Plan: Continue thyroid medication. (4) Hyponatremia: Code(s): E87.1 - Hypo-osmolality and hyponatremia Status: Acute Assessment and Plan: On sodium chloride tablets. Monitor electrolytes (5) COVID: Code(s): U07.1 - COVID-19 Status: Acute Assessment and Plan: interval history Patient tested negative for COVID on 12/08 but positive on 12/16. She was postive for COVID on 10/14/21 and again 11/10/21 so unclear if she cleared the viral particles and now re-infected or if the 12/08 swab was a false negative. Patient is breathing okay. Not on oxygen. Monitor. Will likely discharge in 1-2 days (6) Pneumonia: Qualifiers: Laterality: unspecified laterality Lung location: unspecified part of lung Pneumonia type: due to unspecified organism Qualified Code(s): J18.9 - Pneumonia, unspecified organism Code(s): J18.9 - Pneumonia, unspecified organism Status: Acute Assessment and Plan: Completed a course of Rocephin and azithromycin (7) Diastolic heart failure: Code(s): I50.30 - Unspecified diastolic (congestive) heart failure Status: Chronic Assessment and Plan: Chronic. Appears currently compensated. Does have some lower extremity edema. Will increase Lasix. 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 Also has atrial fibrillation which will require anticoagulation. (11) Generalized weakness: Code(s): R53.1 - Weakness Status: Acute Assessment and Plan: Continue PTOT Planned to discharge likely tomorrow (12) Dementia: Code(s): F03.90 - Unspecified dementia without behavioral disturbance Status: Acute Assessment and Plan: Improved (13) DVT (deep venous thrombosis): Code(s): I82.409 - Acute embolism and thrombosis of unspecified deep veins of unspecified lower extremity Status: Acute Assessment and Plan: Patient was diagnosed with DVTs on 11/28/2021 treated with Eliquis. (14) Atrial fibrillation: Code(s): I48.91 - Unspecified atrial fibrillation Status: Acute Assessment and Plan: Rate controlled. We continued Toprol-XL and her Eliquis. (15) Chronic anemia: Code(s): D64.9 - Anemia, unspecified Status: Acute Assessment and Plan: Hgb low but stable in 8-9 range. Chronic anemia related to her CLL. Appreciate oncology input (16) Splenomegaly, not elsewhere classified: Code(s): R16.1 - Splenomegaly, not elsewhere classified Status: Acute Assessment and Plan: Most likely related to CLL. (17) CLL (chronic lymphocytic leukemia): Code(s): C91.10 - Chronic lymphocytic leukemia of B-cell type not having achieved remission Status: Acute Assessment and Plan: Plan for possible treatment as outpatient Subjective Date/time seen: 12/28/21 09:23 Patient reports diarrhea is much improved. Abdomi
[2021-12-28] MEDS: ONDANSETRON INJ 4 MG/2 ML VIAL IV PUSH (12:05)
[2021-12-29 03:26] VITALS: BP 101/59; PULSE 74; RESP 17; TEMP 36.5; O2SAT 99
[2021-12-29] MEDS: ACETAMINOPHEN 325 MG TABLET 650 MG PO ×4 (03:30→19:07)
[2021-12-29 05:22] LABS: Albumin Level 2.5 g/dL (3.5-5.1); Anion Gap 3 mmol/L (8-16); Blood Urea Nitrogen 25 mg/dL (7-17); Carbon Dioxide 30 mmol/L (22-30); Chloride 99 mmol/L (98-107); Estimated CRCL calculation 37 ml/min; Estimated Glomerular Filt Rate 47; Glucose 74 mg/dL (65-110); Phosphorus 2.9 mg/dL (2.5-4.5); Potassium 3.8 mmol/L (3.4-5.0); Sodium 132 mmol/L (137-145)
[2021-12-29] MEDS: LEVOTHYROXINE SODIUM 25 MCG TABLET PO (05:54)
[2021-12-29 08:16] VITALS: O2SAT 99
[2021-12-29 08:17] VITALS: PULSE 96
[2021-12-29] MEDS: APIXABAN 5 MG TABLET PO ×2 (08:17→21:03)
[2021-12-29] MEDS: SIMETHICONE 80 MG TAB.CHEW PO (08:17)
[2021-12-29] MEDS: METOPROLOL SUCCINATE EXT REL 50 MG TABCR PO (08:17)
[2021-12-29] MEDS: MIDODRINE HCL 2.5 MG TABLET PO ×2 (08:17→16:29)
[2021-12-29] MEDS: SIMVASTATIN 20 MG TABLET 40 MG PO (08:17)
[2021-12-29] MEDS: FERROUS SULFATE 324 MG TABLET PO (08:17)
[2021-12-29 10:25] VITALS: BP 94/48; PULSE 81; RESP 18; TEMP 36.3; O2SAT 100
[2021-12-29] MEDS: ONDANSETRON INJ 4 MG/2 ML VIAL IV PUSH (10:40)
--- NOTE | 2021-12-29 11:30 | PCNFU ---
Nutrition Follow-Up Complete: Inadequate Oral Intake as related to pain as evidenced by poor po intake. Goal: Adequate Intake of at least 75% of meals/supplements Patient is progressing towards goal. We will continue current goal. Pt current nutrition is Heart Healthy/1200 ml FR Last recorded weight is 68.6 kg. Bowel Motility: +BM reported 12/27 Labs Reviewed:Cr 1.10,BUN 25, GFR 47, BUN 25, Alb 2.5,Na 132 Meds Noted:Eliquis, Ferrous Sulfate, Zocor, Synthroid, Flagyl, Mylicon, Synthroid, Toprol, Lasix, Zofran. Skin: WNL Additional Notes: Patient remains on heart healthy/1200 ml FR daily. Oral Intake has improved 25-80% reported. Spoke with patient and family today regarding oral intake. Patient has been drinking her diet supplements which is providing an additional 220 kcals and 9 gms protein. Patient and family did give me her lunch order for today. Spoke with RN today regarding discontinuing Fluid Restriction, she will speak with MD today. Monitoring: Will monitor, weight,labs, oral intake, meds every 5 days.
[2021-12-29] MEDS: LOPERAMIDE HCL 2 MG CAPSULE PO (11:59)
--- NOTE | 2021-12-29 14:07 | PCPTNOTE ---
Attempted to see patient for PT, patient declined due to patient wanting to rest at this time. Per RN patient is to discharge this date.
--- NOTE | 2021-12-29 14:12 | PM.DS ---
DS: Admitting Diagnosis Discharge Date 12/29/2021 Admitting Diagnosis Generalised weakness DS: Discharge Diagnosis Discharge Diagnosis (1) Hypotension: Code(s): I95.9 - Hypotension, unspecified Status: Acute Assessment and Plan: Blood pressure is soft at times. Continue midodrine. (2) Diarrhea: Code(s): R19.7 - Diarrhea, unspecified Status: Acute Assessment and Plan: Still reports diarrhea. Stool cultures negative. DC metronidazole. Imodium is helping. (3) Hypothyroidism: Code(s): E03.9 - Hypothyroidism, unspecified Status: Acute Assessment and Plan: Continue thyroid medication. (4) Hyponatremia: Code(s): E87.1 - Hypo-osmolality and hyponatremia Status: Acute Assessment and Plan: On sodium chloride tablets. Monitor electrolytes (5) COVID: Code(s): U07.1 - COVID-19 Status: Acute Assessment and Plan: interval history Patient tested negative for COVID on 12/08 but positive on 12/16. She was postive for COVID on 10/14/21 and again 11/10/21 so unclear if she cleared the viral particles and now re-infected or if the 12/08 swab was a false negative. Patient is breathing okay. Not on oxygen. (6) Pneumonia: Qualifiers: Laterality: unspecified laterality Lung location: unspecified part of lung Pneumonia type: due to unspecified organism Qualified Code(s): J18.9 - Pneumonia, unspecified organism Code(s): J18.9 - Pneumonia, unspecified organism Status: Acute Assessment and Plan: Completed a course of Rocephin and azithromycin (7) Diastolic heart failure: Code(s): I50.30 - Unspecified diastolic (congestive) heart failure Status: Chronic Assessment and Plan: Chronic. Appears currently compensated. Does have some lower extremity edema. 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 Also has atrial fibrillation which will require anticoagulation. (11) Generalized weakness: Code(s): R53.1 - Weakness Status: Acute Assessment and Plan: Continue PTOT (12) Dementia: Code(s): F03.90 - Unspecified dementia without behavioral disturbance Status: Acute Assessment and Plan: Improved (13) DVT (deep venous thrombosis): Code(s): I82.409 - Acute embolism and thrombosis of unspecified deep veins of unspecified lower extremity Status: Acute Assessment and Plan: Patient was diagnosed with DVTs on 11/28/2021 treated with Eliquis. (14) Atrial fibrillation: Code(s): I48.91 - Unspecified atrial fibrillation Status: Acute Assessment and Plan: Rate controlled. We continued Toprol-XL and her Eliquis. (15) Chronic anemia: Code(s): D64.9 - Anemia, unspecified Status: Acute Assessment and Plan: Hgb low but stable in 8-9 range. Chronic anemia related to her CLL. Appreciate oncology input (16) Splenomegaly, not elsewhere classified: Code(s): R16.1 - Splenomegaly, not elsewhere classified Status: Acute Assessment and Plan: Most likely related to CLL. (17) CLL (chronic lymphocytic leukemia): Code(s): C91.10 - Chronic lymphocytic leukemia of B-cell type not having achieved remission Status: Acute Assessment and Plan: Plan for possible treatment as outpatient DS: Summary Hospital Course Hospital Course: Interval history: 81-year-old female with dem
--- NOTE | 2021-12-29 14:19 | PCOTNOTE ---
Per TRANSMISSION SPECIALIST, patient declined asking to rest. Will continue plan of care if patient doesn't discharge today.
[2021-12-29 14:30] VITALS: BP 100/55; PULSE 68; RESP 16; TEMP 36.1; O2SAT 97
[2021-12-29 21:04] VITALS: BP 107/48; PULSE 95; RESP 18; TEMP 36.5; O2SAT 98
== END 2021-12-29 22:30 | disposition hospice, inpatient (51) | DRG 193 ==
LOC: ANHED 17:55 → ANH2MED 18:50
PROVIDERS: Chiropractor; Internal Medicine; Internal Medicine Nephrology; Admitting Provider Internal Medicine; Emergency Provider Emergency Medicine; PCP Internal Medicine; Visit Provider Family Medicine
DX: J18.9 Pneumonia, unspecified organism (principal); U07.1 COVID-19; I50.33 Acute on chronic diastolic (congestive) heart failure; N39.0 Urinary tract infection, site not specified; I13.0 Hypertensive heart and chronic kidney disease with heart failure and stage 1 through stage 4 chronic kidney disease, or unspecified chronic kidney disease; I48.92 Unspecified atrial flutter; R18.8 Other ascites; E87.1 Hypo-osmolality and hyponatremia; C91.10 Chronic lymphocytic leukemia of B-cell type not having achieved remission; Z86.718 Personal history of other venous thrombosis and embolism; Z79.01 Long term (current) use of anticoagulants; I48.91 Unspecified atrial fibrillation; Z86.73 Personal history of transient ischemic attack (TIA), and cerebral infarction without residual deficits; M25.562 Pain in left knee; G89.29 Other chronic pain; J43.9 Emphysema, unspecified; E03.9 Hypothyroidism, unspecified; I27.20 Pulmonary hypertension, unspecified; Z87.891 Personal history of nicotine dependence; F03.90 Unspecified dementia, unspecified severity, without behavioral disturbance, psychotic disturbance, mood disturbance, and anxiety; I48.0 Paroxysmal atrial fibrillation; I95.9 Hypotension, unspecified; B96.20 Unspecified Escherichia coli [E. coli] as the cause of diseases classified elsewhere; B96.1 Klebsiella pneumoniae [K. pneumoniae] as the cause of diseases classified elsewhere; N18.30 Chronic kidney disease, stage 3 unspecified; D64.9 Anemia, unspecified; R19.7 Diarrhea, unspecified; S90.01XA Contusion of right ankle, initial encounter; X58.XXXA Exposure to other specified factors, initial encounter; Y93.9 Activity, unspecified; Y92.230 Patient room in hospital as the place of occurrence of the external cause
CPT/HCPCS: 36415; 71045; 71046; 73600; 74176; 74177; 76700; 80048; 80053; 80069; 81001; 82533; 82570; 83605; 83690; 83735; 84100; 84295; 84300; 84439; 84443; 84484; 85014; 85018; 85025; 85027; 85055; 85610; 85730; 87040; 87045; 87077; 87086; 87088; 87186; 87426; 87427; 93005; 96361; 96365; 96366; 96375; 97110; 97161; 97164; 97165; 97166; 97530; 97535; 99285; A9270; C9803; G0378; J0456; J0696; J1940; J2405; J7030; J7040; Q9967; U0003; U0005